=== PATIENT | female | born 1950 | race Caucasian/White ===

== ENCOUNTER → 2017-04-04 09:46 | Outpatient (POV) | payer SELFPAY | PROVIDERS: Visit Provider Physician Assistant | DX: Z00.00 Encounter for general adult medical examination without abnormal findings (principal) ==

== ENCOUNTER → 2020-01-22 09:15 | Outpatient (POV) | payer SELFPAY | PROVIDERS: Visit Provider Dermatology | DX: Z00.00 Encounter for general adult medical examination without abnormal findings (principal) ==

== ENCOUNTER → 2021-12-07 09:43 | Outpatient (CLI) | payer MEDICARE, SELFPAY ==
[2021-12-07 10:23] LABS: Basophils % 0.4 % (0.1-2.0); Hematocrit 37.2 % (37.0-47.0); Lymphocytes # 1.2 K/mm3 (0.7-4.5); Lymphocytes % 19.2 % (10-50); Mean Corpuscular HGB Conc 32.4 g/dL (31.8-35.4); Mean Corpuscular Hemoglobin 27.7 pg (27.0-31.2); Mean Corpuscular Volume 85.4 fl (81-99); Mean Platelet Volume 7.3 fl (7.4-10.4); Monocytes # 0.4 K/mm3 (0.1-1.0); Neutrophils # 4.7 K/mm3 (1.8-7.8); Neutrophils % 74.3 % (37.0-80.0); Platelet Count 338 K/mm3 (142-424); Red Blood Count 4.35 M/mm3 (4.20-5.40); Red Cell Distribution Width 15.2 % (11.5-17.5); White Blood Count 6.3 K/mm3 (4.8-10.8)
[2021-12-07 11:26] LABS: Alanine Aminotransferase 22 U/L (12-78); Albumin Level 4.3 g/dl (3.5-5.0); Alkaline Phosphatase 135 U/L (38-126); Anion Gap 14.4 mEq/L (5-15); Aspartate Amino Transferase 30 U/L (14-36); Blood Urea Nitrogen 20 mg/dl (7-17); Calcium 9.1 mg/dl (8.4-10.2); Carbon Dioxide 28 mmol/L (22.0-30.0); Chloride 98 mmol/L (98-107); Estimated Glomerular Filt Rate 82 ml/min (>60); GFR (African American) 100 ML/MIN (>60); Globulin 2.1 g/dL (1.3-3.2); Glucose 87 mg/dl (74-100); Potassium 4.4 mmoL/L (3.5-5.1); Sodium 136 mmol/L (136-145); Total Protein,Serum 6.4 g/dl (6.3-8.2)
[2021-12-07 11:27] LABS: Bilirubin,Total < 0.1 mg/dl (0.2-1.3)
[2021-12-07 11:56] LABS: Thyroid Stimulating Hormone 2.35 uIU/mL (0.465-4.68)
[2021-12-07 12:32] LABS: Vitamin B12 713 pg/mL (239-931)
[2021-12-07 12:46] LABS: Folate > 20.00 ng/mL
== END ==
PROVIDERS: PCP Family Medicine; Visit Provider Nurse Practitioner Family
DX: R25.1 Tremor, unspecified (principal); B35.1 Tinea unguium; I10 Essential (primary) hypertension
CPT/HCPCS: 36415; 80053; 82607; 82746; 84443; 85025

== ENCOUNTER → 2023-01-14 16:22 | Outpatient (CLI) | payer MEDICARE, SELFPAY ==
--- NOTE | 2023-01-14 16:27 | XR_ITS ---
PROCEDURE INFORMATION: Exam: XR Lumbosacral Spine Exam date and time: 01/14/2023 4:38 PM Age: 72 years old Clinical indication: Injury or trauma; Fall; Blunt trauma (contusions or hematomas); Additional info: Lower back pain TECHNIQUE: Imaging protocol: Radiologic exam of the lumbosacral spine. Views: 2 or 3 views. COMPARISON: No relevant prior studies available. FINDINGS: Bones/joints: No loss of vertebral body height. Mild levoscoliosis. Mild multilevel degenerative disc disease. Severe multilevel facet arthropathy. 4 mm of retrolisthesis of L1 over L2. 9 mm of grade 1 anterolisthesis of L4 over L5. Osteopenia. Soft tissues: Unremarkable. IMPRESSION: 1. No acute findings. 2. Mild multilevel degenerative disc disease and severe multilevel facet arthropathy.
--- NOTE | 2023-01-14 16:27 | XR_ITS ---
PROCEDURE INFORMATION: Exam: XR Sacrum and Coccyx, 2 or More Views Exam date and time: 01/14/2023 4:38 PM Age: 72 years old Clinical indication: Injury or trauma; Fall; Blunt trauma (contusions or hematomas); Additional info: Lower back pain TECHNIQUE: Imaging protocol: XR of the sacrum and coccyx, 2 or more views. COMPARISON: No relevant prior studies available. FINDINGS: Bones/joints: Normal. No acute fracture. Soft tissues: Normal. IMPRESSION: No acute findings.
== END ==
PROVIDERS: PCP Family Medicine; Visit Provider Family Medicine
DX: M54.50 Low back pain, unspecified (principal)
CPT/HCPCS: 72100; 72220

== ENCOUNTER → 2023-01-31 16:06 | Outpatient (CLI) | payer MEDICARE, SELFPAY ==
--- NOTE | 2023-01-31 16:11 | MR_ITS ---
FINAL REPORT CLINICAL HISTORY: ACUTE RIGHT SIDED LOW BACK PAIN WITHOUT SCIATICA. PAIN SINCE FALLING 1 MONTH AGO FINDINGS: Multiplanar MR imaging of the lumbar spine was performed without contrast. On the sagittal T2-weighted images, there is abnormal decreased signal throughout the lumbar discs. The vertebrae are of normal height. There is moderate loss of height at L1-2. There is minimal spondylolisthesis of L4 on 5. L1-2: Diffuse disc bulge and endplate hypertrophy are present. There is moderate right neural foraminal narrowing. L2-3: There is no significant canal stenosis or neural foraminal narrowing. L3-4: Mild diffuse disc bulge is present with endplate hypertrophy. There is mild bilateral neural foraminal narrowing. L4-5: Moderate diffuse disc bulge is present with bilateral facet hypertrophy. There is moderate spinal canal compromise. There is moderate to high-grade left and [id number] right neural foraminal narrowing. L5-S1: Mild diffuse disc bulge is present. There is no canal stenosis or neural foraminal narrowing. IMPRESSION: Multilevel degenerative disc disease with moderate spinal canal compromise and moderate to high-grade left neural foraminal narrowing at L4-5. Reviewed, Interpreted and Dictated by Grady Dumont MD Transcribed by Nichole Newton Authenticated and [facility]
== END ==
PROVIDERS: PCP Family Medicine; Visit Provider Physician Assistant
DX: M54.50 Low back pain, unspecified (principal)
CPT/HCPCS: 72148; 76376

== ENCOUNTER 2023-09-06 18:00 | Outpatient (CLI) | payer MEDICARE, SELFPAY | END 2023-09-06 23:59 | disposition home or self-care (01) | LOC: LAB.DROPOF 09-07 12:37 | PROVIDERS: PCP Student in an Organized Health Care Education/Training Program; Visit Provider Student in an Organized Health Care Education/Training Program | DX: N39.0 Urinary tract infection, site not specified (principal); B96.1 Klebsiella pneumoniae [K. pneumoniae] as the cause of diseases classified elsewhere | CPT/HCPCS: 87086; 87088; 87186 ==

== ENCOUNTER 2024-01-27 11:19 | Outpatient (CLI) | payer MEDICARE, SELFPAY ==
--- NOTE | 2024-01-27 11:26 | CA_ITS ---
FINAL REPORT TECHNIQUE: Ultrasound images of the deep venous system were obtained from the left groin to the calf veins. CLINICAL HISTORY: Left Leg swelling x 2 days, S/p fall 1 week ago FINDINGS: The deep venous system is normally compressible. Normal flow is identified. IMPRESSION: No evidence of left lower extremity DVT. Reviewed, Interpreted and Dictated by Warren Clayton III, MD Transcribed by Trinity Magana Authenticated and [facility]
== END 2024-01-27 23:59 | disposition home or self-care (01) ==
LOC: RT 11:24
PROVIDERS: PCP Physician Assistant; Visit Provider Physician Assistant
DX: R60.0 Localized edema (principal)
CPT/HCPCS: 93971

== ENCOUNTER 2024-02-21 10:52 | Outpatient (CLI) | payer MEDICARE, SELFPAY ==
--- OUTSIDE RECORDS SUMMARY | 2024-02-21 10:54 | XMS_ITS ---
Author Organization [facility] Address [address] [facility] [address] [place] [id number] Care Team Providers Care Shellfish Processing Machine Tender Name Role Phone James Sousa Unavailable [phone] Kathryn Perez Unavailable [phone] ALLERGIES No Known Allergies RESULTS Component Value Reference Range Notes Urinalysis - Inhouse Reviewed date:02/07/2024 03:39:09 PM Interpretation: Performing Lab: Notes/Report: Color/Clarity yellow/cloudy Leuk 3+ Nitrite neg Urobili 3.2 Protein 1+ pH 6.0 Blood 2+ Sp. Gr. 1.010 Ketone neg Bili neg Gluc neg bacteria WBC RBC P-Culture, Urine Reviewed date:02/09/2024 10:07:22 AM Interpretation:No growth Performing Lab: Notes/Report: Test performed by [facility], [facility] [address] [place] [address] , [address], [place] [address] Gustavo Flores MD, Technical Professional CLIA: [id number] Specimen Source Urine - Void Culture, Urine See Below Final Report : No growth REASON FOR VISIT possible UTI MEDICATIONS Medication SIG (Take, Route, Frequency, Duration) Notes Start Date End Date Status lamoTRIgine 200 MG 1 tab(s) orally once a day Active Venlafaxine HCl ER 150 MG 1 cap(s) orally once a day Active QUEtiapine Fumarate 100 MG 1 tab(s) orally once daily Active Compression Stockings medium compression As needed 01/27/2024 Active Calcium 500 MG 1 TAB TID *Please review a nd pick correct strength-formulatio n from Iptunean options. If intended option is not shown, discontinue and re-order from Quick Search* Active Macrobid 100 MG 1 capsule with food Orally every 12 hrs for 5 day(s) 02/07/2024 Active Lisinopril 10 MG 1 tab(s) orally once a day for 90 days Active Rosuvastatin Calcium 20 MG 1 tab(s) orally once a day for 90 days Active Solifenacin Succinate 10 MG 1 tab(s) orally once a day for 90 days Active VITAL SIGNS Weight 159.2 lbs 02/07/2024 Blood pressure systolic 120 mm Hg 02/07/20 24 Blood pressure diastolic 68 mm Hg 024 Heart Rate 71 /min 02/07/2024 Height 69.5 in 02/07/2024 BMI 23.17 kg/m2 02/07/2024 Encounters Encounter Location Date Provider Diagnosis [facility] [address] [id number] 02/07/2024 Kathryn Perez UTI (lower urinary tract infection) N39.0 ASSESSMENTS Encounter Date Diagnosis Assessment Notes Treatment Notes Treatment Clinical Notes 02/07/2024 UTI (lower urinary tract infection) (ICD-10 - N39.0) good water intake PLAN OF TREATMENT Medication Medication Name Sig Start Date Stop Date Notes Macrobid 100 MG 1 capsule with food Orally every 12 hrs for 5 day(s) 02/07/2024 Treatment Notes Assessment Notes UTI (lower urinary tract infection) good water intake Next Appt Details Follow Up: prn, Reason: Progress Notes * Examination Category Sub-Category Detail Notes General Examination Heart: RRR Lungs: CTAB A&P Abdomen: bowel sounds present soft and nontender no CVA tenderness General Appearance: NAD appears healthy alert pleasant Neurologic Exam: alert and oriented History and Physical Notes * HPI (History of Present Illness) Category Sub-Category Detail Notes Urology frequent urination burning sensation flank pain suprapubic pain hematuria fever
--- OUTSIDE RECORDS SUMMARY | 2024-02-21 10:54 | XMS_ITS ---
Author Organization [facility] Address [address] [place] [id number] Care Team Providers Care Shipper And Receiving Name Role Phone James Sousa Unavailable [phone] Shayla Mitchell Unavailable [phone] ALLERGIES No Known Allergies RESULTS Component Value Reference Range Notes Urinalysis - Inhouse Reviewed date:02/17/2024 01:48:42 PM Interpretation: Performing Lab: Notes/Report: Color/Clarity yellow cloudy Leuk 3+ Nitrite neg Urobili 3.2 Protein 3+ pH 6.0 Blood 2+ Sp. Gr. 1.020 Ketone neg Bili neg Gluc neg bacteria WBC RBC P-Culture, Urine Reviewed date:02/20/2024 08:46:42 AM Interpretation:intermediate Performing Lab: Notes/Report: Test performed by [facility], [employer] [address] [place] [address] , [address], [place] [address] Gustavo Flores MD, Home Care Companion CLIA: [id number] Specimen Source Urine - Void Culture, Urine See Below See Microbiol ogy Report Klebsiella pneumoniae 10-15,000 CFU/ML Klebsiella pneumoniae Sensitivity Panel See Below _ Organism K.pneum Antibiotic INTERP _ Amikacin S Ampicillin R Aztreonam S Cefepime S Cefoxitin S Ceftazidime S Ceftriaxone S Cefuroxime S Ciprofloxacin S Ertapenem S Gentamicin S Imipenem S Levofloxacin S Meropenem S Nitrofurantoin I Piperacillin/Tazo S Tetracycline S Tobramycin S Trimeth/Sulfa S S=SUSCEPTIBLE I=INTERMEDIATE R=RESISTANT REASON FOR VISIT possible UTI MEDICATIONS Medication SIG (Take, Route, Frequency, Duration) Notes Start Date End Date Status Compression Stockings medium compression As needed 01/27/2024 Active Macrobid 100 MG 1 capsule with food Orally every 12 hrs for 5 day(s) 02/07/2024 Active Macrobid 100 MG 1 capsule with food Orally every 12 hrs for 7 days 02/17/2024 Active Lisinopril 10 MG 1 tab(s) orally once a day for 90 days Active Rosuvastatin Calcium 20 MG 1 tab(s) orally once a day for 90 days Active Calcium 500 MG 1 TAB TID *Please review a nd pick correct strength-formulatio n from Medispan options. If intended option is not shown, discontinue and re-order from Quick Search* Active lamoTRIgine 200 MG 1 tab(s) orally once a day Active Venlafaxine HCl ER 150 MG 1 cap(s) orally once a day Active QUEtiapine Fumarate 100 MG 1 tab(s) orally once daily Active Solifenacin Succinate 10 MG 1 tab(s) orally once a day for 90 days Active VITAL SIGNS Weight 154.4 lbs 02/17/2024 Blood pressure systolic 110 mm Hg 02/17/20 24 Blood pressure diastolic 80 mm Hg 024 Height 69.5 in 02/17/2024 BMI 22.47 kg/m2 02/17/2024 Encounters Encounter Location Date Provider Diagnosis [facility] [address] [facility] [address] [place] [id number] 02/17/2024 Shayla Spencergeoff Dysuria R30.0 ASSESSMENTS Encounter Date Diagnosis Assessment Notes Treatment Notes Treatment Clinical Notes 02/17/2024 Dysuria (ICD-10 - R30.0) PLAN OF TREATMENT Medication Medication Name Sig Start Date Stop Date Notes Macrobid 100 MG 1 capsule with food Orally every 12 hrs for 7 days 02/17/2024 Next Appt Details Follow Up: via phone to repo rt test results, Reason: Progress Notes * Examination Category Sub-Category Detail Notes General Examination Heart: RSR Lungs: clear to auscultatio n Abdomen: bowel sounds present , soft and nontender General Appearance: NAD Back: no CVA tenderness Chest: normal shape and exp ansion History and Physical Notes * HPI (History of Present Illness) Category Sub-Category Detail Notes Urology frequent urination burning sensation
--- OUTSIDE RECORDS SUMMARY | 2024-02-21 10:54 | XMS_ITS ---
Author Organization [facility] Address [address] [facility] [address] [place] [id number] Care Team Providers Care Hand Candy Dipper Name Role Phone James Sousa Unavailable [phone] Shayla Mitchell Unavailable [phone] REASON FOR VISIT abnormal urine culture MEDICATIONS Medication SIG (Take, Route, Fr equency, Duration) Notes Start Date End Date Status Bactrim DS 800-160 MG 1 tablet Orally Tw o times a day for 10 day(s) 02/20/2024 Active Encounters Encounter Location Date Provider Diagnosis [facility] [address] [facility] [address] [place] [id number] 02/20/2024 Shayla Mitchell UTI (lower urinary tract infection) N39.0 ASSESSMENTS Encounter Date Diagnosis Assessment Notes Treatment Notes Treatment Clinical Notes 02/20/2024 UTI (lower urinary tract infection) (ICD-10 - N39.0) PLAN OF TREATMENT Medication Medication Name Sig Start Date Stop Date Notes Macrobid 100 MG 1 capsule with food Orally every 12 hrs 02/07/2024 Bactrim DS 800-160 MG 1 tablet Orally Tw o times a day for 10 day(s) 02/20/2024
--- OUTSIDE RECORDS SUMMARY | 2024-02-21 10:55 | XMS_ITS | Encounter Summary ---
Author Organization [facility] Address [address] [place] [address] Care Team Providers Care Buffing Wheel Presser Name Role Phone Ramon Mckeon Primary Care Provider Source Comments This information has been disclosed to you from confidential records protectfrom disclosure by state law. You shall make no further disclosure of thisinformation without the specific, written, and informed release of theindividual to whom it pertains, or as otherwise permitted by law. A generalauthorization for the release of medical or other information is not sufficientfor the purposes of the release of HIV test results or diagnoses. [id number] Health Encounter Details Date Type Department Care Team (Late st Contact Info) Description 10/31/2019 9:00 AM EDT Office Visit [facility] Psychiatry at [address] [place] [id number] Yazmin Mccarty, PAT Major depression in remission (CMS-HCC) (Primary Dx); Depression, unspecified depression type; DARRYN (generalized anxiety disorder) Social History Tobacco Use Types Packs/Day Years Used Date Smoking Tobacco: Never Smokeless Tobacco: Never Alcohol Use Standard Drinks/Week Comments Not Asked 0 (1 standard drink = 0.6 oz pur e alcohol) PHQ-2 Answer Date Recorded PHQ-2 Score 6 01/03/2019 Comments No Sex and Gender Information Value Date Recorded Sex Assigned at Female 10/29/2019 5:01 PM EDT Legal Sex Female 10:29 AM EDT Gender Identity Female 10/29/2019 5:01 PM EDT Sexual Orientation Straight 10/29/2019 5: 01 PM EDT COVID-19 Exposure Response Date Recorded In the last month, have you been in contact with someone who was confirmed or suspected to have Coronavirus / COVID-19? No / Unsure 10/30/2019 8:46 AM EDT documented as of this encounter Plan of Treatment Not on file documented as of this encounter Visit Diagnoses Diagnosis Major depression in remission (CMS-HCC)- Primary Major depressive disorder, single episode in full remission Depression, unspecified depression type DARRYN (generalized anxiety disorder) Generalized anxiety disorder documented in this encounter Additional Health Concerns Assessment Noted Time PHQ-9 Depression Total Score: 18 09/04/2 019 3:16 PM EDT documented as of this encounter Care Teams Buffing Wheel Presser Relationship Specialty Start Date End Date Ramon Mckeon [address] [place] [address] PCP - General 08/12/15 documented as of this encounter
--- OUTSIDE RECORDS SUMMARY | 2024-02-21 10:55 | XMS_ITS | Encounter Summary ---
Author Organization [facility] [place] [address] Care Team Providers Care Pupil Personnel Services Director Name Role Phone James Sousa Primary Care Provider [phone] Encounter Details Date Type Department Care Team (Latest Contact Info) Description 07/12/2022 Travel Social History Tobacco Use Types Packs/Day Years Used Date Smoking Tobacco: Never Passive Smoke Exposure: Never Smokeless Tobacco: Never Alcohol Use Standard Drinks/Week Comments Never 0 (1 standard drink = 0.6 oz pur e alcohol) Comments Unknown Sex and Gender Information Value Date Recorded Sex Assigned at Not on file Legal Sex Female 11:12 AM EST Gender Identity Not on file Sexual Orientation Not on file COVID-19 Exposure Response Date Recorded In the last 10 days, have yo u been in contact with someone who was confirmed or suspected to have Coronavirus/COVID-19? No / Unsure 07/12/2022 9:09 PM EDT documented as of this encounter Plan of Treatment Not on file documented as of this encounter Visit Diagnoses Not on filedocumented in this encounter Care Teams Pupil Personnel Services Director Relationship Specialty Start Date End Date James Sousa Replaced by [facility] [place] [facility] [address] [place] [address] PCP - General Family Medicine 05/24/22 documented as of this encounter
--- OUTSIDE RECORDS SUMMARY | 2024-02-21 10:55 | XMS_ITS | Encounter Summary ---
Author Organization [facility] Address [address] [place] [address] Care Team Providers Care Automation Test Engineer Name Role Phone James Sousa Primary Care Provider [phone] Reason for Visit * Reason Comments Pain Encounter Details Date Type Department Care Team (Late st Contact Info) Description 05/24/2022 1:00 PM EST Office Visit [facility] [address] [place] [address] Tru Costa MD [address] [place], [place] [phone] Left wrist pain (Primary Dx); Scapholunate advanced collapse of left wrist Social History Tobacco Use Types Packs/Day Years [...] on file Sexual Orientation Not on file documented as of this encounter Last Filed Vital Signs Vital Sign Reading Time Taken Comments Blood Pressure - - Pulse - - Temperature - - Respiratory Rate - - Oxygen Saturation - - Inhaled Oxygen Concentration - - Weight 77.1 kg (170 lb) 05/24/2022 1:03 PM EST Height 175.3 cm (5' 9 ) 05/24/2022 1:03 PM EST Body Mass Index 25.1 05/24/2022 1:03 PM EST documented in this encounter Progress Notes * Tru Costa MD - 05/24/2022 1:00 PM EST Images from the original note were not included. Chief Complaint Pain of the Left Hand History of Present Illness: Chary Chandra is a 71 y.o. female. She presents today for a new hand surgery specialty evaluation regarding her left wrist. She states that she has had a longstanding prominence which seems to have increased in intensity over the last few months. She does not remember a recent injury. 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 Medical History: Patients past medical, family and social histories were reviewed and updated. There were no changesexcept as noted. Review of Systems Pertinent items are noted in HPI Denies fever, chills, confusion, bowel/bladder active change.of systems reviewed from Patient History Form and available in the patient's chart under the Media tab. Vital Signs There were no vitals filed for this visit. General Exam: Constitutional: Patient is adequately groomed with no evidence of malnutrition Mental Status: The patient is oriented to time, place and person. The patient's mood and affect areappropriate. Lymphatic: The lymphatic examination bilaterally reveals allareas to be without enlargement or induration. Neurological: The patient has good coordination. There is no weakness or sensory deficit. Wrist Examination Inspection: There is an obvious fullness over the dorsal radial left wrist which is not present on the opposite right side. Palpation: There is no dramatic warmth but there is tenderness if I palpate very firmly along the radius scaphoid articulation. Range of Motion: Full range of motion of fingers and thumb. Wrist extension is limited to approximately 10 degrees but palmar flexion is 40 degrees. Strength: No focal weakness Special Tests: Modified Colunga's maneuver is nontender and there is no dramatic acute laxity Skin: There are no additional worrisome rashes, ulcerations or lesions. Sensation: normal Circulation normal Additional Comments: Additional Examinations: Opposite Upper Extremity: normal skin, tone, ROM, strength, perfusion, sensation Radiology: X-rays obtained and reviewed in office: Views 3 views Location left wrist Impression x-rays demonstrate advanced scapholunate advanced collapse with involvement at the radius scaphoid articulation, capitate and lunate articulation, and with arthritic change along the proximal articulation of the capitate. Diagnostic Test Findings: Assessment: [facility] left wrist Impression: Encounter Diagnoses Name Primary? Left wrist pain Yes ??? Scapholunate advanced collapse of left wrist Office Procedures: Orders Placed This Encounter Procedures ??? XR WRIST LEFT 3V MIN Standing Status: Future Number of Occurrences: 1 Standing Expiration Date: 05/25/2023 Order Specific Question: Release to Patient Answer: Immediate ??? AL WHO WRIST EXTENSION CONTROL NON MOLDED This patient has been prescribed a Titan Wrist Brace which is designed to provide immobilization and support of the left wrist and forearm following an injury, fracture and/or surgery. The patient prescribed to wear this splint for all ADLs following an injury or surgery to prevent further damage to the injured or surgically repaired site. Patient is to wear the brace as prescribed until next patient visit. Verbal and written instructions for the use and application of this item were given. Patient was instructed that should the brace result in increased pain, decreased sensation, increased swelling or an overall worsening of their medical condition, to please contact our office immediately. Treatment Plan: Together we discussed the diagnosis and the realities with her advanced collapse and arthritis. We talked about conservative and surgical options. I think this warrants an initial conservative approach we will provide her with a wrist brace to see if this would be more comfortable than a brace that she has at home. In addition, we talked about topical medicines and positional and activity modifications to minimize repeated aggravation to the wrist. Down the road if she had a flareup a cortisone injection could always be considered, but ultimatelyI believe that the end result if she fails conservative care would be a wrist arthrodesis. I will be happy to see her back if we fail to have significant long-term relief within reason. Please note that this obstetrics technician was created using voice recognition software. Any errors are unintentional and may be due to voice recognition obstetrics technician. DME Summary Normal Orders This Visit AL WHO WRIST EXTENSION CONTROL NON MOLDED [[id number] [facility]] Order #: [id number] This patient has been prescribed a Titan Wrist Brace which is designed to provide immobilization and support of the left wrist and forearm following an injury, fracture and/or surgery. The patient prescribed to wear this splint for all ADLs following an injury or surgery to prevent further damage to the injured or surgically repaired site. Patient is to wear the brace as prescribed until next patient visit. Verbal and written instructions for the use and application of this item were given. Patient was instructed that should the brace result in increased pain, decreased sensation, increased swelling or an overall worsening of their medical condition, to please contact our office immediately. documented in this encounter Plan of Treatment Scheduled Orders Name Type Priority Associated Diagnoses Orde r Schedule AL WHO WRIST EXTENSION CONTROL NON MOLDED AL Charge Routine Scapholunate advanced collapse of left wrist Ordered: 05/24/2022 documented as of this encounter Results * XR WRIST LEFT PA LATERAL AND OBLIQUE (05/24/2022 1:14 PM EST) Narrative Genericuser, Jennifer - 05/24/2022 1:14 PM EST Please see physician's note from office encounter for x-ray imaging result Tru Costa MD IMG DIAGNOSTIC IMAGING ORDERAB LES Final Result documented in this encounter Visit Diagnoses Diagnosis Left wrist pain- Primary Pain in joint, forearm Scapholunate advanced collapse of left wrist Left wrist pain Pain in joint, forearm documented in this encounter Care Teams Automation Test Engineer Relationship Specialty Start Date End Date James Sousa [address] [place] [address] [address] [place] [address] PCP - General Family Medicine 05/24/22 documented as of this encounter
--- OUTSIDE RECORDS SUMMARY | 2024-02-21 10:55 | XMS_ITS | Encounter Summary ---
Author Organization [facility] Address [address] [place] [address] Care Team Providers Care Staff Cytotechnologist Name Role Phone Ramon Mckeon Primary Care Provider [phone] Source Comments This information has been disclosed [...] release of HIV test results or diagnoses. [id number] Encounter Details Date Type Department Care Team (Latest Contact Info) Description 10/30/2019 Travel Social History Tobacco Use Types Packs/Day [...] Diagnoses Not on filedocumented in this encounter Additional Health Concerns Assessment Noted Time PHQ-9 Depression Total Score: 18 09/04/2 019 3:16 PM EDT documented as of this encounter Care Teams Staff Cytotechnologist Relationship Specialty Start Date End Date Ramon Mckeon [address] [place] [address] PCP - General 08/12/15 documented as of this encounter
--- OUTSIDE RECORDS SUMMARY | 2024-02-21 10:55 | XMS_ITS | Encounter Summary ---
Author Organization [facility] Address [address] [place] [address] Care Team Providers Care Radiology Physician Name Role Phone Ramon Mckeon Primary Care Provider [phone] Source Comments This information has been disclosed [...] release of HIV test results or diagnoses. [id number] Health Reason for Visit * Reason Comments Medication Refill Encounter Details Date Type Department Care Team ([facility] Contact Info) Description 06/07/2020 Refill [facility] Psychiatry at [address] [place] [address] Yazmin Mccarty, PAT Social History Tobacco Use Types Packs/Day Years [...] have Coronavirus / COVID-19? No / Unsure 05/27/2020 3:13 PM EST documented as of this encounter Plan of Treatment Not on file documented as of this encounter Visit Diagnoses Not on filedocumented in this encounter Additional Health Concerns Assessment Noted Time PHQ-9 Depression Total Score: 18 019 3:16 PM EDT documented as of this encounter Care Teams Radiology Physician Relationship Specialty Start Date End Date Ramon Mckeon [address] [place] [address] PCP - General 08/12/15 documented as of this encounter
--- OUTSIDE RECORDS SUMMARY | 2024-02-21 10:55 | XMS_ITS | Clinical Summary ---
Author Organization [facility] Address [address] [place] [address] Care Team Providers Care Diaper Folder Name Role Phone Ramon Mckeon Primary Care Provider [phone] Source Comments This information has been disclosed to you from confidential records protectedfrom disclosure by state law. You shall make no further disclosure of thisinformation without the specific, written, and informed release of theindividual to whom it pertains, or as otherwise permitted by law. A generalauthorization for the release of medical or other information is not sufficientfor the purposes of therelease of HIV test results or diagnoses. [id number] Allergies No known active allergies Medications * This document contains information received from the source organization and may not represent a complete record from that organization. lovastatin (MEVACOR) 20 MG tablet 10/04/2015 Active lisinopril (PRINIVIL,ZESTRI L) 10 MG tablet 07/21/2016 Act stevo lamoTRIgine (LAMICTAL) 200 MG tablet TAKE 1 TABLET AT BEDTIME 90 tablet 1 05/30/2020 Active QUEtiapine (SEROQUEL) 100 MG tablet TAKE 1 TABLET (100 MG TOTAL) BY MOUTH AT BEDTIME. 90 tablet 1 06/09/2020 Active venlafaxine (EFFEXOR-XR) 150 MG 24 hr capsuleIndicatio ns:Depression, unspecified depression type TAKE 1 CAPSULE (150 MG TOTAL) BY MOUTH DAILY. 90 capsule 1 10/02/2020 Active Active Problems Problem Noted Date Diagnosed Date Depression Social History Tobacco Use Types Packs/Day Years [...] Orientation Straight 10/29/2019 5: 01 PM EDT Last Filed Vital Signs Vital Sign Reading Time Taken Comments Blood Pressure 122/69 05/27/2020 3:13 PM EST Pulse 75 05/27/2020 3:13 PM EST Temperature 36.1 ??C (97 ??F) 05/27/2020 3:13 PM EST Respiratory Rate - - Oxygen Saturation - - Inhaled Oxygen Concentration - - Weight 78 kg (172 lb) 05/27/2020 3:13 PM EST Height 175.3 cm (5' 9 ) 05/27/2020 3:13 PM EST Body Mass Index 25.4 05/27/2020 3:13 PM EST Plan of Treatment Not on file Insurance [employer] [facility] [employer] PPO MEDICARE Care Teams Diaper Folder Relationship Specialty Start Date End Date Ramon Mckeon [address] [place] [address] PCP - General 08/12/15
--- OUTSIDE RECORDS SUMMARY | 2024-02-21 10:55 | XMS_ITS | Encounter Summary ---
Author Organization [facility] Address [address] [place] [address] Care Team Providers Care Police Sergeant Name Role Phone Ramon Mckeon Primary Care Provider [phone] Source Comments This information has been disclosed [...] release of HIV test results or diagnoses. [id number] Health Reason for Visit * Reason Comments Follow-up Encounter Details Date Type Department Care Team ([facility] Contact Info) Description 07/25/2019 9:30 AM EDT Office Visit [facility] Psychiatry at [address] [place] [id number] Yazmin Mccarty, PAT Major depression in remission [...] have Coronavirus / COVID-19? No / Unsure 07/24/2019 10:18 AM EDT documented as of this encounter Last Filed Vital Signs Vital Sign Reading Time Taken Comments Blood Pressure - - Pulse - - Temperature - - Respiratory Rate - - Oxygen Saturation - - Inhaled Oxygen Concentration - - Weight - - Height 175.3 cm (5' 9 ) 07/24/2019 10:17 AM EDT Body Mass Index - - documented in this encounter Plan of Treatment Not on file documented as of this encounter Visit Diagnoses Diagnosis Major depression in remission ([facility])- Primary Major depressive disorder, single episode in full remission Depression, unspecified depression type DARRYN (generalized anxiety disorder) Generalized anxiety disorder documented in this encounter Additional Health Concerns Assessment Noted Time PHQ-9 Depression Total Score: 18 09/04/2 019 3:16 PM EDT documented as of this encounter Care Teams Police Sergeant Relationship Specialty Start Date End Date Ramon Mckeon [address] [place] [address] PCP - General 08/12/15 documented as of this encounter
--- OUTSIDE RECORDS SUMMARY | 2024-02-21 10:55 | XMS_ITS | Patient Health Record ---
[facility] Address [address] [facility] [address] [place] [id number] Care Team Providers Care Contracting Engineer Name Role Phone LarsJames Unavailable [phone] PerezzEequielKathryn Unavailable [phone] Shayla Mitchell Unavailable [phone] ALLERGIES No Known Allergies RESULTS Component Value Reference Range Notes CBC Venipuncture (in house) Reviewed date:07/15/2023 01:34:21 PM Interpretation: Performing Lab: Notes/Report: wbc 6.3 3.5 - 10 lymph 17.0 15 - 50 mid 6.0 2 - 15 gran 77.0 35 - 80 rbc 4.71 3.5 - 5.5 hgb 13.2 11.5 - 16.5 hct 40.3 35 - 55 mcv 85.6 75 - 100 mch 28.1 25 - 35 mchc 32.9 31 - 38 platlet 236 100 - 400 P-Comprehensive Metabolic Pa radha (CMP) Reviewed date:07/19/2023 10:35:02 AM Interpretation:a/g Ratio 3.0 Performing Lab: Notes/Report: Test performed by [facility], [facility] , [address], [place] [address] Gustavo Flores MD, Knotter CLIA: [id number] Sodium 142 135-145 mEq/L Potassium 4.2 3.5-5.3 mEq/L Chloride 104 97-108 mEq/L CO2 23 22-32 mEq/L Glucose 86 65-99 mg/dL BUN 17 8-23 mg/dL Creatinine 0.96 0.50-1.00 mg/dL Calcium 10.2 8.6-10.4 mg/dL eGFR by Creatinine 62 >59 mL/min/1.73m2 Protein 6.8 6.0-8.3 g/dL Albumin 5.1 3.5-5.3 g/dL Alkaline Phosphatase 101 35-121 IU/L ALT (SGPT) 15 <5-47 IU/L AST (SGOT) 26 <5-40 IU/L Bilirubin, Total 0.3 <0.2-1.2 mg/dL A/G Ratio 3.0 1.1-2.5 mg/dL P-Lipid Panel Reviewed date:07/19/2023 10:35:02 AM Interpretation:Normal Performing Lab: Notes/Report: Test performed by [facility], [address] , [address], [place] [address] Gustavo Flores MD, Knotter CLIA: [id number] Cholesterol 185 <200 mg/dL Triglycerides 76 <150 mg/dL HDL Cholesterol 90 >39 mg/dL Cholesterol / HDL Ratio 2.06 0.00-4.44 Ratio Non-HDL Cholesterol 95 <130 mg/dL LDL Cholesterol (Calculation) 80 <130 mg/dL LDL Cholesterol Levels* Less than 100 mg/dL Optimal 100 to 129 mg/dL Near Optimal/ Above Optimal 130 to 159 mg/dL Borderline High 160 to 189 mg/dL High 190 mg/dL and above Very High * Categories as recommended by the 2004 ATPIII guidelines LDL/HDL Ratio 0.9 <3.3 Ratio LDL Cholesterol Patient History Test Date: 07/16/2022 LDL Results: 95 Units: mg/dL % Change: - ------- Test Date: 07/15/2023 LDL Results: 80 Units: mg/dL % Change: -15% P-TSH reflex to FT4 Reviewed date:07/19/2023 10:35:02 AM Interpretation:Normal Performing Lab: Notes/Report: Test performed by [facility] [address] [place], [place] [address] , [address], [place] [address] Gustavo Flores MD, Knotter CLIA: [id number] TSH reflex to FT4 2.46 0.43-5.25 mU/L TEN-stool panel Reviewed date:12/14/2023 03:38:21 PM Interpretation:Negative Performing Lab: Notes/Report: Negative Urinalysis - Inhouse Reviewed date:02/07/2024 03:39:09 PM Interpretation: Performing Lab: Notes/Report: Color/Clarity yellow/cloudy Leuk 3+ Nitrite neg Urobili 3.2 Protein 1+ pH 6.0 Blood 2+ Sp. Gr. 1.010 Ketone neg Bili neg Gluc neg bacteria WBC RBC P-Culture, Urine Reviewed date:02/09/2024 10:07:22 AM Interpretation:No growth Performing Lab: Notes/Report: Test performed by [employer] [employer] [address] [place] [address] , [address], [place] [address] Gustavo Flores MD, Knotter CLIA: [id number] Specimen Source Urine - Void Culture, Urine See Below Final Report : No growth Urinalysis - Inhouse Reviewed date:02/17/2024 01:48:42 PM Interpretation: Performing Lab: Notes/Report: Color/Clarity yellow cloudy Leuk 3+ Nitrite neg Urobili 3.2 Protein 3+ pH 6.0 Blood 2+ Sp. Gr. 1.020 Ketone neg Bili neg Gluc neg bacteria WBC RBC P-Culture, Urine Reviewed date:02/20/2024 08:46:42 AM Interpretation:intermediate Performing Lab: Notes/Report: Test performed by [facility], [address] , [address], [place] [address] Gustavo Flores MD, Knotter CLIA: [id number] Specimen Source Urine - Void Culture, Urine See Below See Microbiol ogy Report Klebsiella pneumoniae 10-15,000 CFU/ML Klebsiella pneumoniae Sensitivity Panel See Below Organism K.pneum Antibiotic INTERP Amikacin S Ampicillin R Aztreonam S Cefepime S Cefoxitin S Ceftazidime S Ceftriaxone S Cefuroxime S Ciprofloxacin S Ertapenem S Gentamicin S Imipenem S Levofloxacin S Meropenem S Nitrofurantoin I Piperacillin/Tazo S Tetracycline S Tobramycin S Trimeth/Sulfa S S=SUSCEPTIBLE I=INTERMEDIATE R=RESISTANT REASON FOR REFERRAL Diagnosis 1 Female bladder prola pse (N81.10) Referral Organization [facility] Referring Provider First Name Shayla Referring Provider Last Name Stephen Referring Provider Speciality Physician Fire Support Specialist General Notes Melissa Duenas 10/05/19 24 10:40:09 AM > sent referral to [facility] Dr. Chavez via web Referral Priority Routine Diagnosis 1 Chronic diarrhea (K5 2.9) Referral Organization [facility] Referring Provider First Name James Navarrete Referring Provider Last Name Lars Referring Provider Speciality Family Mary glass Referred Provider Specialty Gastroentero logy General Notes Melissa Duenas 024 9:32:04 AM > faxed referral with office notes to Dr. Aragon Referral Priority Routine MEDICATIONS Medication SIG (Take, Route, Frequency, Duration) Notes Start Date End Date Status Compression Stockings medium compression As needed 01/27/2024 Active Bactrim DS 800-160 MG 1 tablet Orally Two times a day for 10 day(s) 02/20/2024 Active Calcium 500 MG 1 TAB TID *Please review a nd pick correct strength-formulatio n from [employer] options. If intended option is not shown, discontinue and re-order from Quick Search* Active lamoTRIgine 200 MG 1 tab(s) orally once a day Active Venlafaxine HCl ER 150 MG 1 cap(s) orally once a day Active QUEtiapine Fumarate 100 MG 1 tab(s) orally once daily Active Macrobid 100 MG 1 capsule with food Orally every 12 hrs for 7 days 02/17/2024 Active Lisinopril 10 MG 1 tab(s) orally once a day for 90 days Active Rosuvastatin Calcium 20 MG 1 tab(s) orally once a day for 90 days Active Solifenacin Succinate 10 MG 1 tab(s) orally once a day for 90 days Active IMMUNIZATIONS Vaccine Route Administration Date Status Comme nts COVID 19 Dinh Unknown 06/25/2020 Administered Prevnar (PCV20) IM Intramuscular 07/15/2023 Administered SOCIAL HISTORY Sex Assigned At : Social History Observation Description Sex Assigned At Unknown PROBLEMS Problem Type ICD Code Onset Dates Problem Status W/U Status Risk SNOMED Code Notes Problem Lumbar facet arthropathy (M47.816) Active confirmed 068268858 Problem Depression with anxiety (F41.8) Active confirmed Mixed anxiet y and depressive disorder (953858103) Problem Overflow incontinence (N39.490) Active confirmed 412204633 Problem Dyslipidemia (E78.5) Active confirmed Dyslipidemia (959656732) Problem Female bladder prolapse (N81.10) Active confirmed 982252628 Problem Primary hypertension (I10) Active confirmed 89231451 Problem 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) Active confirmed 188403348 VITAL SIGNS Heart Rate 71 /min 02/07/2024 Blood pressure diastolic 80 mm Hg 02/17/2024 Height 69.5 in 02/17/2024 Blood pressure systolic 110 mm Hg 02/17/2024 Weight 154.4 lbs 02/17/2024 BMI 22.47 kg/m2 02/17/2024 Encounters Encounter Location Date Provider Diagnosis [facility] [address] [place], [place] [id number] 07/15/2023 Shayla Stephen Adult general medica l examination Z00.00 ; Dyslipidemia E78.5 ; Primary hypertension I10 ; Depression with anxiety F41.8 ; Benign familial tremor G25.0 ; Colon cancer screening Z12.11 ; Lumbar facet arthropathy M47.816 ; Overflow incontinence N39.490 and BMI 24.0-24.9, adult Z68.24 [facility] [address] [place], [place] [id number] 07/19/2023 Shayla Crowdy [facility] [address] [facility] [address] [place], [place] [id number] 10/03/2023 Shayla Stephen Female bladder prolapse N81.10 [facility] [address] [facility] [address] [place] [id number] 10/05/2023 Shayla Crowdy [facility] [address] [facility] [address] [place] [id number] 12/07/2023 Shayla Tjdy Chronic diarrhea K52 .9 and Bloating R14.0 [facility] [address] [facility] [address] [place] [id number] 12/08/2023 Shayla Crowdy [facility] [address] [facility] [address] [place] [id number] 12/14/2023 Shayla Crowdy [facility] [address] [facility] [address] [place] [id number] 01/09/2024 R Landon Sousa Chronic diarrhea K52 .9 and Bloating R14.0 [facility] [address] [facility] [address] [place] [id number] 01/27/2024 Shayla Crowdy Edema of left lower extremity R60.0 [facility] [address] [facility] [address] [place] [id number] 01/27/2024 Shayla Crowdy [facility] [facility] [address] [place] [id number] 02/07/2024 Kathryn Perez UTI (lower urinary tract infection) N39.0 [facility] [address] [facility] [address] [place] [id number] 02/17/2024 Shayla Crowdy Dysuria R30.0 [facility] [address] [facility] [address] [place] [id number] 02/20/2024 Shayla Crowdy UTI (lower urinary tract infection) N39.0 ASSESSMENTS Encounter Date Diagnosis Assessment Notes Treatment Notes Treatment Clinical Notes 07/15/2023 Dyslipidemia (ICD-10 - E78.5) 07/15/2023 Adult general medical examination (ICD-10 - Z00.00) Patient instructed to return to office Annually for Annual Wellness Visits to include annual screenings of Pain assessment, Functional Ability assessment, Cognitive Ability assessment, Fall Risk assessment, Depression screening and Bladder control screening. 10/03/2023 Female bladder prolapse (ICD-10 - N81.10) 12/07/2023 Bloating (ICD-10 - R14.0) 12/07/2023 Chronic diarrhea (ICD-10 - K52.9) 01/09/2024 Bloating (ICD-10 - R14.0) 01/09/2024 Chronic diarrhea (ICD-10 - K52.9) 01/27/2024 Edema of left lower extremity (ICD-10 - R60.0) Will get a doppler to r/o a clot. If normal, can try compression stockings and elevation. 02/07/2024 UTI (lower urinary tract infection) (ICD-10 - N39.0) good water intake 02/17/2024 Dysuria (ICD-10 - R30.0) 02/20/2024 UTI (lower urinary tract infection) (ICD-10 - N39.0) 07/15/2023 Primary hypertension (ICD-10 - I10) 07/15/2023 Depression with anxiety (ICD-10 - F41.8) 07/15/2023 Benign familial tremor (ICD-10 - G25.0) 07/15/2023 Colon cancer screening (ICD-10 - Z12.11) 07/15/2023 Lumbar facet arthropathy (ICD-10 - M47.816) 07/15/2023 Overflow incontinence (ICD-10 - N39.490) 07/15/2023 BMI 24.0-24.9, adult (ICD-10 - Z68.24) PLAN OF TREATMENT Pending Test Test Name Order Date venous doppler ultrasound left leg 01/26 Insurance Providers Payer Name Payer Address Payer Phone Subscriber Number Group Number Insured Name Patient Relationship to Insured Coverage Start Date Coverage End Date [employer] (MEDICAR E) [address] [address] [place] [address] [id number] SLOANE DAVID Self - patient is the insured MEDICAL (GENERAL) HISTORY Medical History History ICD Code Hypertension Hyperlipidemia Depression Heart Murmur Benign Familial Tremor Anxiety Surgical History Surgery Date(Month/Year) hysterectomy for uterine fibroids 1980s Bilateral oophorectomy for cystic diseas e Right TKA 09/2021 Fusion L4/L5 05/18/23 Tonsillectomy Hospitalization History Reason Date(Month/Year)
--- OUTSIDE RECORDS SUMMARY | 2024-02-21 10:55 | XMS_ITS | Encounter Summary ---
Author Organization [facility] [place] [address] Care Team Providers Care Driver/Refuse Collector Name Role Phone James Sousa Primary Care Provider [phone] Encounter Details Date Type Department Care Team (Latest Contact Info) Description 02/12/2023 Travel Social History Tobacco Use Types Packs/Day [...] on file documented as of this encounter Plan of Treatment Not on file documented as of this encounter Visit Diagnoses Not on filedocumented in this encounter Care Teams Driver/Refuse Collector Relationship Specialty Start Date End Date James Sousa [address] [place] [address] [address] [facility] [address] PCP - General Family Medicine 05/24/22 documented as of this encounter
--- OUTSIDE RECORDS SUMMARY | 2024-02-21 10:55 | XMS_ITS | Encounter Summary ---
Author Organization [facility] Address [address] [place] [address] Care Team Providers Care Parachute Repairer Name Role Phone James Sousa Primary Care Provider [phone] Encounter Details Date Type Department Care Team (Late st Contact Info) Description 05/24/2022 1:15 PM EST [facility] [address] [place] [address] Tru Costa MD [address] [place] [address] Left wrist pain Social History Tobacco Use Types Packs/Day Years [...] on file documented as of this encounter Procedures Procedure Name Priority Date/Time Associated Diagnosis Comments XR WRIST LEFT PA LATERAL AND OBLIQUE Routine 05/24/2022 1:14 PM EST Left wrist pain documented in this encounter Results * XR WRIST LEFT PA LATERAL AND OBLIQUE (05/24/2022 1:14 PM EST) Narrative Jennifer Santizo - 05/24/2022 1:14 PM EST Please see physician's note from office encounter for x-ray imaging result us Tru Costa MD IMG DIAGNOSTIC IMAGING ORDERAB LES Final Result documented in this encounter Visit Diagnoses Diagnosis Left wrist pain Pain in joint, forearm documented in this encounter Care Teams Parachute Repairer Relationship Specialty Start Date End Date James Sousa [address] [place] [address] [address] [place] [address] PCP - General Family Medicine 05/24/22 documented as of this encounter
--- OUTSIDE RECORDS SUMMARY | 2024-02-21 10:55 | XMS_ITS | Encounter Summary ---
Author Organization [facility] Address [address] [place] [address] Care Team Providers Care Core Winding Operator Name Role Phone Ramon Mckeon Primary Care Provider [phone] Source Comments This information has been disclosed [...] release of HIV test results or diagnoses. [id number] Health Encounter Details Date Type Department Care Team (Latest Contact Info) Description 05/27/2020 Travel Social History Tobacco Use Types Packs/Day [...] documented as of this encounter Care Teams Core Winding Operator Relationship Specialty Start Date End Date Ramon Mckeon [address] [place] [address] PCP - General 08/12/15 documented as of this encounter
--- OUTSIDE RECORDS SUMMARY | 2024-02-21 10:55 | XMS_ITS | Encounter Summary ---
Author Organization [facility] Address [address] [place] [address] Care Team Providers Care Electronics Hardware Design Engineer Name Role Phone Ramon Mckeon Primary Care Provider [phone] Source Comments This information has been disclosed [...] release of HIV test results or diagnoses. [id number] Health Reason for Visit * Reason Comments Medication Refill Encounter Details Date Type Department Care Team ([facility] st Contact Info) Description 10/01/2020 Refill [facility] Psychiatry at [address] [place] [address] Yazmin Mccarty, PAT Depression, unspecified depression type Social History Tobacco Use Types Packs/Day Years [...] Orientation Straight 10/29/2019 5: 01 PM EDT documented as of this encounter Plan of Treatment Not on file documented as of this encounter Visit Diagnoses Diagnosis Depression, unspecified depression type documented in this encounter Additional Health Concerns Assessment Noted Time PHQ-9 Depression Total Score: 18 019 3:16 PM EDT documented as of this encounter Care Teams Electronics Hardware Design Engineer Relationship Specialty Start Date End Date Ramon Mckeon [address] [address] PCP - General 08/12/15 documented as of this encounter
--- OUTSIDE RECORDS SUMMARY | 2024-02-21 10:55 | XMS_ITS | Encounter Summary ---
Author Organization [facility] [place] [address] Care Team Providers Care Credit Balance Specialist Name Role Phone James Sousa Primary Care Provider [phone] Encounter Details Date Type Department Care Team (Latest Contact Info) Description 04/10/2023 Travel Social History Tobacco Use Types Packs/Day [...] on filedocumented in this encounter Care Teams Credit Balance Specialist Relationship Specialty Start Date End Date James Sousa [address] [place] [address] [address] [facility] [address] PCP - General Family Medicine 05/24/22 documented as of this encounter
--- OUTSIDE RECORDS SUMMARY | 2024-02-21 10:55 | XMS_ITS | Encounter Summary ---
Author Organization [facility] Address [address] [place] [address] Care Team Providers Care Butcher Supervisor Name Role Phone Ramon Mckeon Primary Care Provider [phone] Source Comments This information has been disclosed [...] release of HIV test results or diagnoses. [id number] Health Reason for Visit * Reason Comments Medication Refill Encounter Details Date Type Department Care Team ([facility] Contact Info) Description 05/29/2020 Refill [facility] Psychiatry at [address] [place] [address] Yazmin Mccarty, PAT Social History Tobacco Use [...] documented as of this encounter Care Teams Butcher Supervisor Relationship Specialty Start Date End Date Ramon Mckeon [address] [place] [address] PCP - General 08/12/15 documented as of this encounter
--- OUTSIDE RECORDS SUMMARY | 2024-02-21 10:55 | XMS_ITS | Encounter Summary ---
Author Organization [facility] Address [address] [place] [address] Care Team Providers Care Hydropress Operator Name Role Phone Ramon Mckeon Primary Care Provider [phone] Source Comments This information has been disclosed [...] release of HIV test results or diagnoses. [id number] Health Reason for Visit * Reason Comments Follow-up Encounter Details Date Type Department Care Team ([facility] Contact Info) Description 05/27/2020 3:15 PM EST Office Visit [facility] Psychiatry at [address] [place] [address] [phone] Yazmin Mccarty, PAT Major depression in remission [...] PM EST documented as of this encounter Last Filed [...] Mass Index 25.4 05/27/2020 3:13 PM EST documented in this encounter Plan of Treatment Not on file documented as of this encounter Visit Diagnoses Diagnosis Major depression in remission ([facility] Primary Major depressive disorder, single episode in full remission Depression, unspecified depression type DARRYN (generalized anxiety disorder) Generalized anxiety disorder documented in this encounter Additional Health Concerns Assessment Noted Time PHQ-9 Depression Total Score: 18 06/2 019 3:16 PM EDT documented as of this encounter Care Teams Hydropress Operator Relationship Specialty Start Date End Date Ramon Mckeon [address] [id number] PCP - General 08/12/15 documented as of this encounter
--- OUTSIDE RECORDS SUMMARY | 2024-02-21 10:55 | XMS_ITS | Encounter Summary ---
Author Organization [facility] Address [address] [place] [address] Care Team Providers Care Tire Repair Mechanic Name Role Phone Ramon Mckeon Primary Care Provider [phone] Source Comments This information has been disclosed [...] release of HIV test results or diagnoses. [id number] Health Encounter Details Date Type Department Care Team (Late st Contact Info) Description 04/25/2020 Bulk Orders [facility] at [facility] [address] [facility] [address] [place] [address] Blaise Garcia MD [address] [place] [address] Social History Tobacco Use Types Packs/Day Years [...] documented as of this encounter Care Teams Tire Repair Mechanic Relationship Specialty Start Date End Date Ramon Mckeon [address] [place] [address] PCP - General 08/12/15 documented as of this encounter
--- OUTSIDE RECORDS SUMMARY | 2024-02-21 10:55 | XMS_ITS | Clinical Summary ---
Author Organization [facility] Address [address] [facility] [address] [place] [address] Phone Care Team Providers Care Chronic Care Nurse Name Role Phone Lars James Navarrete Primary Care Provider [phone] Allergies No known active allergies Medications * This document contains information received from the source organization and may not represent a complete record from that organization. lisinopriL (PRINIVIL;ZEST RIL) 10 mg Oral Tablet Take 10 mg by mouth daily. 7 Active lovastatin (MEVACOR) 20 mg Oral Tablet Take 20 mg by mouth With evening meal. 6 Active QUEtiapine (SEROQUEL) 100 mg Oral TabletIndicati ons:Moderate recurrent major depression (HCC) Take 1 Tablet by mouth nightly. 90 Tablet 1 4 Active venlafaxine (EFFEXOR-XR) 150 mg Oral Capsule, Sust. Release 24 hrIndications: Moderate recurrent major depression (HCC) Take 1 Capsule by mouth nightly. 90 Capsule 1 4 Active lamoTRIgine (LAMICTAL) 100 mg Oral TabletIndicati ons:Moderate recurrent major depression (HCC) Take 1 Tablet by mouth 2 times daily. 60 Tablet 2 4 Active valbenazine (INGREZZA) 40 mg Oral CapsuleIndicat ions:Dyskinesi a, tardive TAKE 1 CAPSULE BY MOUTH DAILY AT AT NOON 30 Capsule 4 Active valbenazine (INGREZZA) 40 mg Oral CapsuleIndicat ions:Dyskinesi a, tardive Take 40 mg by mouth daily at 1200pm. 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 Depression 06/23/2021 Surgical History Surgery Date Site/Laterality Comments HYSTERECTOMY ELBOW FRACTURE SURGERY TONSILLECTOMY Medical History Medical History Date Comments Hyperlipidemia Hypertension Depression Arthritis right knee Family History Medical History Relation Name Comments COPD Father Leukemia Maternal Grandmother Diabetes Sister 2 Relation Name Status Comments Brother Alive Father Maternal Grandfather Maternal Grandmother Mother Paternal Grandfather Paternal Grandmother Sister 1 Alive Sister 2 Alive Sister 3 Alive Sister 4 Alive Sister 5 Alive Son 1 Alive Son 2 Alive Social History Tobacco Use Types Packs/Day Years [...] on file Sexual Orientation Not on file Obstetrics History Last Filed Vital Signs Vital Sign Reading Time Taken Comments Blood Pressure - - Pulse - - Temperature - - Respiratory Rate - - Oxygen Saturation - - Inhaled Oxygen Concentration - - Weight 77.1 kg (170 lb) 05/24/2022 1:03 PM EST Height 175.3 cm (5' 9 ) 05/24/2022 1:03 PM EST Body Mass Index 25.1 05/24/2022 1:03 PM EST Plan of Treatment Health Maintenance Due Date Last Done Comments Wellness Exam Medicare 1952 Hepatitis C Screening 1968 Cologuard 06/27/1995 Colon Cancer Screening 06/27/1995 Colonoscopy 06/27/1995 FIT 06/27/1995 Sigmoidoscopy 06/27/1995 Virtual Colonography 06/27/1995 Zoster (2 of 3) 05/25/2011 03/30/2011 COVID-19 Vaccine ( season) 2023 Influenza Vaccine (#1) 2023 0, 04/07/2018, 04/06/2017, Additional history exists Breast Cancer Screening 03/24/2025 03/24/19 24, 03/24/2023, 12/04/2021 DTaP/TDaP/Td (3 - Td or Tdap) 04/07/2028 04/07/2018, 07/17/2008 Bone Density Screening Completed 05/07/2019 Pneumococcal Vaccine 65+ Completed 024, 04/06/2017, 02/20/2016 Hepatitis B Vaccine Aged Out No longe r eligible based on patient's age to complete this topic Goals Goal Patient Goal Type Associated Problems Recent Progress Patient-Stated? Author Patient will decrease symptoms of depression by using healthy coping skills Care Plan Depression No Mamutse, Sithandiwe, PORK CUTLET MAKER Note: Coping skills used: Patient has access to crisis phone number Care Plan Depression No Mamutse, Sithandiwe, PORK CUTLET MAKER Note: Crisis Number: Sign Release of Information for behavioral health provider and medical providers to communicate Care Plan Depression No Mamutse, Sithandiwe, PORK CUTLET MAKER Note: Provider Name: Provider Number: Provider Location: Patient will understand depressive feelings Care Plan Depression No Mamutse, Sithandiwe, PORK CUTLET MAKER Identify and practice activities to improve coping skills and decrease anxiety/stress. Care Plan Depression No Mamutse, Sithandiwe, PORK CUTLET MAKER Additional Health Concerns Active Problems Noted Date Diagnosed Date Depression 08/02/2023 Insurance [facility] MEDICARE PPO MR [facility] MEDICARE PPO MR Care Teams Chronic Care Nurse Relationship Specialty Start Date End Date James Sousa [facility] [address] [place] [address] PCP - General Family Medicine 05/24/22
--- OUTSIDE RECORDS SUMMARY | 2024-02-21 10:55 | XMS_ITS | Encounter Summary ---
Author Organization [facility] Address [address] [place] [address] Care Team Providers Care Pickling Tank Operator Name Role Phone Ramon Mckeon Primary Care Provider [phone] Source Comments This information has been disclosed [...] release of HIV test results or diagnoses. [id number] Health Encounter Details Date Type Department Care Team (Latest Contact Info) Description 07/24/2019 Travel Social History Tobacco Use Types Packs/Day [...] documented as of this encounter Care Teams Pickling Tank Operator Relationship Specialty Start Date End Date Ramon Mckeon [address] [place] [address] PCP - General 08/12/15 documented as of this encounter
--- OUTSIDE RECORDS SUMMARY | 2024-02-21 10:55 | XMS_ITS | Referral Summary ---
Author Organization [facility] Address [address] [facility] [place] [address] Phone Care Team Providers Care Postal Service Window Clerk Name Role Phone James Sousa Primary Care Provider [phone] Allergies No known active allergies Medications * [...] collapse of left wrist 08/2022 Depression 06/23/2021 Social History Tobacco Use Types Packs/Day Years [...] on file Sexual Orientation Not on file Last Filed Vital Signs Vital Sign Reading Time Taken Comments Blood Pressure - - Pulse - - Temperature - - Respiratory Rate - - Oxygen Saturation - - Inhaled Oxygen Concentration - - Weight 77.1 kg (170 lb) 05/24/2022 1:03 PM EST Height 175.3 cm (5' 9 ) 05/24/2022 1:03 PM EST Body Mass Index 25.1 05/24/2022 1:03 PM EST Plan of Treatment Not on file Goals Goal Patient Goal Type Associated Problems Recent Progress Patient-Stated? Author Patient will decrease symptoms of depression by using healthy coping skills Care Plan Depression No Ayesha Mandel, LYNN Note: Coping skills used: Patient has access to crisis phone number Care Plan Depression No Ayesha Mandel APRN Note: Crisis Number: Sign Release of Information for behavioral health provider and medical providers to communicate Care Plan Depression No Ayesha Mandel, LYNN Note: Provider Name: Provider Number: Provider Location: Patient will understand depressive feelings Care Plan Depression No Ayesha Mandel, LYNN Identify and practice activities to improve coping skills and decrease anxiety/stress. Care Plan Depression No Ayesha Mandel, FOREST SCIENCE PROFESSOR Additional Health Concerns Active Problems Noted Date Diagnosed Date Depression 08/02/2023 Insurance [employer] MEDICARE PPO MR [employer] MEDICARE PPO MR Care Teams Postal Service Window Clerk Relationship Specialty Start Date End Date James Sousa [address] [place] [address] [address] [place] [address] PCP - General Family Medicine 05/24/22
--- OUTSIDE RECORDS SUMMARY | 2024-02-21 10:55 | XMS_ITS | Encounter Summary ---
Author Organization [facility] Address [address] [place] [address] Care Team Providers Care Mathematics Instructor Name Role Phone Ramon Mckeon Primary Care Provider [phone] Source Comments This information has been disclosed [...] release of HIV test results or diagnoses. [id number] Health Encounter Details Date Type Department Care Team (Late st Contact Info) Description 07/24/2019 Telephone [facility] Psychiatry at [address] [place] [address] Yazmin Mccarty, PAT Social History Tobacco Use [...] PM EDT documented as of this encounter Miscellaneous Notes * Telephone Encounter - Cory Westfall MA - 07/24/2019 10:13 AM EDT Called patient to validate medication Allergies and pharmacy left a message to call me back documented in this encounter Plan of Treatment Not on file documented as of this encounter Visit Diagnoses Not on filedocumented in this encounter Additional Health Concerns Assessment Noted Time PHQ-9 Depression Total Score: 18 09/04/ 019 3:16 PM EDT documented as of this encounter Care Teams Mathematics Instructor Relationship Specialty Start Date End Date Ramon Mckeon [address] [place] [address] PCP - General 08/12/15 documented as of this encounter
--- OUTSIDE RECORDS SUMMARY | 2024-02-21 10:56 | XMS_ITS | Encounter Summary ---
Author Organization [facility] Address [address] [place] [address] Care Team Providers Care Heeler Machine Name Role Phone Ramon Mckeon Primary Care Provider [phone] Source Comments This information has been disclosed [...] release of HIV test results or diagnoses. [id number] Health Encounter Details Date Type Department Care Team (Late st Contact Info) Description 04/16/2019 9:00 AM EST Office Visit [facility] Psychiatry at [address] [place] [address] Yazmin Mccarty, PAT Major depression in remission [...] PM EDT documented as of this encounter Last Filed Vital Signs Vital Sign Reading Time Taken Comments Blood Pressure 111/68 04/16/2019 8:56 AM EST Pulse 92 04/16/2019 8:56 AM EST Temperature - - Respiratory Rate - - Oxygen Saturation - - Inhaled Oxygen Concentration - - Weight 76.1 kg (167 lb 12.8 oz) 04/16/2019 8:56 AM EST Height 175.3 cm (5' 9 ) 04/16/2019 8:56 AM EST Body Mass Index 24.78 04/16/2019 8:56 AM EST documented in this encounter Patient Instructions * Patient Instructions* PAT Bangura - 04/16/2019 9:00 AM EST Continue taking Venlafaxine 150 mgin morning Lamotrogine 200 mg At bedtime And Quitiapine 100 mg at bedtime documented in this encounter Plan of Treatment Not on file documented as of this encounter Visit Diagnoses Diagnosis Major depression in remission ([facility])- Primary Major depressive disorder, single episode in full remission Depression, unspecified depression type DARRYN (generalized anxiety disorder) Generalized anxiety disorder documented in this encounter Additional Health Concerns Assessment Noted Time PHQ-9 Depression Total Score: 18 09/04/2 019 3:16 PM EDT documented as of this encounter Care Teams Heeler Machine Relationship Specialty Start Date End Date Ramon Mckeon [address] [place] [address] PCP - General 08/12/15 documented as of this encounter
--- OUTSIDE RECORDS SUMMARY | 2024-02-21 10:56 | XMS_ITS | Encounter Summary ---
Author Organization [facility] Address [address] [place] [address] Care Team Providers Care Packing Machine Feeder Name Role Phone Ramon Mckeon Primary Care Provider [phone] Source Comments This information has been disclosed [...] release of HIV test results or diagnoses. [id number] Health Reason for Visit * Reason Comments Medication Refill Encounter Details Date Type Department Care Team ([facility] st Contact Info) Description 11/29/2018 Refill [facility] Psychiatry at [address] [place] [address] Yazmin Mccarty, PAT Social History Tobacco Use [...] documented as of this encounter Care Teams Packing Machine Feeder Relationship Specialty Start Date End Date Ramon Mckeon [address] [place] [address] PCP - General 08/12/15 documented as of this encounter
--- OUTSIDE RECORDS SUMMARY | 2024-02-21 10:56 | XMS_ITS | Encounter Summary ---
Author Organization [facility] Address [address] [place] [address] Care Team Providers Care Retail Department Reset Name Role Phone Ramon Mckeon Primary Care Provider [phone] Source Comments This information has been disclosed [...] release of HIV test results or diagnoses. [id number] Health Reason for Visit * Reason Comments Medication Refill Encounter Details Date Type Department Care Team ([facility] st Contact Info) Description 09/19/2018 Refill [facility] Psychiatry at [address] [place] [address] Yazmin Mccarty, PAT Depression, unspecified depression type (Primary Dx) Social History Tobacco Use Types Packs/Day Years Used Date Smoking Tobacco: Never Smokeless Tobacco: Never Alcohol Use Standard Drinks/Week Comments Not Asked 0 (1 standard drink = 0.6 oz pur e alcohol) Comments No Sex and Gender Information Value Date Recorded Sex Assigned at Female 10/29/2019 5:01 PM EDT Legal Sex Female 10:29 AM EDT Gender Identity Female 10/29/2019 5:01 PM EDT Sexual Orientation Straight 10/29/2019 5: 01 PM EDT documented as of this encounter Plan of Treatment Not on file documented as of this encounter Visit Diagnoses Diagnosis Depression, unspecified depression type- Primary documented in this encounter Additional Health Concerns Assessment Noted Time PHQ-9 Depression Total Score: 18 09/04/2 019 3:16 PM EDT documented as of this encounter Care Teams Retail Department Reset Relationship Specialty Start Date End Date Ramon Mckeon [address] [place] [address] PCP - General 08/12/15 documented as of this encounter
--- OUTSIDE RECORDS SUMMARY | 2024-02-21 10:56 | XMS_ITS | Encounter Summary ---
Author Organization [facility] Address [address] [place] [address] Care Team Providers Care Belt Worker Name Role Phone Ramon Mckeon Primary Care Provider [phone] Source Comments This information has been disclosed [...] release of HIV test results or diagnoses. [id number] Health Reason for Visit * Reason Comments Medication Refill Encounter Details Date Type Department Care Team ([facility] st Contact Info) Description 01/03/2017 Refill [facility] Psychiatry at [address] [place] [address] Yazmin Mccarty, PAT Social History Tobacco Use [...] Assessment Noted Time PHQ-9 Depression Total Score: 4 10/20/19 16 3:27 PM EDT documented as of this encounter Care Teams Belt Worker Relationship Specialty Start Date End Date Ramon Mckeon [address] [place] [address] PCP - General 08/12/15 documented as of this encounter
--- OUTSIDE RECORDS SUMMARY | 2024-02-21 10:56 | XMS_ITS | Encounter Summary ---
Author Organization [facility] Address [address] [place] [address] Care Team Providers Care Drying Rack Changer Name Role Phone Ramon Mckeon Primary Care Provider [phone] Source Comments This information has been disclosed [...] release of HIV test results or diagnoses. [id number] Health Reason for Visit * Reason Comments Medication Refill Encounter Details Date Type Department Care Team ([facility] st Contact Info) Description 09/20/2018 Refill [facility] Psychiatry at [address] [place] [address] Yazmin Mccarty, PAT Social History Tobacco Use [...] Noted Time PHQ-9 Depression Total Score: 18 0617/2 019 3:16 PM EDT documented as of this encounter Care Teams Drying Rack Changer Relationship Specialty Start Date End Date Ramon Mckeon [address] [place] [address] PCP - General 08/12/15 documented as of this encounter
--- OUTSIDE RECORDS SUMMARY | 2024-02-21 10:56 | XMS_ITS | Encounter Summary ---
Author Organization [facility] Address [address] [place] [address] Care Team Providers Care Dividend Deposit Entry Clerk Name Role Phone Ramon Mkceon Primary Care Provider [phone] Source Comments This information has been disclosed [...] release of HIV test results or diagnoses. [id number] Health Reason for Visit * Reason Comments Follow-up Encounter Details Date Type Department Care Team ([facility] Contact Info) Description 12/18/2018 9:00 AM EDT Office Visit [facility] Psychiatry at [address] [place] [address] [phone] Yazmin Mccarty, PAT Major depression in remission [...] Sign Reading Time Taken Comments Blood Pressure 124/61 12/18/2018 9:12 AM EDT Pulse 83 12/18/2018 9:12 AM EDT Temperature - - Respiratory Rate - - Oxygen Saturation - - Inhaled Oxygen Concentration - - Weight 77.6 kg (171 lb) 12/18/2018 9:12 AM EDT Height 175.3 cm (5' 9 ) 12/18/2018 9:12 AM EDT Body Mass Index 25.25 12/18/2018 9:12 AM EDT documented in this encounter Plan of Treatment Not on file documented as of this encounter Visit Diagnoses Diagnosis Major depression in remission ([facility])- Primary Major depressive disorder, single episode in full remission Depression, unspecified depression type DARRYN (generalized anxiety disorder) Generalized anxiety disorder documented in this encounter Additional Health Concerns Assessment Noted Time PHQ-9 Depression Total Score: 18 09/04/ 019 3:16 PM EDT documented as of this encounter Care Teams Dividend Deposit Entry Clerk Relationship Specialty Start Date End Date Ramon Mckeon [address] [place] [address] PCP - General 08/12/15 documented as of this encounter
--- OUTSIDE RECORDS SUMMARY | 2024-02-21 10:56 | XMS_ITS | Encounter Summary ---
Author Organization [facility] Address [address] [place] [address] Care Team Providers Care Able Bodied Tankerman Name Role Phone Ramon Mckeon Primary Care Provider [phone] Source Comments This information has been disclosed [...] release of HIV test results or diagnoses. [id number] Health Reason for Visit * Reason Comments Medication Refill Encounter Details Date Type Department Care Team ([facility] st Contact Info) Description 07/19/2018 Refill [facility] Psychiatry at [address] [place] [address] Yazmin Mccarty, PAT Social History Tobacco Use [...] documented as of this encounter Care Teams Able Bodied Tankerman Relationship Specialty Start Date End Date Ramon Mckeon [address] [place] [address] PCP - General 08/12/15 documented as of this encounter
[2024-02-21 11:01] LABS: Adenovirus F 40/41, stool Not Detected (NotDetected); Astrovirus Not Detected (NotDetected); Campylobacter Not Detected (NotDetected); Clostridium Difficile A/B, PCR Not Detected (NotDetected); Cryptosporidium Not Detected (NotDetected); Cyclospora Cayetanesis Not Detected (NotDetected); Entamoeba histolytica Not Detected (NotDetected); Enteroaggregative E coli Not Detected (NotDetected); Enteropathogenic E coli Not Detected (NotDetected); Enterotoxigenic E coli Not Detected (NotDetected); Giardia lamblia Not Detected (NotDetected); Norovirus Not Detected (NotDetected); Plesimonas Shigalloides, PCR Not Detected (NotDetected); Rotavirus A Not Detected (NotDetected); Salmonella, PCR Not Detected (NotDetected); Sapovirus Not Detected (NotDetected); Shiga-like toxin E coli Not Detected (NotDetected); Shigella Enterovasive E coli Not Detected (NotDetected); Vibrio Cholerae Not Detected (NotDetected); Vibrio, PCR Not Detected (NotDetected); Yersinia Entercolitica, PCR Not Detected (NotDetected)
== END 2024-02-21 23:59 | disposition home or self-care (01) ==
LOC: LAB 10:53
PROVIDERS: PCP Physician Assistant; Visit Provider Nurse Practitioner Family
DX: R19.7 Diarrhea, unspecified (principal)
CPT/HCPCS: 87506

== ENCOUNTER 2024-03-01 06:00 | Day surgery (SDC) | payer MEDICARE, SELFPAY ==
[2024-02-28 12:37] VITALS: BMI 22.6
[2024-03-01] VITALS (9 sets, daily range): BP systolic 81–149; BP diastolic 47–78; PULSE 64–72; RESP 16–18; TEMP 36.1–36.6; O2SAT 97–100
[2024-03-01] MEDS: LACTATED RINGERS 1000ML 1,000 ML 25 ML IV (06:30)
--- NOTE | 2024-03-01 06:45 | P.PNANES_ITS ---
[facility] Disclaimer: The information contained in this section may have been updated after the patient was seen, as this information can be updated by other users. Medical History Prolapsed bladder Fusion of lumbar spine Edema Mood disorder Elbow fracture, right Tremor Hypertension Keratosis Callus of foot Onychomycosis Surgical History H/O bilateral oophorectomy History of tonsillectomy H/O total hysterectomy Status post right knee replacement Family History Mother Cancer Other Coronary artery disease Diabetes Hypertension Social History Smoking Status: Never smoker alcohol intake: never substance use type: denies use current occupational status: retired Travel in the last 8 weeks: None household members: spouse housing: house caffeine: Yes [facility] Anesthesia Checklist Patient Identification Patient Identification: Arm Band and Family Structural Data Admitted From: Home Planned Operative Procedure/s: Colonoscoy Consent for Planned Operative Procedure(s) Verified: Yes Verified Documents: Surgical Consent and History and Physical NPO Status Verified Time NPO: 00:00 Additional verifications Patient : No Anesthesia Reactions: No Hx Blood Transfusions: No Blood Transfusion Reaction: No Cephalosporin Allergy: No Previous Colonoscopy: Yes Airway Assessment Mallampati Score:: Class II C-Spine Mobility Assessed: Yes TMJ Mobility Assessed: Yes Dentition: Good Dentition Neurological Assessment Level of Consciousness: Awake, Alert, Appropriate and Follows Commands Hx Seizures: No Numbness or tingling in extremities: No Anesthesia Plan Anesthesia Risk discussed: Yes ASA Class: II Anesthesia Type: MAC Preoperative Comments Pre-Operative Comments: Chronic Diarrhea. Hypertension.
--- NOTE | 2024-03-01 07:13 | P.HP_ITS ---
History of Present Illness *Admission Date: 03/01/24 *Reason for visit:: Change in bowel habits/diarrhea *History of present illness: Mrs. Chandra is a 73-year-old female who is here for diagnostic colonoscopy secondary to a change in bowel habits with diarrhea. The examination is deemed medically necessary for diagnostic colonoscopy. The patient has been seen, interviewed and examined prior to the procedure by both myself and the anesthesia provider. [facility] Disclaimer: The information contained in this section may have been updated after the patient was seen, as this information can be updated by other users. Medical History (Updated 03/01/24 @ 07:15 by Atif Aragon II, MD) Prolapsed bladder Fusion of lumbar spine Edema Mood disorder Elbow fracture, right Tremor Hypertension Keratosis Callus of foot Onychomycosis Surgical History H/O bilateral oophorectomy History of tonsillectomy H/O total hysterectomy Status post right knee replacement Family History Mother Cancer Other Coronary artery disease Diabetes Hypertension Social History Smoking Status: Never smoker alcohol intake: never substance use type: denies use current occupational status: retired Travel in the last 8 weeks: None household members: spouse housing: house caffeine: Yes Other Medical History Have you received the Pneumonia Vaccine: No Review of Systems Review of Systems Review of systems (narrative): Negative *Cardiovascular Comments: Negative *Gastrointestinal Comments: Negative *Genitourinary Comments: Negative *Musculoskeletal Comments: Negative *Neurologic Comments: Negative Meds Home Medications and Allergies Home Medications ?Medication ?Instructions ?Recorded ?Confirmed ?Type lisinopril 10 mg tablet 10 mg PO DAILY #30 tabs 11/17/21 03/01/24 Rx quetiapine 100 mg tablet (Seroquel) 100 mg PO HS 12/07/21 03/01/24 History rosuvastatin 20 mg tablet (Crestor) 20 mg PO ONCE 04/26/22 03/01/24 History lamotrigine 100 mg tablet 100 mg PO BID 01/24/24 03/01/24 History quetiapine 50 mg tablet (Seroquel) 50 mg PO NIGHTONLY 01/24/24 03/01/24 History solifenacin 10 mg tablet (Vesicare) 10 mg PO DAILY 01/24/24 03/01/24 History valbenazine 40 mg capsule 80 mg PO DAILY 01/24/24 03/01/24 History (Ingrezza) venlafaxine 150 mg 150 mg PO DAILY 01/24/24 03/01/24 History capsule,extended release 24 hr (Effexor XR) dicyclomine 10 mg capsule 10 mg PO QID PRN abdominal 01/30/24 03/01/24 Rx pain/urgency #60 caps sodium,potassium,mag sulfates 17.5 See Rx Instructions PO .COMPLEX 02/22/24 03/01/24 Rx gram-3.13 gram-1.6 gram oral soln #354 mL (Suprep Bowel Prep Kit) New Prescriptions to Start Prescriptions: Allergies Allergy/AdvReac Type Severity Reaction Status Date / Time No Known Allergies Allergy Verified 03/01/24 06:17 Exam Data for Last 24 hours Vital signs and Labs for Last 24 Hours: Temp Pulse Resp BP Pulse Ox O2 Del Method 97.8 F 72 18 149/62 H 98 Room Air 03/01/24 06:21 03/01/24 06:21 03/01/24 06:21 03/01/24 06:21 03/01/24 06:21 03/01/24 06:21 I & O for Last 24 hours: Intake & Output 02/27/24 02/28/24 02/29/24 03/01/24 23:59 23:59 23:59 23:59 Weight 153 lb 0.013 oz *Routine HEENT Exam Head: Present normocephalic Eye: Present EOMI and PERRL ENT: Present mucous membranes moist *Routine Neck Exam Neck: Present supple *Routine Respiratory Exam Respiratory: Present CTA bilaterally *Routine Cardiovascular Exam Cardiovascular: Present RRR *Routine Abdominal Exam Abdominal: Present soft and normoactive bowel sounds; Absent tenderness *Routine Rectal Exam Rectal:: deferred *Routine Genitalia Exam Genitalia:: deferred *Routine Extremities Exam Extremities: Absent cyanosis, clubbing or edema *Routine Skin Exam Skin: Present warm; Absent rash *Routine Neurological Exam Neurological: Present alert and oriented X3 Assessment and Plan *Assessment and plan (1) Change in bowel habits: Status: Acute Category: Medical Code(s): R19.4 - Change in bowel habit (2) Diarrhea: Status: Acute Category: Medical Code(s): R19.7 - Diarrhea, unspecified (3) Bloating: Status: Acute Category: Medical Code(s): R14.0 - Abdominal distension (gaseous) (4) Mucus in stool: Status: Acute Category: Medical Code(s): R19.5 - Other fecal abnormalities (5) Incontinence of feces with fecal urgency: Status: Acute Category: Medical Code(s): R15.9 - Full incontinence of feces; R15.2 - Fecal urgency Plan A/P: 1. Change in bowel habits/diarrhea is the preprocedural diagnosis. The patient also had noted some mucus with her bowel movements. She has had fecal urgency, bloating and some fecal incontinence. She has never had a colonoscopy. The patient will be anesthetized/sedated using MAC sedation. The patient has been seen and examined. Cardiac and lung assessment prior to the examination is stable. Proceed with planned diagnostic colonoscopy
--- NOTE | 2024-03-01 07:15 | [facility].PROCNOTE ---
[facility] Procedure Note Date: 03/01/24 Time: 07:53 Procedure Note:: Colonoscopy Procedure Report: Colonoscopy with cold biopsies Endoscopist: Atif Aragon II, MD Referring physician: Shayla Mitchell PA-C Date of Procedure: March 01, 2024 Equipment: Olympus 190 variable stiffness pediatric colonoscope Sedation: MAC sedation Indication: Mrs. Chandra is a 73-year-old female who is here for diagnostic colonoscopy. The patient did have a change in her bowel habits about 3 to 4 months ago with postprandial fecal urgency and diarrhea. This was oily in appearance. She has had bloating, gassiness and mucus with her bowel movements. She has had a couple of accidents. This did resolve briefly but then returned. The patient has lost about 20 pounds. She reports no abdominal pain or rectal bleeding. She reports no family history of colon cancer. She has not had any recent abdominal imaging.This is her first colonoscopy. She did have a negative Cologuard a couple of years ago. Procedure: Prior to the procedure, a history and physical exam was performed, and patient's medications and allergies were reviewed. The risks, benefits and alternatives of the sedation and procedure were discussed with the patient. All questions were answered and informed consent was obtained. The patient was brought to the procedure room. Patient identification and proposed procedure were verified by the physician and the nurse. The patient was placed in a left lateral decubitus position and the scope was passed under direct vision. Throughout the procedure, the patient's blood pressure, pulse, and oxygen saturations were monitored continuously. The colonoscopy was accomplished without difficulty. The patient tolerated the procedure well. Findings: On digital rectal examination there was normal rectal tone. There were no external hemorrhoids. The colonoscope was introduced through the anal canal to the rectum and advanced to the cecum. The ileocecal valve and appendiceal orifice were identified. The scope was advanced a short distance into the ileum which appeared grossly normal. The scope was then withdrawn into the colon. The cecum, ascending and transverse colon and mucosa were grossly normal. Cold biopsies were taken from the right colon to rule out microscopic colitis. There were scattered diverticuli throughout the descending and sigmoid colon (LEFT colon). The rectum itself was normal. Upon retroflexion within the rectum there were grade 1-2 internal hemorrhoids. The preparation was fair throughout with [place] Preparation Score of 7 out of 9. The cecal time was 12 minutes. Impression: 1. Left-sided diverticulosis 2. Grade 1-2 internal hemorrhoids Plan: I will follow-up the biopsies to rule out microscopic colitis. Given her marked weight loss and oily stools, I will recommend imaging study of the abdomen/CAT scan abdomen and pelvis with IV/oral contrast. I will also obtain fecal elastase testing to rule out EPI. After diagnostic testing with biopsies, imaging and stool testing for EPI, we will initiate treatment regimen. I would encourage her to begin bulking FiberCon now.
--- NOTE | 2024-03-01 07:56 | CT_ITS ---
FINAL REPORT TECHNIQUE: Axial CT images of the abdomen and pelvis were obtained before and after the administration of IV contrast. This study was performed with techniques to keep radiation doses as low as reasonably achievable (ALARA). Individualized dose reduction techniques using automated exposure control or adjustment of mA and/or kV according to the patient's size were employed. CLINICAL HISTORY: Diarrhea/abnormal weight loss COMPARISON: None FINDINGS: Abdomen: Mild scarring is present in the left lung base. The heart is normal in size. The liver has an unremarkable appearance, without evidence of mass or biliary duct dilatation. There is mild gallbladder wall thickening, nonspecific. The spleen is unremarkable. No adrenal masses present. The pancreas has an unremarkable appearance. The kidneys enhance normally. The aorta is normal in caliber. There is no free fluid or adenopathy. No mass or abnormal fluid collection is seen. There are multiple fluid-filled loops of bowel. There is also diffuse mild wall thickening of the distal colon, worrisome for enterocolitis. Precontrast images demonstrate no evidence of nephrolithiasis. Pelvis: The appendix is not well visualized. The urinary bladder is unremarkable. The uterus has been surgically resected. No inflammatory process is seen. There is no evidence of mass or adenopathy. There has been prior fusion at the L4-5 level, and there is 6 mm of anterolisthesis at this level. There is moderate degenerative change in the lumbar spine. IMPRESSION: Multiple fluid-filled loops of bowel, as well as diffuse mild wall thickening of the distal colon, worrisome for enterocolitis. The appendix is not well-visualized, however there is no periappendiceal inflammatory change to suggest an acute process. Reviewed, Interpreted and Dictated by Warren Clayton III, MD Transcribed by Trinity Magana Authenticated and [facility]
[2024-03-01 09:03] LABS: Chloride 109 mmol/L (98-107); Potassium 4.2 mmoL/L (3.5-5.1); Sodium 136 mmol/L (136-145)
[2024-03-01 09:06] LABS: Blood Urea Nitrogen 6 mg/dl (7-17); Creatinine Clearance Estimated 55 mL/min (50-200); Estimated Glomerular Filt Rate 82 ml/min (>60); GFR (African American) 99 ML/MIN (>60)
[2024-03-01 09:07] LABS: Anion Gap 7.2 mEq/L (5-15); Calcium 8.9 mg/dl (8.4-10.2); Carbon Dioxide 24 mmol/L (22.0-30.0); Glucose 72 mg/dl (74-100)
--- NOTE | 2024-03-01 09:44 | PC.NURSE ---
RADIOLOGY HERE TO GET PT FOR CT SCAN. RADIOLOGY TO D/C IV AFTER PROCEDURE.
[2024-03-01] MEDS: IOPAMIDOL-370 (76%);100ML BOTTLE 75 ML IV (09:55)
[2024-03-01] MEDS: SODIUM CHLORIDE 0.9% 10ML SYR (RAD ONLY) 10 ML IV (09:55)
== END 2024-03-01 09:44 | disposition home or self-care (01) ==
PROVIDERS: PCP Physician Assistant; Visit Provider Internal Medicine Gastroenterology
PROC: (CPT 45380; principal; 2024-03-01 07:30)
DX: R19.4 Change in bowel habit (principal); R19.7 Diarrhea, unspecified; R14.0 Abdominal distension (gaseous); R19.5 Other fecal abnormalities; R15.9 Full incontinence of feces; R15.2 Fecal urgency; K57.30 Diverticulosis of large intestine without perforation or abscess without bleeding; K64.8 Other hemorrhoids
CPT/HCPCS: 45380; 74178; 80048; 88305; J7120; Q9967

== ENCOUNTER 2024-03-01 14:01 | Outpatient (CLI) | payer MEDICARE, SELFPAY ==
[2024-03-05 01:15] LABS: Pancreatic Elastase, Fecal 111 (>200)
== END 2024-03-01 23:59 | disposition home or self-care (01) ==
LOC: LAB.DROPOF 03-07 14:02
PROVIDERS: PCP Internal Medicine Gastroenterology; Visit Provider Internal Medicine Gastroenterology
DX: R15.9 Full incontinence of feces (principal); R15.2 Fecal urgency
CPT/HCPCS: 82656

== ENCOUNTER 2024-05-18 08:47 | Outpatient (CLI) | payer MEDICARE, SELFPAY ==
--- NOTE | 2024-05-18 09:06 | US_ITS ---
FINAL REPORT TECHNIQUE: Multiple transverse and longitudinal images CLINICAL HISTORY: ELEVATED LIVER FUNCTION TESTS FINDINGS: The gallbladder shows no wall thickening, distention or stone disease. No biliary ductal dilatation is appreciated. No fluid collections are seen. Limited portions of the right liver are unremarkable. Limited portions of the right kidney are unremarkable. IMPRESSION: 1. No evidence of cholelithiasis 2. No evidence of biliary obstruction Reviewed, Interpreted and Dictated by Camryn He MD Transcribed by Nichole Newton Authenticated and [facility]
== END 2024-05-18 23:59 | disposition home or self-care (01) ==
LOC: RAD 08:49
PROVIDERS: PCP Physician Assistant; Visit Provider Physician Assistant
DX: R79.89 Other specified abnormal findings of blood chemistry (principal)
CPT/HCPCS: 76705

== ENCOUNTER 2024-06-21 10:01 | Outpatient (CLI) | payer MEDICARE, SELFPAY ==
[2024-06-21 10:05] LABS: Anti-Centromere B Antibodies ND; Anti-DNA (DS) Ab Qn ND; Anti-Jo-1 ND; Antichromatin Antibodies ND; Antiscleroderma-70 Antibodies ND; RNP Antibodies ND; Sjogren's Anti-SS-A ND; Sjogren's Anti-SS-B ND
[2024-06-21 10:30] LABS: Basophils % 0.2 % (0.1-2.0); Hematocrit 34.7 % (37.0-47.0); Lymphocytes # 1.2 K/mm3 (0.7-4.5); Lymphocytes % 28.3 % (10-50); Mean Corpuscular HGB Conc 31.7 g/dL (31.8-35.4); Mean Corpuscular Hemoglobin 28.1 pg (27.0-31.2); Mean Corpuscular Volume 88.5 fl (81-99); Mean Platelet Volume 8.3 fl (7.4-10.4); Monocytes # 0.4 K/mm3 (0.1-1.0); Monocytes % 9.1 % (1.7-9.3); Neutrophils # 2.7 K/mm3 (1.8-7.8); Neutrophils % 62.2 % (37.0-80.0); Platelet Count 180 K/mm3 (142-424); Red Blood Count 3.92 M/mm3 (4.20-5.40); White Blood Count 4.4 K/mm3 (4.8-10.8)
[2024-06-21 10:38] LABS: INR 0.93 (0.9-1.1); Prothrombin Time 10.5 seconds (10.1-12.5)
[2024-06-21 11:07] LABS: Albumin Level 4.1 g/dl (3.5-5.0); Chloride 104 mmol/L (98-107); Sodium 138 mmol/L (136-145)
[2024-06-21 11:08] LABS: Potassium 4.3 mmoL/L (3.5-5.1)
[2024-06-21 11:10] LABS: Alanine Aminotransferase 22 U/L (12-78); Albumin/Globulin Ratio 2.3 (1.1-1.8); Alkaline Phosphatase 124 U/L (38-126); Anion Gap 9.3 mEq/L (5-15); Aspartate Amino Transferase 31 U/L (14-36); Bilirubin,Total 0.5 mg/dl (0.2-1.3); Blood Urea Nitrogen 21 mg/dl (7-17); Carbon Dioxide 29 mmol/L (22.0-30.0); Estimated Glomerular Filt Rate 61 ml/min (>60); GFR (African American) 74 ML/MIN (>60); Globulin 1.8 g/dL (1.3-3.2); Iron 57 ug/dL (37-170); Total Protein,Serum 5.9 g/dl (6.3-8.2)
[2024-06-21 11:11] LABS: Calcium 9.4 mg/dl (8.4-10.2); Glucose 84 mg/dl (74-100)
[2024-06-21 11:20] LABS: Total Iron Binding Capacity 296 ug/dL (265-497)
[2024-06-21 11:47] LABS: Ferritin 34.7 ng/ml (11.1-264)
[2024-06-22 06:04] LABS: HBsAg Screen Negative (Negative); HCV Ab Non Reactive (Non Reactive); Hep A Ab, IGM Negative (Negative); Hep B Core Ab, IgM Negative (Negative)
[2024-06-22 08:14] LABS: Ceruloplasmin 29.3 mg/dL (19.0-39.0); Immunoglobulin A, Qn 90 mg/dL (64-422); Immunoglobulin G, Qn 423 mg/dL (586-1602); Immunoglobulin M, Qn 67 mg/dL (26-217)
[2024-06-22 13:11] LABS: Antinuclear Antibodies (ANA) Negative (Negative)
[2024-06-22 14:11] LABS: Endomysial IgA Antibody Negative (Negative)
[2024-06-22 15:12] LABS: Angiotensin Converting Enzyme 26 U/L (14-82)
[2024-06-22 16:20] LABS: Deamidated Gliadin Abs, IgA 2 units (0-19); Deamidated Gliadin Abs, IgG 1 units (0-19); Liver-Kidney Microsomal Ab <1.0 Units (0.0-20.0); Tissue Transglutaminase IgA Ab <2 U/mL (0-3); Tissue Transglutaminase IgG Ab <2 U/mL (0-5)
[2024-06-22 17:15] LABS: Actin (Smooth Muscle) Antibody 3 Units (0-19); Mitochondrial (M2) Antibody <20.0 Units (0.0-20.0)
[2024-06-23 08:13] LABS: Reticulin IgA Antibody Negative titer (Neg:<1:2.5)
[2024-06-26 06:30] LABS: ALT (SGPT) P5P 22 IU/L (0-40); AST (SGOT) P5P 26 IU/L (0-40); Alpha 2-Macroglobulins, Qn 190 mg/dL (110-276); Apolipoprotein A-1 181 mg/dL (116-209); Bilirubin, Total 0.2 mg/dL (0.0-1.2); Cholesterol, Total 232 mg/dL (100-199); Fibrosis Score 0.11 (0.00-0.21); GGT 32 IU/L (0-60); Glucose 82 mg/dL (70-99); Haptoglobin 127 mg/dL (42-346); Steatosis Score 0.38 (0.00-0.40); Triglycerides 77 mg/dL (0-149)
[2024-06-28 20:10] LABS: Alpha-1-Antitrypsin 152 mg/dL (101-187)
== END 2024-06-21 23:59 | disposition home or self-care (01) ==
LOC: LAB 10:01
PROVIDERS: PCP Physician Assistant; Visit Provider Nurse Practitioner Family
DX: R74.8 Abnormal levels of other serum enzymes (principal); Z20.828 Contact with and (suspected) exposure to other viral communicable diseases; N39.0 Urinary tract infection, site not specified
CPT/HCPCS: 36415; 80053; 80074; 81256; 82103; 82104; 82164; 82172; 82247; 82390; 82465; 82728; 82784; 82947; 82977; 83010; 83516; 83540; 83550; 83883; 84450; 84460; 84478; 85025; 85610; 86038; 86255; 86256; 86376; 86803

== ENCOUNTER 2024-09-20 13:50 | Outpatient (CLI) | payer MEDICARE, SELFPAY ==
--- OUTSIDE RECORDS SUMMARY | 2024-09-20 13:56 | XMS_ITS | Encounter Summary ---
Author Organization [facility] Address [address] [place] [address] Phone Care Team Providers Care Commissioning Agent Name Role Phone Bonifacio Quinn MD Primary Care Provi rajani Bonifacio Quinn MD Unavailable [phone] Pcp, None Primary Care Provider [phone] Encounter Details Date Type Department Care Team (Late st Contact Info) Description 12/10/2010 [facility] Internal Medicine [address] [place] [address] Social History Tobacco Use Types Packs/Day Years Used Date Smoking Tobacco: Never Smokeless Tobacco: Never Alcohol Use Standard Drinks/Week Comments No 0 (1 standard drink = 0.6 oz pur e alcohol) Comments No Sex and Gender Information Value Date Recorded Sex Assigned at Not on file Legal Sex Female 5:26 AM EDT Gender Identity Not on file Sexual Orientation Not on file 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 [address] [place] [address] documented in this encounter Visit Diagnoses Not on filedocumented in this encounter Care Teams Commissioning Agent Relationship Specialty Start Date End Date Bonifacio Quinn MD [address] [place] [address] PCP - General 08/13/10 01/08/21 Bonifacio Quinn MD [address] [place] [address] PCP - Naomi REECE Attributed Physician 08/20/19 08/18/21 Pcp, MD Arabella [address] [place] [address] PCP - General Internal Medicine 01/09/21 documented as of this encounter
--- OUTSIDE RECORDS SUMMARY | 2024-09-20 13:56 | XMS_ITS | Encounter Summary ---
Author Organization [facility] Address [address] 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 [place] [address] PCP - General 08/13/10 01/08/21 Bonifacio Quinn MD [address] [place] [address] PCP - Naomi REECE Attributed Physician 08/20/19 08/18/21 Pcp, MD Arabella [address] [place] [address] PCP - General Internal Medicine 01/09/21 documented as of this encounter
--- OUTSIDE RECORDS SUMMARY | 2024-09-20 13:56 | XMS_ITS | Referral Summary ---
Author Organization [facility] Address [address] [place] [address] Phone Care Team Providers Care Air Carrier Inspector Name Role Phone Pcp, None MD Primary Care Provider [phone] Allergies No known active allergies Medications * This document contains information received from the source organization and may not represent a complete record from that organization. Calcium 500 MG TABS Take by mouth. Activ e KRILL OIL PO Take by mouth. Ac tive Multiple Vitamin (MULTIVITAMIN) TABS Take 1 tablet by mouth daily. Active quetiapine (SEROQUEL) 100 MG TABS Take 2 tablets by mouth nightly. One at HS 1 tablet 6 Active lamotrigine (LAMICTAL) 100 MG TABS Take 1 tablet by mouth daily. 1 tablet 6 Active lovastatin (MEVACOR) 20 MG TABS TAKE 1 TABLET EVERY DAY WITH SUPPER FOR HIGH CHOLESTEROL 90 tablet 3 1 Active lisinopril (PRINIVIL,ZESTR IL) 10 MG TABS Take 1 tablet by mouth daily. 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 Essential hypertension 11/17/2004 Resolved Problems Problem Noted Date Diagnosed Date Resolved Date Hematuria 02/03/2010 03/23/2012 Family history of ischemic heart disease 07/17/2008 03/23/2012 Disorder of bone and cartilage 06/27/2007 03/23/2012 Open fracture of olecranon process of ulna 12/09/2006 03/23/2012 Other abnormal clinical finding 08/22/2006 03/23/2012 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 03/23/2012 Myalgia and myositis 03/18/2006 013 Overview (09/20/2011): (lumbar 2005; cervical 2011) Right Heel Pad Dysfunction 03/18/2006 0 03/23/2012 Overview (09/20/2011): 2006 Cervical Spondylosis 06/30/2005 013 Overview (09/20/2011): (xray 09/29?) DDD + Facet DJD L1-S1 06/30/20052012 Overview (09/20/2011): (xray 2005: grade I listhesis L4-5; c/s + f/s L4-5) Closed fracture of rib 06/30/200503/23 Overview (07/28/2005): Right anterolateral 5th rib Venous (peripheral) insufficiency 05/30/2001 03/23/2012 Need for prophylactic hormon e replacement therapy (postmenopausal) 05/30/2001 03/23/2012 Immunizations Immunization Administration Dates Next Due Influenza Vaccine, Inactivat ed Trivalent High-Dose PF (Fluzone HD) 04/18/2019,04/07/2018,04/06/2017 Influenza Whole, IM 12/25/2007, 7,12/31/2005,12/15 Pneumococcal Conjugate (PCV1 3) Prevnar 13 02/20/2016 Pneumococcal Polysaccharide (PPV23) Pneumovax-23 04/06/2017 TB-PPD 06/13/2007, 7,06/29/2004,06/11,07/16/2002,04/24/2001 Tdap (Tetanus, Diphtheria & Pertussis) 9,07/17/2008 Zoster Vaccination Live, SQ 03/30/2011 Social History Tobacco Use Types Packs/Day Years Used Date Smoking Tobacco: Never Smokeless Tobacco: Never Alcohol Use Standard Drinks/Week Comments No 0 (1 standard drink = 0.6 oz pur e alcohol) Food Insecurities Answer Date Recorded Worried about running out of food Not on file 04/09/2023 Food Bought Not on file 04/09/2023 Housing/Utilities Answer Date Recorded Worried about losing home Not on file 2023 Stayed outside house Not on file 04/09/2023 Unable to get utilities Not on file 04/09/19 24 Interpersonal Safety Answer Date Record ed Feel physically or emotionally unsafe where curr ently live Not on file 04/09/2023 Harm by anyone Not on file 04/09/2023 Emotionally Harmed Not on file 04/09/2023 Transportation Answer Date Recorded Worried about transportation Not on file Utilities Answer Date Recorded Worried about losing home Not on file 2023 Stayed outside house Not on file 07/22/2023 Unable to get utilities Not on file 07/22/19 Comments No Sex and Gender Information Value Date Recorded Sex Assigned at Not on file Legal Sex Female 5:26 AM EDT Gender Identity Not on file Sexual Orientation Not on file 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 Not on file Not on file Not on file Not on file Not on file Not on file [place] 1/2 day/wk; preg [place] 2018 Not on file Not on file Not on file Baby Sits Grandkids 5 d/wk Not on file Not on file N ot on file Last Filed Vital Signs Vital Sign Reading Time Taken Comments Blood Pressure 104/70 05/27/2020 9:09 AM EST Pulse 60 05/27/2020 9:09 AM EST Temperature 36.2 C (97.2 F) 05/27/2020 9:09 AM EST Respiratory Rate 16 04/07/2018 12:50 PM EST Oxygen Saturation 99% 05/27/2020 9:09 AM EST Inhaled Oxygen Concentration - - Weight 78.9 kg (174 lb) 05/27/2020 9:09 AM EST Height 175.3 cm (5' 9 ) 05/27/2020 9:09 AM EST Body Mass Index 25.7 05/27/2020 9:09 AM EST Plan of Treatment Not on file Procedures Procedure Name Priority Date/Time Associated Diagnosis Comments [facility]USS SCR BILAT MELVIN Routine 03/24/2023 10 :47 AM EST Visit for screening mammogram DXA BONE DENSITY Routine 05/07/2019 8:51 AM EST Osteopenia, unspecified location Screening for osteoporosis HEPATITIS C ANTIBODY WITH REFLEX TO HCV QUANT NAAT Routine 05/07/2019 8:34 AM EST Need for hepatitis C screening test from Last 3 Months or Most Recently Relevant to Health Maintenance Results * [facility] SCR BILAT MELVIN (03/24/2023 10:47 AM EST) Anatomical Region Laterality Modality Chest Bilateral Mammography, Rad iographic Imaging 03/24/2023 1:17 PM EST Impressions 03/24/2023 1:18 PM EST No mammographic evidence of malignancy CATEGORY BI-RADS: 1: Negative MANAGEMENT: Routine annual mammography unless otherwise clinically indicated NOTE: If additional imaging is recommended, the Breast Center will contact the patient directly to coordinate that appointment, or scheduling can be reached at [phone]. RISK ASSESSMENT: A preliminary breast cancer risk assessment was conducted as part of the patient?s screening mammogram. Patients with a preliminarily elevated screening score who are interested in further information are encouraged to contact our High Risk Navigator at [phone], or provider can place a referral to the high risk breast program, [id number]. Patient's lifetime Yazmin model risk: 4% (20% and greater considered high risk) [facility] Family History Risk Score: 0 (1 and greater considered high risk) Narrative 03/24/2023 1:18 PM EST SCREENING DIGITAL BILATERAL MAMMOGRAM WITH COMPUTER AIDED DETECTION AND TOMOSYNTHESIS HISTORY: Routine annual screening COMPARISON: Multiple most recently 2021 TECHNIQUE: Bilateral mediolateral oblique and craniocaudal views with computer aided detection and tomosynthesis BREAST COMPOSITION: Scattered fibroglandular densities FINDINGS: No suspicious masses, suspicious microcalcifications or areas of nonsurgical architectural distortion identified. us Landon Sousa [facility] Final Result * BONE DENSITY - DEXA (05/07/2019 8:51 AM EST) Anatomical Region Laterality Modality Chest Radiographic Jayleen ging 05/07/2019 9:05 AM EST Impressions 05/07/2019 9:06 AM EST NORMAL bone mineral density INTERVAL CHANGE: There has been no significant interval change Narrative 05/07/2019 9:06 AM EST HISTORY: Other specified disorders of bone density and structure, unspecified site; Encounter for screening for osteoporosis Screening for osteoporosis COMPARISON: 2012 NOTE: If there are questions about the content of this report, please contact [facility] radiology by calling [phone] DXA machine: [facility], [place] [id number]). LSC in g/cm2 at 95% confidence: Lumbar spine 0.050, Total hip 0.040. FRAX software version: 3.05 COMPARISON machine: [facility] ([id number]) TECHNICAL LIMITATIONS/EXCLUSIONS: None SKELETAL SITES (REGIONS OF INTEREST): Lumbar spine (L1-4) and left hip FINDINGS: LUMBAR SPINE: T-score for the lumbar spine: -0.7 BMD for the lumbar spine in g/cm2: 0.974 HIP: T-score for the femoral neck: -0.7 BMD for the femoral neck in g/cm2: 0.775 T-score for the total hip: -0.3 BMD for the total hip in g/cm2: 0.908 FRAX: Not reported because T-score is not between -1.0 and -2.5 (per NOF guidelines) FRAX risk factor(s): None Major osteoporotic fracture risk (%): Not reported Hip fracture risk(%): Not reported NOTES: National Osteoporosis Foundation criteria for using FRAX: untreated postmenopausal women or men 50 or older with T-score between -1.0 and -2.5, no prior hip or vertebral fracture and a DXA evaluable hip. FRAX can be calculated outside of these parameters if desired. The FRAX online calculator is available at www.marisol.ac.uk/FRAX/ World Health Organization reference values: (based on lowest T-score of the lumbar spine, femoral neck, total hip, or 33% radius) Normal: T score at or above -1.0 Osteopenia: T score between -1.0 and -2.5 Osteoporosis: T score at or below -2.5 Severe osteoporosis: T-score at or below -2.5 and a fragility fracture (prior or new) Approaches to reduce osteoporosis-related fracture risk include optimizing calcium and vitamin D status and fall-prevention measures. The National Osteoporosis Foundation treatment guidelines recommend treatment for : - Those with hip fracture or vertebral fracture (clinical or asymptomatic) - Those with T-score -2.5 or lower at total hip, femoral neck or spine by DXA, after appropriate evaluation - Low bone mass and 10-year probability of a hip fracture equal to or greater than 3% or a 10-year probability of a major osteoporotic fracture equal to or greater than 20% (FRAX). All treatment decisions require clinical management and consideration of individual factors including patient preferences, comorbidities, prior drug use, risk factors not captured in FRAX model (e.g.-sarcopenia, vitamin D deficiency, increased bone turnover, interval significant decline in bone density) and possible under or over estimation of fracture risk by FRAX Bonifacio Quinn MD [facility] al Result * Hepatitis C Antibody (05/07/2019 8:34 AM EST) HEPATITIS C AB NONREACTIVE NONREACTIVE [facility] Comment:Tested at: [facility] [place] [address] Whole blood specimen (specimen) 05/07/2019 8:34 AM EST 05/07/2019 8:51 AM EST Bonifacio Quinn MD LAB BLOOD ORDERABLE S Final Result [facility] [address] [place] [address] [facility] DIAGNOS[facility] RECEIVING [address] [facility] [address] [place] [address] from Last 3 Months or Most Recently Relevant to Health Maintenance Administered Medications Insurance [employer]ARE ALL OTHER Care Teams Air Carrier Inspector Relationship Specialty Start Date End Date Pcp, MD Arabella PCP - General Internal Medicine 01/09/21
--- OUTSIDE RECORDS SUMMARY | 2024-09-20 13:56 | XMS_ITS | Clinical Summary ---
Author Organization [facility] Address [address] [place] [address] Phone Care Team Providers Care Rating Examiner Name Role Phone Lars James Navarrete Primary Care Provider [phone] Allergies No known active allergies Medications * This document contains information received from the source organization and may not represent a complete record from that organization. lisinopriL (PRINIVIL;ZEST RIL) 10 mg Oral Tablet Take 10 mg by mouth daily. 7 Active lovastatin (MEVACOR) 20 mg Oral Tablet Take 20 mg by mouth With evening meal. 6 Active lamoTRIgine (LAMICTAL) 100 mg Oral TabletIndicati ons:Moderate recurrent major depression (HCC) Take 1 Tablet by mouth 2 times daily. 180 Tablet 5 Active QUEtiapine (SEROQUEL) 100 mg Oral TabletIndicati ons:Moderate recurrent major depression (HCC) Take 1 Tablet by mouth nightly. 90 Tablet 1 5 Active venlafaxine (EFFEXOR-XR) 150 mg Oral Capsule, Sust. Release 24 hrIndications: Moderate recurrent major depression (HCC) Take 1 Capsule by mouth nightly. 90 Capsule 1 5 Active valbenazine (INGREZZA) 40 mg Oral CapsuleIndicat ions:Dyskinesi a, tardive TAKE 1 CAPSULE BY MOUTH DAILY 30 Capsule 5 Active valbenazine (INGREZZA) 40 mg Oral CapsuleIndicat ions:Dyskinesi a, tardive Take 40 mg by mouth daily. 09/04/19 25 Discontinued Active Problems Problem Noted Date Diagnosed [...] Date Last Done Comments Wellness Exam Medicare 1953 Hepatitis C Screening 1968 Colonoscopy 06/27/1995 FIT 06/27/1995 Sigmoidoscopy 06/27/1995 Virtual Colonography 06/27/1995 Zoster (2 of 3) 05/25/2011 03/30/2011 COVID-19 Vaccine ( season) 2023 Cologuard 07/05/2024 07/05/2021, 05/01/2018 Colon Cancer Screening 07/05/2024 Influenza Vaccine (#1) 2024 0, 04/07/2018, 04/06/2017, Additional history exists Breast Cancer Screening 03/24/2025 03/24/19 24, 03/24/2023, 12/04/2021 DTaP/TDaP/Td (3 - Td or Tdap) 04/07/2028 04/07/2018, 07/17/2008 Bone Density Screening Completed 05/07/2019 Pneumococcal Vaccine 50+ Completed 024, 04/06/2017, 02/20/2016 Hepatitis B Vaccine Aged Out No longe r eligible based on patient's age to complete this topic Meningococcal B Vaccine Aged Out No l onger eligible based on patient's age to complete this topic Goals Goal Patient Goal Type Associated Problems Recent Progress Patient-Stated? Author Patient will decrease symptoms of depression by using healthy coping skills Care Plan Depression No Mamutse, Sithandiwe, BIOINFORMATICS ASSOCIATE Note: Coping skills used: Patient has access to crisis phone number Care Plan Depression No Mamutse, Sithandiwe, BIOINFORMATICS ASSOCIATE Note: Crisis Number: Sign Release of Information for behavioral health provider and medical providers to communicate Care Plan Depression No Mamutse, Sithandiwe, BIOINFORMATICS ASSOCIATE Note: Provider Name: Provider Number: Provider Location: Patient will understand depressive feelings Care Plan Depression No Mamutse, Sithandiwe, BIOINFORMATICS ASSOCIATE Identify and practice activities to improve coping skills and decrease anxiety/stress. Care Plan Depression No Mamutse, Sithandiwe, BIOINFORMATICS ASSOCIATE Additional Health Concerns Active Problems Noted Date Diagnosed Date Depression 08/02/2023 Insurance [facility] MEDICARE PPO MR [employer] MEDICARE PPO MR Care Teams Rating Examiner Relationship Specialty Start Date End Date James Sousa [address] [place] [address] PCP - General Family Medicine 05/24/22
--- OUTSIDE RECORDS SUMMARY | 2024-09-20 13:56 | XMS_ITS | Clinical Summary ---
Author Organization [facility] Address [address] [place] [address] Phone Care Team Providers Care Professional Golf Tournament Player Name Role Phone Pcp, None MD Primary Care Provider [phone] Allergies No known active allergies Medications * [...] Pad Dysfunction 03/18/2006 0 03/23/2012 Overview (09/20/2011): 2005 Cervical Spondylosis 06/30/2005 013 Overview (09/20/2011): (xray [...] Pertussis) 9,07/17/2008 Zoster Vaccination Live, SQ 03/30/2011 Family History Medical History Relation Name Comments Heart Disease Father CAD: CABG at 5 5 High BP Father in his 50s Cancer Maternal Grandfather Larynge al/Smoker Diabetes Maternal Grandmother Diabetes Mother Heart Disease Mother CHF at the end High Cholesterol Sister 6 Heart Disease Sister 7 CABG at age 50 Blood Disorder Neg Hx Stroke Neg Hx Thyroid Disease Neg Hx Relation Name Status Comments Brother Alive younger Father (Age 83) Emphysema, COPD Maternal Grandfather Maternal Grandmother Mother (Age 87) CHF Sister 1 Alive younger Sister 2 Alive younger Sister 3 Alive younger Sister 4 Alive younger Sister 5 Alive younger Sister 6 Sister 7 Son 1 Alive 1973 Son 2 Alive 1979 Social History Tobacco Use Types Packs/Day Years [...] to get utilities Not on file 07/22/19 24 Comments No Sex and Gender Information Value Date Recorded Sex Assigned at Not on file Legal Sex Female 5:26 AM EDT Gender Identity Not on file Sexual Orientation Not on file 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 Not on file Not on file Not on file Not on file Not on file Not on file [place] 1/2 day/wk; preg [place] 2018 Not on [...] 05/27/2020 9:09 AM EST Plan of Treatment Health Maintenance Due Date Last Done Comments Colonoscopy 06/27/1995 Shingrix (#1) 2000 Mammogram Screening 03/24/2024 03/24/2023, 12/04/2021, 09/26/2019, Additional history exists Influenza Vaccine (Season Ended) 2024 04/18/2019, 04/07/2018, 04/06/2017, Additional history exists RSV Vaccine (60+ or ) (1 - 1-dose 75+ series) 2025 DTap,Tdap,and Td (3 - Td or Tdap) 04/07/2028 04/07/2018, 07/17/2008 Pneumococcal 50+ Completed 04/06/2017, 02/20/2016 DEXA Scan Completed 05/07/2019, 06/2012, 09/13/2008, Additional history exists Hepatitis C Screening Completed 05/07/2019 HPV Aged Out No longer eligi ble based on patient's age to complete this topic Meningococcal conjugate valent 4 (MCV4) Aged Out No longer eligible based on patient's age to complete this topic RSV Immunization (<20 months) Aged Out No longer eligible based on patient's age to complete this topic Procedures Procedure Name Priority Date/Time Associated Diagnosis [...] Recently Relevant to Health Maintenance Results * [facility] SCR BILAT MELVIN (03/24/2023 10:47 AM EST) [...] appointment, or scheduling can be reached at [phone]. RISK ASSESSMENT: A preliminary breast cancer risk assessment was conducted as part of the patient?s screening mammogram. Patients with a preliminarily elevated screening score who are interested in further information are encouraged to contact our High Risk Navigator at [phone], or provider can place a referral to the high risk breast program, [id number]. Patient's lifetime Yazmin model risk: 4% (20% and greater considered high risk) Family History Risk Score: 0 (1 and [...] or areas of nonsurgical architectural distortion identified. Landon Sousa [facility] Final Result * BONE DENSITY - DEXA [...] the content of this report, please contact radiology by calling [phone] DXA machine: [facility], [place] [id number]). LSC in g/cm2 at 95% confidence: Lumbar spine 0.050, Total hip 0.040. FRAX software version: 3.05 COMPARISON machine: [facility] ([id number]) TECHNICAL LIMITATIONS/EXCLUSIONS: None SKELETAL SITES (REGIONS OF [...] fracture risk by FRAX Bonifacio Quinn MD [facility] Fin al Result * Hepatitis C Antibody (05/07/2019 8:34 AM EST) HEPATITIS C AB NONREACTIVE NONREACTIVE [facility] RECEIVING Comment:Tested at: [facility], [address] [place] [address] Whole blood specimen (specimen) 05/07/2019 8:34 AM EST 05/07/2019 8:51 AM EST Bonifacio Quinn MD LAB BLOOD ORDERABLE S Final Result [facility] [address] [place], [place] [id number] [facility]MAIR DIAGNOSITC RECEIVING [address] [facility] [address] [place] [address] from Last 3 Months or Most Recently Relevant to Health Maintenance Insurance [employer] MEDICARE ALL OTHER Advance Directives * Full Code (Latest Code Status on File) Date Activated Date Inactivated Comments 03/22/2012 5:47 PM 03/28/2012 7:18 PM Care Teams Professional Golf Tournament Player Relationship Specialty Start Date End Date Pcp, Arabella, PCP - General Internal Medicine 01/09/21
--- OUTSIDE RECORDS SUMMARY | 2024-09-20 13:56 | XMS_ITS | Encounter Summary ---
Author Organization [facility] Address [facility] [address] [address] Phone Care Team Providers Care Hydro Electric Station Operator Name Role Phone Bonifacio Quinn MD Primary Care Provi rajani Bonifacio Quinn MD Unavailable [phone] Pcp, None Primary Care Provider [phone] Reason for Referral * Other (Routine) - Closed Specialty Diagnoses / Procedures Referred By Contac t Referred To Contact Procedures EXTERNAL LAB COLOGUARD FIT DNA HISTORICAL MED Referral ID Status Reason Start Date Expiration Date V isits Requested Visits Authorized [id number] Closed Specialty Services Required 05/09/2018 05/09/2019 1 1 Encounter Details Date Type Department Care Team (Late st Contact Info) Description 05/09/2018 SCAN [facility] - Primary Care - [place] [address] [place] [id number] Social History Tobacco Use Types Packs/Day Years [...] 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 on file Not on file Not on file Not on file Not on file Not on file [place] 1/2 day/wk; preg [place] 2018 Not on file Not on file Not on file documented as of this encounter Plan of Treatment Not on file documented as of this encounter Procedures Procedure Name Priority Date/Time Associated Diagnosis Comments EXTERNAL LAB COLOGUARD FIT D NA USE TO ABSTRACT PREVIOUSLY PERFORMED TEST, DO NOT USE TO PLACE ORDER Routine 05/07/2018 documented in this encounter Results * EXTERNAL LAB COLOGUARD FIT DNA (05/07/2018) us Historical Med LAB NON BLOOD ORDERABLES Final R esult documented in this encounter Visit Diagnoses Not on filedocumented in this encounter Care Teams Hydro Electric Station Operator Relationship Specialty Start Date End Date Bonifacio Quinn MD [address] [place] [address] PCP - General 08/13/10 01/08/21 Bonifacio Quinn MD [address] [place] [address] PCP - Namoi REECE Attributed Physician 08/20/19 08/18/21 Pcp, MD Arabella [address] [place] [address] PCP - General Internal Medicine 01/09/21 documented as of this encounter
[2024-09-20 14:39] LABS: Albumin Level 4.5 g/dl (3.5-5.0); Chloride 105 mmol/L (98-107); Potassium 3.7 mmoL/L (3.5-5.1); Sodium 140 mmol/L (136-145)
[2024-09-20 14:42] LABS: Alanine Aminotransferase 44 U/L (12-78); Albumin/Globulin Ratio 2.4 (1.1-1.8); Alkaline Phosphatase 113 U/L (38-126); Anion Gap 13.7 mEq/L (5-15); Aspartate Amino Transferase 38 U/L (14-36); Bilirubin,Total 0.3 mg/dl (0.2-1.3); Blood Urea Nitrogen 14 mg/dl (7-17); Carbon Dioxide 25 mmol/L (22.0-30.0); Creatinine,Serum 0.70 mg/dl (0.52-1.04); Estimated Glomerular Filt Rate 82 ml/min (>60); GFR (African American) 99 ML/MIN (>60); Globulin 1.9 g/dL (1.3-3.2); Total Protein,Serum 6.4 g/dl (6.3-8.2)
[2024-09-20 14:43] LABS: Calcium 9.1 mg/dl (8.4-10.2); Glucose 83 mg/dl (74-100)
== END 2024-09-20 23:59 | disposition home or self-care (01) ==
LOC: LAB 13:50
PROVIDERS: PCP Physician Assistant; Visit Provider Nurse Practitioner Family
DX: R74.8 Abnormal levels of other serum enzymes (principal)
CPT/HCPCS: 36415; 80053

== ENCOUNTER 2024-11-29 09:09 | Outpatient (CLI) | payer MEDICARE, SELFPAY ==
--- OUTSIDE RECORDS SUMMARY | 2024-04-26 05:15 | XMS_ITS ---
Author Organization [facility] Address [address] [facility] Suite [place] [id number] Care Team Providers Care Market News Reporter Name Role Phone James Sousa Unavailable [phone] Shayla Mitchell Unavailable [phone] Allergies No Known Allergies Results Component Value [...] Interpretation: Performing Lab: Notes/Report: Test performed by [facility] , [address], [place] [address] Gustavo Flores MD, Coding Technician CLIA: [id number] Sodium 145 135-145 mmol/L Potassium 3.4 3.5-5.3 [...] Interpretation: Performing Lab: Notes/Report: Test performed by [facility] [address] , [place] [address] Gustavo Flores MD, Coding Technician CLIA: [id number] Cholesterol 104 <200 mg/dL Triglycerides 79 <150 [...] Interpretation: Performing Lab: Notes/Report: Test performed by [facility] [address] [place] [address] [place] [address] Gustavo Flores MD, Coding Technician CLIA: [id number] TSH reflex to FT4 3.56 0.43-5.25 mU/L proBrain Natriuretic Peptide Reviewed date:05/09/2024 12:02:39 PM Interpretation: Performing Lab: Notes/Report: Test performed by [facility] [address] [place] [address] [place] [address] Gustavo Flores MD, Coding Technician CLIA: [id number] proBrain Natriuretic Peptide 169 <300 pg/mL Please [...] a nd pick correct strength-formulatio n from [employer] options. If intended option is not shown, discontinue and re-order from Quick Search* Active Creon [id number] UNIT as directed Orally Active Lisinopril 10 MG 1 tab(s) orally once a day; Duration: 90 days Active Problems Problem Type SNOMED Code ICD Code Onset Dates Problem Status W/U Status Risk Notes Problem Exocrine pancreatic insufficiency (20611292) Exocrine pancreatic insufficiency (K86.81) Active confirmed Vital Signs Blood pressure systolic 110 mm Hg 04/26/19 25 Blood pressure diastolic 64 mm Hg 025 Heart Rate 75 /min 04/26/2024 Height 69.5 in 04/26/2024 Weight 152.8 lbs 04/26/2024 BMI 22.24 kg/m2 04/26/2024 Encounters Encounter Location Date Provider Diagnosis [facility] [address] [facility] [address] [place] [phone] 04/26/2024 Shayla Mitchell Adult general medica l [...] for (ICD-10 - Z12.31) Patient schedules in [place] 04/26/2024 Osteoporosis screening (ICD-10 - Z13.820) Patient schedules in [place] 04/26/2024 BMI 22.0-22.9, adult (ICD-10 - Z68.22) Plan Of Treatment Treatment Notes Assessment Notes Adult general medical examination Patien t instructed to return to office Annually for Annual Wellness Visits to include annual screenings of Pain assessment, Functional Ability assessment, Cognitive Ability assessment, Fall Risk assessment, Depression screening and Bladder control screening. Screening mammogram, encounter for Patimadie nt schedules in [place] Osteoporosis screening Patient schedules in [place] Pending Test Test Name Order Date Bone density 04/26/2024 Mammogram 04/26/2024 Next Appt Details Follow Up: As directed by MD , Reason: Progress Notes * SLOANE DAVIDDOB:1950 (74 yo F)Acc No.[id number]:04/26/2024 Annual Wellness Visit Patient: SLOANE GRAY Provider: MONIQUE Saldaña :1950 A ge:73 Y S ex:Female Date:04/26/2024 Address:[address] [place] [address] Subjective: * Chief Complaints: * 1 . [...] Alcohol: no. * Medications: T aking Creon [id number] UNIT Capsule Delayed Release Particles as directed [...] steoporosis screening - Z13.820 1 2. B [place] 22.0-22.9, adult - Z68.22? Plan: * Treatment: [...] p latlet 217 100 - 400 * [place]ne leone Victoriano 04/26/2024 1:32 :08 PM >Shayla [...] 04/27/2024 2:15:3 2 PM > faxed to [facility] SchedulingMaCarolyn valenzuela 09/04/2024 12:25:20 PM EDT >pt calling to get these scheduled Notes: Patient schedules in [place]??6.?Osteoporosis screening?Imaging: Bone density* Jdu Medina 04/26/2024 2:35: 01 PM > [facility] 04/26/2024 2:39:21 PM > faxed to [facility] Scheduling Notes: Patient schedules in [place]?? * Labs: * L ab: proBrain Natriuretic Peptide (Collection Date & Time - 04/26/2024 08:55 AM) Value Reference Range p roBrain Natriuretic Peptide 169 <300 - pg/mL * [facility], IT support 04/27/2024 05:10:14 : This order [...] IN RCRD, 1003F LEVEL OF ACTIVITY ASSESS, 46676 CBC WITH AUTO DIFF, 1036F TOBACCO NON-USER, [...] * Images: Billing Information: * Visit Code: 20135 Office Visit, Est Pt., Level 3. Modifiers: 25 * Procedure Codes: G0439 ANNUAL WELLNESS VST; PPS SUBSQT VST. G0444 ANNUAL DEPRESSION SCREENING 15 MIN. 1090F PRES/ABSN URINE INCON ASSESS. 3288F FALL RISK ASSESSMENT DOCD. 1170F FXNL STATUS ASSESSED. 1126F AMNT PAIN NOTED NONE PRSNT. 1159F MED LIST DOCD IN RCRD. 1003F LEVEL OF ACTIVITY ASSESS. 80330 CBC WITH AUTO DIFF. 1036F TOBACCO NON-USER. 3017F COLORECTAL CA SCREEN DOC REV. 4040F PNEUMOC IMM ORDER/ADMIN. G8510 NEG SCR Depression PT NOT ELIG F/U/PLN DOC. 3074F SYST BP LT 130 MM HG. 3078F DIAST BP < 80 MM HG. * Electronic signature of MONIQUE Gunderson on 11/29/2024 at 09:30 AM EDT Sign off status: Pending * Provider: MONIQUE Saldaña Date: 0 04/26/2024 Generated for Printi ng/Faxing/eTransmitting on: 0 11/29/2024 09:30 AM EDT History and Physical Notes * HPI [...]
--- OUTSIDE RECORDS SUMMARY | 2024-05-10 06:15 | XMS_ITS ---
Author Organization [facility] Address [address] [facility] [address] [id number] Care Team Providers Care Reed Maker Name Role Phone LarsJames Unavailable [phone] Shayla Mitchell Unavailable [phone] Results Component Value Reference Range Notes P-Comprehensive Metabolic Pa radha (CMP) Reviewed date:05/14/2024 11:04:18 PM Interpretation:gluc 62, alk phos 173, alt 100, ast 59, a/g 2.5 Performing Lab: Notes/Report: Test performed by [facility] [address] [place] [address] , [address], [place] [address] Gustavo Flores MD, Customer Program Manager CLIA: [id number] Sodium 143 135-145 mmol/L Potassium 4.4 3.5-5.3 [...] Interpretation:Normal Performing Lab: Notes/Report: Test performed by [facility], [facility] [address] [place] [address] , [address], [place] [address] Gustavo Flores MD, Customer Program Manager CLIA: [id number] Hepatitis A Antibody, IgM Nonreactive Nonreactive Hepatitis B Core Antibody (HBcAb) IgM Nonreactive Non reactive Hepatitis B Surface Antigen (HBsAg) Nonreactive Nonre active Hepatitis C Antibody (HCV) IgG Nonreactive Nonreactiv e REASON FOR VISIT blood work Encounters Encounter Location Date Provider Diagnosis [facility] [address] [place] [phone] 05/10/2024 Shayla Mitchell Elevated liver enzym es R74.8 Assessments Encounter Date Diagnosis (ICD Code) Assessment Notes Treatment Notes Treatment Clinical Notes Section Notes 05/10/2024 Elevated liver enzymes (ICD-10 - R74.8) Plan Of Treatment No Information Progress Notes * SLOANE DAVIDDOB:1950 (74 yo F)Acc No.[id number]:05/10/2024 Patient: SLOANE GRAY Provider: MONIQUE Saldaña :1950 A ge:73 Y S ex:Female Date:05/10/2024 Address:[address] [place], [place] [phone] Subjective: * Chief Complaints: * 1 . [...] signature of MONIQUE Gunderson on 11/29/2024 at 09:31 AM EDT Sign off status: Pending * Provider: MONIQUE Saldaña Date: 0 05/10/2024 Generated for Surii ng/Faxing/eTransmitting on: 0 11/29/2024 09:31 AM EDT
--- OUTSIDE RECORDS SUMMARY | 2024-11-08 05:00 | XMS_ITS ---
Author Organization [facility] Address [address] [place] [id number] Care Team Providers Care Mud Mill Tender Name Role Phone James Sousa Unavailable [phone] Shayla Mitchell Unavailable [phone] Allergies No Known Allergies Results Component Value [...] 3.2 Performing Lab: Notes/Report: Test performed by [employer], [facility] , [address], [place] [address] Gustavo Flores MD, Radar Engineering Teacher CLIA: [id number] Sodium 141 135-145 mmol/L Potassium 4.7 3.5-5.3 [...] Interpretation:Normal Performing Lab: Notes/Report: Test performed by [employer], [address] , [place] [address] Gustavo Flores MD, Radar Engineering Teacher CLIA: [id number] Cholesterol 186 <200 mg/dL Triglycerides 68 <150 [...] Interpretation:Normal Performing Lab: Notes/Report: Test performed by [employer], [address] , [facility], [place] [address] Gustavo Flores MD, Radar Engineering Teacher CLIA: [id number] TSH reflex to FT4 2.98 0.43-5.25 mU/L REASON FOR VISIT yearly physical, Needs labs, mammogram, & bone density screening Medications Medication SIG (Take, Route, Frequency, Duration) Notes Start Date End Date Status Creon 6000-74634 UNIT as directed Orally Active Solifenacin Succinate 10 MG 1 tablet Orally Once a day; Duration: 90 days Active Venlafaxine HCl ER 150 MG 1 cap(s) orally once a day Active Calcium 500 MG 1 TAB TID *Please review a nd pick correct strength-formulati on from [employer] options. If intended option is not shown, discontinue and re-order from Quick Search* Active lamoTRIgine 200 MG 1 tab(s) orally once a day Active Compression Stockings medium compression As needed 01/27/2024 Active Lisinopril 10 MG TAKE 1 TABLET EVERY DAY; Duration: 90 Not-Taking QUEtiapine Fumarate 100 MG 1 tab(s) orally once daily Active Vital Signs Blood pressure systolic 122 mm Hg 11/09/19 25 Blood pressure diastolic 70 mm Hg 025 Heart Rate 72 /min 11/08/2024 Height 69.5 in 11/08/2024 Weight 156 lbs 11/08/2024 BMI 22.7 kg/m2 11/08/2024 Encounters Encounter Location Date Provider Diagnosis A-Arsenio [address] [facility] [address] [place] [id number] 11/08/2024 Shayla Spencergeoff Dyslipidemia E78.5 ; Primary [...] Notes * SLOANE DAVIDDOB:1950 (74 yo F)Acc No.[id number]:11/08/2024 Physical Patient: SLOANE GRAY Provider: MONIQUE Saldaña :1950 A ge:74 Y S ex:Female Date:11/08/2024 Address:[address] [place] [address] Subjective: * Chief Complaints: * 1 . [...] Alcohol: no. * Medications: T aking Creon 6000-36169 UNIT Capsule Delayed Release Particles as directed [...] for osteoporosis - Z13.820 1 0. B IN 22.0-22.9, adult - Z68.22 Plan: * Treatment: [...] G 2211 Complex e/[place], [address] CBC WITH AUTO DIFF, 83161 VENIPUNCT, ROUTINE*, 1036F TOBACCO NON-USER, G8420 BMI<30 AND >=22 CALC & DOCU, G8950 PREHTN/HTN BP DOC INDCD F/U DOC, G8752 MOST RECENT SYSTOLIC BP < 140MM HG, G8754 MOST RECENT DIASTOLIC BP < 90MM HG * Follow Up: v ia phone to report test results * Images: Billing Information: * Visit Code: 69383 Preventive Care Est Pt. Age 65 and over. * Procedure Codes: G2211 Complex e/[place]. [address] CBC WITH AUTO DIFF. 52684 VENIPUNCT, ROUTINE*. 1036F TOBACCO NON-USER. G8420 BMI<30 AND >=22 CALC & DOCU. G8950 PREHTN/HTN BP DOC INDCD F/U DOC. G8752 MOST RECENT SYSTOLIC BP < 140MM HG. G8754 MOST RECENT DIASTOLIC BP < 90MM HG. * Electronic signature of MONIQUE Gunderson on 11/29/2024 at 09:31 AM EDT Sign off status: Pending * Provider: MONIQUE Saldaña Date: 0 11/08/2024 Generated for Lyric juarez/Falauryn/eTransmitting on: 0 11/29/2024 09:31 AM EDT History and Physical Notes * [...]
--- OUTSIDE RECORDS SUMMARY | 2024-11-12 08:00 | XMS_ITS ---
Author Organization [facility] Address [address] [facility] [address] [place] [id number] Care Team Providers Care Research Chief Engineer Name Role Phone James Sousa Unavailable [phone] REASON FOR VISIT due col, [place] Encounters Encounter Location Date Provider Diagnosis [facility] [address] [place] [id number] 11/12/2024 James Sousa Colon cancer screening Z12.11 Assessments Encounter Date Diagnosis (ICD Code) Assessment Notes Treatment Notes Treatment Clinical Notes Section Notes 11/12/2024 Colon cancer screening (ICD-10 - Z12.11) Plan Of Treatment Pending Test Test Name Order Date Cologuard 11/12/2024 Progress Notes * SLOANE DAVIDDOB:1950 (74 yo F)Acc No.[id number]:11/12/2024 Patient: SLOANE GRAY :1950 A ge:74 Y S ex:Female Address:[address] [place] [address], [address] Subjective: * Chief Complaints: * D ue col, [place] * Medical History: * Surgical History: * Hospitalization/Major Diagno stic Procedure: * Medications: Objective: * Vitals: * Physical Examination: Assessment: * Assessment: 1. C olon cancer screening - Z12.11 (Primary) Plan: * Treatment: * Procedure Codes: * true * Date: Generated for Printi ng/Faxing/eTransmitting on: 0 11/29/2024 09:31 AM EDT
--- OUTSIDE RECORDS SUMMARY | 2024-11-29 09:31 | XMS_ITS | Patient Health Record ---
Author Organization [facility] Address [address] [facility] 36 [facility] [address] [place] [id number] Care Team Providers Care Computer Art Instructor Name Role Phone LarsJames Unavailable [phone] AnaEzequielKathryn Unavailable [phone] TjShayla tellez Unavailable [phone] Allergies No Known Allergies Results Component Value [...] Interpretation: Performing Lab: Notes/Report: Test performed by [facility], [employer] [address] [place] [address] , [address], [place] [address] Gustavo Flores MD, Cushion Former CLIA: [id number] Sodium 145 135-145 mmol/L Potassium 3.4 3.5-5.3 [...] Interpretation: Performing Lab: Notes/Report: Test performed by [facility], [address] , [address] , [place] [address] Gustavo Flores MD, Cushion Former CLIA: [id number] Cholesterol 104 <200 mg/dL Triglycerides 79 <150 [...] Results: 80 Units: mg/dL % Change: -15% ------- Test Date: 04/26/2024 LDL Results: 38 Units: mg/dL % Change: -52% P-TSH reflex to FT4 Reviewed date:05/09/2024 12:02:39 PM Interpretation: Performing Lab: Notes/Report: Test performed by [facility] [address] [place], [place] [address] [place] [address] Gustavo Flores MD, Cushion Former CLIA: [id number] TSH reflex to FT4 3.56 0.43-5.25 mU/L proB[employer] Natriuretic Peptide Reviewed date:05/09/2024 12:02:39 PM Interpretation: Performing Lab: Notes/Report: Test performed by [facility] [address] [place], [place] [address] [place] [address] [place] [id number] Gustavo Flores MD, Cushion Former CLIA: [id number] [employer] Natriuretic Peptide 169 <300 pg/mL Please note the updated reference range values which are stratified by age. Positive >900 pg/mL Indeterminate 300-900 pg/mL Negative <300 pg/mL P-Comprehensive Metabolic Pa radha (CMP) Reviewed date:05/14/2024 11:04:18 PM Interpretation:gluc 62, alk phos 173, alt 100, ast 59, a/g 2.5 Performing Lab: Notes/Report: Test performed by [facility] [address] [place] [address] , [place] [address] Gustavo Flores MD, Cushion Former CLIA: [id number] Sodium 143 135-145 mmol/L Potassium 4.4 3.5-5.3 [...] Interpretation:Normal Performing Lab: Notes/Report: Test performed by [facility] [address] [place] [address] , [address], [place] [address] Gustavo Flores MD, Cushion Former CLIA: [id number] Hepatitis A Antibody, IgM Nonreactive Nonreactive Hepatitis B Core Antibody (HBcAb) IgM Nonreactive Nonreactive Hepatitis B Surface Antigen (HBsAg) Nonreactive Nonreactive Hepatitis C Antibody (HCV) IgG Nonreactive Nonreactive CBC Venipuncture (in house) Reviewed date:11/08/2024 01:17:48 [...] 3.2 Performing Lab: Notes/Report: Test performed by [facility] [address] [place] [address] , [address], [place] [address] Gustavo Flores MD, Cushion Former CLIA: [id number] Sodium 141 135-145 mmol/L Potassium 4.7 3.5-5.3 [...] Interpretation:Normal Performing Lab: Notes/Report: Test performed by [employer] [employer] [address] [place] [address] , [address], [place] [address] Gustavo Flores MD, Cushion Former CLIA: [id number] Cholesterol 186 <200 mg/dL Triglycerides 68 <150 [...] Results: 80 Units: mg/dL % Change: -15% ------- Test Date: 04/26/2024 LDL Results: 38 Units: mg/dL % Change: -52% ------- Test Date: 11/08/2024 LDL Results: 114 Units: mg/dL % Change: +200% P-TSH reflex to FT4 Reviewed date:11/22/2024 01:20:56 PM Interpretation:Normal Performing Lab: Notes/Report: Test performed by [facility] [employer] [address] [facility] [place] [address] Gustavo Flores MD, Cushion Former CLIA: [id number] TSH reflex to FT4 2.98 0.43-5.25 mU/L colonoscopy Reviewed date:04/25/2024 12:21:25 PM Interpretation:unremarkable Performing Lab: Notes/Report: unremarkable result: unremarkable P-Culture, Urine Reviewed date:02/22/2024 03:01:10 PM Interpretation:intermediate Performing Lab: Notes/Report: Test performed by [facility], [address] , [address], [place] [address] Gustavo Flores MD, Cushion Former CLIA: [id number] Specimen Source Urine - Void Culture, Urine [...] Tobramycin S Trimeth/Sulfa S S=SUSCEPTIBLE I=INTERMEDIATE R=RESISTANT Urinalysis - Inhouse Reviewed date:02/17/2024 01:48:42 PM Interpretation: Performing Lab: Notes/Report: Color/Clarity yellow cloudy Leuk 3+ Nitrite neg Urobili 3.2 Protein 3+ pH 6.0 Blood 2+ Sp. Gr. 1.020 Ketone neg Bili neg Gluc neg P-Culture, Urine Reviewed date:02/09/2024 10:07:22 AM Interpretation:No growth Performing Lab: Notes/Report: Test performed by [facility] [address] [place] [address] , [address], [place] [address] Gustavo Flores MD, Cushion Former CLIA: [id number] Specimen Source Urine - Void Culture, Urine See Below Final Report : No growth Urinalysis - Inhouse Reviewed date:02/07/2024 03:39:09 PM Interpretation: Performing Lab: Notes/Report: Color/Clarity yellow/cloudy Leuk 3+ Nitrite neg Urobili 3.2 Protein 1+ pH 6.0 Blood 2+ Sp. Gr. 1.010 Ketone neg Bili neg Gluc neg TEN-stool panel Reviewed date:12/14/2023 03:38:21 PM Interpretation:Negative Performing Lab: Notes/Report: Negative Reason For Referral Diagnosis 1 Chronic diarrhea (K5 2.9) Referral Organization [facility] Referring Provider First Name James Navarrete Referring Provider Last Name Lars Referring Provider Speciality On license of [facility] Referred Provider Specialty Gastroentero logy General Notes Melissa Duenas 024 9:32:04 AM > faxed referral with office notes to Dr. Aragon Referral Priority Routine Medications Medication SIG (Take, Route, Frequency, Duration) Notes Start Date End Date Status Creon [id number] UNIT as directed Orally Active Solifenacin Succinate 10 MG 1 tablet Orally Once a day; Duration: 90 days Active Compression Stockings medium compression As needed 01/27/2024 Active Lisinopril 10 MG TAKE 1 TABLET EVERY DAY; Duration: 90 Not-Taking Venlafaxine HCl ER 150 MG 1 cap(s) orally once a day Active QUEtiapine Fumarate 100 MG 1 tab(s) orally once daily Active Calcium 500 MG 1 TAB TID *Please review a nd pick correct strength-formulati on from [employer] options. If intended option is not shown, discontinue and re-order from Quick Search* Active lamoTRIgine 200 MG 1 tab(s) orally once a day Active Immunizations Vaccine Route Administration Date Status Comme nts COVID 19 Dinh Unknown 06/25/2020 Administered Prevnar (PCV20) IM Intramuscular 07/15/2023 Administered Problems Problem Type SNOMED Code ICD Code Onset Dates Problem Status W/U Status Risk Notes Problem Arthropathy of lumbar facet joint (695696835) Lumbar facet arthropathy (M47.816) Active confirmed Problem Mixed anxiety and depressive disorder (781010242) Depression with anxiety (F41.8) Active confirmed Problem Overflow incontinence of urine (779251601) Overflow incontinence (N39.490) Active confirmed Problem Dyslipidemia (087569164) Dyslipidemia (E78.5) Active confirmed Problem Midline cystocele (720532915) Female bladder prolapse (N81.10) Active confirmed Problem Exocrine pancreatic insufficiency (40068145) Exocrine pancreatic insufficiency (K86.81) Active confirmed Problem Primary hypertension (58811365) Primary hypertension (I10) Active confirmed Problem Essential tremor (808085539) 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) Active confirmed Vital Signs Heart Rate 72 /min 11/08/2024 Blood pressure diastolic 70 mm Hg 11/08/2024 Height 69.5 in 11/08/2024 Blood pressure systolic 122 mm Hg 11/08/2024 Weight 156 lbs 11/08/2024 BMI 22.7 kg/m2 11/08/2024 Encounters Encounter Location Date Provider Diagnosis [facility] [address] [place] [id number] 12/07/2023 Shayla Crowdy Chronic diarrhea K52 .9 and Bloating R14.0 [facility] [address] [place] [id number] 12/08/2023 Shayla Crowdy [facility] [address] [place] [id number] 01/27/2024 Shayla Crowdy Edema of left lower extremity R60.0 [facility] [address] [place] [id number] 02/07/2024 Kathrynines Aragonond UTI (lower urinary tract infection) N39.0 [facility] [address] [place] [id number] 02/17/2024 Shayla Crowdy Dysuria R30.0 [facility] [address] [place] [id number] 03/20/2024 R Landon Sousa Acute bronchitis J20 .9 [facility] [address] [place], [place] [id number] 04/26/2024 Shayla Mitchell Adult general medica l examination Z00.00 ; Dyslipidemia E78.5 ; Primary hypertension I10 ; Depression with anxiety F41.8 ; Benign familial tremor G25.0 ; Overflow incontinence N39.490 ; Uncomplicated varicose veins I83.90 ; Lower extremity edema R60.0 ; Exocrine pancreatic insufficiency K86.81 ; Screening mammogram, encounter for Z12.31 ; Osteoporosis screening Z13.820 and BMI 22.0-22.9, adult Z68.22 [facility] [address] [place], [place] [id number] 05/10/2024 Shayla Mitchell Elevated liver enzym es R74.8 [facility] [address] [place], [place] [id number] 11/08/2024 Shayla Mitchell Dyslipidemia E78.5 ; Primary hypertension I10 ; Depression with anxiety F41.8 ; Benign familial tremor G25.0 ; Overflow incontinence N39.490 ; Uncomplicated varicose veins I83.90 ; Lower extremity edema R60.0 ; Exocrine pancreatic insufficiency K86.81 ; Screening for osteoporosis Z13.820 and BMI 22.0-22.9, adult Z68.22 [facility] [address] [place] [id number] 12/14/2023 Shayla Mitchell [facility] [address] [place] [id number] 01/09/2024 R Landon Sousa Chronic diarrhea K52 .9 and Bloating R14.0 [facility] [address] [place], [place] [id number] 01/27/2024 Shayla Mitchell [facility] [address] [place] [id number] 02/20/2024 Shayla Mitchell UTI (lower urinary tract infection) N39.0 [facility] [address] [place] [id number] 02/22/2024 Shayla Mitchell [facility] [address] [place] [id number] 05/09/2024 Shaylaadan Mitchell [facility] [address] [place] [id number] 05/23/2024 Shayla Stephen [facility] [address] [place] [id number] 11/12/2024 R Landon Sousa Colon cancer screeni Z12.11 [facility] [address] [place] [id number] 11/22/2024 Shayla Mitchell [facility] [address] [place] [id number] 05/09/2024 R Landon Lars [facility] [address] [place] [id number] 05/14/2024 Shayla Mitchell Elevated liver funct ion tests R79.89 Assessments Encounter Date Diagnosis (ICD Code) Assessment Notes Treatment Notes Treatment Clinical Notes Section Notes 05/14/2024 Elevated liver function tests (ICD-10 - R79.89) 04/26/2024 Adult general medical examination (ICD-10 - Z00.00) Patient instructed to return to office Annually for Annual Wellness Visits to include annual screenings of Pain assessment, Functional Ability assessment, Cognitive Ability assessment, Fall Risk assessment, Depression screening and Bladder control screening. 05/10/2024 Elevated liver enzymes (ICD-10 - R74.8) 11/08/2024 Dyslipidemia (ICD-10 - E78.5) 11/08/2024 Primary hypertension (ICD-10 - I10) Okay to remain off of the lisinopril. 11/12/2024 Colon cancer screening (ICD-10 - Z12.11) 12/07/2023 Bloating (ICD-10 - R14.0) 12/07/2023 Chronic [...] (lower urinary tract infection) (ICD-10 - N39.0) 03/20/2024 Acute bronchitis (ICD-10 - J20.9) 04/26/2024 Dyslipidemia (ICD-10 - E78.5) 11/08/2024 Depression with anxiety (ICD-10 - F41.8) 04/26/2024 Primary hypertension (ICD-10 - I10) 11/08/2024 Benign familial tremor (ICD-10 - G25.0) 04/26/2024 Depression with anxiety (ICD-10 - F41.8) 04/26/2024 Benign familial tremor (ICD-10 - G25.0) 11/08/2024 Overflow incontinence (ICD-10 - N39.490) 11/08/2024 Uncomplicated varicose veins (ICD-10 - I83.90) 04/26/2024 Overflow incontinence (ICD-10 - N39.490) 11/08/2024 Lower extremity edema (ICD-10 - R60.0) Resolved 04/26/2024 Uncomplicated varicose veins (ICD-10 - I83.90) 11/08/2024 Exocrine pancreatic insufficiency (ICD-10 - K86.81) 04/26/2024 Lower extremity edema (ICD-10 - R60.0) 11/08/2024 Screening for osteoporosis (ICD-10 - Z13.820) 04/26/2024 Exocrine pancreatic insufficiency (ICD-10 - K86.81) 04/26/2024 Screening mammogram, encounter for (ICD-10 - Z12.31) Patient schedules in [place] 11/08/2024 BMI 22.0-22.9, adult (ICD-10 - Z68.22) 04/26/2024 Osteoporosis screening (ICD-10 - Z13.820) Patient schedules in [place] 04/26/2024 BMI 22.0-22.9, adult (ICD-10 - Z68.22) Plan Of Treatment Pending Test Test Name Order Date Bone density 04/26/2024 DEXA Hip and Spine 11/12/2024 venous doppler ultrasound leg, lower lef t 01/27/2024 Mammogram 04/26/2024 Cologuard 11/12/2024 Insurance Providers Payer Name Payer Address Payer Phone Subscriber Number Group Number Insured Name Patient Relationship to Insured Coverage Start Date Coverage End Date [employer] (MEDICAR E) [address] [address] [place] [address] [id number] SLOANE DAVID Self - patient is the insured Medical (General) History Medical History History ICD Code Hypertension Hyperlipidemia Depression Heart Murmur Benign Familial Tremor Anxiety Exocrine pancreatic insufficiency Surgical History Surgery Date(Month/Year) hysterectomy for uterine fibroids 1980s Bilateral oophorectomy for cystic diseas e Right TKA 09/2021 Fusion L4/L5 05/18/23 Tonsillectomy Hospitalization History Reason Date(Month/Year)
--- OUTSIDE RECORDS SUMMARY | 2024-11-29 09:31 | XMS_ITS | Clinical Summary ---
Author Organization [facility] Address [address] [place] [address] Care Team Providers Care Professor Of Communication Arts Name Role Phone Ramon Mckeon Primary Care Provider [phone] Source Comments This information has been disclosed [...] therelease of HIV test results or diagnoses. [id number] Allergies No known active allergies Medications [...] 75 05/27/2020 3:13 PM EST Temperature 36.1 C (97 F) 05/27/2020 3:13 PM EST Respiratory Rate - - Oxygen Saturation - - Inhaled Oxygen Concentration - - Weight 78 kg (172 lb) 05/27/2020 3:13 PM EST Height 175.3 cm (5' 9 ) 05/27/2020 3:13 PM EST Body Mass Index 25.4 05/27/2020 3:13 PM EST Plan of Treatment Not on file Insurance [employer] [facility] Member Subscriber Plan / Payer (Ef fective 2015-Present) Name:Chary Chandra Relation to Subscriber:Self Name:Chary Chandra Payer ID:[id number] ([facility]) Type:Not on file Address: [address] [address] [employer] PPO MEDICARE Member Subscriber Plan / Payer (Ef fective 2016-Present) Name:Chary Chandra Relation to Subscriber:Self Name:Chary Chandra Payer ID:[id number] ([facility]) Type:[place] Care Address: [address] [address] Care Teams Professor Of Communication Arts Relationship Specialty Start Date End Date Ramon Mckeon [address] [place] [address] PCP - General 08/12/15
--- OUTSIDE RECORDS SUMMARY | 2024-11-29 09:31 | XMS_ITS | Encounter Summary ---
Author Organization [facility] Address [address] 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 on file Not on file Not on file Not on file Not on file Not on file documented as of this encounter Plan of Treatment Upcoming Encounters Date Type Department Care Team (Late st Contact Info) Description 01/21/2025 1:40 PM EST Appointment [facility] [address] [place] [phone] documented as of this encounter Procedures Procedure Name Priority Date/Time Associated Diagnosis Comments URINE CULTURE Routine 11/25/2010 documented in this encounter Results * URINE CULTURE (11/25/2010) Urine specimen (specimen) [facility] Med LABORATORY Final Result [facility] [address] [place] [address] documented in this encounter Visit Diagnoses Not on filedocumented in this encounter Care Teams Bunch Breaker Relationship Specialty Start Date End Date Bonifacio Quinn MD [address] [place] [address] PCP - General 08/13/10 01/08/21 Bonifacio Quinn MD [address] [place] [address] PCP - Naomi REECE Attributed Physician 08/20/19 08/18/21 Pcp, MD Arabella [address] [place] [address] PCP - General Internal Medicine 01/09/21 documented as of this encounter
--- OUTSIDE RECORDS SUMMARY | 2024-11-29 09:31 | XMS_ITS | Clinical Summary ---
Author Organization [facility] Address [address] [place] [address] Phone Care Team Providers Care Wire Taper Name Role Phone Lars James Navarrete Primary Care Provider [phone] Allergies No known active allergies Medications * [...] mouth nightly. 90 Capsule 1 5 Active lamoTRIgine (LAMICTAL) 100 mg Oral TabletIndicati ons:Moderate recurrent major depression (HCC) Take 1 Tablet by mouth 2 times daily. 180 Tablet 1 5 Active INGREZZA 40 mg Oral CapsuleIndicat ions:Dyskinesi a, tardive TAKE 1 CAPSULE BY MOUTH DAILY 30 Capsule 5 Active valbenazine (INGREZZA) 40 mg Oral CapsuleIndicat ions:Dyskinesi a, tardive Take 1 Capsule by mouth daily. 30 Capsule 5 11/01/19 25 Discontinued INGREZZA 40 mg Oral CapsuleIndicat ions:Dyskinesi a, tardive TAKE 1 CAPSULE BY MOUTH DAILY 30 Capsule 5 11/27/19 25 Discontinued Active Problems Problem Noted Date [...] 06/27/1995 Zoster (2 of 3) 05/25/2011 03/30/2011 Cologuard 07/05/2024 07/05/2021, 05/01/2018 Colon Cancer Screening 07/05/2024 COVID-19 Vaccine (1 - 2024-25 season) 2024 Influenza Vaccine (#1) 2024 0, 04/07/2018, 04/06/2017, [...] skills Care Plan Depression No Mamutse, Sithandiwe, FINANCIAL AID COUNSELOR Note: Coping skills used: Patient has access to crisis phone number Care Plan Depression No Elianautse, Cathye, FINANCIAL AID COUNSELOR Note: Crisis Number: Sign Release of Information for behavioral health provider and medical providers to communicate Care Plan Depression No Elianautse, Cathye, FINANCIAL AID COUNSELOR Note: Provider Name: Provider Number: Provider Location: Patient will understand depressive feelings Care Plan Depression No Mamutse, Sithandiwe, FINANCIAL AID COUNSELOR Identify and practice activities to improve coping skills and decrease anxiety/stress. Care Plan Depression No Mamutse, Sithandiwe, FINANCIAL AID COUNSELOR Additional Health Concerns Active Problems Noted Date Diagnosed Date Depression 08/02/2023 Insurance [employer]ARE PPO MR [employer] MEDICARE PPO MR Care Teams Wire Taper Relationship Specialty Start Date End Date James Sousa [facility] [address] [place] [id number] PCP - General Family Medicine 05/24/22
--- OUTSIDE RECORDS SUMMARY | 2024-11-29 09:31 | XMS_ITS ---
Author Organization Unknown Problems Date Problem Result OnSetDate Icd10 SnomedCode Severity Cu stom 04/26/2024 00:00:00 Exocrine pancreatic insufficiency K86.81 [id number]
--- OUTSIDE RECORDS SUMMARY | 2024-11-29 09:31 | XMS_ITS | Encounter Summary ---
Author Organization [facility] Address [facility] [place] [address] Phone Care Team Providers Care Piggery Worker Name Role Phone Bonifacio Quinn MD Primary Care Provi rajani Bonifacio Quinn MD Unavailable [phone] Pcp, None Primary Care Provider [phone] Reason for Referral * Other (Routine) - Closed Specialty Diagnoses / Procedures Referred By Contac t Referred To Contact Procedures EXTERNAL LAB COLOGUARD FIT DNA HISTORICAL MED Referral ID Status Reason Start Date Expiration Date V isits Requested Visits Authorized [id number] Closed Specialty Services Required 05/09/2018 05/09/2019 1 1 Encounter Details Date Type Department Care Team (Late st Contact Info) Description 05/09/2018 [place] [address] [place] [phone] Social History Tobacco Use Types Packs/Day Years [...] 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 Lindsay [address] [facility] [address] [place] [address] documented as of this encounter Procedures Procedure [...] on filedocumented in this encounter Care Teams Piggery Worker Relationship Specialty Start Date End Date Bonifacio Quinn MD [address] [place] [address] PCP - General 08/13/10 01/08/21 Bonifacio Quinn MD [address] [place] [address] PCP - Naomi REECE Attributed Physician 08/20/19 08/18/21 PcpArabella MD [address] [place] [address] PCP - General Internal Medicine 01/09/21 documented as of this encounter
--- OUTSIDE RECORDS SUMMARY | 2024-11-29 09:32 | XMS_ITS | Clinical Summary ---
Author Organization [facility] Address [address] 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 Not on file Not on file Not on file Not on file Not on file [place] 1/2 day/wk; preg [place] 2018 Not on [...] 05/27/2020 9:09 AM EST Plan of Treatment Upcoming Encounters Date Type Department Care Team (Late st Contact Info) Description 01/21/2025 1:40 PM EST Appointment [facility] [place] [facility] [address] [place] [id number] Health Maintenance Due Date Last Done Comments Colonoscopy 06/27/1995 Shingrix (#1) 2000 Mammogram Screening 03/24/2024 03/24/2023, 12/04/2021, 09/26/2019, Additional history exists Influenza Vaccine (#1) 2024 , 04/07/2018, 04/06/2017, Additional history exists RSV Vaccine (60+ or ) (1 - 1-dose 75+ series) 2025 DTap,Tdap,and Td (3 - Td or Tdap) 04/07/2028 04/07/2018, 07/17/2008 Pneumococcal 50+ Completed 04/06/2017, 02/20/2016 DEXA Scan Completed 05/07/2019, 110 06/2012, 09/13/2008, Additional history exists Hepatitis C [...] Recently Relevant to Health Maintenance Results * [facility] SCR BILAT MELVIN (03/24/2023 10:47 AM [...] appointment, or scheduling can be reached at [phone]. RISK ASSESSMENT: A preliminary breast cancer risk assessment was conducted as part of the patient?s screening mammogram. Patients with a preliminarily elevated screening score who are interested in further information are encouraged to contact our High Risk Navigator at [phone], or provider can place a referral to the high risk breast program, [id number]. Patient's lifetime Yazmin model risk: 4% (20% and greater considered high risk) [facility] Family History Risk Score: 0 (1 and [...] of nonsurgical architectural distortion identified. us Landon SOLANO Final Result * BONE DENSITY - DEXA [...] the content of this report, please contact [facility] radiology by calling [phone] DXA machine: TapSense C, Umair S/[id number]). LSC in g/cm2 at 95% confidence: Lumbar spine 0.050, Total hip 0.040. FRAX software version: 3.05 COMPARISON machine: CUPR ([id number]) TECHNICAL LIMITATIONS/EXCLUSIONS: None SKELETAL SITES (REGIONS OF [...] fracture risk by FRAX Bonifacio Quinn MD [facility] al Result * Hepatitis C Antibody (05/07/2019 8:34 AM EST) HEPATITIS C AB NONREACTIVE NONREACTIVE [facility] RECEIVING Comment:Tested at: [facility] [place] [id number] Whole blood specimen (specimen) 05/07/2019 8:34 AM EST 05/07/2019 8:51 AM EST Bonifacio Quinn MD LAB BLOOD ORDERABLE S Final Result [facility] [address] [place] [address] [facility] [address] [place] [address] [address] [place] [address] from Last 3 Months or Most Recently Relevant to Health Maintenance Insurance [facility] MEDICARE ALL OTHER Advance Directives * Full Code (Latest Code Status on File) Date Activated Date Inactivated Comments 03/22/2012 5:47 PM 03/28/2012 7:18 PM Care Teams Cigarette Package Examiner Relationship Specialty Start Date End Date PcpArabella MD PCP - General Internal Medicine 01/09/21
--- OUTSIDE RECORDS SUMMARY | 2024-11-29 09:32 | XMS_ITS | Referral Summary ---
Author Organization [facility] Address [address] 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 RISK ASSESSMENT: A preliminary breast cancer risk assessment was conducted as part of the patient?s screening mammogram. Patients with a preliminarily elevated screening score who are interested in further information are encouraged to contact our High Risk Navigator at [phone], or provider can place a referral to the high risk breast program, [id number]. Patient's lifetime Yazmin model risk: 4% (20% and greater considered high risk) [facility] Family History Risk Score: 0 (1 [...] of nonsurgical architectural distortion identified. Landon Sousa [facility] Final Result * BONE DENSITY - [...] the content of this report, please contact [facility] radiology by calling [phone] DXA machine: kubo financiero, Umair S/[id number]). LSC in g/cm2 at 95% confidence: Lumbar spine 0.050, Total hip 0.040. FRAX software version: 3.05 COMPARISON machine: kubo financiero ([id number]) TECHNICAL LIMITATIONS/EXCLUSIONS: None SKELETAL SITES (REGIONS OF [...] fracture risk by FRAX Bonifacio Quinn MD [facility] Fin al Result * Hepatitis C Antibody (05/07/2019 8:34 AM EST) HEPATITIS C AB NONREACTIVE NONREACTIVE [facility] RECEIVING Comment:Tested at: [facility] [place] [address] Whole blood specimen (specimen) 05/07/2019 8:34 AM EST 05/07/2019 8:51 AM EST Bonifacio Quinn MD LAB BLOOD ORDERABLE S Final Result [facility] [address] [place] [address] [facility] RECEIVING [address] [facility] [address] [place] [address] from Last 3 Months or Most Recently Relevant to Health Maintenance Administered Medications Insurance [employer] MEDICARE ALL OTHER Care Teams It Security Analyst Relationship Specialty Start Date End Date Pcp, MD Arabella PCP - General Internal Medicine 01/09/21
--- OUTSIDE RECORDS SUMMARY | 2024-11-29 09:32 | XMS_ITS | Encounter Summary ---
Author Organization [facility] Address [address] [place] [address] Phone Care Team Providers Care Waiter/Waitress Cafeteria Name Role Phone Bonifacio Quinn MD Primary Care Provi rajani Bonifacio Quinn MD Unavailable [phone] Pcp, None Primary Care Provider [phone] Encounter Details Date Type Department Care Team (Late st Contact Info) Description 12/16/2010 SCAN 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 Not on file Not on file Not on file Not on file Not on file Not on file documented as of this encounter Plan of Treatment Upcoming Encounters Date Type Department Care Team (Late st Contact Info) Description 01/21/2025 1:40 PM EST Appointment [facility] Breast [facility] [place] [address] [place] [phone] documented as of this encounter Procedures Procedure Name Priority Date/Time Associated Diagnosis Comments LAB SCAN Routine 11/24/2010 documented in this encounter Results * LAB SCAN (11/24/2010) [facility] Final Result documented in this encounter Visit Diagnoses Not on filedocumented in this encounter Care Teams Waiter/Waitress Cafeteria Relationship Specialty Start Date End Date Bonifacio Quinn MD [address] [place] [address] PCP - General 08/13/10 01/08/21 Bonifacio Quinn MD [address] [place] [address] PCP - Naomi REECE Attributed Physician 08/20/19 08/18/21 Pcp, MD Arabella [address] [place] [address] PCP - General Internal Medicine 01/09/21 documented as of this encounter"
--- NOTE | 2024-11-29 10:04 | XR_ITS ---
FINAL REPORT TECHNIQUE: Bone densitometry calculations of the left forearm and bilateral hips were obtained. CLINICAL HISTORY: SCREENING COMPARISON: None FINDINGS: Using the left forearm, the bone mineral density of the mid is 0.405 g/cm2, corresponding to T-score of -4.8 and a Z score of -2.3. This is within the range of osteoporosis. Using the left hip, the bone mineral density of the femoral neck is 0.698 g/cm2, corresponding to a T-score of -2.0 and a Z-score of -0.3. This is within the range of osteopenia. Using the right hip, the bone mineral density of the femoral neck is 0.628 g/cm?, corresponding to a T-score of -2.6 and a Z-score of -0.8. This is within the range of osteoporosis. NOTE: T-score: Standard deviation compared with peak bone mass of young adult mean. *Following the recommendations of the International Society of Bone densitometry, classification of hip BMD is based on the lower of two T-scores; total hip or femoral neck. IMPRESSION: 1. Bone mineral density of the left forearm and right femoral neck within the range of osteoporosis. 2. Bone mineral density of the left femoral neck within the range of osteopenia. Reviewed, Interpreted and Dictated by Shandra Hawkins MD Transcribed by Trinity Magana Authenticated and [facility]
== END 2024-11-29 23:59 | disposition home or self-care (01) ==
LOC: RAD 09:09
PROVIDERS: PCP Physician Assistant; Visit Provider Physician Assistant
DX: M81.0 Age-related osteoporosis without current pathological fracture (principal); M85.852 Other specified disorders of bone density and structure, left thigh; Z78.0 Asymptomatic menopausal state
CPT/HCPCS: 77080

== ENCOUNTER 2024-12-21 12:45 | Emergency (ER) | payer MEDICARE, SELFPAY ==
--- OUTSIDE RECORDS SUMMARY | 2024-04-26 05:15 | XMS_ITS ---
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 Name Role Phone James Sousa Unavailable [phone] Shayla Mitchell Unavailable [phone] Allergies No Known Allergies Results Component Value Reference Range Notes CBC Venipuncture (in house) Reviewed date:04/26/2024 01:56:19 PM Interpretation: Performing Lab: Notes/Report: wbc 4.9 3.5 - 10 lymph 21.1% 15 - 50 mid 7.5% 2 - 15 gran 71.4% 35 - 80 rbc 3.81 3.5 - 5.5 hgb 10.4 11.5 - 16.5 hct 32.4 35 - 55 mcv 84.8 75 - 100 mch 27.4 25 - 35 mchc 32.3 31 - 38 platlet 217 100 - 400 P-BNP (Brain Natriuretic Pep tide) Reviewed date:04/28/2024 02:00:20 PM Interpretation: Performing Lab: Notes/Report: P-Comprehensive Metabolic Pa radha (CMP) Reviewed date:05/09/2024 12:02:38 PM Interpretation: Performing Lab: Notes/Report: Test performed by [facility] , [address], [place] [address] Gustavo Flores MD, Recruiter Account Manager CLIA: [id number] Sodium 145 135-145 mmol/L Potassium 3.4 3.5-5.3 mmol/L Chloride 108 97-108 mmol/L CO2 26 22-32 mmol/L Glucose 82 65-99 mg/dL BUN 17 8-23 mg/dL Creatinine 0.78 0.50-1.00 mg/dL Calcium 9.0 8.6-10.4 mg/dL eGFR by Creatinine 80 >59 mL/min/1.73m2 Protein 5.4 6.0-8.3 g/dL Albumin 3.9 3.5-5.3 g/dL Alkaline Phosphatase 145 35-121 IU/L ALT (SGPT) 70 <5-47 IU/L AST (SGOT) 50 <5-40 IU/L Bilirubin, Total 0.3 <0.2-1.2 mg/dL A/G Ratio 2.6 1.1-2.5 P-Lipid Panel Reviewed date:05/09/2024 12:02:38 PM Interpretation: Performing Lab: Notes/Report: Test performed by [facility] [address] , [place] [address] Gustavo Flores MD, Recruiter Account Manager CLIA: [id number] Cholesterol 104 <200 mg/dL Triglycerides 79 <150 mg/dL HDL Cholesterol 50 >39 mg/dL Cholesterol / HDL Ratio 2.08 0.00-4.44 Ratio Non-HDL Cholesterol 54 <130 mg/dL LDL Cholesterol (Calculation) 38 <130 mg/dL LDL Cholesterol Levels* Less than 100 mg/dL Optimal 100 to 129 mg/dL Near Optimal/ Above Optimal 130 to 159 mg/dL Borderline High 160 to 189 mg/dL High 190 mg/dL and above Very High * Categories as recommended by the 2004 ATPIII guidelines LDL/HDL Ratio 0.8 <3.3 Ratio LDL Cholesterol Patient History Test Date: 07/16/2022 LDL Results: 95 Units: mg/dL % Change: - Test Date: 07/15/2023 LDL Results: 80 Units: mg/dL % Change: -15% Test Date: 04/26/2024 LDL Results: 38 Units: mg/dL % Change: -52% P-TSH reflex to FT4 Reviewed date:05/09/2024 12:02:39 PM Interpretation: Performing Lab: Notes/Report: Test performed by [facility] [address] [place] [address] [place] [address] Gustavo Flores MD, Recruiter Account Manager CLIA: [id number] TSH reflex to FT4 3.56 0.43-5.25 mU/L proBrain Natriuretic Peptide Reviewed date:05/09/2024 12:02:39 PM Interpretation: Performing Lab: Notes/Report: Test performed by [facility] [address] [place] [address] [place] [address] Gustavo Flores MD, Recruiter Account Manager CLIA: [id number] proBrain Natriuretic Peptide 169 <300 pg/mL Please note the updated reference range values which are stratified by age. Positive >900 pg/mL Indeterminate 300-900 pg/mL Negative <300 pg/mL REASON FOR VISIT yearly physical and Annual Wellness Visit Medications Medication SIG (Take, Route, Frequency, Duration) Notes Start Date End Date Status QUEtiapine Fumarate 100 MG 1 tab(s) orally once daily Active Compression Stockings medium compression As needed 01/27/2024 Active Rosuvastatin Calcium 20 MG 1 tab(s) orally once a day; Duration: 90 days Active lamoTRIgine 200 MG 1 tab(s) orally once a day Active Venlafaxine HCl ER 150 MG 1 cap(s) orally once a day Active Solifenacin Succinate 10 MG 1 tab(s) orally once a day; Duration: 90 days Active Calcium 500 MG 1 TAB TID *Please review a nd pick correct strength-formulatio n from [employer] options. If intended option is not shown, discontinue and re-order from Quick Search* Active Creon 6000-46250 UNIT as directed Orally Active Lisinopril 10 MG 1 tab(s) orally once a day; Duration: 90 days Active Problems Problem Type SNOMED Code ICD Code Onset Dates Problem Status W/U Status Risk Notes Problem Exocrine pancreatic insufficiency (92130737) Exocrine pancreatic insufficiency (K86.81) Active confirmed Vital Signs Weight 152.8 lbs 04/26/2024 Blood pressure systolic 110 mm Hg 04/26/19 25 Blood pressure diastolic 64 mm Hg 025 Heart Rate 75 /min 04/26/2024 Height 69.5 in 04/26/2024 BMI 22.24 kg/m2 04/26/2024 Encounters Encounter Location Date Provider Diagnosis [facility] [address] [facility] [address] [place] [id number] 04/26/2024 Shayla Mitchell Adult general medica l examination Z00.00 ; Dyslipidemia E78.5 ; Primary hypertension I10 ; Depression with anxiety F41.8 ; Benign familial tremor G25.0 ; Overflow incontinence N39.490 ; Uncomplicated varicose veins I83.90 ; Lower extremity edema R60.0 ; Exocrine pancreatic insufficiency K86.81 ; Screening mammogram, encounter for Z12.31 ; Osteoporosis screening Z13.820 and BMI 22.0-22.9, adult Z68.22 Assessments Encounter Date Diagnosis (ICD Code) Assessment Notes Treatment Notes Treatment Clinical Notes Section Notes 04/26/2024 Adult general medical examination (ICD-10 - Z00.00) Patient instructed to return to office Annually for Annual Wellness Visits to include annual screenings of Pain assessment, Functional Ability assessment, Cognitive Ability assessment, Fall Risk assessment, Depression screening and Bladder control screening. 04/26/2024 Dyslipidemia (ICD-10 - E78.5) 04/26/2024 Primary hypertension (ICD-10 - I10) 04/26/2024 Depression with anxiety (ICD-10 - F41.8) 04/26/2024 Benign familial tremor (ICD-10 - G25.0) 04/26/2024 Overflow incontinence (ICD-10 - N39.490) 04/26/2024 Uncomplicated varicose veins (ICD-10 - I83.90) 04/26/2024 Lower extremity edema (ICD-10 - R60.0) 04/26/2024 Exocrine pancreatic insufficiency (ICD-10 - K86.81) 04/26/2024 Screening mammogram, encounter for (ICD-10 - Z12.31) Patient schedules in [place] 04/26/2024 Osteoporosis screening (ICD-10 - Z13.820) Patient schedules in [place] 04/26/2024 BMI 22.0-22.9, adult (ICD-10 - Z68.22) Plan Of Treatment Treatment Notes Assessment Notes Adult general medical examination Patien t instructed to return to office Annually for Annual Wellness Visits to include annual screenings of Pain assessment, Functional Ability assessment, Cognitive Ability assessment, Fall Risk assessment, Depression screening and Bladder control screening. Screening mammogram, encounter for Patimadie nt schedules in [place] Osteoporosis screening Patient schedules in [place] Pending Test Test Name Order Date Bone density 04/26/2024 Mammogram 04/26/2024 Next Appt Details Follow Up: As directed by MD , Reason: Progress Notes * SLOANE DAVIDDOB:1950 (74 yo F)Acc No.[id number]:04/26/2024 Annual Wellness Visit Patient: SLOANE GRAY Provider: MONIQUE Saldaña :1950 A ge:73 Y S ex:Female Date:04/26/2024 Address:[address] [place] [address] Subjective: * Chief Complaints: * 1 . yearly physical and Annual Wellness Visit. * HPI: H PI: Patient is here today for a yearly physical and a Medicare Annual Wellness Visit. The patient states she is doing well and denies any new concerns. Pt is fasting. * ROS: C ARDIOLOGY: no C hest pain. n o S hortness of breath. ? D ERMATOLOGY: no R petrona. n o H cathie. G ASTROENTEROLOGY: no N ausea. n o V omiting. n o D iarrhea.? O PTHALMOLOGY: Negative for d enies vision issues. U ROLOGY: no D ifficulty urinating. n o B lood in urine. * Medical History: H ypertension, Hyperlipidemia, Depression, Heart Murmur, Benign Familial Tremor, Anxiety, Exocrine pancreatic insufficiency. * Surgical History: h ysterectomy for uterine fibroids , Bilateral oophorectomy for cystic disease , Right TKA 09/2021, Fusion L4/L5 05/18/23, Tonsillectomy . * Family History: M aternal Grand Mother: leukemia. F ather: diagnosed with Hypertension. M other: diagnosed with Diabetes. * Social History: C URRENT TOBACCO USE: No . C affeine: yes, Coffee. Alcohol: no. * Medications: T aking Creon 6000-16049 UNIT Capsule Delayed Release Particles as directed Orally , Taking Lisinopril 10 MG Tablet 1 tab(s) orally once a day , Taking Rosuvastatin Calcium 20 MG Tablet 1 tab(s) orally once a day , Taking Solifenacin Succinate 10 MG Tablet 1 tab(s) orally once a day , Taking Calcium 500 MG 1 TAB TID , Notes to Pharmacist: *Please review and pick correct strength-formulation from [employer] options. If intended option is not shown, discontinue and re-order from Quick Search*, Taking lamoTRIgine 200 MG Tablet 1 tab(s) orally once a day , Taking Venlafaxine HCl ER 150 MG Capsule Extended Release 24 Hour 1 cap(s) orally once a day , Taking QUEtiapine Fumarate 100 MG Tablet 1 tab(s) orally once daily , Taking Compression Stockings medium compression As needed , Discontinued Bactrim DS 800-160 MG Tablet 1 tablet Orally once daily , Discontinued Zithromax Z-Shubham 250 MG Tablet as directed Orally , Discontinued Promethazine-DM 6.25-15 MG/5ML Syrup 5 - 10 ml Orally every 6 hrs prn cough , Medication List reviewed and reconciled with the patient * Allergies: N .K.D.A. Objective: * Vitals: W t:152.8, Temp:98.0, BP:110/64, HR:75, Nurse:MALI, Ht: 69.5, BMI:22.24. * Examination: G eneral Examination: General Appearance: N AD. H EENT: u nremarkable.?Oral cavity: n o lesions, mucosa moist and WNL, no erythema. N william: s upple, no lymphadenopathy. C hest: n ormal shape and expansion. H eart: R SR. L ungs: c lear to auscultation. A bdomen: bowel sounds present, soft and nontender, no organomegaly or masses, no guarding or rigidity. N eurologic Exam: I ntact, gait normal. S kin: n ormal, no rash. P eripheral pulses: n ormal (2+) bilaterally. E xtremities: 1+ leg edema bilateral LE's, varicose veins present bilaterally. * Physical Examination: G ENERAL: Pain Assessment: P ain level:0 , on a scale of 0-10 (with 10 being extreme pain). F unctional Status Assessment: P atient response to question of how often physical health interferes with daily activities: Almost never. Able to perform ADLs-including meal preparation, grocery shopping, housework, laundry, taking medications or handling finances. Cognitive Status: alert and oriented. Ambulation Status: Fully ambulatory . F all Risk Assessment: I ndependant in ambulation, adequate lighting in home. Patient has NOT fallen or had trouble walking within the past 12 months. D epression Screening: D enies depressed mood or anxiety. Describes emotional health as: Positive/Upbeat. B ladder Control Screening: D enies problems. Assessment: * Assessment: 1. A dult general medical examination - Z00.00 (Primary) 2 . D yslipidemia - E78.5 3 . P rimary hypertension - I10 4 . D epression with anxiety - F41.8 5 . B enign familial tremor - G25.0 6 . O verflow incontinence - N39.490 7 . U ncomplicated varicose veins - I83.90 ? 8 . L ower extremity edema - R60.0 9 . E xocrine pancreatic insufficiency - K86.81 1 0. S creening mammogram, encounter for - Z12.31 11. O steoporosis screening - Z13.820 1 2. B MO 22.0-22.9, adult - Z68.22? Plan: * Treatment: 2. D yslipidemia L AB: P-Comprehensive Metabolic Panel (CMP) (Collection Date & Time - 04/26/2024 08:55 AM) Value Reference Range A /G Ratio 2.6 H 1.1-2.5 - * A lbumin 3.9 3.5-5.3 - g/dL * A lkaline Phosphatase 145 H 35-121 - IU/L * A LT (SGPT) 70 H <5-47 - IU/L * A ST (SGOT) 50 H <5-40 - IU/L * B ilirubin, Total 0.3 <0.2-1.2 - mg/dL * B UN 17 8-23 - mg/dL * C alcium 9.0 8.6-10.4 - mg/dL * C hloride 108 97-108 - mmol/L * C O2 26 22-32 - mmol/L * C reatinine 0.78 0.50-1.00 - mg/dL * G lucose 82 65-99 - mg/dL * P otassium 3.4 L 3.5-5.3 - mmol/L * S odium 145 135-145 - mmol/L * P rotein 5.4 L 6.0-8.3 - g/dL * e GFR by Creatinine 80 >59 - mL/min/1.73m2 * Shayla Mitchell 05/09/2024 12 :02:30 PM > see TE 3.?Primary hypertension?LAB: P-TSH reflex to FT4 (Collection Date & Time - 04/26/2024 08:55 AM)* Value Reference Range T SH reflex to FT4 3.56 0.43-5.25 - mU/L * Shayla Mitchell 05/09/2024 12 :02:30 PM > see TE ?LAB: CBC Venipuncture (in house) (Collection Date & Time - 04/26/2024)* Value Reference Range w bc 4.9 3.5 - 10 * l ymph 21.1% 15 - 50 * m id 7.5% 2 - 15 * g ran 71.4% 35 - 80 * r bc 3.81 3.5 - 5.5 * h gb 10.4 11.5 - 16.5 * h ct 32.4 35 - 55 * m cv 84.8 75 - 100 * m ch 27.4 25 - 35 * m chc 32.3 31 - 38 * p latlet 217 100 - 400 * [place] CityJeanne leone Victoriano 04/26/2024 1:32 :08 PM >Shayla Mitchell 04/26/2024 1:56:15 PM > 4.?Lower extremity edema?LAB: P-Lipid Panel (Collection Date & Time - 04/26/2024 08:55 AM)* Value Reference Range C holesterol / HDL Ratio 2.08 0.00-4.44 - Ratio * C holesterol 104 <200 - mg/dL * H DL Cholesterol 50 >39 - mg/dL * L DL Cholesterol (Calculation) 38 <130 - mg/d L * L DL/HDL Ratio 0.8 <3.3 - Ratio * N on-HDL Cholesterol 54 <130 - mg/dL * T riglycerides 79 <150 - mg/dL * Shayla Mitchell 05/09/2024 12 :02:30 PM > see TE ?LAB: P-BNP (Brain Natriuretic Peptide) (Collection Date & Time - 04/28/2024)* see duplicate order 5.?Screening mammogram, encounter for?Imaging: Mammogram* Melissa Duenas 04/27/2024 2:15:3 2 PM > faxed to [facility] SchedulingMaCarolyn valenzuela 09/04/2024 12:25:20 PM EDT >pt calling to get these scheduled Notes: Patient schedules in [place]??6.?Osteoporosis screening?Imaging: Bone density* Jud Medina 04/26/2024 2:35: 01 PM > [facility] 04/26/2024 2:39:21 PM > faxed to [facility] Scheduling Notes: Patient schedules in [place]?? * Labs: * L ab: proBrain Natriuretic Peptide (Collection Date & Time - 04/26/2024 08:55 AM) Value Reference Range p roBrain Natriuretic Peptide 169 <300 - pg/mL * [facility], IT support 04/27/2024 05:10:14 : This order was created by the Interface. Shayla Mitchell S 05/09/2024 12:02:30 PM > see TE * Procedure Codes: G 0439 ANNUAL WELLNESS VST; PPS SUBSQT VST, G0444 ANNUAL DEPRESSION SCREENING 15 MIN, 1090F PRES/ABSN URINE INCON ASSESS, 3288F FALL RISK ASSESSMENT DOCD, 1170F FXNL STATUS ASSESSED, 1126F AMNT PAIN NOTED NONE PRSNT, 1159F MED LIST DOCD IN RCRD, 1003F LEVEL OF ACTIVITY ASSESS, 61204 CBC WITH AUTO DIFF, 1036F TOBACCO NON-USER, 3017F COLORECTAL CA SCREEN DOC REV, 4040F PNEUMOC IMM ORDER/ADMIN, G8510 NEG SCR Depression PT NOT ELIG F/U/PLN DOC, 3074F SYST BP LT 130 MM HG, 3078F DIAST BP < 80 MM HG * Preventive Medicine: Counseling: E motional health: P atient encouraged to try connecting with family or friends to boost mood. B ladder control: M ethods of controlling or managing leakage of urine discussed. E xercise: P atient advised to start, increase or maintain level of exercise/physical activity. I njury prevention: F all prevention discussed. Discussed need for cane/walker. Potential trip hazards discussed. Immunizations: P neumococcal u p to date. I nfluenza r ecommended seasonally. Screening / Special Tests: M ammogram R ecent history: 11/29/2021, negative, recommended today. C olonoscopy R ecent history: 03/01/2024, Dr. Aragon, diverticulosis-unremarkable. B one mineral Density R ecent history: 11/29/2021, normal, recommended. * Follow Up: A s directed by * Images: Billing Information: * Visit Code: 70481 Office Visit, Est Pt., Level 3. Modifiers: 25 * Procedure Codes: G0439 ANNUAL WELLNESS VST; PPS SUBSQT VST. G0444 ANNUAL DEPRESSION SCREENING 15 MIN. 1090F PRES/ABSN URINE INCON ASSESS. 3288F FALL RISK ASSESSMENT DOCD. 1170F FXNL STATUS ASSESSED. 1126F AMNT PAIN NOTED NONE PRSNT. 1159F MED LIST DOCD IN RCRD. 1003F LEVEL OF ACTIVITY ASSESS. 09755 CBC WITH AUTO DIFF. 1036F TOBACCO NON-USER. 3017F COLORECTAL CA SCREEN DOC REV. 4040F PNEUMOC IMM ORDER/ADMIN. G8510 NEG SCR Depression PT NOT ELIG F/U/PLN DOC. 3074F SYST BP LT 130 MM HG. 3078F DIAST BP < 80 MM HG. * Electronic signature of MONIQUE Gunderson on 12/21/2024 at 12:57 PM EDT Sign off status: Pending * Provider: MONIQUE Saldaña Date: 0 04/26/2024 Generated for Printi ng/Faxing/eTransmitting on: 1 12:57 PM EDT History and Physical Notes * HPI (History of Present Illness) Category Sub-Category Detail Notes Category Not es HPI Patient is here today for a year ly physical and a Medicare Annual Wellness Visit. The patient states she is doing well and denies any new concerns. Pt is fasting Physical Examination Category Sub-Category Detail Notes Section Note s GENERAL Pain Assessment: Pain level:0 , on a scale of 0-10 (with 10 being extreme pain) Functional Status Assessment: Patient response to question of how often physical health interferes with daily activities: Almost never. Able to perform ADLs-including meal preparation, grocery shopping, housework, laundry, taking medications or handling finances. Cognitive Status: alert and oriented. Ambulation Status: Fully ambulatory Fall Risk Assessment: Independant in amb ulation, adequate lighting in home. Patient has NOT fallen or had trouble walking within the past 12 months Depression Screening: Denies depressed m ood or anxiety. Describes emotional health as: Positive/Upbeat Bladder Control Screening: Denies proble ms Examination Category Sub-Category Detail Notes Category Not es General Examination HEENT: unremarkable Heart: RSR Lungs: clear to auscultatio n Abdomen: bowel sounds present , soft and nontender, no organomegaly or masses, no guarding or rigidity Extremities: 1+ leg edema bilater al LE's, varicose veins present bilaterally General Appearance: NAD Skin: normal, no rash Neurologic Exam: Intact, gait normal Neck: supple, no lymphaden opathy Oral cavity: no lesions, mucosa m oist and WNL, no erythema Peripheral pulses: normal (2+) bilatera lly Chest: normal shape and exp ansion
--- OUTSIDE RECORDS SUMMARY | 2024-05-10 06:15 | XMS_ITS ---
Author Organization [facility] Address [address] [facility] [address] [id number] Care Team Providers Care Pcat Instructor Name Role Phone LarsJames Unavailable [phone] Shayla Mitchell Unavailable [phone] Results Component Value Reference Range Notes P-Comprehensive Metabolic Pa radha (CMP) Reviewed date:05/14/2024 11:04:18 PM Interpretation:gluc 62, alk phos 173, alt 100, ast 59, a/g 2.5 Performing Lab: Notes/Report: Test performed by [facility] [address] [place] [address] , [address], [place] [address] Gustavo Flores MD, Detail Technician CLIA: [id number] Sodium 143 135-145 mmol/L Potassium 4.4 3.5-5.3 [...] Interpretation:Normal Performing Lab: Notes/Report: Test performed by [facility], [employer] [address] [place] [address] , [address], [place] [address] Gustavo Flores MD, Detail Technician CLIA: [id number] Hepatitis A Antibody, IgM Nonreactive Nonreactive Hepatitis B Core Antibody (HBcAb) IgM Nonreactive Non reactive Hepatitis B Surface Antigen (HBsAg) Nonreactive Nonre active Hepatitis C Antibody (HCV) IgG Nonreactive Nonreactiv e REASON FOR VISIT blood work Encounters Encounter Location Date Provider Diagnosis [facility] [address] [place] [id number] 05/10/2024 Shayla Mitchell Elevated liver enzym es R74.8 Assessments Encounter Date Diagnosis (ICD Code) Assessment Notes Treatment Notes Treatment Clinical Notes Section Notes 05/10/2024 Elevated liver enzymes (ICD-10 - R74.8) Plan Of Treatment No Information Progress Notes * SLOANE DAVIDDOB:1950 (74 yo F)Acc No.[id number]:05/10/2024 Patient: SLOANE GRAY Provider: MONIQUE Saldaña :1950 A ge:73 Y S ex:Female Date:05/10/2024 Address:[address] [place], [place] [phone] Subjective: * Chief Complaints: * 1 . [...] 05/10/2024 Generated for Surii ng/Faxing/eTransmitting on: 1 12:57 PM EDT
--- OUTSIDE RECORDS SUMMARY | 2024-11-08 05:00 | XMS_ITS ---
Author Organization [facility] Address [address] [place] [id number] Care Team Providers Care Front Office Help Name Role Phone James Sousa Unavailable [phone] Shayla Mitchell Unavailable [phone] Allergies No Known Allergies Results Component Value Reference Range Notes CBC Venipuncture (in house) Reviewed date:11/08/2024 01:17:48 PM Interpretation: Performing Lab: Notes/Report: wbc 4.9 3.5 - 10 lymph 19.5% 15 - 50 mid 4.8% 2 - 15 gran 75.7% 35 - 80 rbc 4.57 3.5 - 5.5 hgb 13.0 11.5 - 16.5 hct 38.8 35 - 55 mcv 84.8 75 - 100 mch 28.5 25 - 35 mchc 33.6 31 - 38 platlet 196 100 - 400 P-Comprehensive Metabolic Pa radha (CMP) Reviewed date:11/22/2024 01:20:56 PM Interpretation:prot 5.9, alk phos 151, a/g 3.2 Performing Lab: Notes/Report: Test performed by [facility], [facility] , [address], [place] [address] Gustavo Flores MD, Java Lead Developer CLIA: [id number] Sodium 141 135-145 mmol/L Potassium 4.7 3.5-5.3 mmol/L Chloride 105 97-108 mmol/L CO2 26 20-32 mmol/L Glucose 80 65-99 mg/dL BUN 19 8-23 mg/dL Creatinine 0.79 0.50-1.00 mg/dL Calcium 9.3 8.6-10.4 mg/dL eGFR by Creatinine 78 >59 mL/min/1.73m2 Protein 5.9 6.0-8.3 g/dL Albumin 4.5 3.5-5.3 g/dL Alkaline Phosphatase 151 35-121 IU/L ALT (SGPT) 32 <5-47 IU/L AST (SGOT) 31 <5-40 IU/L Bilirubin, Total 0.4 <0.2-1.2 mg/dL A/G Ratio 3.2 1.1-2.5 P-Lipid Panel Reviewed date:11/22/2024 01:20:56 PM Interpretation:Normal Performing Lab: Notes/Report: Test performed by [facility], [address] , [place] [address] Gustavo Flores MD, Java Lead Developer CLIA: [id number] Cholesterol 186 <200 mg/dL Triglycerides 68 <150 mg/dL HDL Cholesterol 58 >39 mg/dL Cholesterol / HDL Ratio 3.21 0.00-4.44 Ratio Non-HDL Cholesterol 128 <130 mg/dL LDL Cholesterol (Calculation) 114 <130 mg/dL LDL Cholesterol Levels* Less than 100 mg/dL Optimal 100 to 129 mg/dL Near Optimal/ Above Optimal 130 to 159 mg/dL Borderline High 160 to 189 mg/dL High 190 mg/dL and above Very High * Categories as recommended by the 2004 ATPIII guidelines LDL/HDL Ratio 2.0 <3.3 Ratio LDL Cholesterol Patient History Test Date: 07/15/2023 LDL Results: 80 Units: mg/dL % Change: -15% Test Date: 04/26/2024 LDL Results: 38 Units: mg/dL % Change: -52% Test Date: 11/08/2024 LDL Results: 114 Units: mg/dL % Change: +200% P-TSH reflex to FT4 Reviewed date:11/22/2024 01:20:56 PM Interpretation:Normal Performing Lab: Notes/Report: Test performed by [facility], [address] , [facility], [place] [address] Gustavo Flores MD, Java Lead Developer CLIA: [id number] TSH reflex to FT4 2.98 0.43-5.25 mU/L REASON FOR VISIT yearly physical, Needs labs, mammogram, & bone density screening Medications Medication SIG (Take, Route, Frequency, Duration) Notes Start Date End Date Status Creon 6000-04806 UNIT as directed Orally Active Solifenacin Succinate 10 MG 1 tablet Orally Once a day; Duration: 90 days Active Venlafaxine HCl ER 150 MG 1 cap(s) orally once a day Active Calcium 500 MG 1 TAB TID *Please review a nd pick correct strength-formulati on from [employer] options. If intended option is not shown, discontinue and re-order from Quick Search* Active lamoTRIgine 200 MG 1 tab(s) orally once a day Active Compression Stockings medium compression As needed 01/27/2024 Active Lisinopril 10 MG TAKE 1 TABLET EVERY DAY; Duration: 90 Not-Taking QUEtiapine Fumarate 100 MG 1 tab(s) orally once daily Active Vital Signs Weight 156 lbs 11/08/2024 Blood pressure systolic 122 mm Hg 11/09/19 25 Blood pressure diastolic 70 mm Hg 025 Heart Rate 72 /min 11/08/2024 Height 69.5 in 11/08/2024 BMI 22.7 kg/m2 11/08/2024 Encounters Encounter Location Date Provider Diagnosis A-Arsenio [address] [facility] [address] [place] [id number] 11/08/2024 Shayla Spencergeoff Dyslipidemia E78.5 ; Primary hypertension I10 ; Depression with anxiety F41.8 ; Benign familial tremor G25.0 ; Overflow incontinence N39.490 ; Uncomplicated varicose veins I83.90 ; Lower extremity edema R60.0 ; Exocrine pancreatic insufficiency K86.81 ; Screening for osteoporosis Z13.820 and BMI 22.0-22.9, adult Z68.22 Assessments Encounter Date Diagnosis (ICD Code) Assessment Notes Treatment Notes Treatment Clinical Notes Section Notes 11/08/2024 Dyslipidemia (ICD-10 - E78.5) 11/08/2024 Primary hypertension (ICD-10 - I10) Okay to remain off of the lisinopril. 11/08/2024 Depression with anxiety (ICD-10 - F41.8) 11/08/2024 Benign familial tremor (ICD-10 - G25.0) 11/08/2024 Overflow incontinence (ICD-10 - N39.490) 11/08/2024 Uncomplicated varicose veins (ICD-10 - I83.90) 11/08/2024 Lower extremity edema (ICD-10 - R60.0) Resolved 11/08/2024 Exocrine pancreatic insufficiency (ICD-10 - K86.81) 11/08/2024 Screening for osteoporosis (ICD-10 - Z13.820) 11/08/2024 BMI 22.0-22.9, adult (ICD-10 - Z68.22) Plan Of Treatment Treatment Notes Assessment Notes Primary hypertension Okay to remain off of the lisinopril. Lower extremity edema Resolved Next Appt Details Follow Up: via phone to repo rt test results, Reason: Progress Notes * SLOANE DAVIDDOB:1950 (74 yo F)Acc No.[id number]:11/08/2024 Physical Patient: SLOANE GRAY Provider: MONIQUE Saldaña :1950 A ge:74 Y S ex:Female Date:11/08/2024 Address:[address] [place] [address] Subjective: * Chief Complaints: * 1 . Yearly physical. 2. Needs labs, mammogram, & bone density screening. * HPI: H PI: Patient is here today for c heckup and labs. Pt is fasting. Pt states she wants to talk about Lisinopril. Pt has not been taking it and her BP has been normal. Pt states she has no new concerns and doing well. * ROS: D ERMATOLOGY: no R petrona. n o H cathie. G ASTROENTEROLOGY: no N ausea. n o V omiting. n o D iarrhea.? U ROLOGY: no D ifficulty urinating. n [...] Alcohol: no. * Medications: T aking Creon 6000-55601 UNIT Capsule Delayed Release Particles as directed Orally , Taking Calcium 500 MG 1 TAB [...] Compression Stockings medium compression As needed , Taking Solifenacin Succinate 10 MG Tablet 1 tablet Orally Once a day , Not- Taking Lisinopril 10 MG Tablet TAKE 1 TABLET EVERY DAY * Allergies: N .K.D.A. Objective: * Vitals: W t: 156, Temp: 97.9, BP: 122/70, HR: 72, Nurse: pe, Ht: 69.5, BMI:22.7. * Examination: G eneral Examination: General Appearance: N AD. H EENT: u nremarkable.?Oral cavity: n o lesions, mucosa moist and WNL, no erythema. N william: s upple, no lymphadenopathy. C hest: n ormal shape and expansion. H eart: R SR. L ungs: c lear to auscultation. A bdomen: b owel sounds present, soft and nontender, no organomegaly or masses. N eurologic Exam: I ntact, gait normal. S kin: n ormal, no rash. P eripheral pulses: n ormal (2+) bilaterally. E xtremities: n o leg edema. ? Assessment: * Assessment: 1. P rimary hypertension - I10 (Primary) 2 . D yslipidemia - E78.5 ? 3 . D epression with anxiety - F41.8 4 . B enign familial tremor - G25.0 5 . O verflow incontinence - N39.490 6 . U ncomplicated varicose veins - I83.90 7 . L ower extremity edema - R60.0 8 .?Exocrine pancreatic insufficiency - K86.81 9 . S creening for osteoporosis - Z13.[address] 22.0-22.9, adult - Z68.22 Plan: * Treatment: Value Reference Range T SH reflex to FT4 2.98 0.43-5.25 - mU/L * Shayla Mitchell 11/08/2024 0 9:43:11 AM EDT >room 9, purple Shayla Mitchlel 11/22/2024 01:20:46 PM EDT >see TE ?LAB: CBC Venipuncture (in house) (Collection Date & Time - 11/08/2024)* Value Reference Range w bc 4.9 3.5 - 10 * l ymph 19.5% 15 - 50 * m id 4.8% 2 - 15 * g ran 75.7% 35 - 80 * r bc 4.57 3.5 - 5.5 * h gb 13.0 11.5 - 16.5 * h ct 38.8 35 - 55 * m cv 84.8 75 - 100 * m ch 28.5 25 - 35 * m chc 33.6 31 - 38 * p latlet 196 100 - 400 * Alexandra Farr 11/08/2024 1 0:10:12 AM EDT > Notes: Okay to remain off of the lisinopril.??2.?Dyslipidemia?LAB: P-Comprehensive Metabolic Panel (CMP) (Collection Date & Time - 11/08/2024 08:49 AM)?prot 5.9, alk phos 151, a/g 3.2* Value Reference Range A /G Ratio 3.2 H 1.1-2.5 - * A lbumin 4.5 3.5-5.3 - g/dL * A lkaline Phosphatase 151 H 35-121 - IU/L * A LT (SGPT) 32 <5-47 - IU/L * A ST (SGOT) 31 <5-40 - IU/L * B ilirubin, Total 0.4 <0.2-1.2 - mg/dL * B UN 19 8-23 - mg/dL * C alcium 9.3 8.6-10.4 - mg/dL * C hloride 105 97-108 - mmol/L * C O2 26 20-32 - mmol/L * C reatinine 0.79 0.50-1.00 - mg/dL * G lucose 80 65-99 - mg/dL * P otassium 4.7 3.5-5.3 - mmol/L * S odium 141 135-145 - mmol/L * P rotein 5.9 L 6.0-8.3 - g/dL * e GFR by Creatinine 78 >59 - mL/min/1.73m2 * Shayla Mitchell 11/08/2024 0 9:43:11 AM EDT >room 9, purple Shayla Mitchell 11/22/2024 01:20:46 PM EDT >see TE ?LAB: P-Lipid Panel (Collection Date & Time - 11/08/2024 08:49 AM)?Normal* Value Reference Range C holesterol / HDL Ratio 3.21 0.00-4.44 - Ratio * C holesterol 186 <200 - mg/dL * H DL Cholesterol 58 >39 - mg/dL * L DL Cholesterol (Calculation) 114 <130 - mg/d L * L DL/HDL Ratio 2.0 <3.3 - Ratio * N on-HDL Cholesterol 128 <130 - mg/dL * T riglycerides 68 <150 - mg/dL * Shayla Mitchell 11/08/2024 0 9:43:11 AM EDT >room 9, purple Shayla Mitchell 11/22/2024 01:20:46 PM EDT >see TE 3.?Lower extremity edema? Notes: Resolved?? * Procedure Codes: G 2211 Complex e/[place], [address] CBC WITH AUTO DIFF, 38475 VENIPUNCT, ROUTINE*, 1036F TOBACCO NON-USER, G8420 BMI<30 AND >=22 CALC & DOCU, G8950 PREHTN/HTN BP DOC INDCD F/U DOC, G8752 MOST RECENT SYSTOLIC BP < 140MM HG, G8754 MOST RECENT DIASTOLIC BP < 90MM HG * Follow Up: v ia phone to report test results * Images: Billing Information: * Visit Code: 58593 Preventive Care Est Pt. Age 65 and over. * Procedure Codes: G2211 Complex e/[place]. [address] CBC WITH AUTO DIFF. 28855 VENIPUNCT, ROUTINE*. 1036F TOBACCO NON-USER. G8420 BMI<30 AND >=22 CALC & DOCU. G8950 PREHTN/HTN BP DOC INDCD F/U DOC. G8752 MOST RECENT SYSTOLIC BP < 140MM HG. G8754 MOST RECENT DIASTOLIC BP < 90MM HG. * Electronic signature of MONIQUE Gunderson on 12/21/2024 at 12:57 PM EDT Sign off status: Pending * Provider: MONIQEU Saldaña Date: 0 11/08/2024 Generated for Lyric juarez/Toribio/eTransmitting on: 1 12:57 PM EDT History and Physical Notes * HPI (History of Present Illness) Category Sub-Category Detail Notes Category Not es HPI Patient is here today for checku p and labs. Pt is fasting. Pt states she wants to talk about Lisinopril. Pt has not been taking it and her BP has been normal. Pt states she has no new concerns and doing well Examination Category Sub-Category Detail Notes Category Not es General Examination HEENT: unremarkable Heart: RSR Lungs: clear to auscultatio n Abdomen: bowel sounds present , soft and nontender, no organomegaly or masses Extremities: no leg edema General Appearance: NAD Skin: normal, no rash Neurologic Exam: Intact, gait normal Neck: supple, no lymphaden opathy Oral cavity: no lesions, mucosa m oist and WNL, no erythema Peripheral pulses: normal (2+) bilatera lly Chest: normal shape and exp ansion
--- OUTSIDE RECORDS SUMMARY | 2024-11-12 08:00 | XMS_ITS ---
Author Organization [facility] Address [address] [place] [id number] Care Team Providers Care Head Cleaning Porter Name Role Phone James Sousa Unavailable [phone] Results Component Value Reference Range Notes Cologuard Reviewed date:12/13/2024 02:02:58 PM Interpretation:colonoscopy 03/01/2024 Performing Lab: Notes/Report: colonoscopy 03/01/2024 REASON FOR VISIT due col, [place] Encounters Encounter Location Date Provider Diagnosis [facility] [address] [place] [id number] 11/12/2024 James Sousa Colon cancer screening Z12.11 Assessments Encounter Date Diagnosis (ICD Code) Assessment Notes Treatment Notes Treatment Clinical Notes Section Notes 11/12/2024 Colon cancer screening (ICD-10 - Z12.11) Plan Of Treatment No Information Progress Notes * FRANKIESLOANEDOB:1950 (74 yo F)Acc No.[id number]:11/12/2024 Patient: SLOANE GRAY :1950 A ge:74 Y S ex:Female Address:[address] [place] [address], [address] Subjective: * Chief Complaints: * D ue col, [place] * Medical History: * Surgical History: * Hospitalization/Major Diagno stic Procedure: * Medications: Objective: * Vitals: * Physical Examination: Assessment: * Assessment: 1. C olon cancer screening - Z12.11 (Primary) Plan: * Treatment: * Procedure Codes: * true * Date: Generated for Lyric juarez/Toribio/Phoebe on: 1 12:57 PM EDT
[2024-12-21] VITALS (13 sets, daily range): BP systolic 120–136; BP diastolic 60–71; PULSE 64–81; RESP 20; TEMP 36.9–37.1; O2SAT 92–99; BMI 21.4
--- NOTE | 2024-12-21 12:47 | ED_ITS ---
<Statement entered by Margarito Whitfield DO - 12/22/24 07:51> I was consulted by the KIM, and we discussed the complexity of problems being addressed. I approved the treatment and management plan for this patient's care in the emergency department, thus performing a substantive portion of the medical decision making. Margarito Whitfield DO Discharge Plan Disposition Patient Disposition: Xfer Other Condition: Fair Prescriptions Prescriptions: No Action calcium polycarbophil [FiberCon] 625 mg tablet 1,250 mg PO DAILY Rx Instructions: Take 2 tablets by mouth once a day quetiapine [Seroquel] 100 mg tablet 100 mg PO HS venlafaxine [Effexor XR] 150 mg capsule,extended release 24hr 150 mg PO DAILY lamotrigine 100 mg tablet 100 mg PO BID solifenacin [Vesicare] 10 mg tablet 10 mg PO DAILY Ingrezza 40 mg capsule 80 mg PO DAILY lisinopril 10 mg tablet 5 mg PO DAILY Creon 36,000-114,000- 180,000 unit capsule,delayed release(DR/EC) 2 cap PO .With meals Qty: 240 12RF Rx Instructions: Please take 2 capsules with your meals and 1 with snacks Referrals Follow up/Referrals: Shayla Mitchell PA [Primary Care Provider, Medical] - See instructions Clinical Impressions Clinical Impression: Fall from ground level, Fracture of left hip Stand Alone Forms Stand Alone Forms: Transfer Record - ED Print Language Print Language: Korean Discharge ED Provider: Margarito Whitfield General Adult HPI <MONIQUE Cotto - Last Filed: 12/21/24 19:01> General Chief complaint: Fall Stated complaint: Fall Time Seen by Provider: 12/21/24 12:47 Mode of Arrival: EMS Source of Information: Patient Limitations: No Limitations History of Present Illness HPI narrative: 74-year-old female presents to the emergency department via EMS for ground-level fall that occurred 30 minutes / 1 hour prior to arrival, patient denies striking head, denies any LOC, denies any presyncopal or syncopal event, patient tells me that she was in her garden , pulling weeds when I lost my balance . Patient complains of left hip pain, with obvious deformity noted per EMS, patient was given 25 mcg of IV fentanyl as well as normal saline IV and route. Patient denies any fever chills chest pain neck pain midthoracic back pain or lower back pain, denies any radicular type symptomatology, denies any other upper or lower extremity injury, denies any saddle anesthesia, denies urinary bladder or bowel dysfunction, denies any abdominal pain, shortness of breath, nausea vomiting constipation diarrhea no urinary symptomatology patient is a non-smoker denies any alcohol or drug use, other past medical history is consistent with exocrine pancreatic insufficiency, tremor on lamotrigine, hypertension, prior lumbar spine fusion. Initial triage vitals are unremarkable. Please note that above description of symptoms, in this electronic medical record under categorization of recalled from ER triage doctor by RN are reflective of an initial nursing assessment, however, is not reflective of my full history and physical exam that was personally taken and clarified. Consequentially, this preceding description of symptoms, which may include the patient's categorized chief complaint in the EMR, do not reflect my personal clinical impression, and the ultimate description of history of present illness and patient stated complaints should be deferred to this section of the note. Unless stated otherwise or congruent with this section of the note, additional signs, symptoms, or incongruence should be interpreted as inaccurate with my clinical impression. Onset (ago): hour(s) Related Data Home Medications ?Medication ?Instructions ?Recorded ?Confirmed quetiapine 100 mg tablet (Seroquel) 100 mg PO HS 12/0709/20/24 lamotrigine 100 mg tablet 100 mg PO BID 01/24/2409/20 solifenacin 10 mg tablet (Vesicare) 10 mg PO DAILY 08/1109/20/24 valbenazine 40 mg capsule 80 mg PO DAILY 01/24/2406/12 (Ingrezza) venlafaxine 150 mg 150 mg PO DAILY 01/24/2406/12 capsule,extended release 24 hr (Effexor XR) calcium polycarbophil 625 mg 1,250 mg PO DAILY 4 09/20/24 tablet (FiberCon) lisinopril 10 mg tablet 5 mg PO DAILY 06/20/2409/20 Previous Rx's ?Medication ?Instructions ?Recorded optoij-[id number]-mgtlpea 2 cap PO .With meals #240 ca ps 08/06/24 36,000-114,000-180,000 unit capsule,delay rel (Creon) Allergies Allergy/AdvReac Type Severity Reaction Status Date / Time No Known Allergies Allergy Verified 09/20/24 13:34 PFSH <MONIQUE Cotto - Last Filed: 12/21/24 19:01> [facility] Disclaimer: The information contained in this section may have been updated after the patient was seen, as this information can be updated by other users. Medical History Prolapsed bladder Fusion of lumbar spine L4-L5-S1 Edema LEFT FOOT Mood disorder Elbow fracture, right Tremor Hypertension Keratosis Callus of foot Onychomycosis Surgical History H/O bilateral oophorectomy History of tonsillectomy H/O total hysterectomy Status post right knee replacement Family History Mother Cancer Other Coronary artery disease Diabetes Hypertension Social History Smoking Status: Never smoker alcohol intake: never substance use type: denies use current occupational status: retired Travel in the last 8 weeks?: None household members: spouse housing: house caffeine: Yes Have you lived/traveled outside US in past 30 days?: No Contact w/someone who lives/traveled outside US past 30 days?: No Exposure to someone with infectious disease in past 14 days?: No Do you have a fever (greater than 100.4 F or 38 C)?: No Have you tested positive for COVID-19?: No Exposed to someone with COVID-19 in past 14 days?: No Do you have a sore throat?: No Do you have a cough?: No Do you have any weakness?: No Do you have any diarrhea?: No Are you experiencing any unusual bleeding?: No Do you have any muscle aches/pain?: No Do you have any abdominal pain?: No Are you experiencing loss of taste or smell?: No Other Medical History Have you received the Pneumonia Vaccine: Yes <MONIQUE Cotto - Last Filed: 12/21/24 19:01> ROS Obtained: Yes All systems reviewed & no additional complaints except as documented Physical Exam <MONIQUE Cotto - Last Filed: 12/21/24 19:01> General General appearance: alert and in no apparent distress Head Head exam: atraumatic and normocephalic Eye Eye exam: Present PERRL and EOMI ENT ENT exam: Present mucous membranes moist Neck Neck exam: Present normal inspection Chest Chest inspection: Present normal inspection and symmetric chest wall rise Respiratory Respiratory exam: Present normal lung sounds bilaterally; Absent respiratory distress, wheezes or stridor Cardiovascular Cardiovascular exam: Present regular rate and normal rhythm Abdominal Exam Abdominal exam: Present soft; Absent tenderness, guarding, rebound or rigidity Extremities Exam Extremities exam: Present tenderness and other (Internal rotation, and limb shortening with pain to palpation to the left intertrochanteric region, obvious deformity, no open fracture,patient is able to wiggle the toes, has good strength with plantarflexion dorsiflexion, otherwise neurovascular intact.); Absent normal inspection or full ROM Back Exam Back exam: Present normal inspection and full ROM; Absent tenderness, paraspinal tenderness or vertebral tenderness Neurological Exam Neurological exam: Present alert and oriented X3 Psychiatric Psychiatric exam: Present normal affect Skin Skin exam: Present warm and dry Medical Decision Making <MONIQUE Cotto - Last Filed: 12/21/24 19:01> Medical Records Medical records reviewed: Yes I reviewed the patient's medical records. Screening: Per USPSTF and CDC recommendations, given the prevalence of disease in our region, it is our hospital?s policy to screen for HIV and viral Hepatitis for all patients aged 18 and over and those with ongoing risk factors. Haroldo Inquiry Pt receiving controlled substance: Yes Haroldo was queried for this patient: No Reason not queried -: Emergent pt cond-no time Risks and benefits of using a controlled substance: were discussed with pt by me Vital Signs: 12/21/24 12:59 12/21/24 13:00 12/21/24 14:00 Temperature 98.5 F Temperature Source Oral Pulse Rate 65 69 Pulse Rate [Right Brachial] 69 Respiratory Rate 20 Blood Pressure 136/62 129/63 Blood Pressure [Right Arm] 132/66 Blood Pressure Mean [Right Arm] 88 Blood Pressure Source Blood Pressure Source [Right Arm] Automatic Cuff Blood Pressure Position Blood Pressure Position [Right Arm] Sitting 02 Sat by Pulse Oximetry 98 97 96 Oxygen Delivery Method Room Air 12/21/24 14:30 12/21/24 15:00 12/21/24 15:30 Temperature Temperature Source Pulse Rate 69 66 69 Pulse Rate [Right Brachial] Respiratory Rate Blood Pressure 132/60 120/62 120/63 Blood Pressure [Right Arm] Blood Pressure Mean [Right Arm] Blood Pressure Source Blood Pressure Source [Right Arm] Blood Pressure Position Blood Pressure Position [Right Arm] 02 Sat by Pulse Oximetry 97 98 98 Oxygen Delivery Method Room Air Room Air 12/21/24 15:42 12/21/24 16:00 12/21/24 16:30 Temperature 98.6 F Temperature Source Oral Pulse Rate 64 66 68 Pulse Rate [Right Brachial] Respiratory Rate 20 Blood Pressure 132/60 125/65 123/65 Blood Pressure [Right Arm] Blood Pressure Mean [Right Arm] Blood Pressure Source Automatic Cuff Blood Pressure Source [Right Arm] Blood Pressure Position Sitting Blood Pressure Position [Right Arm] 02 Sat by Pulse Oximetry 97 94 L Oxygen Delivery Method Room Air Room Air 12/21/24 17:00 12/21/24 17:30 12/21/24 18:00 Temperature Temperature Source Pulse Rate 76 78 77 Pulse Rate [Right Brachial] Respiratory Rate Blood Pressure 127/71 122/70 129/69 Blood Pressure [Right Arm] Blood Pressure Mean [Right Arm] Blood Pressure Source Blood Pressure Source [Right Arm] Blood Pressure Position Blood Pressure Position [Right Arm] 02 Sat by Pulse Oximetry 98 99 99 Oxygen Delivery Method Room Air Room Air Room Air 12/21/24 18:42 Temperature 98.8 F Temperature Source Oral Pulse Rate 81 Pulse Rate [Right Brachial] Respiratory Rate 20 Blood Pressure 126/70 Blood Pressure [Right Arm] Blood Pressure Mean [Right Arm] Blood Pressure Source Automatic Cuff Blood Pressure Source [Right Arm] Blood Pressure Position Supine Blood Pressure Position [Right Arm] 02 Sat by Pulse Oximetry Oxygen Delivery Method Room Air Lab Data Lab results reviewed: Yes I reviewed the patient's lab results. Lab Results 12/21/24 12:57: WBC 5.7, RBC 4.29, Hgb 12.1 L, Hct 37.3, MCV 86.9, MCH 28.2, MCHC 32.4, RDW 13.7, Plt Count 157, MPV 8.2, Neut % (Auto) 77.0, Lymph % (Auto) 13.3, Mccormick % (Auto) 8.4, Eos % (Auto) 0.5, Baso % (Auto) 0.4, Neut # (Auto) 4.4, Lymph # (Auto) 0.8, Mccormick # (Auto) 0.5, Eos # (Auto) 0.0, Baso # (Auto) 0.0, S odium 134 L, Potassium 3.5, Chloride 98, Carbon Dioxide 28, Anion Gap 11.5, BUN 18 H, Creatinine 0.90, Estimated Creat Clear 51, Estimated GFR 61, Est GFR ( Amer) 74, Glucose 112 H, Calcium 9.2, Total Bilirubin 0.5, AST 27, ALT 20, Alkaline Phosphatase 115, Total Protein 6.1 L, Albumin 3.9, Globulin 2.2, Albumin/Globulin Ratio 1.8 12/21/24 12:57 12/21/24 12:57 Orders (Tests/Meds): ED MEDICATIONS Discontinued Medications Generic Name Dose Route Start Last Admin Trade Name Freq PRN Reason Stop Dose Admin Fentanyl Citrate 50 mcg 12/21/24 12:55 12/21/24 13:13 Fentanyl 100mcg/2ml Vial IV 12/21/24 12:56 50 mcg ONCE ONE Administration Hydromorphone HCl 0.5 mg 12/21/24 15:01 12/21/24 15:08 Hydromorphone 2mg/Ml Syringe IV 12/21/24 15:02 0.5 mg ONCE ONE Administration Hydromorphone HCl 0.5 mg 12/21/24 15:20 12/21/24 16:37 Hydromorphone 2mg/Ml Syringe IV 12/21/24 15:21 0.5 mg ONCE ONE Administration Ondansetron HCl 4 mg 12/21/24 12:56 12/21/24 13:10 Ondansetron 4mg/2ml Vial IV 12/21/24 12:57 4 mg ONCE ONE Administration ORDERS Category Date Time Status CT bony pelvis Stat Cat Scan 12/21/24 12:[address] cervical spine wo con Stat Cat Scan 12/21/24 12:[address] head/brain wo con Stat Cat Scan 12/21/24 12:[address] lumbar spine wo con Stat Cat Scan 12/21/24 12:54 Completed XR chest portable Stat Exams 12/21/24 12:54 Completed XR femur LT 2V Stat Exams 12/21/24 12:55 Completed XR hip LT 2-3V w/pelvis Stat Exams 12/21/24 12:53 Completed Complete Blood Count Auto Diff Stat Lab 12/21/24 12:57 Completed Comprehensive Metabolic Panel Stat Lab 12/21/24 12:57 Completed HIV Combo Stat Lab 12/21/24 12:57 Received Hepatitis C Ab Qual. W/ RFX Stat Lab 12/21/24 12:57 Received Medical Decision Narrative: 74-year-old female presents to the emergency department with a ground-level fall complaining of left hip pain obvious deformity, differential diagnose include but not limited to, hip sprain/strain, hip fracture, posterior hip dislocation, anterior hip dislocation, traumatic SAH, acute SDH, closed head injury, cervicalgia, cervical spine fracture, sacral fracture, pelvic fracture, pubic rami fractures among others. I discussed this patient's case with the attending physician Dr. Whitfield Will obtain basic laboratory studies, EKG, chest x-ray femur x-ray hip x-ray with pelvis x-ray, CT bony pelvis CT cervical spine CT head, and CT lumbar spine without contrast, will give 50 mics of IV fentanyl as well as 4 mg IV Zofran. CBC unremarkable CMP is noted for mild hyponatremia 134 otherwise unremarkable CMP. I attempted to discuss this patient's case with Dr. Laguerre the orthopedic surgeon on staff at [facility] at approximately 1:45 PM. He informs me that he is out of town , this weekend. Thus will not be able to post any OR cases. I discussed this patient's case with the transfer center at [facility] at approximately 2 PM, they reached out to orthopedic surgeon on-call Dr. Sea Contreras, no response at this time, transfer center will call me back. I discussed this patient's case with the transfer center at [facility] at approximately 2:25 PM, I was able to discuss this patient's case with the on-call orthopedic physician over the phone as well, he accepts the patient graciously to [facility]. Pending hospitalist callback with bed assignment. I discussed this patient's case with Bhargavi Claudio APRN the transfer provider/hospital provider at approximately 2:35 PM, she graciously except the patient to [facility], accepting physician is Dr. Hernadez. I also discussed with her that the full formal radiology reports are not yet back. But did PowerShare the images with them as well as the orthopedic surgeon. I discussed these recommendations with the patient family the bedside patient family are in agreement with current treatment plan/transfer plan. I reviewed the patient's femur x-ray and hip x-ray/pelvic x-ray along with the corresponding radiologic reports, there is a comminuted subtrochanteric fracture with full shaft width medial displacement, femoral head demonstrates a normal smooth contour. Reviewed the patient's chest x-ray along the corresponding radiologic report, there is no acute process. Patient complaining of some worsening pain, will give 0.5 IV Dilaudid for pain. I reviewed the patient's CT lumbar spine without contrast on the corresponding radiologic report, degenerative and postoperative change in the lumbar spine as described above without acute osseous abnormality. I reviewed the patient's CT pelvis without contrast along the corresponding radiologic report, oblique subtrochanteric fracture left proximal femur described above, no fracture of the bony pelvis itself is defined I reviewed the patient's CT cervical spine without contrast along the corresponding radiologic report, did not changes described without acute osseous abnormality. I reviewed the patient's CT head without contrast on the corresponding urologic report, atrophy and chronic change without acute process. Will discontinue c-collar and give additional dose of 0.5 mg IV Dilaudid. Patient is cleared for transport and EMS arrived around 6:58 PM, to transfer patient to [facility] for higher level of care/orthopedic consultation and most likely surgical fixation. Will give 25 mcg IV fentanyl additional pain dose prior to transfer. Patient stable for transfer. <Margarito Whitfield DO - Last Filed: 12/21/24 15:35> Vital Signs: 12/21/24 12:59 12/21/24 13:00 12/21/24 14:00 Temperature 98.5 F Temperature Source Oral Pulse Rate 65 69 Pulse Rate [Right Brachial] 69 Respiratory Rate 20 Blood Pressure 136/62 129/63 Blood Pressure [Right Arm] 132/66 Blood Pressure Mean [Right Arm] 88 Blood Pressure Source Blood Pressure Source [Right Arm] Automatic Cuff Blood Pressure Position Blood Pressure Position [Right Arm] Sitting 02 Sat by Pulse Oximetry 98 97 96 Oxygen Delivery Method Room Air 12/21/24 14:30 12/21/24 15:00 12/21/24 15:30 Temperature Temperature Source Pulse Rate 69 66 69 Pulse Rate [Right Brachial] Respiratory Rate Blood Pressure 132/60 120/62 120/63 Blood Pressure [Right Arm] Blood Pressure Mean [Right Arm] Blood Pressure Source Blood Pressure Source [Right Arm] Blood Pressure Position Blood Pressure Position [Right Arm] 02 Sat by Pulse Oximetry 97 98 98 Oxygen Delivery Method Room Air Room Air 12/21/24 15:42 12/21/24 16:00 12/21/24 16:30 Temperature 98.6 F Temperature Source Oral Pulse Rate 64 66 68 Pulse Rate [Right Brachial] Respiratory Rate 20 Blood Pressure 132/60 125/65 123/65 Blood Pressure [Right Arm] Blood Pressure Mean [Right Arm] Blood Pressure Source Automatic Cuff Blood Pressure Source [Right Arm] Blood Pressure Position Sitting Blood Pressure Position [Right Arm] 02 Sat by Pulse Oximetry 97 94 L Oxygen Delivery Method Room Air Room Air 12/21/24 17:00 12/21/24 17:30 12/21/24 18:00 Temperature Temperature Source Pulse Rate 76 78 77 Pulse Rate [Right Brachial] Respiratory Rate Blood Pressure 127/71 122/70 129/69 Blood Pressure [Right Arm] Blood Pressure Mean [Right Arm] Blood Pressure Source Blood Pressure Source [Right Arm] Blood Pressure Position Blood Pressure Position [Right Arm] 02 Sat by Pulse Oximetry 98 99 99 Oxygen Delivery Method Room Air Room Air Room Air 12/21/24 18:42 Temperature 98.8 F Temperature Source Oral Pulse Rate 81 Pulse Rate [Right Brachial] Respiratory Rate 20 Blood Pressure 126/70 Blood Pressure [Right Arm] Blood Pressure Mean [Right Arm] Blood Pressure Source Automatic Cuff Blood Pressure Source [Right Arm] Blood Pressure Position Supine Blood Pressure Position [Right Arm] 02 Sat by Pulse Oximetry Oxygen Delivery Method Room Air Lab Data Lab Results 12/21/24 12:57: WBC 5.7, RBC 4.29, Hgb 12.1 L, Hct 37.3, MCV 86.9, MCH 28.2, MCHC 32.4, RDW 13.7, Plt Count 157, MPV 8.2, Neut % (Auto) 77.0, Lymph % (Auto) 13.3, Mccormick % (Auto) 8.4, Eos % (Auto) 0.5, Baso % (Auto) 0.4, Neut # (Auto) 4.4, Lymph # (Auto) 0.8, Mccormick # (Auto) 0.5, Eos # (Auto) 0.0, Baso # (Auto) 0.0, S odium 134 L, Potassium 3.5, Chloride 98, Carbon Dioxide 28, Anion Gap 11.5, BUN 18 H, Creatinine 0.90, Estimated Creat Clear 51, Estimated GFR 61, Est GFR ( Amer) 74, Glucose 112 H, Calcium 9.2, Total Bilirubin 0.5, AST 27, ALT 20, Alkaline Phosphatase 115, Total Protein 6.1 L, Albumin 3.9, Globulin 2.2, Albumin/Globulin Ratio 1.8 Orders (Tests/Meds): ED MEDICATIONS Discontinued Medications Generic Name Dose Route Start Last Admin Trade Name Freq PRN Reason Stop Dose Admin Fentanyl Citrate 50 mcg 12/21/24 12:55 12/21/24 13:13 Fentanyl 100mcg/2ml Vial IV 12/21/24 12:56 50 mcg ONCE ONE Administration Hydromorphone HCl 0.5 mg 12/21/24 15:01 12/21/24 15:08 Hydromorphone 2mg/Ml Syringe IV 12/21/24 15:02 0.5 mg ONCE ONE Administration Hydromorphone HCl 0.5 mg 12/21/24 15:20 12/21/24 16:37 Hydromorphone 2mg/Ml Syringe IV 12/21/24 15:21 0.5 mg ONCE ONE Administration Ondansetron HCl 4 mg 12/21/24 12:56 12/21/24 13:10 Ondansetron 4mg/2ml Vial IV 12/21/24 12:57 4 mg ONCE ONE Administration ORDERS Category Date Time Status CT bony pelvis Stat Cat Scan 12/21/24 12:[address] cervical spine wo con Stat Cat Scan 12/21/24 12:[address] head/brain wo con Stat Cat Scan 12/21/24 12:[address] lumbar spine wo con Stat Cat Scan 12/21/24 12:54 Completed XR chest portable Stat Exams 12/21/24 12:54 Completed XR femur LT 2V Stat Exams 12/21/24 12:55 Completed XR hip LT 2-3V w/pelvis Stat Exams 12/21/24 12:53 Completed Complete Blood Count Auto Diff Stat Lab 12/21/24 12:57 Completed Comprehensive Metabolic Panel Stat Lab 12/21/24 12:57 Completed HIV Combo Stat Lab 12/21/24 12:57 Received Hepatitis C Ab Qual. W/ RFX Stat Lab 12/21/24 12:57 Received ECG Data Tracing #1: I reviewed this ECG and interpreted as documented below: EKG personally interpreted by me demonstrates normal sinus rhythm at a rate of 66 bpm, normal axis, no MO prolongation, narrow QRS, no QTc prolongation. No ST elevation or depression. No overt signs of ischemia or arrhythmia Critical Care <MONIQUE Cotto - Last Filed: 12/21/24 19:01> Critical Care Time Critical Care Time: No
--- NOTE | 2024-12-21 12:48 | ECG_ITS ---
APPROVED REPORT Exam: Resting ECG HR:66 bpm ECG Measurements Heart Rate 66 AXES GA 146 P 70 QRSd 110 QRS 52 QT 408 T 47 QTc 422 Conclusion Normal sinus rhythm Normal axis Normal intervals No STEMI Artifact in lead aVF makes this lead difficult to interpret Electronically signed by : Margarito Whitfield, 12/21/2024 16:12:36
--- NOTE | 2024-12-21 12:53 | CT_ITS ---
FINAL REPORT TECHNIQUE: Axial images were obtained of the cervical spine by computed tomography. Coronal and sagittal reconstruction process performed. This study was performed with techniques to keep radiation doses as low as reasonably achievable (ALARA). Individualized dose reduction techniques using automated exposure control or adjustment of mA and/or kV according to the patient's size were employed. CLINICAL HISTORY: Ground-level fall COMPARISON: None FINDINGS: CT CERVICAL SPINE: Cervical vertebrae show normal height. Disc space narrowing present at the C4-5, C5-6, and C6-7 levels. There is degenerative spondylolisthesis of C3 on C4. The facets are properly aligned. There is moderate to severe right C5-6 neural foraminal narrowing. No acute bony abnormality is identified. IMPRESSION: Degenerative changes as described, without acute osseous abnormality. Reviewed, Interpreted and Dictated by Grady Dumont MD Transcribed by Trinity Magana Authenticated and . [facility]
--- NOTE | 2024-12-21 12:53 | CT_ITS ---
FINAL REPORT TECHNIQUE: multiple axial CT images were performed from the foramen magnum to the vertex without enhancement. Multiplanar reconstructions in the sagittal and coronal planes were performed. This study was performed with techniques to keep radiation doses as low as reasonably achievable (ALARA). Individualized dose reduction techniques using automated exposure control or adjustment of mA and/or kV according to the patient's size were employed. CLINICAL HISTORY: fall, head trauma COMPARISON: None FINDINGS: The ventricles are mildly enlarged. There is mild diffuse atrophy. There is periventricular white matter change likely related to small vessel disease. There is no evidence of hemorrhage. No masses are identified. No extra-axial fluid is seen. The sinuses are normal. IMPRESSION: Mild atrophy and chronic changes without acute process. Reviewed, Interpreted and Dictated by Grady Dumont MD Transcribed by Trinity Magana Authenticated and [facility]
--- NOTE | 2024-12-21 12:53 | XR_ITS ---
FINAL REPORT CLINICAL HISTORY: Fall, left hip pain, shortening, rotation FINDINGS: LEFT HIP Three views were obtained. There is a comminuted, subtrochanteric fracture with full shaft width of medial displacement. The femoral head demonstrates a normal smooth contour. IMPRESSION: Fracture as above. Reviewed, Interpreted and Dictated by Grady Dumont MD Transcribed by Nichole Newton Authenticated and [facility]
--- NOTE | 2024-12-21 12:54 | CT_ITS ---
FINAL REPORT CLINICAL HISTORY: Fall left hip pain obvious deformity COMPARISON: None FINDINGS: Axial images through the pelvis were performed by computed tomography. Sagittal and coronal reconstruction images were performed. This study was performed with techniques to keep radiation doses as low as reasonably achievable (ALARA). Individualized dose reduction techniques using automated exposure control or adjustment of mA and/or kV according to the patient's size were employed. No fracture of the bony pelvis is identified. There is an oblique subtrochanteric fracture of the left proximal femur, with a full shaft width displacement of the fracture fragments. The lesser trochanter is identified as a free fragment. No intra-articular fracture is present. No dislocation identified. The joint spaces are intact. No soft tissue abnormality. IMPRESSION: Oblique subtrochanteric fracture of the left proximal femur as described. No fracture of the bony pelvis itself is identified. Reviewed, Interpreted and Dictated by Grady Dumont MD Transcribed by Trinity Magana Authenticated and . [facility]
--- NOTE | 2024-12-21 12:54 | XR_ITS ---
FINAL REPORT CLINICAL HISTORY: Fall FINDINGS: SINGLE VIEW CHEST The heart is normal in size. The mediastinum is unremarkable. The lungs are clear. There is no pneumothorax. There is a thoracic scoliosis convex to the right measuring 30 degrees. IMPRESSION: No acute process. Reviewed, Interpreted and Dictated by Grady Dumont MD Transcribed by Nichole Newton Authenticated and [facility]
--- NOTE | 2024-12-21 12:54 | CT_ITS ---
FINAL REPORT TECHNIQUE: Axial images were obtained of the lumbar spine by computed tomography. Coronal and sagittal reconstruction process performed. This study was performed with techniques to keep radiation doses as low as reasonably achievable (ALARA). Individualized dose reduction techniques using automated exposure control or adjustment of mA and/or kV according to the patient's size were employed. CLINICAL HISTORY: Fall prior hx of PLIF COMPARISON: None FINDINGS: LUMBAR SPINE: There is anterior and interbody fusion present at the C4-5 level. Lumbar vertebrae show normal height. There is significant disc space narrowing involving the T12-L1 and L1-2 levels, with minimal spondylolisthesis at L1-2. There is grade 1 spondylolisthesis of L4 on L5. There is no malalignment. The facets are properly aligned. At the L1-2 level there is moderate right neuroforaminal narrowing, with moderate to severe bilateral neural foraminal narrowing at the L4-5 level. IMPRESSION: Degenerative and postoperative changes of the lumbar spine as described above, without acute osseous abnormality. Reviewed, Interpreted and Dictated by Grady Dumont MD Transcribed by Trinity Magana Authenticated and [facility]
--- NOTE | 2024-12-21 12:55 | XR_ITS ---
FINAL REPORT CLINICAL HISTORY: Fall left hip pain obvious deformity FINDINGS: LEFT FEMUR Two views were obtained. There is a comminuted, subtrochanteric fracture with full shaft width of medial displacement. There is mild narrowing of the medial compartment joint space. IMPRESSION: Fracture as above. Reviewed, Interpreted and Dictated by Grady Dumont MD Transcribed by Nichole Newton Authenticated and [facility]
--- OUTSIDE RECORDS SUMMARY | 2024-12-21 12:57 | XMS_ITS | Patient Health Record ---
[facility] Organization [facility] Address [address] [facility] [address] [place] [id number] Care Team Providers Care Remote Control Assembler Name Role Phone James Sousa Unavailable [phone] PerezKathryn levine Unavailable [phone] Shayla Mitchell Unavailable [phone] Allergies No Known Allergies Results Component Value Reference Range Notes Urinalysis - Inhouse Reviewed date:02/17/2024 01:48:42 PM Interpretation: Performing Lab: Notes/Report: Color/Clarity yellow cloudy Leuk 3+ Nitrite neg Urobili 3.2 Protein 3+ pH 6.0 Blood 2+ Sp. Gr. 1.020 Ketone neg Bili neg Gluc neg P-Culture, Urine Reviewed date:02/22/2024 03:01:10 PM Interpretation:intermediate Performing Lab: Notes/Report: Test performed by [facility] [address] [place] [address] , [address], [place] [address] Gustavo Flores MD, Swimming Pool Cleaner CLIA: [id number] Specimen Source Urine - Void Culture, Urine [...] Tobramycin S Trimeth/Sulfa S S=SUSCEPTIBLE I=INTERMEDIATE R=RESISTANT Cologuard Reviewed date:12/13/2024 02:02:58 PM Interpretation:colonoscopy 03/01/2024 Performing Lab: Notes/Report: colonoscopy 03/01/2024 DEXA Hip and Spine (Not yet reviewed by provider) Interpretation:Osteoporosis, Osteopenia Performing Lab: Notes/Report: Osteoporosis, Osteopenia colonoscopy Reviewed date:04/25/2024 12:21:25 PM Interpretation:unremarkable Performing Lab: Notes/Report: unremarkable result: unremarkable proB[facility] Natriuretic Peptide Reviewed date:05/09/2024 12:02:39 PM Interpretation: Performing Lab: Notes/Report: CLIA: [id number] Gustavo Flores MD, Swimming Pool Cleaner [address] [place] [address] , [place] [address] Test performed by [facility] Peptide 169 <300 pg/mL Please note the updated reference range values which are stratified by age. Positive >900 pg/mL Indeterminate 300-900 pg/mL Negative <300 pg/mL P-TSH reflex to FT4 Reviewed date:05/09/2024 12:02:39 PM Interpretation: Performing Lab: Notes/Report: Test performed by [facility] [address] [place] [address] , [address], [place] [address] Gustavo Flores MD, Swimming Pool Cleaner CLIA: [id number] TSH reflex to FT4 3.56 0.43-5.25 mU/L P-Lipid Panel Reviewed date:05/09/2024 12:02:38 PM Interpretation: Performing Lab: Notes/Report: Test performed by [facility] [address] [place] [address] [address] Arzola , [place] [address] Gustavo Flores MD, Swimming Pool Cleaner CLIA: [id number] Cholesterol 104 <200 mg/dL Triglycerides 79 <150 [...] Results: 38 Units: mg/dL % Change: -52% P-Comprehensive Metabolic Pa radha (CMP) Reviewed date:05/09/2024 12:02:38 PM Interpretation: Performing Lab: Notes/Report: Test performed by [facility], [address] , [address], [place] [address] Gustavo Flores MD, Swimming Pool Cleaner CLIA: [id number] Sodium 145 135-145 mmol/L Potassium 3.4 3.5-5.3 [...] 0.3 <0.2-1.2 mg/dL A/G Ratio 2.6 1.1-2.5 P-BNP (Brain Natriuretic Pep tide) Reviewed date:04/28/2024 02:00:20 PM Interpretation: Performing Lab: Notes/Report: CBC Venipuncture (in house) Reviewed date:04/26/2024 01:56:19 [...] - 38 platlet 217 100 - 400 P-Culture, Urine Reviewed date:02/09/2024 10:07:22 AM Interpretation:No growth Performing Lab: Notes/Report: Test performed by [facility] [address] [place] [address] , [address], [place] [address] Gustavo Flores MD, Swimming Pool Cleaner CLIA: [id number] Specimen Source Urine - Void Culture, Urine See Below Final Report : No growth Urinalysis - Inhouse Reviewed date:02/07/2024 03:39:09 PM Interpretation: Performing Lab: Notes/Report: Color/Clarity yellow/cloudy Leuk 3+ Nitrite neg Urobili 3.2 Protein 1+ pH 6.0 Blood 2+ Sp. Gr. 1.010 Ketone neg Bili neg Gluc neg P-Hepatitis Acute Profile Reviewed date:05/14/2024 11:04:30 PM Interpretation:Normal Performing Lab: Notes/Report: Test performed by [facility] [address] [place] [address] , [address], [place] [address] Gustavo Flores MD, Swimming Pool Cleaner CLIA: [id number] Hepatitis A Antibody, IgM Nonreactive Nonreactive Hepatitis B Core Antibody (HBcAb) IgM Nonreactive Nonreactive Hepatitis B Surface Antigen (HBsAg) Nonreactive Nonreactive Hepatitis C Antibody (HCV) IgG Nonreactive Nonreactive P-Comprehensive Metabolic Pa radha (CMP) Reviewed date:05/14/2024 11:04:18 PM Interpretation:gluc 62, alk phos 173, alt 100, ast 59, a/g 2.5 Performing Lab: Notes/Report: Test performed by [facility] [address] [place] [address] , [address], [place] [address] Gustavo Flores MD, Swimming Pool Cleaner CLIA: [id number] Sodium 143 135-145 mmol/L Potassium 4.4 3.5-5.3 [...] 0.2 <0.2-1.2 mg/dL A/G Ratio 2.5 1.1-2.5 P-TSH reflex to FT4 Reviewed date:11/22/2024 01:20:56 PM Interpretation:Normal Performing Lab: Notes/Report: Test performed by [facility] [address] [place] [address] , [address], [place] [address] Gustavo Flores MD, Swimming Pool Cleaner CLIA: [id number] TSH reflex to FT4 2.98 0.43-5.25 mU/L P-Lipid Panel Reviewed date:11/22/2024 01:20:56 PM Interpretation:Normal Performing Lab: Notes/Report: Test performed by [facility] [address] [place] [address] , [place] [address] Gustavo Flores MD, Swimming Pool Cleaner CLIA: [id number] Cholesterol 186 <200 mg/dL Triglycerides 68 <150 [...] Results: 114 Units: mg/dL % Change: +200% P-Comprehensive Metabolic Pa radha (CMP) Reviewed date:11/22/2024 01:20:56 PM Interpretation:prot 5.9, alk phos 151, a/g 3.2 Performing Lab: Notes/Report: Test performed by [facility] , [address], [place] [address] Gustavo Flores MD, Swimming Pool Cleaner CLIA: [id number] Sodium 141 135-145 mmol/L Potassium 4.7 3.5-5.3 [...] 0.4 <0.2-1.2 mg/dL A/G Ratio 3.2 1.1-2.5 CBC Venipuncture (in house) Reviewed date:11/08/2024 01:17:48 [...] - 38 platlet 196 100 - 400 Reason For Referral Diagnosis 1 Chronic diarrhea [...] Notes Start Date End Date Status Creon [id number] UNIT as directed Orally Active Solifenacin Succinate [...] a nd pick correct strength-formulati on from Medispan options. If intended option is not shown, discontinue and re-order from Quick Search* Active lamoTRIgine 200 MG 1 tab(s) orally once a day Active Immunizations Vaccine Route Administration Date Status Comme nts Prevnar (PCV20) IM Intramuscular 07/15/2023 Administered COVID 19 Dinh Unknown 06/25/2020 Administered Problems Problem Type SNOMED Code ICD Code Onset Dates Problem Status W/U Status Risk Notes Problem Arthropathy of lumbar facet joint (461371426) Lumbar facet arthropathy (M47.816) Active confirmed Problem Mixed anxiety and depressive disorder (901417851) Depression with anxiety (F41.8) Active confirmed Problem Overflow incontinence of urine (547346767) Overflow incontinence (N39.490) Active confirmed Problem Dyslipidemia (821850151) Dyslipidemia (E78.5) Active confirmed Problem Midline cystocele (845082753) Female bladder prolapse (N81.10) Active confirmed Problem Exocrine pancreatic insufficiency (83036481) Exocrine pancreatic insufficiency (K86.81) Active confirmed Problem Primary hypertension (22543348) Primary hypertension (I10) Active confirmed Problem Essential tremor (842307225) 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) Active confirmed Vital Signs Heart Rate 72 /min 11/08/2024 Blood pressure diastolic 70 mm Hg 11/08/2024 Height 69.5 in 11/08/2024 Blood pressure systolic 122 mm Hg 11/08/2024 Weight 156 lbs 11/08/2024 BMI 22.7 kg/m2 11/08/2024 Encounters Encounter Location Date Provider Diagnosis [facility] [address] [facility] [address] [place] [id number] 01/27/2024 Shayla Crowdy Edema of left lower extremity R60.0 [facility] [address] [facility] [address] [place] [id number] 02/07/2024 Kathryn Perez UTI (lower urinary tract infection) N39.0 [facility] [address] [facility] [address] [place] [id number] 02/17/2024 Shayla Crowdy Dysuria R30.0 [facility] [address] [facility] [address] [place] [id number] 03/20/2024 R Landon Lars Acute bronchitis J20 .9 [facility] [address] [facility] [address] [place], [place] [id number] 04/26/2024 Shayla Mitchell Adult general medica l examination Z00.00 ; Dyslipidemia E78.5 ; Primary hypertension I10 ; Depression with anxiety F41.8 ; Benign familial tremor G25.0 ; Overflow incontinence N39.490 ; Uncomplicated varicose veins I83.90 ; Lower extremity edema R60.0 ; Exocrine pancreatic insufficiency K86.81 ; Screening mammogram, encounter for Z12.31 ; Osteoporosis screening Z13.820 and BMI 22.0-22.9, adult Z68.22 [facility] [address] [place], [place] [id number] 05/10/2024 Shayla Mitchell Elevated liver enzym es R74.8 [facility] [address] [place], [place] [id number] 11/08/2024 Shayla Mitchell Dyslipidemia E78.5 ; Primary hypertension I10 ; Depression with anxiety F41.8 ; Benign familial tremor G25.0 ; Overflow incontinence N39.490 ; Uncomplicated varicose veins I83.90 ; Lower extremity edema R60.0 ; Exocrine pancreatic insufficiency K86.81 ; Screening for osteoporosis Z13.820 and BMI 22.0-22.9, adult Z68.22 [facility] [address] [place], [place] [id number] 01/09/2024 R Landon Sousa Chronic diarrhea K52 .9 and Bloating R14.0 [facility] [address] [facility] [address] [place], [place] [id number] 01/27/2024 Shayla Mitchell [facility] [address] [facility] [address] [place], [place] [id number] 02/20/2024 Shayla Mitchell UTI (lower urinary tract infection) N39.0 [facility] [address] [facility] [address] [place] [id number] 02/22/2024 Shaylaadan Mitchell [facility] [address] [facility] [address] [place], [place] [id number] 05/09/2024 Shayla [facility] [address] [place], [place] [id number] 05/23/2024 Shayla Mitchell [facility] [address] [place], [place] [id number] 11/12/2024 James Sousa Colon cancer screeni Z12.11 [facility] [address] [place], [place] [id number] 11/22/2024 Shayla Mitchell [facility] [address] [place] [id number] 05/09/2024 James [facility] [address] [place], [place] [id number] 05/14/2024 Shayla Mitchell Elevated liver funct ion tests R79.89 Assessments Encounter Date Diagnosis (ICD Code) Assessment Notes Treatment Notes Treatment Clinical Notes Section Notes 01/09/2024 Bloating (ICD-10 - R14.0) 01/09/2024 Chronic [...] - J20.9) 04/26/2024 Dyslipidemia (ICD-10 - E78.5) 04/26/2024 Adult general medical examination (ICD-10 - Z00.00) Patient instructed to return to office Annually for Annual Wellness Visits to include annual screenings of Pain assessment, Functional Ability assessment, Cognitive Ability assessment, Fall Risk assessment, Depression screening and Bladder control screening. 05/10/2024 Elevated liver enzymes (ICD-10 - R74.8) 05/14/2024 Elevated liver function tests (ICD-10 - R79.89) 11/08/2024 Dyslipidemia (ICD-10 - E78.5) 11/08/2024 Primary hypertension (ICD-10 - I10) Okay to remain off of the lisinopril. 11/12/2024 Colon cancer screening (ICD-10 - Z12.11) 04/26/2024 Primary hypertension (ICD-10 - I10) 11/08/2024 Depression with anxiety (ICD-10 - F41.8) 04/26/2024 Depression with anxiety (ICD-10 - F41.8) 11/08/2024 Benign familial tremor (ICD-10 - G25.0) 11/08/2024 Overflow incontinence (ICD-10 - N39.490) 04/26/2024 Benign familial tremor (ICD-10 - G25.0) 04/26/2024 Overflow incontinence (ICD-10 - N39.490) 11/08/2024 Uncomplicated varicose veins (ICD-10 - I83.90) 11/08/2024 Lower extremity edema (ICD-10 - R60.0) Resolved 04/26/2024 Uncomplicated varicose veins (ICD-10 - I83.90) 04/26/2024 Lower extremity edema (ICD-10 - R60.0) 11/08/2024 Exocrine pancreatic insufficiency (ICD-10 - K86.81) 11/08/2024 Screening for osteoporosis (ICD-10 - Z13.820) 04/26/2024 Exocrine pancreatic insufficiency (ICD-10 - K86.81) 04/26/2024 Screening mammogram, encounter for (ICD-10 - Z12.31) Patient schedules in [place] 11/08/2024 BMI 22.0-22.9, adult (ICD-10 - Z68.22) 04/26/2024 Osteoporosis screening (ICD-10 - Z13.820) Patient schedules in [place] 04/26/2024 BMI 22.0-22.9, adult (ICD-10 - Z68.22) Plan Of Treatment Pending Test Test Name Order Date Bone density 04/26/2024 DEXA Hip and Spine 11/12/2024 venous doppler ultrasound leg, lower lef t 01/27/2024 Mammogram 04/26/2024 Insurance Providers Payer Name Payer Address Payer Phone Subscriber Number Group Number Insured Name Patient Relationship to Insured Coverage Start Date Coverage End Date [employer] (MEDICAR E) [address] [address] [place] [address] [phone] [id number] SLOANE DAVID Self - patient is the insured Medical (General) History Medical History History ICD Code Hypertension Hyperlipidemia Depression Heart Murmur Benign Familial Tremor Anxiety Exocrine pancreatic insufficiency Surgical History Surgery Date(Month/Year) hysterectomy for uterine fibroids 1980s Bilateral oophorectomy for cystic diseas e Right TKA 09/2021 Fusion L4/L5 05/18/23 Tonsillectomy Hospitalization History Reason Date(Month/Year)
[2024-12-21 13:08] LABS: Hematocrit 37.3 % (37.0-47.0); Hemoglobin 12.1 g/dL (12.2-16.2); Immature Granulocytes % 0.4 %; Mean Corpuscular HGB Conc 32.4 g/dL (31.8-35.4); Mean Corpuscular Hemoglobin 28.2 pg (27.0-31.2); Mean Corpuscular Volume 86.9 fl (81-99); Nucleated Red Blood Cells % 0 %; Platelet Count 157 K/mm3 (142-424); Red Blood Count 4.29 M/mm3 (4.20-5.40); Red Cell Distribution Width-SD 43.9 fL; White Blood Count 5.7 K/mm3 (4.8-10.8)
[2024-12-21] MEDS: ONDANSETRON 4MG/2ML VIAL 4 MG IV (13:10)
[2024-12-21 13:11] LABS: Chloride 98 mmol/L (98-107)
[2024-12-21 13:12] LABS: Albumin Level 3.9 g/dl (3.5-5.0); Potassium 3.5 mmoL/L (3.5-5.1); Sodium 134 mmol/L (136-145)
[2024-12-21] MEDS: FENTANYL 100MCG/2ML VIAL 50 MCG IV (13:13)
[2024-12-21 13:14] LABS: Blood Urea Nitrogen 18 mg/dl (7-17); Creatinine Clearance Estimated 51 mL/min (50-200); Creatinine,Serum 0.90 mg/dl (0.52-1.04); Estimated Glomerular Filt Rate 61 ml/min (>60); GFR (African American) 74 ML/MIN (>60)
[2024-12-21 13:15] LABS: Alanine Aminotransferase 20 U/L (12-78); Albumin/Globulin Ratio 1.8 (1.1-1.8); Alkaline Phosphatase 115 U/L (38-126); Anion Gap 11.5 mEq/L (5-15); Aspartate Amino Transferase 27 U/L (14-36); Bilirubin,Total 0.5 mg/dl (0.2-1.3); Calcium 9.2 mg/dl (8.4-10.2); Carbon Dioxide 28 mmol/L (22.0-30.0); Globulin 2.2 g/dL (1.3-3.2); Glucose 112 mg/dl (74-100); Total Protein,Serum 6.1 g/dl (6.3-8.2)
--- NOTE | 2024-12-21 13:59 | PC.NURSE ---
Justa Mccarthy currently on phone with [facility] for pt trasnfer for a left hip fx
--- NOTE | 2024-12-21 14:01 | PC.NURSE ---
MONIQUE Ott is ruddy on phone with at [facility]
--- NOTE | 2024-12-21 14:50 | PC.NURSE ---
Attempted to call to give report, spoke with ward supervisor that reports they did not know patient was coming, took number and said they would call back.
[2024-12-21] MEDS: HYDROMORPHONE 2MG/ML SYRINGE 0.5 MG IV ×2 (15:08→16:37)
--- NOTE | 2024-12-21 15:44 | PC.NURSE ---
EMS called for transport to [facility]
--- NOTE | 2024-12-21 18:16 | PC.NURSE ---
approximently 10-15 minutes ago, pts son came out and voiced it was taking to long for mother to be transfer. son voiced he would like to know if there is anyway to have another EMS crew come take her. son was advised I would let chargeback analyst know of his concerns.
--- NOTE | 2024-12-21 18:23 | PC.NURSE ---
Spoke with Luis Felipe Llanes, director of restaurants regarding contacting other EMS services for transport. He states he needs to check with his units and see where they are and will call me back.
--- NOTE | 2024-12-21 18:27 | PC.NURSE ---
Spoke with Luis Felipe Llanes, associate art director, he states that one truck is out on a run currently, and the other truck is restocking. He states that the truck that is restocking will be on standby so that as soon as other truck clears from their run they will be in the ER to transport patient. If they are unable to transport patient at that time due to being called out on another run, we have his permission to contact another ambulance service for transport.
--- NOTE | 2024-12-21 18:35 | PC.NURSE ---
updated patient and family on transfer update.
[2024-12-21] MEDS: FENTANYL 100MCG/2ML VIAL 25 MCG IV (19:03)
[2024-12-21 19:58] LABS: Hepatitis C Ab Qual. W/ RFX NEGATIVE (Negative)
== END 2024-12-21 19:07 | disposition other institution (70) ==
PROVIDERS: Physician Assistant; Emergency Provider Student in an Organized Health Care Education/Training Program; PCP Physician Assistant
DX: S72.22XA Displaced subtrochanteric fracture of left femur, initial encounter for closed fracture (principal); W18.30XA Fall on same level, unspecified, initial encounter
CPT/HCPCS: 70450; 71045; 72125; 72131; 72192; 73502; 73552; 80053; 85025; 86803; 87389; 93005; 96374; 96375; 96376; 99285; J1171; J2405; J3010

== ENCOUNTER 2024-12-29 05:56 | Observation (INO) | payer MEDICARE, SELFPAY ==
--- OUTSIDE RECORDS SUMMARY | 2024-04-26 05:15 | XMS_ITS ---
Author Organization [facility] Address [address] [facility] [address] [id number] Care Team Providers Care Gravure Printing Machinist Name Role Phone James Sousa Unavailable [phone] Shayla Mitchell Unavailable [phone] Allergies No Known Allergies Results Component Value [...] date:05/09/2024 12:02:38 PM Interpretation: Performing Lab: Notes/Report: CLIA: [id number] Gustavo Flores MD, Canvas Worker Apprentice [address] [place] [address] , [address], [place] [address] Test performed by [employer], [facility] Sodium 145 135-145 mmol/L Potassium 3.4 3.5-5.3 [...] Interpretation: Performing Lab: Notes/Report: Test performed by [facility] [address] , [place] [address] Gustavo Flores MD, Canvas Worker Apprentice CLIA: [id number] Cholesterol 104 <200 mg/dL Triglycerides 79 <150 [...] Interpretation: Performing Lab: Notes/Report: Test performed by [facility] [address] [place] [address] [place] [address] Gustavo Flores MD, Canvas Worker Apprentice CLIA: [id number] TSH reflex to FT4 3.56 0.43-5.25 mU/L proBrain Natriuretic Peptide Reviewed date:05/09/2024 12:02:39 PM Interpretation: Performing Lab: Notes/Report: Test performed by [facility] [address] [place] [address] [place] [address] Gustavo Flores MD, Canvas Worker Apprentice CLIA: [id number] proBrain Natriuretic Peptide 169 <300 pg/mL Please [...] a nd pick correct strength-formulatio n from [employer]ujoo options. If intended option is not shown, discontinue and re-order from Quick Search* Active Creon [id number] UNIT as directed Orally Active Lisinopril 10 MG 1 tab(s) orally once a day; Duration: 90 days Active Problems Problem Type SNOMED Code ICD Code Onset Dates Problem Status W/U Status Risk Notes Problem Exocrine pancreatic insufficiency (04303685) Exocrine pancreatic insufficiency (K86.81) Active confirmed Vital Signs Blood pressure systolic 110 mm Hg 04/26/19 25 Blood pressure diastolic 64 mm Hg 025 Heart Rate 75 /min 04/26/2024 Height 69.5 in 04/26/2024 Weight 152.8 lbs 04/26/2024 BMI 22.24 kg/m2 04/26/2024 Encounters Encounter Location Date Provider Diagnosis [facility] [address] [facility] [address] [place] [id number] 04/26/2024 Shayla Mitchell Adult general medica l [...] for (ICD-10 - Z12.31) Patient schedules in [place] 04/26/2024 Osteoporosis screening (ICD-10 - Z13.820) Patient schedules in [place] 04/26/2024 BMI 22.0-22.9, adult (ICD-10 - Z68.22) Plan Of Treatment Treatment Notes Assessment Notes Adult general medical examination Patien t instructed to return to office Annually for Annual Wellness Visits to include annual screenings of Pain assessment, Functional Ability assessment, Cognitive Ability assessment, Fall Risk assessment, Depression screening and Bladder control screening. Screening mammogram, encounter for Patie nt schedules in [place] Osteoporosis screening Patient schedules in [place] Pending Test Test Name Order Date Bone density 04/26/2024 Mammogram 04/26/2024 Next Appt Details Follow Up: As directed by , Reason: Provider Name:Shayla leone, 01/02/2025 11:30:00 AM, [address] [facility], [address], [place], [place], [id number], Progress Notes * ELSY DAVID:1950 (74 yo F)Acc No.[id number]:04/26/2024 Annual Wellness Visit Patient: SLOANE GRAY Provider: MONIQUE Saldaña :1950 A ge:73 Y S ex:Female Date:04/26/2024 Address:[address] [address], [place] Subjective: * Chief Complaints: * 1 . [...] Alcohol: no. * Medications: T aking Creon [id number] UNIT Capsule Delayed Release Particles as directed [...] steoporosis screening - Z13.820 1 2. B [place] 22.0-22.9, adult - Z68.22? Plan: * Treatment: [...] p latlet 217 100 - 400 * Jeanne Dukes 04/26/2024 1:32 :08 PM >Shayla Mitchell 04/26/2024 [...] 04/27/2024 2:15:3 2 PM > faxed to [facility] Carolyn Ramsey 09/04/2024 12:25:20 PM EDT >pt calling to get these scheduled Notes: Patient schedules in [place]??6.?Osteoporosis screening?Imaging: Bone density* Jud Medina 04/26/2024 2:35: 01 PM > [facility] 04/26/2024 2:39:21 PM > faxed to [facility] Scheduling Notes: Patient schedules in [place]?? * Labs: * L ab: proBrain Natriuretic Peptide (Collection Date & Time - 04/26/2024 08:55 AM) Value Reference Range p roBrain Natriuretic Peptide 169 <300 - pg/mL * [facility], IT support 04/27/2024 05:10:14 : This order was created by the Interface. Shayla Mitchell 05/09/2024 12:02:30 PM > see TE * Procedure Codes: G 0439 ANNUAL WELLNESS VST; PPS SUBSQT VST, G0444 ANNUAL DEPRESSION SCREENING 15 MIN, 1090F PRES/ABSN URINE INCON ASSESS, 3288F FALL RISK ASSESSMENT DOCD, 1170F FXNL STATUS ASSESSED, 1126F AMNT PAIN NOTED NONE PRSNT, 1159F MED LIST DOCD IN RCRD, 1003F LEVEL OF ACTIVITY ASSESS, 00663 CBC WITH AUTO DIFF, 1036F TOBACCO NON-USER, [...] * Images: Billing Information: * Visit Code: 17618 Office Visit, Est Pt., Level 3. Modifiers: 25 * Procedure Codes: G0439 ANNUAL WELLNESS VST; PPS SUBSQT VST. G0444 ANNUAL DEPRESSION SCREENING 15 MIN. 1090F PRES/ABSN URINE INCON ASSESS. 3288F FALL RISK ASSESSMENT DOCD. 1170F FXNL STATUS ASSESSED. 1126F AMNT PAIN NOTED NONE PRSNT. 1159F MED LIST DOCD IN RCRD. 1003F LEVEL OF ACTIVITY ASSESS. 71174 CBC WITH AUTO DIFF. 1036F TOBACCO NON-USER. 3017F COLORECTAL CA SCREEN DOC REV. 4040F PNEUMOC IMM ORDER/ADMIN. G8510 NEG SCR Depression PT NOT ELIG F/U/PLN DOC. 3074F SYST BP LT 130 MM HG. 3078F DIAST BP < 80 MM HG. * Electronic signature of MONIQUE Gunderson on 12/29/2024 at 06:07 AM EDT Sign off status: Pending * Provider: MONIQUE Saldaña Date: 0 04/26/2024 Generated for Lyric juarez/Toribio/eTransmitting on: 1 06:07 AM EDT History and Physical Notes * [...]
--- OUTSIDE RECORDS SUMMARY | 2024-05-10 06:15 | XMS_ITS ---
Author Organization [facility] Address [address] [facility] [address] [id number] Care Team Providers Care Reproducer Name Role Phone LarsJames Unavailable [phone] Shayla Mitchell Unavailable [phone] Results Component Value Reference Range Notes P-Comprehensive Metabolic Pa radha (CMP) Reviewed date:05/14/2024 11:04:18 PM Interpretation:gluc 62, alk phos 173, alt 100, ast 59, a/g 2.5 Performing Lab: Notes/Report: Test performed by [facility] [address] [place] [address] , [address], [place] [address] Gustavo Flores MD, Jetting Machine Operator CLIA: [id number] Sodium 143 135-145 mmol/L Potassium 4.4 3.5-5.3 mmol/L Chloride 105 97-108 mmol/L CO2 30 22-32 mmol/L Glucose 62 65-99 mg/dL BUN 18 8-23 mg/dL Creatinine 0.98 0.50-1.00 mg/dL Calcium 9.3 8.6-10.4 mg/dL eGFR by Creatinine 61 >59 mL/min/1.73m2 Protein 6.0 6.0-8.3 g/dL Albumin 4.3 3.5-5.3 g/dL Alkaline Phosphatase 173 35-121 IU/L ALT (SGPT) 100 <5-47 IU/L AST (SGOT) 59 <5-40 IU/L Bilirubin, Total 0.2 <0.2-1.2 mg/dL A/G Ratio 2.5 1.1-2.5 P-Hepatitis Acute Profile Reviewed date:05/14/2024 11:04:30 PM Interpretation:Normal Performing Lab: Notes/Report: Test performed by [facility], [facility] [address] [place] [address] , [address], [place] [address] Gustavo Flores MD, Jetting Machine Operator CLIA: [id number] Hepatitis A Antibody, IgM Nonreactive Nonreactive Hepatitis B Core Antibody (HBcAb) IgM Nonreactive Non reactive Hepatitis B Surface Antigen (HBsAg) Nonreactive Nonre active Hepatitis C Antibody (HCV) IgG Nonreactive Nonreactiv e REASON FOR VISIT blood work Encounters Encounter Location Date Provider Diagnosis [facility] [address] [facility] [address] [place], [place] [id number] 05/10/2024 Shayla Mitchell Elevated liver enzym es R74.8 Assessments Encounter Date Diagnosis (ICD Code) Assessment Notes Treatment Notes Treatment Clinical Notes Section Notes 05/10/2024 Elevated liver enzymes (ICD-10 - R74.8) Plan Of Treatment Next Appt Details Provider Name:Shayla leone, 01/02/2025 11:30:00 AM, [address] [facility], [address], [place], [place], [id number], Progress Notes * SLOANE DAVIDDOB:1950 (74 yo F)Acc No.[id number]:05/10/2024 Patient: SLOANE GRAY Provider: MONIQUE Saldaña :1950 A ge:73 Y S ex:Female Date:05/10/2024 Address:[address] [place], [place] [phone] Subjective: * Chief Complaints: * 1 . Blood work. * Medical History: Objective: * Vitals: Assessment: * Assessment: 1. E levated liver enzymes - R74.8 (Primary) Plan: * Treatment: Value Reference Range A /G Ratio 2.5 H 1.1-2.5 - * A lbumin 4.3 3.5-5.3 - g/dL * A lkaline Phosphatase 173 H 35-121 - IU/L * A LT (SGPT) 100 H <5-47 - IU/L * A ST (SGOT) 59 H <5-40 - IU/L * B ilirubin, Total 0.2 <0.2-1.2 - mg/dL * B UN 18 8-23 - mg/dL * C alcium 9.3 8.6-10.4 - mg/dL * C hloride 105 97-108 - mmol/L * C O2 30 22-32 - mmol/L * C reatinine 0.98 0.50-1.00 - mg/dL * G lucose 62 L 65-99 - mg/dL * P otassium 4.4 3.5-5.3 - mmol/L * S odium 143 135-145 - mmol/L * P rotein 6.0 6.0-8.3 - g/dL * e GFR by Creatinine 61 >59 - mL/min/1.73m2 * Shayla Mitchell 05/14/2024 11 :04:12 PM > see TE ?LAB: P-Hepatitis Acute Profile (Collection Date & Time - 05/10/2024 09:41 AM)?Normal* Value Reference Range H epatitis A Antibody, IgM Nonreactive Nonreactive - * H epatitis B Core Antibody (HBcAb) IgM Nonreactive Non reactive - * H epatitis B Surface Antigen (HBsAg) Nonreactive Nonre active - * H epatitis C Antibody (HCV) IgG Nonreactive Nonreactiv e - * Shayla Mitchell 05/14/2024 11 :04:23 PM > see TE * Images: Billing Information: * Visit Code: * Procedure Codes: * Electronic signature of MONIQUE Gunderson on 12/29/2024 at 06:07 AM EDT Sign off status: Pending * Provider: MONIQUE Saldaña Date: 0 05/10/2024 Generated for Surii ng/Faxing/eTransmitting on: 1 06:07 AM EDT
--- OUTSIDE RECORDS SUMMARY | 2024-11-08 05:00 | XMS_ITS ---
Author Organization [facility] Address [address] [place] [id number] Care Team Providers Care Linen Aide Name Role Phone James Sousa Unavailable [phone] Shayla Mitchell Unavailable [phone] Allergies No Known Allergies Results Component Value [...] 3.2 Performing Lab: Notes/Report: Test performed by [facility], [employer] [facility] , [address], [place] [address] Gustavo Flores MD, Homogenizer Operator CLIA: [id number] Sodium 141 135-145 mmol/L Potassium 4.7 3.5-5.3 [...] Interpretation:Normal Performing Lab: Notes/Report: Test performed by [facility], [address] , [place] [address] Gustavo Flores MD, Homogenizer Operator CLIA: [id number] Cholesterol 186 <200 mg/dL Triglycerides 68 <150 [...] Interpretation:Normal Performing Lab: Notes/Report: Test performed by [facility] [employer], [address] , [facility], [place] [address] Gustavo Flores MD, Homogenizer Operator CLIA: [id number] TSH reflex to FT4 2.98 0.43-5.25 mU/L REASON FOR VISIT yearly physical, Needs labs, mammogram, & bone density screening Medications Medication SIG (Take, Route, Frequency, Duration) Notes Start Date End Date Status Creon 6000-52027 UNIT as directed Orally Active Solifenacin Succinate 10 MG 1 tablet Orally Once a day; Duration: 90 days Active Venlafaxine HCl ER 150 MG 1 cap(s) orally once a day Active Calcium 500 MG 1 TAB TID *Please review a nd pick correct strength-formulati on from [employer] options. If intended option is not shown, [...] 11/08/2024 Encounters Encounter Location Date Provider Diagnosis [facility]-Arsenio [address] [facility] [address] [place], [place] [id number] 11/08/2024 Shayla Mitchell Dyslipidemia E78.5 ; Primary hypertension I10 ; [...] phone to repo rt test results, Reason: Provider Name:Shayla Barajas y, 01/02/2025 11:30:00 AM, [address] [facility] [address], [address] , [place], [place], [id number], Progress Notes * SLOANE DAVIDDOB:1950 (74 yo F)Acc No.[id number]:11/08/2024 Physical Patient: SLOANE GRAY Provider: MONIQUE Saldaña :1950 A ge:74 Y S ex:Female Date:11/08/2024 Address:[address] [place] [address], [facility] Subjective: * Chief Complaints: * 1 . [...] Alcohol: no. * Medications: T aking Creon 6000-46382 UNIT Capsule Delayed Release Particles as directed [...] for osteoporosis - Z13.820 1 0. B NC 22.0-22.9, adult - Z68.22 Plan: * Treatment: Value Reference Range T SH reflex to FT4 2.98 0.43-5.25 - mU/L * Shayla Mitchell 11/08/2024 0 9:43:11 AM EDT >room 9, purple Stephen, Shayla S 11/22/2024 01:20:46 PM EDT >see TE ?LAB: [...] p latlet 196 100 - 400 * Yordan Alexandra 11/08/2024 1 0:10:12 AM EDT > Notes: [...] 11/08/2024 0 9:43:11 AM EDT >room 9, Shayla Gaviria 11/22/2024 01:20:46 PM EDT >see TE ?LAB: [...] 11/08/2024 0 9:43:11 AM EDT >room 9, Shayla Gaviria 11/22/2024 01:20:46 PM EDT >see TE 3.?Lower extremity edema? Notes: Resolved?? * Procedure Codes: G 2211 Complex e/[place], [address] CBC WITH AUTO DIFF, 74438 VENIPUNCT, ROUTINE*, 1036F TOBACCO NON-USER, G8420 BMI<30 AND >=22 CALC & DOCU, G8950 PREHTN/HTN BP DOC INDCD F/U DOC, G8752 MOST RECENT SYSTOLIC BP < 140MM HG, G8754 MOST RECENT DIASTOLIC BP < 90MM HG * Follow Up: v ia phone to report test results * Images: Billing Information: * Visit Code: 73223 Preventive Care Est Pt. Age 65 and over. * Procedure Codes: G2211 Complex e/[place]. [address] CBC WITH AUTO DIFF. 54222 VENIPUNCT, ROUTINE*. 1036F TOBACCO NON-USER. G8420 BMI<30 AND >=22 CALC & DOCU. G8950 PREHTN/HTN BP DOC INDCD F/U DOC. G8752 MOST RECENT SYSTOLIC BP < 140MM HG. G8754 MOST RECENT DIASTOLIC BP < 90MM HG. * Electronic signature of MONIQUE Gunderson on 12/29/2024 at 06:07 AM EDT Sign off status: Pending * Provider: MONIQUE Saldaña Date: 0 11/08/2024 Generated for Lyric juarez/Toribio/Kennaitting on: 1 06:07 AM EDT History and [...]
--- OUTSIDE RECORDS SUMMARY | 2024-11-12 08:00 | XMS_ITS ---
Author Organization [facility] Address [address] [facility] [address] [facility] [address] [place] [id number] Care Team Providers Care Tankage Grinder Operator Name Role Phone James Sousa Unavailable [phone] Results Component Value Reference Range Notes Cologuard Reviewed date:12/13/2024 02:02:58 PM Interpretation:colonoscopy 03/01/2024 Performing Lab: Notes/Report: colonoscopy 03/01/2024 REASON FOR VISIT due col, [place] Encounters Encounter Location Date Provider Diagnosis [facility] [address] [facility] [address] [place] [id number] 11/12/2024 James Sousa Colon cancer screening Z12.11 Assessments Encounter Date Diagnosis (ICD Code) Assessment Notes Treatment Notes Treatment Clinical Notes Section Notes 11/12/2024 Colon cancer screening (ICD-10 - Z12.11) Plan Of Treatment Next Appt Details Provider Name:Shayla leone, 01/02/2025 11:30:00 AM, [address] [facility], [address], [place], [id number], Progress Notes * FRANKIEDUSTINGUILLERMODOB:1950 (74 yo F)Acc No.[id number]:11/12/2024 Patient: SLOANE GRAY :1950 A ge:74 Y S ex:Female Address:[address] [place] [address], [address] Subjective: * Chief Complaints: * D ue col, [place] * Medical History: * Surgical History: * Hospitalization/Major Diagno stic Procedure: * Medications: Objective: * Vitals: * Physical Examination: Assessment: * Assessment: 1. C [facility] cancer screening - Z12.11 (Primary) Plan: * Treatment: * Procedure Codes: * true * Date: Generated for Lyric juarez/Toribio/Phoebe on: 06:07 AM EDT
--- OUTSIDE RECORDS SUMMARY | 2024-12-21 20:07 | XMS_ITS | Encounter Summary ---
Author Organization [employer] ([place], [place], [place], [place]) Address [address] [place] [address] Care Team Providers Care Chemical Research Technician Name Role Phone Shayla Mitchell Primary Care Provider [phone] Reason for Referral * Consultation (Routine) - New Request Specialty Diagnoses / Procedures Referred By Todd t Referred To Contact Home Health Services Diagnoses Closed left hip fracture, initial encounter (HCC) Sea Contreras MD [address] [facility] [address] [place] [address] Phone: tel: fax: Referral ID Status Reason Start Date Expiration Date Visits Requested Visits Authorized [id number] New Request Specialty Services Required 12/24/2024 12/24/2025 1 1 Reason for Visit * Auth/Cert (Routine) Specialty Diagnoses / Procedures Referred By Todd mckeon Referred To Contact Diagnoses Closed left hip fracture, initial encounter (HCC) Fracture - Hip [facility] [address] [place] [address] Phone: tel: fax: [facility] [address] [place] [address] Phone: tel: fax: Referral ID Status Reason Start Date Expiration Date Visits Re quested Visits Authorized [id number] 1 1 Encounter Details Date Type Department Care Team (Late st Contact Info) Description 12/21/2024 8:07 PM EDT - 12/24/2024 2:35 PM EDT Hospital Encounter [facility] [address] [place] [address] Jeffry Price MD [address] [place] [address] Wes White MD [address] [facility] [address], [address] [place] [address] Closed left hip fracture, initial encounter ([facility]) (Primary Dx) Discharge Disposition: Home-Health Care [facility] Social History Tobacco Use Types Packs/Day Years Used Date Smoking Tobacco: Never Smokeless Tobacco: Never Tobacco Cessation:Counseling Given: Not Answered Utilities Answer Date Recorded In the past 12 months, has t he electric, gas, oil, or water company threatened to shut off services in your home? No 12/21/2024 Interpersonal Safety Answer Date Record ed How often does anyone, jason diaz family and friends, physically hurt you? Never 12/21/2024 How often does anyone, jason diaz family and friends, insult or talk down to you? Never 12/21/2024 How often does anyone, jason diaz family and friends, threaten you with harm? Never 12/21/2024 How often does anyone, jason diaz family and friends, scream or curse at you? Never 12/21/2024 Housing Stability Answer Date Recorded What is your living situation today? I have a [facility] place to live 12/21/[address] you li ve. Do you have problems with any of the following? None of the above 12/21/2024 Food Insecurity Answer Date Recorded Within the past 12 months, y ou worried that your food would run out before you got money to buy more. Never true 12/21/2024 Within the past 12 months, t he food you bought just didn't last and you didn't have money to get more. Never true 12/21/2024 Transportation Needs Answer Date Record ed In the past 12 months, has l ack of reliable transportation kept you from medical appointments, meetings, work or from getting things needed for daily living? No 12/21/2024 Financial Resource Strain Answer Date R ecorded How hard is it for you to pa y for the very basics like food, housing, medical care, and heating? Would you say it is: Not hard at all 12/21/2024 Employment Answer Date Recorded Do you want help finding or keeping work or a job? I do not need or want help 12/21/2024 Family and Community Support Answer Miquel e Recorded If for any reason you need h elp with day-to-day activities such as bathing, preparing meals, shopping, managing finances, etc., do you get the help you need? I get all the help I need 12/21/2024 Feeling Lonely or Isolated 0 12/21 Educational Attainment Answer Date Casa rded Do you speak a language other than [facility]? No 12/21/2024 Do you want help with school or training? For example, starting or completing job training or getting a high school diploma, GED or equivalent. No 12/21/2024 Physical Activity Answer Date Recorded Number of minutes of exercise per week 90 12/21/2024 Self Management Answer Date Recorded Because of a physical, menta l, or emotional condition, do you have serious difficulty concentrating, remembering, or making decisions? (5 years or older) No 12/21/2024 Because of a physical, menta l, or emotional condition, do you have difficulty doing errands alone such as visiting a doctor's office or shopping? (15 years or older) No 12/21/2024 Substance Use Answer Date Recorded How many times in the past y ear have you used prescription drugs for non-medical reasons? Never 12/21/2024 How many times in the past year have you used [place] legal drugs? Never 12/21/2024 Mental Health Answer Date Recorded Calculation of above two rows 0 Comments Unknown Sex and Gender Information Value Date Recorded Sex Assigned at Not on file Legal Sex Female 12:59 PM CDT Gender Identity Not on file Sexual Orientation Not on file documented as of this encounter Last Filed Vital Signs Vital Sign Reading Time Taken Comments Blood Pressure 113/46 12/24/2024 1:45 PM EDT Pulse 95 12/24/2024 1:45 PM EDT Temperature 36.6 C (97.9 F) 12/24/2024 1:40 PM EDT Respiratory Rate 16 12/24/2024 3:50 AM EDT Oxygen Saturation 99% 12/24/2024 1:45 PM EDT Inhaled Oxygen Concentration - - Weight 78.2 kg (172 lb 8 oz) 12/23/2024 6:00 AM EDT Height 165.1 cm (5' 5 ) 12/22/2024 4:20 AM EDT Body Mass Index 28.71 12/22/2024 4:20 AM EDT documented in this encounter Discharge Summaries * Wes White MD - 12/24/2024 12:01 PM EDT Patient Name: Chary Chandra : 1950 Date of Admission: 12/21/2024 Date of Discharge: 12/24/2024 Primary Care Physician: MONIQUE Garcia Consultations: Discharge Diagnoses: Closed left hip fracture, initial encounter ([facility]), osteoporosis, mood disorder, pancreatic insufficiency Reason for Admission: Left hip fracture Hospital Course: 1. Left hip fracture: Patient had a left hip fracture. She went to the OR and had intramedullary nailing. She will go home with home health. Follow-up with orthopedics outpatient in 2 weeks Studies Performed: Procedures Performed: Intramedullary nailing Discharge Medications: Your medication list START taking these medications Instructions Comments Quantity Refills oxyCODONE 5 MG immediate release tablet Commonly known as: ROXICODONE Take 1 tablet (5 mg total) by mouth every 6 (six) hours as needed for up to 3 days Look-alike/Sound-alike medication. Max Daily Amount: 20 mg 12 tablet 0 sennosides-docusate sodium 8.6-50 mg per tablet Commonly known as: SENOKOT S Take 1 tablet by mouth 2 (two) times daily for 7 days. 14 tablet 0 CONTINUE taking these medications Instructions Comments Quantity Refills Creon 6,000-19,000 -30,000 unit capsule Generic drug: pancrelipase (Ygvpfl-Ajqqfhzw-Rybvtdp) Take 2 capsules by mouth 3 (three) times daily with meals. 0 lamoTRIgine 100 MG tablet Commonly known as: LaMICtal Take 1 tablet (100 mg total) by mouth 2 (two) times daily. 0 polycarbophiL 625 mg tablet Commonly known as: FIBERCON Take 1 tablet (625 mg total) by mouth daily as needed. 0 QUEtiapine 100 MG tablet Commonly known as: SEROquel Take 1 tablet (100 mg total) by mouth nightly. 0 valbenazine 60 mg Cap Take 60 mg by mouth daily. 0 venlafaxine XR 150 MG 24 hr capsule Commonly known as: EFFEXOR-XR Take 1 capsule (150 mg total) by mouth nightly. 0 Where to Get Your Medications These medications were sent to [facility] - [place], [place] - [address], [facility] [address] oxyCODONE 5 MG immediate release tablet sennosides-docusate sodium 8.6-50 mg per tablet Physical Exam Awake and alert and oriented x 3 Heart S1-S2 regular rate rhythm Lungs clear to auscultation bilaterally Discharge Instructions Discharge Diet: Regular Discharge Activity: As tolerated Discharge Follow UP: Orthopedics 2 weeks, PCP 1 week Contact information for follow-up Sea Sanabria MD [facility] [address] [address] Next Steps: Follow up in 2 week(s) MONIQUE Garcia Specialty: Physician Chief Controller Station Relationship: PCP - General [facility] [place] [address] Next Steps: Follow up in 1 week(s) Time Spent: 37 minutes Electronically signed by Wes White MD, 12/24/24, 12:01 PM EDT documented in this encounter Discharge Instructions * Attachments The following attachments cannot be sent through Care Everywhere. * Oxycodone Capsules or Tablets ([employer] [facility]) * Docusate; Senna Tablets ([employer]) * Intramedullary Nailing of Hip Fracture Care After ([employer]) documented in this encounter Medications at Time of Discharge aspirin 81 MG EC tablet Take 1 tablet (81 mg total) by mouth 2 (two) times daily for 90 days. 180 tablet 01/12/2025 04/12/2025 enoxaparin (LOVENOX) 40 mg/0.4 mL syrg Inject 0.4 mLs (40 mg total) under the skin daily for 20 days. 8 mL 12/25/2024 01/14/2025 lamoTRIgine (LaMICtal) 100 MG tablet Take 1 tablet (100 mg total) by mouth 2 (two) times daily. 01/23/2024 pancrelipase, Lipase-Protease- Amylase, (Creon) 6,000-19,000 -30,000 unit capsule Take 2 capsules by mouth 3 (three) times daily with meals. polycarbophiL (FIBERCON) 625 mg tablet Take 1 tablet (625 mg total) by mouth daily as needed. 03/19/2024 QUEtiapine (SEROquel) 100 MG tablet Take 1 tablet (100 mg total) by mouth nightly. 10/01/2024 sennosides-docus ate sodium (SENOKOT S) 8.6-50 mg per tablet Take 1 tablet by mouth 2 (two) times daily for 7 days. 14 tablet 12/24/2024 12/31/2024 valbenazine 60 mg cap Take 60 mg by mouth daily. venlafaxine XR (EFFEXOR-XR) 150 MG 24 hr capsule Take 1 capsule (150 mg total) by mouth nightly. 01/23/2024 oxyCODONE (ROXICODONE) 5 MG immediate release tablet Take 1 tablet (5 mg total) by mouth every 6 (six) hours as needed for up to 3 days Look-alike/S ound-alike medication. Max Daily Amount: 20 mg 12 tablet 12/24/2024 12/27/2024 documented as of this encounter Progress Notes * Shi Degroot RN - 12/24/2024 2:35 PM EDT Pt was discharged per MD order. Patient and both verbalized understanding of discharge instructions. Pt. Was transported via personal vehicle home. * Eyad Gonzalez PT - 12/24/2024 11:18 AM EDT Images from the original note were not included. [facility] Multidisciplinary Rounding Form Patient Name: Chary Chandra Age: 74 y.o. Today: 12/24/2024 Multidisciplinary Rounding Therapist attended multidisciplinary rounds discussing care of the patient and for discharge planning purposes on 3rd floor telemetry unit from 1030 - 1053. Electronically signed by: Eyad Gonzalez PT, 12/24/2024 11:18 AM * Eyda Gonzalez, PT - 12/24/2024 8:34 AM EDT Images from the original note were not included. Inpatient Physical Therapy Treatment Patient Name: Chary Chandra Date of : 1950 Date of Treatment: 12/24/24 Start Time 0834 Stop Time 0852 Session Duration 16 minutes CPT CODES: 58402 Gait training x 1 General Visit Type: Treatment Approved by: Nurse Hernandez Patient Disposition Upon Entry: Patient in bedside chair, Call Light/Pull Cord in reach, All needs met and within reach, Nursing aware/notified, Feet elevated, Visitor/Family present, Yellow non-slipsocks donned Patient Verified By: Name and Date of Co-treated by: OT Precautions Weight-Bearing Status: Weight Bearing As Tolerated (WBAT), LLE Precautions: Fall risk Isolation Precautions: Standard Lines, tubes, drains, airway: peripheral IV Subjective Subjective: Patient agreeable to physical therapy treatment. Pain No - Patient not reporting pain at this time Cognition Overall cognitive status: Patient is awake and alert, attending to directions appropriately, demonstrating good problem solving skills, and aware of any deficits or impairments, if present. Objective Vitals Vitals stable. Functional Mobility Bed Mobility: Patient up in bedside chair, therefore, bed mobility not assessed this date. Transfers Sit to Stand: contact guard assist, gait belt used, rolling walker used Stand to Sit: contact guard assist, gait belt used, rolling walker used Bed to/from Chair: contact guard assist, gait belt used, rolling walker used Gait Gait Assistance: contact guard assist Assistive Device: Gait Belt, Rolling walker Distance: 120ft Gait speed: Decreased caryl Deviation(s): step to pattern, decreased stance time LLE, no major losses of balance Stair Management Stair navigation education performed. Wheelchair Mobility Not assessed, patient ambulatory. AM-PAC Basic Mobility Inpatient Short Form How much difficulty does the patient currently have: Turning over in bed (including adjusting bedclothes, sheets, and blankets)? (4) None (the patient can do the activity independently WITHOUT using assistive devices OR help from another person) Sitting down on and standing up from a chair with arms (e.g., wheelchair, bedside commode, etc.)? (1) Total/Unable (not able to do the activity or can only perform the activity using assistive devices or requires assistance from another person, including supervision or cueing for safety) Moving from lying on back to sitting on side of bed? (4) None (the patient can do the activity independently WITHOUT using assistive devices OR help from another person) How much help from another person does the patient currently need: Moving to and from a bed to a chair (including a wheelchair)? (3) A little (Minimal/Contact guard/Supervision/Setup) Need to walk in hospital room? (3) A little (Minimal/Contact guard/Supervision/Setup) Climbing 3-5 steps with a railing? (3) A little (Minimal/Contact guard/Supervision/Setup) Score Raw score=18 t-Scale score=43.63 Standard error=3.20 [facility] 0-100%=46.58% MDC=4.72 A raw score of >= 16 is significantly associated with increased odds of discharge to home in addition to consideration made for the patient's cognition and social determinants of health. Balance Static/dynamic sitting and static/dynamic standing balance grades Balance Grade Sitting Static Good - patient able to maintain balance without handhold support, limited postural sway Sitting Dynamic Fair - patient accepts minimal challenge; able to maintain balance while turning head/trunk Standing Static Fair - patient able to maintain balance with handhold support; may require occasional minimal assistance Standing Dynamic Fair - patient accepts minimal challenge; able to maintain balance while turning head/trunk Activity Tolerance Patient limited with activity/intervention due to deconditioning Treatment Pt performed gait and transfer training. See above assessment. Educated on exercises. Able to ambulate ~120ft with RW and CGA. Minor verbal cues for safety. Returned to bedside chair at end of session in no distress. Assessment Patient presenting with decreased activity tolerance, generalized weakness with functional activities, and impaired dynamic balance with ambulation. Because of this, patient would have difficulty with independently performing transferring, ambulating on level surfaces, and ambulating household distances. These functional limitations put the patient at an increased risk for loss of independence with functional mobility and activities of daily living, falling, deconditioning, and decreased quality of life. Patient would benefit from skilled physical therapy services during length of stay for strengthening, balance training to decrease risk of falling, gait training, and transfer training. Problems: Decreased functional mobility, Decreased gait tolerance, Decreased strength, Decreased activity tolerance, Impaired standing balance, Impaired dynamic balance, Gait impairment Rehab potential: Good for stated goals Plan Treatment plan: Continue per POC. PT Frequency/Duration: 5x/week for 14 days Recommendations Discharge recommendations: Discharge home/prior living situation. Patient would benefit from continued therapy services. DME recommendations: Patient has no DME/adaptive equipment discharge needs at this time. Goals Vxlfnq-fg-[id number]: By the target date, patient will perform nvmkpv-ku-daz with stand by assistance, utilizing no assistive device, to improve independence with bed mobility. Kpv-ym-kocom: By the target date, patient will perform sit to stand with stand by assistance and rolling walker to improve independence with functional mobility. Gait: Patient will ambulate 250' with stand by assistance and utilizing rolling walker in order to increase independence with ambulation, improve balance with ambulation and decrease risk of falling,and improve activity tolerance with ambulation Stairs: By the target date, patient will negotiate 1 step(s), with a step-to pattern, utilizing bilateral railing and contact guard assistance, to demonstrate ability to safely negotiate stairs at home. Target Date: 01/06/2025 Progress towards goals: progressing Education Patient educated on safety, use of call button, role of physical therapy, plan of care, ambulation,transfers, bed mobility, adaptive equipment, ROM/positioning, proper positioning and balance required for functional mobility tasks, home safety, need for assistance, and risk for falls and following, they were able to verbalize understanding. No further questions or concerns stated. Interdisciplinary Communication Following treatment, therapist communicated with nursing regarding patient's performance during physical therapy session. Patient Disposition Upon Leaving Patient in bedside chair, Call Light/Pull Cord in reach, All needs met and within reach, Nursing aware/notified, Feet elevated, Chair Alarm applied, Visitor/Family present, Yellow non-slip socks donned If this patient discharges prior to next therapy session, this note serves as the patient's discharge summary. Electronically signed by Eyad Gonzalez, PT - 12/24/24 - 11:09 AM EDT * Kami Rojas, OTR/L - 12/24/2024 8:33 AM EDT Images from the original note were not included. [facility] Inpatient Occupational Therapy Initial Evaluation Patient Name: Chary Chandra Date of : 1950 Date of Evaluation: 12/24/24 Start Time: 832 Stop Time: 851 Session Duration: 19 minutes Total time: 29 minutes spent, including 10 minutes for nursing collaboration, thorough chart and systems review, and clinical reasoning. CPT CODES: 55361 Eval low complexity and Rehab each additional 15 x 1 This patient is a 74 y.o. female admitted on 12/21/2024 with Closed left hip fracture, initial encounter ([facility]) [S72.002A]. Past Medical History: Diagnosis Date Hypertension Past Surgical History: Procedure Laterality Date BACK SURGERY FRACTURE SURGERY General Visit type: Initial Evaluation Approved by: Nursing Patient disposition upon entry: Patient verified by name, Patient verified by date of , Sitting in bedside chair, Visitor/family present, All needs met and within reach, Call light/pull cord in reach, Feet elevated, Nursing aware/notified Assisted by: PT Precautions Weightbearing status: Weight bearing as tolerated (WBAT) Precautions: Fall risk Isolation precautions: Standard LDA/Brace/Protective equipment: Lines, drains, and airways: peripheral IV Subjective Subjective: Pt agreeable Patient's stated goal: go home Pain Pt did not rate pain in LLE, states not bad at all Cognition Cognition: Overall cognitive status: Patient is awake and alert, attending to directions appropriately, demonstrating good problem solving skills, and aware of any deficits or impairments, if present. Vision/Hearing History No deficits reported Home Living Lives with: Spouse Receives help from: Patient does not need help from others at baseline Type of home: House Home layout: One level, 1 step Home equipment available: raised toilet seat, walker, rolling, built in shower seat with grab bars Functional Mobility PLOF: Patient reports being complete independent with all functional mobility prior to onset. Activities of Daily Living PLOF: Patient reports being complete independent with all ADL's prior toonset. Does the patient have a recent history of falls?: prior to admission Objective Vitals Vital signs stable throughout, no adverse reaction during activity Range of Motion Assessment BUE WFl Strength Assessment BUE WFL Coordination/Sensation Coordination: The patient's gross motor coordination is intact. Sensation: Patient reports no sensation deficits. Bed Mobility Not assessed: patient up in chair upon arrival Transfers Sit to stand:Contact guard, Gait belt used, Rolling walker used Stand to sit:Contact guard, Gait belt used, Rolling walker used Functional mobility:Contact guard, Gait belt used, Rolling walker used Bed to chair transfer:Contact guard, Gait belt used, Rolling walker used Toilet transfer:Contact guard, Gait belt used, Rolling walker used Pt completes mobility >100' with rw CGA and cues for safety. Pt transfers to toilet with BSC over top to assist with transfer in bathroom and completes mobility back to chair CGA. Pt's present and educated on use of gait belt as needed for home. ADLs Feeding:Independent Grooming:Supervision, Standing at sink Bathing:Minimal Assistance Upper body dressing:Setup Lower body dressing:Moderate Assistance Toileting:Contact guard assist Outcome Measures [facility] Daily Living Functional Assessment How much help from another person does the patient currently need: Putting on and taking off regular lower body clothing? 2 Bathing, including washing, rinsing, and drying? 3 Toileting, including using toilet, bedpan or urinal? 3 Putting on and taking off regular upper body clothing? 3 Taking care of personal grooming such as brushing teeth? 3 Eating meals? 4 1=Total/Unable (Total assist/Dependent) 2=A lot (Maximal/Moderate assist) 3=A little (Minimal/Contact guard/Supervision/Setup) 4=None (Modified independent/Independent) The patient's [facility] raw score is 18. The patient currently has 46.65% functional impairment. Clinicians are most likely to recommend inpatient/SNF/halfway care for patients with scores between 6-17, home health for scores between 18-22, and routine discharge for scores above 22. Balance Static sitting balance:Good: Patient able to maintain balance without handheld support; limited postural sway Dynamic sitting balance:Fair: Patient accepts minimal challenge; able to maintain balance while turning head/trunk Static standing balance:Fair: Patient able to maintain balance with handheld support, may require occasional minimal assistance Dynamic standing balance:Fair: Patient accepts minimal challenge; able to maintain balance while turning head/trunk Activity Tolerance Patient limited with activity/intervention due to deconditioning and weakness Treatment See above Pt's spouse present in addition to pt for education on ADL techniques/safety, safe mobility and home safety. Assessment Assessment Prior to admission, patient was independent with ADLs, was independent with functional mobility. Currently the patient presents with difficulty with ADLs, fall risk, impaired endurance, impaired functional mobility, impaired strength . These deficits currently impact the patient's ability to perform ADLs and functional mobility, putting them at an increased risk for poor outcomes, increased caregiver burden. The patient has good rehab potential and would benefit from OT services to address the aforementioned functional deficits in order to return to prior level of function. Pt is s/p L hip nailing due to fall and L hip fracture at home. Pt reports she was weeding her yardand accidentally fell. Pt is WBAT and possible discharge home later today. Pt's will be able to assist at home and f/u with home health therapy. Plan Recommendations Discharge recommendations: Discharge recommendations pending progression of acute hospital stay secondary to the patient's medical status DME recommendations: Unable to make adaptive/DME recommendations at this time. Treatment Plan: Adaptive equipment training, ADL training, Co-treat with physical therapy, Energy conservation instruction, Functional mobility/transfer training, Patient/family/caregiver education, Precaution education/training, Safety training, Strengthening OT Frequency/Duration: 3x/week for 14 days Goals Lower body dressing: donning and doffing lower body clothing with supervision. Toileting: toileting with modified independence. Functional transfers: ambulatory transfer with modified independence. Target Date: 01/07/2025 Goals were discussed with patient and family Education Patient/Visitors educated on safety, use of call light, role of occupational therapy, patient's plan of care, ADLs, fall prevention, adaptive equipment, functional mobility and following, they were able to verbalize understanding, return demonstration. Interdisciplinary Communication Following treatment, therapist communicated with nursing regarding patient's performance during therapy session. Patient Disposition Upon Leaving Patient disposition upon leaving: Sitting in bedside chair, Visitor/family present, All needs met and within reach, Call light/pull cord in reach, Feet elevated, Nursing aware/notified If this patient discharges prior to next therapy session, this note serves as the patient's discharge summary. Electronically signed by Kami Rojas OTR/Victoriano - 12/24/2024 - 10:31 AM EDT OT Evaluation Completed * Shi Degroot RN - 12/23/2024 3:00 PM EDT Pt. ambulated 100 ft, tolerated well. Gait belt and walker were used. * Wes White MD - 12/23/2024 12:03 PM EDT Subjective Slight numbness in the left leg. She has sensation in her foot Review of Systems Objective Last Recorded Vitals Blood pressure 115/47, pulse 91, temperature 98.1 ??F (36.7 ??C), temperature source Oral, resp. rate 16, height 1.651 m (5' 5 ), weight 78.2 kg (172 lb 8 oz), SpO2 98%. Physical Exam Heart S1-S2 regular rate rhythm Lungs clear to auscultation bilaterally Abdomen soft nontender nondistended positive bowel sounds Lower extremities no pitting edema, light touch sensation is intact and symmetric bilaterally Awake and alert and orient x 3 Positive Rice catheter Labs: No results found for this visit on 12/21/24 (from the past 24 hours). Fluoroscopy less than 1 hour Narrative: FLUORO TIME PROCEDURE: Fluoroscopy in the operating room. HISTORY: Acute hip pain. FINDINGS: Fluoroscopy time was provided by the radiology department for the clinical service. 12 images were obtained for hip pinning. Fluoroscopy exposure time: 2.5 minutes. Radiation exposure in reference to air kerma: 21 mGy Impression: See above. Please see the operative report. Images reviewed, interpreted, and dictated by Dr. Jennifer Odonnell. Transcribed by Nila Eugene PA-C. X-ray pelvis portable Narrative: SINGLE VIEW PELVIS. HISTORY: Hip fracture. FINDINGS: There is a proximal left femur fracture with overriding fracture fragments and medial displacement of the distal fracture fragment. The left hip joint space is maintained. Impression: Proximal left femur fracture with displacement. Images reviewed, interpreted, and dictated by Dr. Jennifer Odonnell. Transcribed by Nila Eugene PA-C. Assessment Plan 1. Left hip fracture: Postop day 1 for intramedullary nailing. Pain control per orthopedics. Patient states that she feels slightly numb in her left leg. 2. Osteoporosis: Will need vitamin D and calcium 3. Mood disorder: Continue Lamictal 100 mg p.o. twice daily and Seroquel 100 mg p.o. nightly, Effexor 150 mg p.o. daily 4. Pancreatic insufficiency: Continue Creon DVT prophylaxis Lovenox daily Positive Rice Full code Discharge Planning: Pending PT evaluation * Sea Contreras MD - 12/23/2024 11:19 AM EDT Orthopedic progress note Pain well-controlled. Able to ambulate. On exam she is resting in the bedside chair. Dressing clean dry and intact. Neurovascular intact distally. WBC Date Value Ref Range Status 12/22/2024 4.9 3.9 - 10.0 K/??L Final RBC Date Value Ref Range Status 12/22/2024 3.76 (L) 3.93 - 5.22 M/??L Final Hemoglobin Date Value Ref Range Status 12/22/2024 10.5 (L) 11.2 - 15.7 GM/DL Final Hematocrit Date Value Ref Range Status 12/22/2024 33.3 (L) 34.1 - 44.9 % Final Platelets Date Value Ref Range Status 12/22/2024 122 (L) 163 - 369 K/CU MM Final Assessment/plan: Status post left hip nailing for intertrochanteric hip fracture overall doing well Weight-bear as tolerated on walker at all times. PT OT. Lovenox daily for 3 weeks followed by aspirin daily for 3 months. Follow-up with me in 2 to 3 weeks. * Nila Parisi, PT - 12/23/2024 9:10 AM EDT Images from the original note were not included. Inpatient Physical Therapy Initial Evaluation Patient Name: Chary Chandra Date of : 1950 Date of Evaluation: 12/23/24 In Time 0832 Out Time 0910 Session Duration 38 minutes Time spent for nursing collaboration, chart and systems review, and clinical reasoning. 10 minutes Total Time 48 minutes CPT CODES: 55137 Eval mod complex, 92852 Gait training x 1, 82037 Therapeutic exercise x 1 Pt is a 74 y.o. female admitted on 12/21/2024 with Closed left hip fracture, initial encounter ([facility])[S72.002A]. Patient fell in her garden and fractured left hip. Patient is s/p L hip nailing on 12/22/[address] Contreras. Past Medical History: Diagnosis Date Hypertension Past Surgical History: Procedure Laterality Date BACK SURGERY FRACTURE SURGERY General Visit type: Initial Evaluation Approved by: Nurse Palacio + Shi Patient Disposition Upon Entry: Supine in bed, Call Light/Pull Cord in reach, All needs met and within reach, HOB >30 degrees, Side rails up, Visitor/Family present Patient Verified By: Name and Date of Assisted by: Patient's pushed the IV pole Precautions Weight-Bearing Status: Weight Bearing As Tolerated (WBAT), LLE Precautions: Fall risk Isolation Precautions: Standard Lines, tubes, drains, airway: rice catheter, nasal cannula , peripheral IV, SCDs Subjective Subjective: Patient agreeable to physical therapy evaluation and treatment. I'm nervous. Patient goal: Return to PLOF. Pain Patient did not complain of pain at rest and reported ~ 1/10 pain in left hip after mobilizing. Cognition Overall cognitive status: Patient is awake and alert, attending to directions appropriately, demonstrating good problem solving skills, and aware of any deficits or impairments, if present. Arousal/Alertness: Appropriate response to stimuli Orientation Level: Oriented x4 Following commands: Follows all commands and directions without difficulty Home Living Lives with: Spouse Home Type: House Home Layout: One level Stairs to enter: 1 step(s) Stairs inside home: none Home Equipment: Rolling walker, cane, built in shower seat in walk in shower with grab bars and hand held shower head + taller toilet Functional Mobility PLOF: Patient reports being complete independent with all functional mobility prior to onset. Activities of Daily Living PLOF: Patient reports being complete independent with all ADL's prior toonset. Fall History: No, patient denies any other falls over the last 6 months besides fall that led to this hospital admission. Objective Vitals Pre-intervention vitals Heart rate: 87 beats per minute SpO2: 100% O2: 2 (L/min) nasal cannula (PT removed nasal cannula and had patient walk on room air as she does not wear oxygen at baseline.) Post-intervention vitals Heart rate: 111 beats per minute SpO2: 98% O2 : Room Air - notified RN that nasal cannula removed and patient remained on room air after PT session with SpO2 > 88% Basic Strength Assessment WFL's except left hip due to recent surgery. Range of Motion Assessment WFL's except left hip due to recent surgery. Sensation Sensation is intact and equal bilaterally. Coordination NT Functional Mobility Bed Mobility Supine to Sit: minimal assistance, to the right, needed assistance with LLE + HOB elevated Transfers PT provided cues for safe hand placement during sit < > stand transitions using RW. Patient wanting to pull herself up on the walker. Sit to Stand: contact guard assist, gait belt used, rolling walker used Stand to Sit: contact guard assist, gait belt used, rolling walker used Gait Gait Assistance: contact guard assist Assistive Device: Gait Belt, Rolling walker Distance: 100 feet Gait speed: slower caryl Deviation(s): PT provided cues for gait sequencing, posture, and safe positioning within RW, as well as monitoring patient's overall tolerance to activity. Patient with antalgic, step to pattern progressing to reciprocal steps occasionally. Patient started to gain more confidence as she walked. Stair Management Not addressed today. Focus of treatment today on gait training. Wheelchair Mobility Not assessed, patient ambulatory. Outcome Measures [facility] Basic Mobility Inpatient Short Form How much difficulty does the patient currently have: Turning over in bed (including adjusting bedclothes, sheets, and blankets)? (3) A little (can do the activity without assistive devices or help from another person, but requires A LITTLE more time and effort) Sitting down on and standing up from a chair with arms (e.g., wheelchair, bedside commode, etc.)? (1) Total/Unable (not able to do the activity or can only perform the activity using assistive devices or requires assistance from another person, including supervision or cueing for safety) Moving from lying on back to sitting on side of bed? (1) Total/Unable (not able to do the activity or can only perform the activity using assistive devices or requires assistance from another person,including supervision or cueing for safety) How much help from another person does the patient currently need: Moving to and from a bed to a chair (including a wheelchair)? (3) A little (Minimal/Contact guard/Supervision/Setup) Need to walk in hospital room? (3) A little (Minimal/Contact guard/Supervision/Setup) Climbing 3-5 steps with a railing? (3) A little (Minimal/Contact guard/Supervision/Setup) Score Raw score=14 t-Scale score=38.10 Standard error=2.95 CMS 0-100%=61.29% MDC=4.72 A raw score of >= 16 is significantly associated with increased odds of discharge to home in addition to consideration made for the patient's cognition and social determinants of health. Balance Static/dynamic sitting and static/dynamic standing balance grades Balance Grade Sitting Static Good - patient able to maintain balance without handhold support, limited postural sway Sitting Dynamic Fair - patient accepts minimal challenge; able to maintain balance while turning head/trunk Standing Static Fair - patient able to maintain balance with handhold support; may require occasional minimal assistance Standing Dynamic Fair - patient accepts minimal challenge; able to maintain balance while turning head/trunk Activity Tolerance Patient limited with activity/intervention due to deconditioning Treatment Patient participated in bed mobility, transfers, ambulation with RW as described above and performed the following therapeutic exercises: Long arc quad Ankle pumps Quad set Glute set Patient instructed to perform AROM x 10 reps every hour awake and exercises written on white board in room. Assessment At baseline, patient was independent with ADLs, was independent with functional mobility. Patient presenting with decreased activity tolerance, generalized weakness with functional activities, impaired dynamic balance with ambulation, and fatigue with physical exertion. Because of this, patient would have difficulty with independently performing ADL's and functional mobility. These functional limitations put the patient at an increased risk for loss of independence with functional mobility and activities of daily living, falling, caregiver burden, skin breakdown, complications due to immobilization, deconditioning, and decreased quality of life. Patient would benefit from skilled physical therapy services during length of stay for strengthening, balance training to decrease risk of falling, endurance training to improve activity tolerance, stair training, gait training, transfer training, progression of mobility, assistive device training, review of precautions, and further discharge planning. Problems: Decreased functional mobility, Decreased gait tolerance, Decreased strength, Decreased activity tolerance, Gait impairment, Pain Rehab potential: Good for stated goals Plan Treatment Plan: Therapeutic Exercise, Therapeutic Activity, Gait Training, Transfer Training, Balance Training, Stair Training, Strengthening, Patient/Family/Caregiver Education, DME Recommendations PT Frequency/Duration: 5x/week for 14 days Recommendations Discharge recommendations: Discharge home/prior living situation. Patient would benefit from continued therapy services. Patient would like script for Outpatient PT. DME recommendations: Patient already owns a Rolling Walker. Goals [id number]: By the target date, patient will perform [id number]-[id number] with stand by assistance, utilizing no assistive device, to improve independence with bed mobility. [id number]: By the target date, patient will perform sit to stand with stand by assistance and rolling walker to improve independence with functional mobility. Gait: Patient will ambulate 250' with stand by assistance and utilizing rolling walker in order to increase independence with ambulation, improve balance with ambulation and decrease risk of falling,and improve activity tolerance with ambulation Stairs: By the target date, patient will negotiate 1 step(s), with a step-to pattern, utilizing bilateral railing and contact guard assistance, to demonstrate ability to safely negotiate stairs at home. Target Date: 01/06/2025 Goals were discussed with patient and family Education Patient/Visitors educated on safety, use of call button, role of physical therapy, and plan of careand following, they were able to verbalize understanding. No further questions or concerns stated. Interdisciplinary Communication Following treatment, therapist communicated with nursing by completing communication whiteboard in room and regarding patient's performance during physical therapy session. Patient Disposition Upon Leaving Patient in bedside chair, Call Light/Pull Cord in reach, All needs met and within reach, Nursing aware/notified, Feet elevated, Chair Alarm applied, Visitor/Family present If this patient discharges prior to next therapy session, this note serves as the patient's discharge summary. Electronically signed by Nila Parisi, PT - 12/23/24 - 1:05 PM EDT PT Evaluation Completed * Kate Zamudio RN - 12/22/2024 5:45 PM EDT Pneumonia Zone Tool and Sepsis Zone Tool provided to patient and/or family at bedside using the Teach-Back, Explanation, and Demonstration, Verbalizes Understanding and Demonstrated Understanding. * Wes White MD - 12/22/2024 11:27 AM EDT Subjective Pain in left hip Review of Systems Objective Last Recorded Vitals Blood pressure (!) 147/65, pulse 71, temperature 97.7 ??F (36.5 ??C), temperature source Temporal Artery, resp. rate (P) 16, height 1.651 m (5' 5 ), weight 73.7 kg (162 lb 8 oz), SpO2 98%. Physical Exam Heart S1-S2 regular rate rhythm Lungs clear to auscultation bilaterally Abdomen soft nontender nondistended positive bowel sounds Lower extremities no pitting edema, left leg is shorter than the right Awake and alert and orient x 3 Positive Rice catheter Labs: Results for orders placed or performed during the hospital encounter of 12/21/24 (from the past 24 hours) Type and Screen Status: None Collection Time: 12/21/24 9:55 PM Result Value Ref Range ABO/Rh O NEGATIVE Antibody Screen Negative HISTCHK HIST CHECK PERFORMED PT/INR, PTT Status: Normal Collection Time: 12/21/24 9:55 PM Result Value Ref Range aPTT 25.1 22.0 - 32.0 seconds Protime 10.1 9.0 - 12.0 seconds INR 0.92 0.80 - 1.10 ABO/RH CONFIRMATION/RETYPE Status: None Collection Time: 12/21/24 9:55 PM Result Value Ref Range RETYPE O NEGATIVE CBC with automated diff Status: Abnormal Collection Time: 12/22/24 4:56 AM Result Value Ref Range WBC 4.9 3.9 - 10.0 K/??L RBC 3.76 (L) 3.93 - 5.22 M/??L Hemoglobin 10.5 (L) 11.2 - 15.7 GM/DL Hematocrit 33.3 (L) 34.1 - 44.9 % MCV 89 79 - 95 fL MCH 27.9 25.6 - 32.2 pg MCHC 31.5 (L) 32.2 - 36.5 GM/DL RDW 14.0 11.6 - 14.4 % Platelets 122 (L) 163 - 369 K/CU MM MPV 9.4 9.4 - 12.4 fL % Neutros 75 (H) 34 - 71 % % Lymphs 14 (L) 19 - 53 % % Monos 10 4 - 13 % % Eos 0 (L) 1 - 7 % % Baso 0 0 - 1 % # Neutros 3.67 1.56 - 6.13 K/??L # Lymphs 0.69 (L) 1.18 - 3.74 K/??L # Monos 0.50 0.24 - 0.82 K/??L # Eos 0.02 (L) 0.04 - 0.54 K/??L # Baso 0.01 0.01 - 0.08 K/??L Immature Granulocytes-Relative 0.40 0.00 - 0.60 % # IG 0.02 0.00 - 0.05 K/uL Comprehensive metabolic panel Status: Abnormal Collection Time: 12/22/24 4:56 AM Result Value Ref Range Sodium 139 136 - 146 meq/L Potassium 3.9 3.5 - 5.1 meq/L Chloride 105 102 - 112 meq/L CO2 28 21 - 32 meq/L Calcium 8.5 8.5 - 10.1 mg/dL Glucose 95 74 - 100 mg/dL BUN 17 7 - 22 mg/dL Creatinine 0.86 0.55 - 1.02 mg/dL BUN/Creatinine 20 8 - 20 Albumin 3.0 (L) 3.4 - 5.0 g/dL Alkaline Phosphatase 96 27 - 136 U/L ALT 19 12 - 78 U/L AST 27 5 - 37 U/L Total Bilirubin 0.4 0.2 - 1.3 mg/dL Protein, Total 5.4 (L) 6.4 - 8.2 gm/dL Anion Gap 10 9 - 20 A/G Ratio 1.3 1.1 - 2.5 Globulin 2.4 1.5 - 4.5 g/dL Osmolality Calc 278.9 mOsm/kg eGFR (mL/min/1.73m2) >60 >=60 mL/min/1.73m2 Magnesium Status: Normal Collection Time: 12/22/24 4:56 AM Result Value Ref Range Magnesium 2.1 1.5 - 2.4 mg/dL X-ray pelvis portable Narrative: SINGLE VIEW PELVIS. HISTORY: Hip fracture. FINDINGS: There is a proximal left femur fracture with overriding fracture fragments and medial displacement of the distal fracture fragment. The left hip joint space is maintained. Impression: Proximal left femur fracture with displacement. Images reviewed, interpreted, and dictated by Dr. Jennifer Odonnell. Transcribed by Nila Eugene PA-C. Assessment Plan 1. Left hip fracture: OR today for open reduction internal fixation. Pain control per orthopedics 2. Osteoporosis: Will need vitamin D and calcium 3. Mood disorder: Continue Lamictal 100 mg p.o. twice daily and Seroquel 100 mg p.o. nightly, Effexor 150 mg p.o. daily 4. Pancreatic insufficiency: Continue Creon DVT prophylaxis per orthopedic protocol Positive Rice Full code Discharge Planning: unCertain at this time * Cata Alicia RN - 12/22/2024 11:05 AM EDT 30 minute notice called to 3rd floor for patient returning. * Petty Long PT - 12/22/2024 7:13 AM EDT PT order received. Pt is pending ortho consult for hip fracture. PT will need new orders following ortho consult with appropriate weight bearing restrictions and mobility restrictions, if any. If pt has surgery, new orders will be needed. PT to sign off at this time and will await further instructions following completion of ortho consult. Thank you. Electronically signed by Petty Long PT - 12/22/2024 - 7:15 AM EDT documented in this encounter H&P Notes * Alberto Gallego MD - 12/21/2024 9:50 PM EDT Patient Name: Chary Chandra : 1950 Primary Care Physician: No primary care provider on file. Date of Admission: 12/21/2024 History & Physical Chief Complaint Left hip pain History Of Present Illness Chary Chandra is a 74 y.o. female that presents to [facility] in transition of care from [facility] emergency department after presenting for a fall at home with left hip pain. She is accompanied by her Nithin who assists with history. Patient reports thatshe was weeding her garden this morning when she lost her balance fell and felt immediate sharp left hip pain. She describes pain shooting to her knee and buttock with inability to bear weight. She reports no associated syncope, head or neck injury, nausea, vomiting, chest pain or acute dyspnea. She reports no associated confusion. In the ED imaging identified proximal femur fracture and orthopedics was consulted out of the ED. Her care was transitioned to our facility for orthopedic evaluationand surgical recommendations. Currently she reports that her pain is controlled. Past Medical History Osteoporosis, mood disorder, pancreatic insufficiency, degenerative cervical spine and lumbar spinedisease, hypertension Surgical History Right TKA, right elbow surgery, lumbar spine surgery, hysterectomy, colonoscopy 2023 Family History Both parents are and cardiovascular disease is reported. Social History She lives with her of 53 years in [place], [place]. They have 2 adult sons. Her is identified as her POA. 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 She denies a smoking or alcohol use history. She identifies with the [facility]. She elects a full CODE STATUS. Review of Systems A complete 10 point review of systems has been performed and is negative with the exception of findings in the HPI. Allergies Patient has no known allergies. Medications Current Outpatient Medications Medication Instructions lamoTRIgine (LAMICTAL) 100 mg, 2 times daily pancrelipase, Raubsi-Issmewsa-Uxhgsmy, (Creon) 6,000-19,000 -30,000 unit capsule 2 capsules, 3 times daily with meals polycarbophiL (FIBERCON) 625 mg, Daily as needed QUEtiapine (SEROQUEL) 100 mg, Every Night venlafaxine XR (EFFEXOR-XR) 150 mg, Every Night Vitals Blood pressure 118/48, pulse 70, temperature 98.1 ??F (36.7 ??C), resp. rate 16, SpO2 96%. There is no height or weight on file to calculate BMI. Physical Exam General: Alert and interactive, well nourished, in no acute distress Eye: Conjunctiva appropriate, sclera white HENT: Normocephalic, appropriate hearing, moist oral mucosa Neck: Supple, no JVD, no lymphadenopathy Lungs: Appropriate effort, Clear to auscultation, adequate excursion Heart: regular rate, regular rhythm, no murmur, no edema Abdomen: Soft, non-tender, non-distended, active bowel sounds Musculoskeletal: Left hip tender with decreased range of motion Skin: Skin is warm, dry and pink, no diffuse rashes Neurologic: Awake, alert and oriented X 3, sensory intact, no focal deficits Psychiatric: Cooperative, appropriate mood and affect Diagnostic Results Results Reviewed: I have personally reviewed and interpreted available lab data dated 12/21/24 identifying: Results for orders placed or performed during the hospital encounter of 12/21/24 (from the past 24 hours) Type and Screen Status: None Collection Time: 12/21/24 9:55 PM Result Value Ref Range ABO/Rh O NEGATIVE Antibody Screen Negative HISTCHK HIST CHECK PERFORMED PT/INR, PTT Status: Normal Collection Time: 12/21/24 9:55 PM Result Value Ref Range aPTT 25.1 22.0 - 32.0 seconds Protime 10.1 9.0 - 12.0 seconds INR 0.92 0.80 - 1.10 ABO/RH CONFIRMATION/RETYPE Status: None Collection Time: 12/21/24 9:55 PM Result Value Ref Range RETYPE O NEGATIVE I have personally reviewed and interpreted imaging available and dated 12/21/24 identifying: Left hip x-ray with proximal femur fracture I have discussed the patient's care and planned management with family member: Nithin at bedside and we discussed n.p.o. status, pain control and plans for orthopedic evaluation in the morning. We discussed PT and OT evaluations post surgical intervention with recommendations for rehab pending. Assessment / Plan Left hip fracture Ground-level fall Osteoporosis Orthopedic consultation Fall precautions Left hip x-ray with proximal femur fracture CT hip with left proximal femur fracture CT cervical spine with degenerative disc disease and no acute fracture CT brain: No acute disease Lumbar spine with degenerative joint disease and previous operative intervention Gentle IV fluid resuscitation Trending CBC Antiemetic therapy Pain control Parentally administer controlled substance for comfort care Bowel regimen N.p.o. PT and OT evaluations post surgically Case management consult for discharge planning Mood disorder Routine nursing interaction ECG to assess QTc Lamictal therapy Antipsychotic therapy SNRI therapy Pancreatic insufficiency Creon therapy Antiemetic therapy Trending labs and inflammatory markers Hypertension Routine blood pressure monitoring MAXIMILIANO inhibitor therapy VTE prophylaxis: SCD's Code Status: Full code POA: The length of stay for this patient will be 2 midnights or greater, due to above diagnosis. Electronically signed by: Alberto Gallego MD, 12/21/2024 at 9:51 PM documented in this encounter Consult Notes * Honey Mayorga RN - 12/24/2024 12:13 PM EDTAssociated Order(s): IP CONSULT TO CARE COORDINATION Care Coordination Initial Assessment Home Environment Type of Residence: Private residence Living Arrangements: Spouse/significant other Support System: Spouse/significant other Patient returning to prior living situation? Yes Affect/Behavior: Appropriate Prior/Regular Transportation: Family Needs assistance with transportation:No ADL Screen Patient's Vision Adequate to Safely complete ADLs:Yes Patient's Judgement Adequate to safely completed ADLs: Yes Dressing: Independent Current Home Care Services: Current Home Care Services: None Assistive DevicesYes Patient's Judgement Adequate to Safely Complete Daily Activities: Yes Dressing: Independent Transition Needs Expected Discharge Date: 12/24/2024 Home or Post Acute Services Needed: In home services Does the patient have the ability to fill and receive their discharge medications: Yes Discharge plan discussed: The discharge plan was discussed with patient. Discharge Barriers: None Type of Assistive Devices Needed for Discharge: None Patient Discharge Goal: Home Health Care Mandated Reporting: Not applicable PT/OT/METAL REED TUNER Recommendations PT Recommendations: OT Recommendations: METAL REED TUNER Recommendations: CM consult for rehab. Patient admitted for left hip fracture after a fall while gardening at home. Patient had left hip nailing on 12/22/24. CM spoke with patient and spouse at bedside, demographics confirmed. Patient was able to walk 120 feet with PT with [facility]. Patient would like to go home with home health. Patient lives at home with her spouse and was previously independent with ADLs. DME at home is an elevated toilet seat, RW, and a cane. Patient has had previous home health, not sure of agency name, no previous rehab. Spouse to transport at discharge. .[facility] Patient Preference CC met with patient to discuss the need for Post-Acute Services. It has been recommended that patient discharge with HH. A patient choice letter was provided in compliance with [facility] guidelines and discussed with patient. All clinical and financial affiliations with [facility] have been disclosed. Patient acknowledged receipt of the [facility] Compare site link. Patient/Surrogate/Designated Caregiver Patient does not have a preference of provider at this time.Referrals were sent to the desired geographic region for review. [facility] able to accept referral, CM updated patient. No other needs at this time, patient discharging today, CM signing off. Honey Mayorga RN * Sea Contreras MD - 12/22/2024 8:56 AM EDT Consults orthopedic History of Present Illness: Chary Chandra is a 74 y.o. female presenting with a left intertrochanteric hip fracture. She fell while gardening yesterday. Reports pain in the left hip. Denies pain elsewhere. Normally ambulates without a cane or walker. Past Medical History: She has a past medical history of Hypertension. Past Surgical History: She has a past surgical history that includes Fracture surgery and Back surgery. Social History: She reports that she has never smoked. She has never used smokeless tobacco. She reports that she does not use drugs. No history on file for alcohol use. Family History: Her family history is not on file. Allergies: Patient has no known allergies. Medications: Medications Prior to Admission Medication Sig Dispense Refill Last Dose/Taking lamoTRIgine (LaMICtal) 100 MG tablet Take 1 tablet (100 mg total) by mouth 2 (two) times daily. 12/20/2024 pancrelipase, Idrxpg-Xuctktwb-Eiaufna, (Creon) 6,000-19,000 -30,000 unit capsule Take 2 capsules bymouth 3 (three) times daily with meals. 12/20/2024 polycarbophiL (FIBERCON) 625 mg tablet Take 1 tablet (625 mg total) by mouth daily as needed. 12/20/2024 QUEtiapine (SEROquel) 100 MG tablet Take 1 tablet (100 mg total) by mouth nightly. 12/20/2024 venlafaxine XR (EFFEXOR-XR) 150 MG 24 hr capsule Take 1 capsule (150 mg total) by mouth nightly. 12/20/2024 Review of Systems 10 of 14 systems reviewed and negative except HPI Vitals: Blood pressure 108/40, pulse 66, temperature 98.2 ??F (36.8 ??C), resp. rate 16, height 1.651 m (5'5 ), weight 73.7 kg (162 lb 8 oz), SpO2 95%. Physical Exam On exam she is resting comfortably in bed. Heart regular by peripheral palpation. Nonlabored breathing on room air. Exam of the left lower extremity shows to be short externally rotated. Nontender to palpation at the knee tib-fib ankle foot. Able to dorsiflex plantarflex left ankle and toes with good strength. Palpable dorsalis pedis pulse. No pain with right hip logroll. Relevant Results: WBC Date Value Ref Range Status 12/22/2024 4.9 3.9 - 10.0 K/??L Final RBC Date Value Ref Range Status 12/22/2024 3.76 (L) 3.93 - 5.22 M/??L Final Hemoglobin Date Value Ref Range Status 12/22/2024 10.5 (L) 11.2 - 15.7 GM/DL Final Hematocrit Date Value Ref Range Status 12/22/2024 33.3 (L) 34.1 - 44.9 % Final Platelets Date Value Ref Range Status 12/22/2024 122 (L) 163 - 369 K/CU MM Final I reviewed the x-rays demonstrating an intertrochanteric left hip fracture Assessment & Plan Principal Problem: Closed left hip fracture, initial encounter (HCC) I discussed the diagnosis in detail with the patient and her as well as my recommendation for left hip nailing. We discussed the indications, risk, benefits, alternatives recovery in great detail. Specific risk discussed include but not limited to bleeding, infection, pain, scarring, need for further procedure, nerve/blood vessel/tendon injury, further fracture, malunion, nonunion, hardware failure/irritation, blood clots, and the medical and anesthetic risks of surgery including heart attack stroke and . She gave informed consent and wished to proceed. To the OR as planned for left hip nailing. Electronically signed by Sea Contreras MD 12/22/2024 at 8:56 AM documented in this encounter OR Notes * Op Note - Sea Contreras MD - 12/22/2024 10:41 AM EDT Date of procedure: December Pre-op diagnosis: Left Intertrochanteric femur fracture Postop diagnosis: Same Procedure performed: Left Hip cephalomedullary nailing Surgeon: Sea Contreras MD Assistants: None Anesthesia: General EBL: 200 mls Complications: none apparent Medications: 2 grams of Ancef was given prior to incision Implants: Synthese 10mm x 42 cm, 130 degree nail. 95mm lag screw. 60mm, 50mm distal interlocking screw. Indications for procedure: The patient is a pleasant 74 year old female who presented to the ER with a left intertrochanteric hip fracture. We discussed the indications, risks, benefits, alternatives and recovery in detail of a hip cephallomedullary nailing. Specific risks discussed include but not limited to bleeding, infection, pain, scarring, need for further procedure, nonunion, malunion, hardware failure/screw cut out, leg length discrepancy, further fracture, nerve/blood vessel/tendon injury, blood clots, and the medical and anesthetic risks of surgery including heart attack, stroke and . The patient and their family gave informed consent and wished to proceed with a left hip nailing. Description of procedure: The patient was met in the preoperative holding area where the left hip was marked with an indelible marker. With their permission they were taken back to the operating room and anesthesia was induced. They were positioned supine on the [place] table, taking care to pad all bony prominences. A formal timeout was performed with all team members to confirm the correct patient, side, site and procedure. We began with a closed reduction of the hip with a combination of traction, internal rotation and adduction of the leg. Appropriate reduction was confirmed with fluoroscopy. When we were satisfied with the reduction, the hip was prepped and draped in the usual sterile fashion. An incision was made proximal to the greater trochanter. The gluteus opal fascia was split. A pin was then started just lateral to the center of the femoral canal on the AP view and in the center of the femoral canal on the lateral view. The pin was advanced. The opening reamer was then used. We then used the reduction tool to pass the guidewire. The fracture remained flexed. Therefore we made an incision at the level of the fracture. Fascia was split. Lateralis was elevated anteriorly. We were then able to provisionally hold the fracture reduced while reaming. We reamed to an 11.5 mm reamer after the nail was measured. We then advanced the nail over the guidewire. Guidewire was removed. Trocar was then placed for the lag screw. This was pinned in the low center of the femoral head on the AP close to mongocenter. We then measured 95 mm lag screw. This was overreamed. Lag screw was placed and locked proximally. We then removed the targeting guide. We placed 2 distal interlocking screws using perfect [place] technique. Final x-rays were taken to confirm good position of the hardware and no penetration of the joint. The incisions were thoroughly irrigated with sterile saline. The deep fascia proximally was closed with 0 Vicryl's. 2-0 Vicryl's were used in the subcutaneous layer followed by neal in the skin. Asterile dressing was then placed. The patient was carefully transferred off of the OR table and awoken from anesthesia. They were brought to recovery in good condition. At the end of the procedure all sponge, needle and instrument counts were correct. I was present and scrubbed for all aspects of the procedure. Postoperative plan: They will be weightbearing as tolerated on a walker at all times. We will consult PT and OT. Antibiotics to continue for 23 hours postoperatively. Lovenox daily x3 weeks followed by aspirin daily x3 months. Follow-up with me in 2 weeks in the office. documented in this encounter Miscellaneous Notes * Plan of Care - Shi Degroot RN - 12/24/2024 1:54 PM EDT Problem: Knowledge Deficit Goal: Patient/family/caregiver demonstrates understanding of disease process, treatment plan, medications, and discharge instructions Description: Complete learning assessment and assess knowledge base. Outcome: Adequate for Discharge Problem: Potential for Falls Goal: Patient will remain free of falls Description: Assess and monitor vitals signs, neurological status including level of consciousness and orientation. Reassess fall risk per hospital policy. Ensure arm band on, uncluttered walking paths in room, adequate room lighting, call light and overbed table within reach, bed in low position, wheels locked, side rails up per policy, and non-skid footwear provided. Outcome: Adequate for Discharge Problem: Compromised Skin Integrity Goal: LTG - Patient will be free from infection Outcome: Adequate for Discharge Goal: LTG - Patient will maintain/improve skin integrity through proper skin care techniques Outcome: Adequate for Discharge Goal: LTG - Patient will demonstrate appropriate pressure relief techniques Outcome: Adequate for Discharge Goal: LTG - Patient will demonstrate appropriate skin care techniques Outcome: Adequate for Discharge Goal: LTG - Patient will be free from infection Outcome: Adequate for Discharge Goal: STG - Patient demonstrates skin care/treatment/dressing change Outcome: Adequate for Discharge Goal: STG - Patient will maintain good skin integrity Outcome: Adequate for Discharge Goal: STG - Patient exhibits signs of wound healing. Outcome: Adequate for Discharge Goal: STG - Patient demonstrates pressure reduction techniques Outcome: Adequate for Discharge Goal: STG - Patient demonstrates preventative skin care measures Outcome: Adequate for Discharge * Plan of Care - Nila He RN - 12/24/2024 1:24 AM EDT Problem: Knowledge Deficit Goal: Patient/family/caregiver demonstrates understanding of disease process, treatment plan, medications, and discharge instructions Description: Complete learning assessment and assess knowledge base. 12/24/2024 0124 by Nila He RN Outcome: Progressing 12/24/2024 0124 by Nila He RN Outcome: Progressing 12/24/2024116 by Nila He RN Outcome: Progressing Problem: Potential for Falls Goal: Patient will remain free of falls Description: Assess and monitor vitals signs, neurological status including level of consciousness and orientation. Reassess fall risk per hospital policy. Ensure arm band on, uncluttered walking paths in room, adequate room lighting, call light and overbed table within reach, bed in low position, wheels locked, side rails up per policy, and non-skid footwear provided. 12/24/2024123 by Nila He RN Outcome: Progressing 12/24/2024123 by Nila He RN Outcome: Progressing 12/24/2024116 by Nila He RN Outcome: Progressing Problem: Compromised Skin Integrity Goal: LTG - Patient will be free from infection 12/24/2024123 by Nila He RN Outcome: Progressing 12/24/2024123 by Nila He RN Outcome: Progressing 12/24/2024116 by Nila He RN Outcome: Progressing Goal: LTG - Patient will maintain/improve skin integrity through proper skin care techniques 12/24/2024123 by Nila He RN Outcome: Progressing 12/24/2024123 by Nila He RN Outcome: Progressing 12/24/2024116 by Nila He RN Outcome: Progressing Goal: LTG - Patient will demonstrate appropriate pressure relief techniques 12/24/2024123 by Nila He RN Outcome: Progressing 12/24/2024123 by Nila He RN Outcome: Progressing 12/24/2024116 by Nila He RN Outcome: Progressing Goal: LTG - Patient will demonstrate appropriate skin care techniques 12/24/2024123 by Nila He RN Outcome: Progressing 12/24/2024123 by Nila He RN Outcome: Progressing 12/24/2024116 by Nila He RN Outcome: Progressing Goal: LTG - Patient will be free from infection 12/24/2024123 by Nila He RN Outcome: Progressing 12/24/2024123 by Nila He RN Outcome: Progressing 12/24/2024116 by Nila Neri, RN Outcome: Progressing Goal: STG - Patient demonstrates skin care/treatment/dressing change 12/24/2024 012 by Nila He RN Outcome: Progressing 12/24/2024 012 by Nila He RN Outcome: Progressing 12/24/2024 011 by Nila He RN Outcome: Progressing Goal: STG - Patient will maintain good skin integrity 12/24/2024 012 by Nila He RN Outcome: Progressing 12/24/2024 012 by Nila He RN Outcome: Progressing 12/24/2024 011 by Nila He RN Outcome: Progressing Goal: STG - Patient exhibits signs of wound healing. 12/24/2024 012 by Nila He RN Outcome: Progressing 12/24/2024123 by Nila He RN Outcome: Progressing 12/24/2024 011 by Nila He RN Outcome: Progressing Goal: STG - Patient demonstrates pressure reduction techniques 12/24/2024 012 by Nila He RN Outcome: Progressing 12/24/2024 012 by Nila He RN Outcome: Progressing 12/24/2024 011 by Nila He RN Outcome: Progressing Goal: STG - Patient demonstrates preventative skin care measures 12/24/2024123 by Nila He RN Outcome: Progressing 12/24/2024123 by Nila He RN Outcome: Progressing 12/24/2024116 by Nila eH RN Outcome: Progressing * Plan of Care - Shi Degroot RN - 12/23/2024 11:16 AM EDT Problem: Knowledge Deficit Goal: Patient/family/caregiver demonstrates understanding of disease process, treatment plan, medications, and discharge instructions Description: Complete learning assessment and assess knowledge base. Outcome: Progressing Problem: Potential for Falls Goal: Patient will remain free of falls Description: Assess and monitor vitals signs, neurological status including level of consciousness and orientation. Reassess fall risk per hospital policy. Ensure arm band on, uncluttered walking paths in room, adequate room lighting, call light and overbed table within reach, bed in low position, wheels locked, side rails up per policy, and non-skid footwear provided. Outcome: Progressing Problem: Compromised Skin Integrity Goal: LTG - Patient will be free from infection Outcome: Progressing Goal: LTG - Patient will maintain/improve skin integrity through proper skin care techniques Outcome: Progressing Goal: LTG - Patient will demonstrate appropriate pressure relief techniques Outcome: Progressing Goal: LTG - Patient will demonstrate appropriate skin care techniques Outcome: Progressing Goal: LTG - Patient will be free from infection Outcome: Progressing Goal: STG - Patient demonstrates skin care/treatment/dressing change Outcome: Progressing Goal: STG - Patient will maintain good skin integrity Outcome: Progressing Goal: STG - Patient exhibits signs of wound healing. Outcome: Progressing Goal: STG - Patient demonstrates pressure reduction techniques Outcome: Progressing Goal: STG - Patient demonstrates preventative skin care measures Outcome: Progressing * Plan of Care - Xavi Gibbs RN - 12/23/2024 12:44 AM EDT Problem: Knowledge Deficit Goal: Patient/family/caregiver demonstrates understanding of disease process, treatment plan, medications, and discharge instructions Description: Complete learning assessment and assess knowledge base. Outcome: Progressing Problem: Potential for Falls Goal: Patient will remain free of falls Description: Assess and monitor vitals signs, neurological status including level of consciousness and orientation. Reassess fall risk per hospital policy. Ensure arm band on, uncluttered walking paths in room, adequate room lighting, call light and overbed table within reach, bed in low position, wheels locked, side rails up per policy, and non-skid footwear provided. Outcome: Progressing Problem: Compromised Skin Integrity Goal: LTG - Patient will be free from infection Outcome: Progressing Goal: LTG - Patient will maintain/improve skin integrity through proper skin care techniques Outcome: Progressing Goal: LTG - Patient will demonstrate appropriate pressure relief techniques Outcome: Progressing Goal: LTG - Patient will demonstrate appropriate skin care techniques Outcome: Progressing Goal: LTG - Patient will be free from infection Outcome: Progressing Goal: STG - Patient demonstrates skin care/treatment/dressing change Outcome: Progressing Goal: STG - Patient will maintain good skin integrity Outcome: Progressing Goal: STG - Patient exhibits signs of wound healing. Outcome: Progressing Goal: STG - Patient demonstrates pressure reduction techniques Outcome: Progressing Goal: STG - Patient demonstrates preventative skin care measures Outcome: Progressing * Plan of Care - Kate Zamudio RN - 12/22/2024 5:47 PM EDT Problem: Knowledge Deficit Goal: Patient/family/caregiver demonstrates understanding of disease process, treatment plan, medications, and discharge instructions Description: Complete learning assessment and assess knowledge base. Outcome: Progressing Problem: Potential for Falls Goal: Patient will remain free of falls Description: Assess and monitor vitals signs, neurological status including level of consciousness and orientation. Reassess fall risk per hospital policy. Ensure arm band on, uncluttered walking paths in room, adequate room lighting, call light and overbed table within reach, bed in low position, wheels locked, side rails up per policy, and non-skid footwear provided. Outcome: Progressing Problem: Compromised Skin Integrity Goal: LTG - Patient will be free from infection Outcome: Progressing Goal: LTG - Patient will maintain/improve skin integrity through proper skin care techniques Outcome: Progressing Goal: LTG - Patient will demonstrate appropriate pressure relief techniques Outcome: Progressing Goal: LTG - Patient will demonstrate appropriate skin care techniques Outcome: Progressing Goal: LTG - Patient will be free from infection Outcome: Progressing Goal: STG - Patient demonstrates skin care/treatment/dressing change Outcome: Progressing Goal: STG - Patient will maintain good skin integrity Outcome: Progressing Goal: STG - Patient exhibits signs of wound healing. Outcome: Progressing Goal: STG - Patient demonstrates pressure reduction techniques Outcome: Progressing Goal: STG - Patient demonstrates preventative skin care measures Outcome: Progressing * Plan of Care - Xavi Gibbs RN - 12/22/2024 1:55 AM EDT Problem: Knowledge Deficit Goal: Patient/family/caregiver demonstrates understanding of disease process, treatment plan, medications, and discharge instructions Description: Complete learning assessment and assess knowledge base. Outcome: Progressing Problem: Potential for Falls Goal: Patient will remain free of falls Description: Assess and monitor vitals signs, neurological status including level of consciousness and orientation. Reassess fall risk per hospital policy. Ensure arm band on, uncluttered walking paths in room, adequate room lighting, call light and overbed table within reach, bed in low position, wheels locked, side rails up per policy, and non-skid footwear provided. Outcome: Progressing documented in this encounter Plan of Treatment Scheduled Referrals Name Type Priority Associated Diagnoses Order Schedule Ambulatory referral to Home Health Outpatient Referral Routine Closed left hip fracture, initial encounter (HCC) Expected: 12/24/2024, Expires: 12/24/2025 documented as of this encounter Procedures Procedure Name Priority Date/Time Associated Diagnosis Comments FL < 1 HOUR Routine 12/22/2024 11:02 AM EDT INSERTION, INTRAMEDULLARY ROBERT, FEMUR 12/22/2024 9:21 AM EDT Hip fracture (HCC) CBC W/ AUTO DIFF Routine 12/22/2024 4:56 AM EDT MAGNESIUM Routine 12/22/2024 4:56 AM EDT COMPREHENSIVE METABOLIC PANEL Routine 12/22/2024 4:56 AM EDT FS_MODEL_IP_ECG 12-LEAD Routine 12/23/19 4:47 AM EDT ABO/RH CONFIRMATION/RETYPE ([place] [facility]) STAT 12/21/2024 9:55 PM EDT PT/INR, PTT Routine 12/21/2024 9:55 PM EDT TYPE AND SCREEN ([place] [facility]) RUSSEL 12/21/2024 9:55 PM EDT XR PELVIS PORTABLE STAT 12/21/2024 9: 20 PM EDT EKG-SCANNED 12/21/2024 documented in this encounter Results * Fluoroscopy less than 1 hour (12/22/2024 11:02 AM EDT) Anatomical Region Laterality Modality X-Ray 12/22/2024 2:04 PM EDT Impressions 12/22/2024 2:05 PM EDT See above. Please see the operative report. Images reviewed, interpreted, and dictated by Dr. Jennifer Odonnell. Transcribed by Nila Eugene PA-C. Narrative 12/22/2024 2:05 PM EDT FLUORO TIME PROCEDURE: Fluoroscopy in the operating room. HISTORY: Acute hip pain. FINDINGS: Fluoroscopy time was provided by the radiology department for the clinical service. 12 images were obtained for hip pinning. Fluoroscopy exposure time: 2.5 minutes. Radiation exposure in reference to air kerma: 21 mGy Procedure Note Jennifer Odonnell MD - 12/22/2024 FLUORO TIME PROCEDURE: Fluoroscopy in the operating room. HISTORY: Acute hip pain. FINDINGS: Fluoroscopy time was provided by the radiology department for the clinical service. 12 images were obtained for hip pinning. Fluoroscopy exposure time: 2.5 minutes. Radiation exposure in reference to air kerma: 21 mGy IMPRESSION: See above. Please see the operative report. Images reviewed, interpreted, and dictated by Dr. Jennifer Odonnell. Transcribed by Nila Eugene PA-C. Sea Contreras MD IMG FLUOROSCOPY ORDERABLES Final Result * Magnesium (12/22/2024 4:56 AM EDT) [facility] Magnesium 2.1 1.5 - 2.4 mg/dL 12/22/2024 5:18 AM EDT [facility] Blood Venipuncture / Unknown 12/22/2024 4:56 AM EDT 12/22/2024 4:56 AM EDT Alberto Gallego MD LAB BLOOD ORDERABLES Final Resul t [facility] [address] [phone] * (ABNORMAL) Comprehensive metabolic panel (12/22/2024 4:56 AM EDT) Sodium 139 136 - 146 meq/L 12/22/2024 5:18 AM [facility] Potassium 3.9 3.5 - 5.1 meq/L 12/22/2024 5:18 AM [facility] Chloride 105 102 - 112 meq/L 12/22/2024 5:18 AM [facility] CO2 28 21 - 32 meq/L 12/22/2024 5:18 AM [facility] Calcium 8.5 8.5 - 10.1 mg/dL 12/22/2024 5:18 AM [facility] Glucose 95 74 - 100 mg/dL 12/22/2024 5:18 AM [facility] BUN 17 7 - 22 mg/dL 12/22/2024 5:18 AM [facility] Creatinine 0.86 0.55 - 1.02 mg/dL 12/22/2024 5:18 AM [facility] BUN/Creatinine 20 8 - 20 12/22/2024 5:18 AM [facility] Albumin 3.0(L) 3.4 - 5.0 g/dL 12/22/2024 5:18 AM [facility] Alkaline Phosphatase 96 27 - 136 U/L 12/22/2024 5:18 AM [facility] ALT 19 12 - 78 U/L 12/22/2024 5:18 AM [facility] AST 27 5 - 37 U/L 12/22/2024 5:18 AM [facility] Total Bilirubin 0.4 0.2 - 1.3 mg/dL 12/22/2024 5:18 AM [facility] Protein, Total 5.4(L) 6.4 - 8.2 gm/dL 12/22/2024 5:18 AM [facility] Anion Gap 10 9 - 20 12/22/2024 5:18 AM [facility] A/G Ratio 1.3 1.1 - 2.5 12/22/2024 5:18 AM [facility] Globulin 2.4 1.5 - 4.5 g/dL 12/22/2024 5:18 AM EDT [facility] Osmolality Calc 278.9 mOsm/kg 5:18 AM EDT [facility] eGFR (mL/min/1.73m2) >60 >=60 mL/min/1.7 3m2 12/22/2024 5:18 AM EDT [facility] Comment:ESTIMATED GFR IS NOT ACCURATE CREATININE CLEARANCE IN PREDICTING GLOMERULAR FILTRATION RATE. ESTIMATED GFR IS NOT APPLICABLE FOR DIALYSIS PATIENTS. Blood Venipuncture / Unknown 12/22/2024 4:56 AM EDT 12/22/2024 4:56 AM EDT us Alberto Gallego MD LAB BLOOD ORDERABLES Final Resul t [facility] [address] [place] [address], [facility] [phone] * (ABNORMAL) CBC with automated diff (12/22/2024 4:56 AM EDT) WBC 4.9 3.9 - 10.0 K/ L 12/22/2024 5:03 AM EDT [facility] RBC 3.76(L) 3.93 - 5.22 M/ L 12/22/2024 5:03 AM EDT [facility] Hemoglobin 10.5(L) 11.2 - 15.7 GM/DL 12/22/2024 5:03 AM EDT [facility] Hematocrit 33.3(L) 34.1 - 44.9 % 12/22/2024 5:03 AM EDT [facility] MCV 89 79 - 95 fL 12/22/2024 5:03 AM EDT [facility] MCH 27.9 25.6 - 32.2 pg 12/22/2024 5:03 AM EDT [facility] MCHC 31.5(L) 32.2 - 36.5 GM/DL 12/22/2024 5:03 AM EDT [facility] RDW 14.0 11.6 - 14.4 % 12/22/2024 5:03 AM EDT [facility] Platelets 122(L) 163 - 369 K/CU MM 12/22/2024 5:03 AM EDT [facility] MPV 9.4 9.4 - 12.4 fL 12/22/2024 5:03 AM EDT [facility] % Neutros 75(H) 34 - 71 % 12/22/2024 5:03 AM EDT [facility] % Lymphs 14(L) 19 - 53 % 12/22/2024 5:03 AM EDT [facility] % Monos 10 4 - 13 % 12/22/2024 5:03 AM EDT [facility] % Eos 0(L) 1 - 7 % 12/22/2024 5:03 AM EDT [facility] % Baso 0 0 - 1 % 12/22/2024 5:03 AM EDT [facility] # Neutros 3.67 1.56 - 6.13 K/ L 12/22/2024 5:03 AM EDT [facility] # Lymphs 0.69(L) 1.18 - 3.74 K/ L 12/22/2024 5:03 AM EDT [facility] # Monos 0.50 0.24 - 0.82 K/ L 12/22/2024 5:03 AM EDT [facility] # Eos 0.02(L) 0.04 - 0.54 K/ L 12/22/2024 5:03 AM EDT [facility] # Baso 0.01 0.01 - 0.08 K/ L 12/22/2024 5:03 AM EDT [facility] Immature Granulocytes-Re lative 0.40 0.00 - 0.60 % 12/22/2024 5:03 AM EDT [facility] # IG 0.02 0.00 - 0.05 K/uL 12/22/2024 5:03 AM [facility] Blood Venipuncture / Unknown 12/22/2024 4:56 AM EDT 12/22/2024 4:56 AM EDT Narrative [facility] - 12/22/2024 5:03 AM EDT When CBC w/ Auto Diff is ordered the lab will add a Manual Differential as a quality check at no additional charge if: Lymphocytes greater than seventy five percent with normal or increased WBC Monocytes greater than Fifteen percent Basophil greater than four percent Bands >10% or several immature myeloids are seen on scan Blast? Flag noted Atypical Lymph flag noted Alberto Gallego MD LAB BLOOD ORDERABLES Final Resul t Performing Organization Address City/[facility]/ZIP Co de Phone Number [facility] [address] [place] [address], [facility] [phone] * Electrocardiogram, 12 Lead (12/22/2024 4:47 AM EDT) VENTRICULAR RATE EKG/MIN 68 BPM GE MUSE ATRIAL RATE (MCT) 68 BPM GE MUSE DC Interval 156 ms GE MUSE QRS-INTERVAL (MSEC) 94 ms GE MUSE QT Interval 412 ms GE MUSE QTC Interval 438 ms GE MUSE P [place] 67 degrees GE MUSE R AXIS (MCT) 58 degrees GE MUSE T Wave [place] 63 degrees GE MUSE [place] Diagnosis Normal sinus rhythm Septal infarct , age undetermined Abnormal ECG No previous ECGs available Confirmed by Henri THOMSON SUZANNE ([id number]) on 12/26/2024 12:04:22 PM GE MUSE 12/22/2024 4:47 AM EDT 12/26/2024 12:04 PM EDT Alberto Gallego MD ECG ORDERABLES Final Result Performing Organization Address [facility] Co de Phone Number GE MUSE * ABO/RH CONFIRMATION/RETYPE (12/21/2024 9:55 PM EDT) Pathologist [facility] RETYPE O NEGATIVE 12/21/2024 10:23 PM EDT [facility] Blood Venipuncture / Unknown 12/21/2024 9:55 PM EDT 12/21/2024 10:23 PM EDT Jeffry Price MD [facility] TEST ORDERABLE S Final Result Performing Organization Address City/[facility]/ZIP Co de Phone Number [facility] ([facility]) [address] [place] [address] [place] [address], [facility] [phone] * PT/INR, PTT (12/21/2024 9:55 PM EDT) aPTT 25.1 22.0 - 32.0 seconds 12/21/2024 10:44 PM EDT [facility] Protime 10.1 9.0 - 12.0 seconds 12/21/2024 10:44 PM EDT [facility] INR 0.92 0.80 - 1.10 12/21/2024 10:44 PM EDT [facility] Blood Venipuncture / Unknown 12/21/2024 9:55 PM EDT 12/21/2024 10:23 PM EDT Sea Contreras MD LAB BLOOD ORDERABLES Final Resul t Performing Organization Address City/[facility]/ZIP Co de Phone Number [facility] [address] [phone] * Type and Screen (12/21/2024 9:55 PM EDT) ABO/Rh O NEGATIVE 12/21/2024 10:51 PM EDT [facility]) Antibody Screen Negative 12/21/2024 10:51 PM EDT [facility]) HISTCHK HIST CHECK PERFORMED 12/21/2024 10:51 PM EDT [facility]) Blood Venipuncture / Unknown 12/21/2024 9:55 PM EDT 12/21/2024 10:51 PM EDT us Sea Contreras MD [facility] TEST ORDERABLES F inal Result Performing Organization Address City/[facility]/ZIP Co de Phone Number [facility]) [address] [phone] * X-ray pelvis portable (12/21/2024 9:20 PM EDT) Anatomical Region Laterality Modality Abdomen, Pelvis, Hip X-Ray 12/22/2024 10:4 9 AM EDT Impressions 12/22/2024 11:00 AM EDT Proximal left femur fracture with displacement. Images reviewed, interpreted, and dictated by Dr. Jennifer Odonnell. Transcribed by Nila Eugene PA-C. Narrative 12/22/2024 11:00 AM EDT SINGLE VIEW PELVIS. HISTORY: Hip fracture. FINDINGS: There is a proximal left femur fracture with overriding fracture fragments and medial displacement of the distal fracture fragment. The left hip joint space is maintained. Procedure Note Jennifer Odonnell MD - 12/22/2024 SINGLE VIEW PELVIS. HISTORY: Hip fracture. FINDINGS: There is a proximal left femur fracture with overriding fracture fragments and medial displacement of the distal fracture fragment. The left hip joint space is maintained. IMPRESSION: Proximal left femur fracture with displacement. Images reviewed, interpreted, and dictated by Dr. Jennifer Odonnell. Transcribed by Nila Eugene PA-C. Sea Contreras MD IMG DIAGNOSTIC IMAGING ORDERABLE S Final Result * EKG-SCANNED (12/21/2024) Narrative 12/21/2024 Ordered by an unspecified provider. us Default Scanning Provider SCAN ORDERS Final Result documented in this encounter Visit Diagnoses Diagnosis Closed left hip fracture, initial encounter (HCC)- Primary Closed left hip fracture, initial encounter (HCC) documented in this encounter Admitting Diagnoses Diagnosis Closed left hip fracture, initial encounter (HCC) documented in this encounter Administered Medications Inactive Administered Medications - up to 3 most recent administrations Medication Order MAR Action Action Date Dose Rate Site acetaminophen (TYLENOL) tablet 1,000 mg 1,000 mg Every 6 hours PRN, oral, mild pain (1-3) use first line, Starting on Tue12/21/24 at 2133, Recommended maximum dose of acetaminophen is 4000 mg from all sources in 24 hours Given 12/24/2024 9:13 AM EDT 1,000 mg Given 12/23/2024 5:52 PM EDT 1,000 mg Given 12/23/2024 10:17 AM EDT 1,000 mg ceFAZolin (ANCEF) IVPB 2 g/50 mL D5W (premix) 2 g Every 8 hours scheduled, intravenous, Administer over 30 Minutes, First dose on 12/22/24 at 1400, For 2 doses, Please choose an indication: Surgical Prophylaxis IVPB Started 12/22/2024 9:35 PM EDT 2 g 100 mL/hr IVPB Started 12/22/2024 1:44 PM EDT 2 g 100 mL/hr enoxaparin (LOVENOX) syringe 40 mg 40 mg Every 24 hours, subcutaneous, First dose on Tue12/23/24 at 0900 Given 12/24/2024 9:00 AM EDT 40 mg Ab dominal Tissue Given 12/23/2024 9:52 AM EDT 40 mg Ab dominal Tissue HYDROmorphone (DILAUDID) injection 0.5 mg 0.5 mg Every 4 hours PRN, intravenous, severe pain (7-10), 2nd line for severe pain or if unable to tolerate PO, Starting on Tue12/24/24 at 0805, 3rd line analgesic. Give only if inadequate response (less than 50% reduction in pain score) 60 minutes after administration of 2nd line agent. May give in addition to 1st + 2nd line analgesics (+ adjuvants if ordered) lamoTRIgine (LaMICtal) tablet 100 mg 100 mg 2 times daily, oral, First dose on Tue12/21/24 at 2230 Given 12/22/2024 8:20 AM EDT 100 mg Given 12/21/2024 11:44 PM EDT 100 mg morphine 10 mg/mL injection 2 mg Every 3 hours PRN, intravenous, moderate pain (4-6), 2nd line for moderate pain or if unable to tolerate PO, Starting on Tue12/24/24 at 0804, 2nd line for severe pain naloxone (NARCAN) injection 0.2 mg 0.2 mg Every 2 min PRN, intravenous, opioid reversal, respiratory depression, Starting on Tue12/21/24 at 2148, Give for respiratory rate less than 10 breaths/min or if patient is difficult to arouse. Max dose = 10 mg. Call provider. ondansetron (ZOFRAN) injection 4 mg 4 mg Every 8 hours PRN, intravenous, nausea, vomiting, Starting on Tue12/21/24 at 2133, Give IV if patient is unable to take orally. 1st line If inadequate response within 60 minutes, proceed to next-line agent for same PRN reason or contact provider if no further options ordered. For IV push, give over 2 - 5 minutes. ondansetron (ZOFRAN-ODT) disintegrating tablet 4 mg 4 mg Every 8 hours PRN, oral, nausea, vomiting, Starting on Tue12/21/24 at 2133, 1st line. If inadequate response within 60 minutes, proceed to next-line agent for same PRN reason or contact provider if no further options ordered. oxyCODONE (ROXICODONE) immediate release tablet 10 mg 10 mg Every 4 hours PRN, oral, severe pain (7-10) use first line, Starting on Tue12/24/24 at 0803, Look-alike/Sound-alike medication oxyCODONE (ROXICODONE) immediate release tablet 5 mg 5 mg Every 4 hours PRN, oral, moderate pain (4-6) use first line, Starting on Tue12/21/24 at 2148, 2nd line analgesic. Give only if inadequate response (less than 50% reduction in pain score) 60 minutes after administration of 1st line analgesics + adjuvants (if ordered). Look-alike/Sound-alike medication Given 12/23/2024 3:07 PM EDT 5 mg pancrelipase (Gahmfb-Csldaaco-Ngltoei) (CREON) 24,000-76,000 -120,000 unit capsule 24,000 units of lipase 24,000 units of lipase 3 times daily with meals, oral, First dose on Tue12/22/24 at 0800 Given 12/24/2024 12:13 PM EDT 24,000 units of lipase Given 12/24/2024 8:59 AM EDT 24,000 units of lipase Given 12/23/2024 5:46 PM EDT 24,000 units of lipase polyethylene glycol (GLYCOLAX) packet 17 g 17 g Daily, oral, First dose on Tue12/21/24 at 2230, Bowel Regimen - for prevention of constipation. Given 12/23/2024 9:53 AM EDT 17 g Given 12/22/2024 8:17 AM EDT 17 g Given 12/21/2024 11:01 PM EDT 17 g QUEtiapine (SEROquel) tablet 100 mg 100 mg Every Night, oral, First dose on Tue12/21/24 at 2230 Given 12/23/2024 9:34 PM EDT 100 mg Given 12/22/2024 9:28 PM EDT 100 mg Given 12/21/2024 11:00 PM EDT 100 mg sennosides-docusate sodium (SENOKOT S) 8.6-50 mg tablet 1 tablet 1 tablet 2 times daily, oral, First dose on Tue12/21/24 at 2230 Given 12/24/2024 8:58 AM EDT 1 tablet Given 12/23/2024 9:34 PM EDT 1 tablet Given 12/23/2024 9:54 AM EDT 1 tablet sodium chloride 0.9 % infusion 100 mL/hr Continuous, intravenous, Starting on Tue12/21/24 at 2230 New Bag 12/23/2024 11:09 PM EDT 100 mL/hr 100 mL/hr Rate/Dose Verify 12/23/2024 8:00 PM EDT 100 mL/hr 100 mL/ hr New Bag 12/23/2024 12:03 PM EDT 100 mL/hr 100 mL/hr sodium chloride flush 10 mL 10 mL As needed, intravenous, line care, Starting on Tue12/21/24 at 2133, Every 8 hours and PRN to flush trospium (SANCTURA) tablet 20 mg 20 mg 2 times daily, oral, First dose on Tue12/21/24 at 2230, Administer at least 1 hour before meals or on an empty stomach. Given 12/24/2024 8:59 AM EDT 20 mg Given 12/23/2024 11:49 PM EDT 20 mg Given 12/23/2024 11:29 AM EDT 20 mg venlafaxine XR (EFFEXOR-XR) 24 hr capsule 150 mg 150 mg Daily with breakfast, oral, First dose on Tue12/22/24 at 0800, * DO NOT CRUSH THIS DOSAGE FORM * Given 12/22/2024 8:19 AM EDT 150 mg documented in this encounter Active and Recently Administered Medications Times are shown in EDT. Scheduled Medication Order 12/22/2024 12/23/2024 12/24/2024 ceFAZolin (ANCEF) IVPB 2 g/50 mL D5W (premix) (COMPLETED) 2 g Every 8 hours scheduled, intravenous, Administer over 30 Minutes, First dose on 12/22/24 at 1400, For 2 doses, Please choose an indication: Surgical Prophylaxis 1344 (IVPB Started - Provider: Kate Zamudio RN)1447 (IVPB Stopped - Provider: Kate Zamudio RN)2135 (IVPB Started - Provider: Xavi Gibbs RN)2205 (IVPB Stopped - Provider: Xavi Gibbs RN) enoxaparin (LOVENOX) syringe 40 mg 40 mg Every 24 hours, subcutaneous, First dose on Tue12/23/24 at 0900 0952 (Given - Provider: Shi Degroot RN) 0900 (Given - Provider: Shi Degroot RN) lamoTRIgine (LaMICtal) tablet 100 mg (CANCELED) 100 mg 2 times daily, oral, First dose on Tue12/21/24 at 2230 0820 (Given - Provider: Kate Zamudio RN)0941 (MAY Hold - Provider: Automatic Transfer Provider - Reason: Unreviewed Transfer Orders)1145 (MAR Unhold - Provider: Kate Zamudio RN)2140 (Not Given - Provider: Xavi Gibbs RN - Reason: Patient/family refused) 1014 (Not Given - Provider: Shi Degroot RN - Reason: Patient/family refused - Comment: pt. states she does not take) pancrelipase (Kixwbl-Bpxttktg-Kwvyv se) (CREON) 24,000-76,000 -120,000 unit capsule 24,000 units of lipase 24,000 units of lipase 3 times daily with meals, oral, First dose on 12/22/24 at 0800 0821 (Not Given - Provider: Kate Zamudio RN - Reason: Patient/family refused - Comment: Patient states she only takes it when she eats.)0941 (MAR Hold - Provider: Automatic Transfer Provider - Reason: Unreviewed Transfer Orders)1145 (MAR Unhold - Provider: Kate Zamudio RN)1315 (Given - Provider: Kate Zamudio RN - Comment: Pt only takes when eating.)1741 (Not Given - Provider: Kate Zamudio RN - Reason: Patient/family refused - Comment: stated doesnot need it at this time.) 0955 (Given - Provider: Shi Burberry, RN)1249 (Given - Provider: Shi Degroot RN)1746 (Given - Provider: Shi Degroot, RN) 0859 (Given - Provider: Shi Degroot RN)1213 (Given - Provider: Shi Degroot RN) polyethylene glycol (GLYCOLAX) packet 17 g 17 g Daily, oral, First dose on Tue12/21/24 at 2230, Bowel Regimen - for prevention of constipation. 0817 (Given - Provider: Kate Zamudio RN)0941 ([facility] Hold - Provider: Automatic Transfer Provider - Reason: Unreviewed Transfer Orders)1145 ([facility] Unhold - Provider: Kate Zamudio RN) 0953 (Given - Provider: Shi Degroot RN) 0858 (Not Given - Provider: Shi Degroot RN - Reason: Patient/family refused) QUEtiapine (SEROquel) tablet 100 mg 100 mg Every Night, oral, First dose on Tue12/21/24 at 2230 0941 ([facility] Hold - Provider: Automatic Transfer Provider - Reason: Unreviewed Transfer Orders)1145 ([facility] Unhold - Provider: Kate Zamudio RN)2128 (Given - Provider: Xavi Gibbs, VIDHYA) 2134 (Given - Provider: Nila He, VIDHYA) sennosides-docusate sodium (SENOKOT S) 8.6-50 mg tablet 1 tablet 1 tablet 2 times daily, oral, First dose on Tue12/21/24 at 2230 0818 (Given - Provider: Kate Zamudio RN)0941 ([facility] Hold - Provider: Automatic Transfer Provider - Reason: Unreviewed Transfer Orders)1145 ([facility] Unhold - Provider: Kate Zamudio RN)2129 (Given - Provider: Xavi Gibbs, VIDHYA) 0954 (Given - Provider: Shi Degroot, VIDHYA)2134 (Given - Provider: Nila He, VIDHYA) 0858 (Given - Provider: Shi Degroot, VIDHYA) trospium (SANCTURA) tablet 20 mg 20 mg 2 times daily, oral, First dose on Tue12/21/24 at 2230, Administer at least 1 hour before meals or on an empty stomach. 0910 (Not Given - Provider: Kate Zamudio RN - Reason: Medication/ Dose Unavailable)0941 ([facility] Hold - Provider: Automatic Transfer Provider - Reason: Unreviewed Transfer Orders)1145 (MAR Unhold - Provider: Ktae Zamudio RN)1341 (Given - Provider: Kate Zamudio RN)2135 (Given - Provider: Xavi Gibbs RN) 1129 (Given - Provider: Shi Degroot, VIDHYA)2349 (Given - Provider: Nila He RN) 0859 (Given - Provider: Shi Degroot RN) venlafaxine XR (EFFEXOR-XR) 24 hr capsule 150 mg (CANCELED) 150 mg Daily with breakfast, oral, First dose on Tue12/22/24 at 0800, * DO NOT CRUSH THIS DOSAGE FORM * 0819 (Given - Provider: Kate Zamudio RN)0941 (MAY Hold - Provider: Automatic Transfer Provider - Reason: Unreviewed Transfer Orders)1145 ([facility] Unhold - Provider: Kate Zamudio RN) 0955 (Not Given - Provider: Shi Degroot RN - Reason: Patient/family refused) Continuous Medication Order 12/22/2024 12/23/2024 12/24/2024 sodium chloride 0.9 % infusion 100 mL/hr Continuous, intravenous, Starting on Tue12/21/24 at 2230 0155 (Rate/Dose Verify - Provider: Xavi Gibbs RN)0906 (New Bag - Provider: Kate Zamudio RN)0921 (Continued by Anesthesia - Provider: Randall Mejia CRNA)1047 (New Bag - Provider: Randall Mejia CRNA)1101 (Anesthesia Volume Adjustment - Provider: Randall Mejia CRNA) 1203 (New Bag - Provider: Shi Degroot RN)2000 (Rate/Dose Verify - Provider: Nila He, VIDHYA)2309 (New Bag - Provider: Nila He, VIDHYA) PRN Medication Order 12/22/2024 12/23/2024 12/24/2024 acetaminophen (TYLENOL) tablet 1,000 mg 1,000 mg Every 6 hours PRN, oral, mild pain (1-3) use first line, Starting on Tue12/21/24 at 2133, Recommended maximum dose of acetaminophen is 4000 mg from all sources in 24 hours 0523 (Given - Provider: Nila He RN)0941 (MAY Hold - Provider: Automatic Transfer Provider - Reason: Unreviewed Transfer Orders)1145 (MAR Unhold - Provider: Kate Zamudio RN) 1017 (Given - Provider: Shi Degroot RN)1752 (Given - Provider: Shi Degroot RN) 0913 (Given - Provider: Shi Degroot RN) BUPivacaine (PF) (MARCAINE) injection (CANCELED) As needed, Starting on 12/22/24 at 0951, Intra-op 0951 (Given - Provider: Sea Contreras MD) HYDROmorphone (DILAUDID) injection 0.5 mg 0.5 mg Every 4 hours PRN, intravenous, severe pain (7-10), 2nd line for severe pain or if unable to tolerate PO, Starting on Tue12/24/24 at 0805, 3rd line analgesic. Give only if inadequate response (less than 50% reduction in pain score) 60 minutes after administration of 2nd line agent. May give in addition to 1st + 2nd line analgesics (+ adjuvants if ordered) morphine 10 mg/mL injection 2 mg Every 3 hours PRN, intravenous, moderate pain (4-6), 2nd line for moderate pain or if unable to tolerate PO, Starting on 12/24/24 at 0804, 2nd line for severe pain naloxone (NARCAN) injection 0.2 mg 0.2 mg Every 2 min PRN, intravenous, opioid reversal, respiratory depression, Starting on Tue12/21/24 at 2148, Give for respiratory rate less than 10 breaths/min or if patient is difficult to arouse. Max dose = 10 mg. Call provider. 0941 (MAY Hold - Provider: Automatic Transfer Provider - Reason: Unreviewed Transfer Orders)1145 ([facility] Unhold - Provider: Kate Zamudio RN) ondansetron (ZOFRAN) injection 4 mg(Linked Group 1) 4 mg Every 8 hours PRN, intravenous, nausea, vomiting, Starting on Tue12/21/24 at 2133, Give IV if patient is unable to take orally. 1st line If inadequate response within 60 minutes, proceed to next-line agent for same PRN reason or contact provider if no further options ordered. For IV push, give over 2 - 5 minutes. 0941 (MAY Hold - Provider: Automatic Transfer Provider - Reason: Unreviewed Transfer Orders)1145 ([facility] Unhold - Provider: Kate Zamudio RN) ondansetron (ZOFRAN-ODT) disintegrating tablet 4 mg(Linked Group 1) 4 mg Every 8 hours PRN, oral, nausea, vomiting, Starting on Tue12/21/24 at 2133, 1st line. If inadequate response within 60 minutes, proceed to next-line agent for same PRN reason or contact provider if no further options ordered. 0941 ([facility] Hold - Provider: Automatic Transfer Provider - Reason: Unreviewed Transfer Orders)1145 ([facility] Unhold - Provider: Kate Zamudio RN) oxyCODONE (ROXICODONE) immediate release tablet 10 mg 10 mg Every 4 hours PRN, oral, severe pain (7-10) use first line, Starting on Tue12/24/24 at 0803, Look-alike/Sound-alike medication oxyCODONE (ROXICODONE) immediate release tablet 5 mg 5 mg Every 4 hours PRN, oral, moderate pain (4-6) use first line, Starting on Tue12/21/24 at 2148, 2nd line analgesic. Give only if inadequate response (less than 50% reduction in pain score) 60 minutes after administration of 1st line analgesics + adjuvants (if ordered). Look-alike/Sound-alike medication 0941 ([facility] Hold - Provider: Automatic Transfer Provider - Reason: Unreviewed Transfer Orders)1145 ([facility] Unhold - Provider: Kate Zamudio RN) 1507 (Given - Provider: Shi Degroot RN) sodium chloride flush 10 mL(Linked Group 2) 10 mL As needed, intravenous, line care, Starting on Tue12/21/24 at 2133, Every 8 hours and PRN to flush 0941 ([facility] Hold - Provider: Automatic Transfer Provider - Reason: Unreviewed Transfer Orders)1145 ([facility] Unhold - Provider: Kate Zamudio RN) Linked Groups Order Group 1: ondansetron (ZOFRAN-ODT) disintegrating tablet 4 mgJump to med 4 mg Every 8 hours PRN, oral, nausea, vomiting, Starting on Tue12/21/24 at 2133, 1st line. If inadequate response within 60 minutes, proceed to next-line agent for same PRN reason or contact provider if no further options ordered. Or ondansetron (ZOFRAN) injection 4 mgJump to med 4 mg Every 8 hours PRN, intravenous, nausea, vomiting, Starting on Tue12/21/24 at 2133, Give IV if patient is unable to take orally. 1st line If inadequate response within 60 minutes, proceed to next-line agent for same PRN reason or contact provider if no further options ordered. For IV push, give over 2 - 5 minutes. Group 2: Insert Peripheral IV (CANCELED) STAT, Once, On Tue12/21/24 at 2134, For 1 occurrence And Saline Lock IV (CANCELED) Routine, Once, On Tue12/21/24 at 213, For 1 occurrence And sodium chloride flush 10 mLJump to med 10 mL As needed, intravenous, line care, Starting on Tue12/21/24 at 2133, Every 8 hours and PRN to flush documented in this encounter Care Teams Chemical Research Technician Relationship Specialty Start Date End Date Shayla Mitchell PA [address] [place] [id number] PCP - General Physician Chief Controller Station 12/21/24 documented as of this encounter
--- OUTSIDE RECORDS SUMMARY | 2024-12-22 09:21 | XMS_ITS | Encounter Summary ---
Author Organization [employer] ([place], [place], [place], [place]) Address [address] [place] [address] Care Team Providers Care Civil Celebrant Name Role Phone Shayla Mitchell Primary Care Provider [phone] Reason for Visit * Auth/Cert (Routine) Specialty Diagnoses / Procedures Referred By Contac t Referred To Contact Diagnoses Closed left hip fracture, initial encounter (HCC) Fracture - Hip [facility] Telemetry [address] [place] [address] Phone: tel: fax: [facility] Telemetry [address] [place] [address] Phone: tel: fax: Referral ID Status Reason Start Date Expiration Date Visits Re quested Visits Authorized [id number] 1 1 Encounter Details Date Type Department Care Team (Late st Contact Info) Description 12/22/2024 9:21 AM EDT Anesthesia Event [facility] Surgery Department [address] [place] [address] Randall Mejia CRNA [address] [place] [address] Anesthesia Record Procedure Summary Procedure Name Responsible Anesthesiologist Anesthesia Start Time Anesthesia Stop Time INSERTION, INTRAMEDULLARY ROBETR, FEMUR (Left) Randall Mejia CRNA 12/22/24 0921 12/22/24 1104 Events Date Time Event Comment 12/22/2024 0921 An Start Patient identif ied and chart reviewed. 0921 An Start Data Anesthesia mac rex and monitors checked. 0924 Pre-Induction Eval FDA anest hesia machine pre-use checkout completed. Patient status reassessed prior to start of anesthesia care. 0924 An Induction 0932 An Intubation 0941 Anesthesia Ready 1057 An Extubation 1059 an stop data 1100 Handoff to Receiving I compl eted my handoff to the receiving clinician during which we: 1. Identified the patient. 2. Identified the responsible provider. 3. Reviewed the pertinent medical history. 4. Discussed the surgical course. 5. Reviewed intra-op anesthesia management and issues during anesthesia. 6. Set expectations for post-procedure period. 7. Allowed opportunity for questions and acknowledgement of understanding. 1104 An Stop Meds Name Total dexamethasone (DECADRON) injection 4 mg/ mL 10 mg ePHEDrine injection 50 mg/mL 30 mg fentaNYL (SUBLIMAZE) injection 100 mcg glycopyrrolate (ROBINUL) injection 0.6 m g lidocaine (XYLOCAINE) injection 2% 80 mg neostigmine (PROSTIGMINE) 1 mg/mL inject ion 4 mg ondansetron (ZOFRAN) injection vial 4 mg propofol (DIPRIVAN) injection 10 mg/mL b olus 200 mg rocuronium (ZEMURON) 100 mg/10 mL inject ion 30 mg cefazolin (ANCEF) injection 2 g tranexamic acid (CYKLOKAPRON) injection 2,000 mg hydromorphone (DILAUDID) injection 1 mg/ mL 0.5 mg sodium chloride 0.9 % infusion 1,100 mL * Agents Name O2 N2O Air SEVOFLURANE * Blood No blood administrations on file. Lines, Drains, and Airways Type Details Placement Removal Wound 12/22/24; 1032; Incision; Leg; Left; FAYE, AQUACEL X3 INCISIONS 12/22/24 1032 by Esteban Maciel RN Peripheral IV Placement Date: 12/21/24; Placement Time: 2322; Size: 20 G; Orientation: Anterior, Right; Location: Forearm; Removal Date: 12/24/24; Removal Time: 1409 12/21/242322 by Nila He RN 12/24/241408 by Shi Degroot RN Urethral Catheter Placement Date: 12/22/24; Placement Time: 0100; Inserted by: ray; Existing LDA Placed by: Other (Comment); Size: 16 Fr.; Balloon Size: 10 mL; Urine Returned: Yes; Removal Date: 12/23/24; Removal Time: 1452; Removal Reason: Per order (secure chat with physician) 12/22/24 0100 by Xavi Gibbs RN 12/23/24 145 by Mary Lyn RN ETT Placement Date 12/22/24; Placement Time 09 (created via procedure documentation); Airway Size 7; Airway Cuffed Yes; Removal Date 12/22/24; Removal Time 1059 12/22/24 09 by Randall Mejia CRNA 12/22/24 105 by Randall Mejia CRNA documented in this encounter Social History Tobacco Use Types Packs/Day Years Used Date Smoking Tobacco: Never Smokeless Tobacco: Never Utilities Answer Date Recorded In the past [...] your living situation today? I have a [facility] place to live 12/21/2024 Think about [...] Do you speak a language other than [place] at [facility]? No 12/21/2024 Do you want help with [...] on file documented as of this encounter OR Notes * Anesthesia Postprocedure Evaluation - Randall Mejia, MICHAELA - 12/22/2024 11:03 AM EDT Patient: Chary Chandra Procedure Summary Date: 12/22/24 Room / Location: [facility] OR OPERATING ROOM Anesthesia Start: 920 Anesthesia Stop: Procedure: INSERTION, INTRAMEDULLARY ROBERT, FEMUR (Left) Diagnosis: Hip fracture (HCC) (same) Surgeons: Sea Contreras MD Responsible Provider: Randall Mejia CRNA Anesthesia Type: general ASA Status: 2 Anesthesia Type: general Vitals Value Taken Time BP 128/58 12/22/24 11:01 Temp 97.7 12/22/24 11:03 Pulse 75 12/22/24 11:03 Resp 14 12/22/24 11:03 SpO2 95 % 12/22/24 11:03 Vitals shown include unfiled device data. Ht 1.651 m (5' 5 ) Wt 73.7 kg (162 lb 8 oz) BMI 27.04 kg/m?? Anesthesia Post Evaluation Patient participation: complete - patient cannot participate Patient participation comments: Deep extubation Level of consciousness: sedated Pain management: adequate Airway patency: patent Respiratory status: spontaneous ventilation and nasal cannula Cardiovascular status: stable Hydration status: stable Color: [place] Activity: Moves 4 extremities Inotropes/Vasopressors: N/A No notable events documented. Randall Mejia CRNA 12/22/2024 11:03 AM EDT * Anesthesia Procedure Notes - Randall Mejia CRNA - 12/22/2024 9:40 AM EDTAssociated Order(s): Intubation Intubation Authorized by: Randall Mejia CRNA Performed by: Randall Mejia CRNA Date/Time: 12/22/2024 9:32 AM Reason: elective Indications and Patient Condition Indications for airway management: anesthesia and airway protection Sedation level: general anesthesia Preoxygenated: yesPatient position: sniffing no Mask difficulty assessment: 0 - not attempted no Final Airway Details Final airway type: endotracheal airway Endotracheal tube type: ETT Cuffed: yes Successful intubation technique: direct laryngoscopy Adjuncts used in placement: intubating stylet Endotracheal tube insertion site: oral Blade: Patrick Blade size: #3 ETT size (mm): 7.0 Cormack-Lehane Classification: grade IIa - partial view of glottis Placement verified by: chest auscultation and capnometry Measured from: teeth ETT to teeth (cm): 22 Number of attempts at approach: 1 Number of other approaches attempted: 0 * Anesthesia Preprocedure Evaluation - Randall Mejia CRNA - 12/22/2024 9:18 AM EDT Anesthesia Pre Evaluation Ms. Chary Chandra is a 74 y.o. female being evaluated for the following: Date/Time: 12/22/24 1100 Procedure: INSERTION, INTRAMEDULLARY ROBERT, FEMUR (Right) Location: [facility] OR OPERATING ROOM Surgeons: Sea Contreras MD Relevant Problems No relevant active problems Past Surgical History: Procedure Laterality Date BACK SURGERY FRACTURE SURGERY Past Medical History: Diagnosis Date Hypertension Clinical information reviewed: Meds NPO Status Date of last liquid: 12/22/24 Time of last liquid: 0000 Date of last solid: 12/22/24 Time of last solid: 0000 Physical Exam Airway Mallampati: II TM distance: >3 FB Neck ROM: full Cardiovascular - normal exam Dental - normal exam Pulmonary - normal exam Abdominal - normal exam Anesthesia Plan ASA 2 Planned anesthetic: general Induction: intravenous Postoperative Plan- Postoperative administration of opioids is intended. Informed Consent- Anesthetic plan and risks discussed with patient. Blood Consent- Use of blood products discussed with patient who consented to blood products. documented in this encounter Plan of Treatment Not on file documented as of this encounter Procedures Procedure Name Priority Date/Time Associated Diagnosis Comments ANESTHESIA INTUBATION Routine 12/22/2024 9:32 AM EDT documented in this encounter Results * AN SINGLE LUMEN INTUBATION (12/22/2024 9:32 AM EDT) Randall Menjivar CRNA - 12/22/2024 9:32 AM EDT Randall Mejia CRNA 12/22/2024 9:41 AM Intubation Authorized by: Randall Mejia CRNA Performed by: Randall Mejia CRNA Date/Time: 12/22/2024 9:32 AM Reason: elective Indications and Patient Condition Indications for airway management: anesthesia and airway protection Sedation level: general anesthesia Preoxygenated: yesPatient position: sniffing no Mask difficulty assessment: 0 - not attempted no Final Airway Details Final airway type: endotracheal airway Endotracheal tube type: ETT Cuffed: yes Successful intubation technique: direct laryngoscopy Adjuncts used in placement: intubating stylet Endotracheal tube insertion site: oral Blade: Patrick Blade size: #3 ETT size (mm): 7.0 Cormack-Lehane Classification: grade IIa - partial view of glottis Placement verified by: chest auscultation and capnometry Measured from: teeth ETT to teeth (cm): 22 Number of attempts at approach: 1 Number of other approaches attempted: 0 Randall Mejia GIS ANALYST DEVELOPER ANESTHESIA ORDERABLES Final Result documented in this encounter Visit Diagnoses Not on filedocumented in this encounter Administered Medications Inactive Administered Medications - up to 3 most recent administrations Medication Order MAR Action Action Date Dose Rate Site ceFAZolin (ANCEF) injection As needed, intravenous, Starting on 12/22/24 at 0937, Anesthesia Intra-op Given 12/22/2024 9:37 AM EDT 2 g dexAMETHasone (DECADRON) injection As needed, intravenous, Starting on 12/22/24 at 0947, Anesthesia Intra-op Given 12/22/2024 9:47 AM EDT 10 mg ePHEDrine sulfate injection As needed, intravenous, Starting on 12/22/24 at 0951, Anesthesia Intra-op Given 12/22/2024 10:22 AM EDT 10 mg Given 12/22/2024 10:11 AM EDT 10 mg Given 12/22/2024 9:50 AM EDT 10 mg fentaNYL PF (SUBLIMAZE) injection As needed, intravenous, Starting on 12/22/24 at 0924, Anesthesia Intra-op Given 12/22/2024 10:03 AM EDT 50 mcg Given 12/22/2024 9:24 AM EDT 50 mcg glycopyrrolate (ROBINUL) injection As needed, intravenous, Starting on 12/22/24 at 1030, Anesthesia Intra-op Given 12/22/2024 10:30 AM EDT 0.6 mg HYDROmorphone (DILAUDID) injection As needed, intravenous, Starting on 12/22/24 at 1041, Anesthesia Intra-op Given 12/22/2024 10:49 AM EDT 0.25 m g Given 12/22/2024 10:41 AM EDT 0.25 mg lidocaine (XYLOCAINE) injection 2% As needed, intravenous, Starting on 12/22/24 at 0924, Anesthesia Intra-op Given 12/22/2024 9:24 AM EDT 80 mg neostigmine methylsulfate (PROSTIGMINE) injection As needed, intravenous, Starting on 12/22/24 at 1030, Anesthesia Intra-op Given 12/22/2024 10:30 AM EDT 4 mg ondansetron (ZOFRAN) injection As needed, intravenous, Starting on 12/22/24 at 1017, Anesthesia Intra-op Given 12/22/2024 10:17 AM EDT 4 mg propofol (DIPRIVAN) injection 10 mg/mL bolus As needed, intravenous, Starting on 12/22/24 at 0924, Anesthesia Intra-op Given 12/22/2024 9:24 AM EDT 200 mg rocuronium (ZEMURON) injection As needed, intravenous, Starting on 12/22/24 at 0928, Anesthesia Intra-op Given 12/22/2024 9:28 AM EDT 30 mg sodium chloride 0.9 % infusion 100 mL/hr Continuous, intravenous, Starting on Tue12/21/24 at 2230 New Bag 12/23/2024 11:09 PM EDT 100 mL/hr 100 mL/hr Rate/Dose Verify 12/23/2024 8:00 PM EDT 100 mL/hr 100 mL/ hr New Bag 12/23/2024 12:03 PM EDT 100 mL/hr 100 mL/hr tranexamic acid (CYKLOKAPRON) injection As needed, intravenous, Starting on 12/22/24 at 0944, Anesthesia Intra-op Given 12/22/2024 10:37 AM EDT 1,000 mg Given 12/22/2024 9:44 AM EDT 1,000 mg documented in this encounter Care Teams Civil Celebrant Relationship Specialty Start Date End Date Shayla Mitchell PA [address] [place] [address] PCP - General Physician Blow Torch [employer]er 12/21/24 documented as of this encounter
--- OUTSIDE RECORDS SUMMARY | 2024-12-22 11:00 | XMS_ITS | Encounter Summary ---
Author Organization [employer] ([place], [place], [place], [place]) Address [address] [place] [address] Care Team Providers Care Fashion Model Name Role Phone Shayla Mitchell Primary Care Provider [phone] Reason for Visit * Auth/Cert (Routine) Specialty Diagnoses / Procedures Referred By Contac t Referred To Contact Diagnoses Closed left hip fracture, initial encounter (HCC) Fracture - Hip [facility] Telemetry Unit [address] [place] [address] Phone: tel: fax: [facility] Telemetry Unit [address] [place] [address] Phone: tel: fax: Referral ID Status Reason Start Date Expiration Date Visits Re quested Visits Authorized [id number] 1 1 Encounter Details Date Type Department Care Team (Late st Contact Info) Description 12/22/2024 11:00 AM EDT - 12/22/2024 12:43 PM EDT Surgery [facility] Surgery Department [address] [place] [address] Sea Contreras MD [address] [facility] [address] [place] [address] INSERTION, INTRAMEDULLARY ROBERT, FEMUR Social History Tobacco Use Types Packs/Day Years [...] your living situation today? I have a [facility] [place] place to live 12/21/2024 Think about the [...] Do you speak a language other than Estonian at ho me? No 12/21/2024 Do you want help with [...] Sign Reading Time Taken Comments Blood Pressure 124/48 12/22/2024 11:45 AM EDT Pulse 57 12/22/2024 12:26 PM EDT Temperature 36.2 C (97.2 F) 12/22/2024 11:35 AM EDT Respiratory Rate 16 12/22/2024 11:35 AM EDT Oxygen Saturation 100% 12/22/2024 12:26 PM EDT Inhaled Oxygen Concentration - - Weight 73.7 kg (162 lb 8 oz) 12/22/2024 6:00 AM EDT Height 165.1 cm (5' [...] Diagnoses: Closed left hip fracture, initial encounter ([facility]), osteoporosis, mood disorder, pancreatic insufficiency Reason [...] 6,000-19,000 -30,000 unit capsule Generic drug: pancrelipase (Zqehyd-Itommmvy-Nvjdgwn) Take 2 capsules by mouth 3 (three) [...] Your Medications These medications were sent to [facility] - [place], [place] - [address], [facility] [address] oxyCODONE 5 MG immediate release tablet sennosides-docusate sodium 8.6-50 mg per tablet Physical Exam Awake and alert and oriented x 3 Heart S1-S2 regular rate rhythm Lungs clear to auscultation bilaterally Discharge Instructions Discharge Diet: Regular Discharge Activity: As tolerated Discharge Follow UP: Orthopedics 2 weeks, PCP 1 week Contact information for follow-up Sea Sanabria MD [facility] [address] [place] [address] Next Steps: Follow up in 2 week(s) MONIQUE Garcia Specialty: Physician Station Repairer Relationship: PCP - General [facility] [facility] [address] Next Steps: Follow up in 1 week(s) Time Spent: 37 minutes Electronically signed by Wes White MD, 12/24/24, 12:01 PM EDT documented in this encounter Discharge Instructions * Attachments The following attachments cannot be sent through Care Everywhere. * Oxycodone Capsules or Tablets (Estonian) * Docusate; Senna Tablets (Estonian) * Intramedullary Nailing of Hip Fracture Care After (Estonian) documented in this encounter Medications at Time [...] from the original note were not included. [facility] Multidisciplinary Rounding Form Patient Name: Chary Chandra Age: 74 y.o. Today: 12/24/2024 Multidisciplinary Rounding Therapist attended multidisciplinary rounds discussing care of the patient and for discharge planning purposes on 3rd floor telemetry unit from 1030 - 1053. Electronically signed by: Eyad Gonzalez PT, 12/24/2024 11:18 AM * Eyad Gonzalez PT - 12/24/2024 8:34 AM EDT Images from the original note were not included. Inpatient Physical Therapy Treatment Patient Name: Chary Chandra Date of : 1950 Date of Treatment: 12/24/24 Start Time 0834 Stop Time 0852 Session Duration 16 minutes CPT CODES: 07792 Gait training x 1 General Visit Type: [...] Score Raw score=18 t-Scale score=43.63 Standard error=3.20 CMS 0-100%=46.58% MDC=4.72 A raw score of >= [...] equipment discharge needs at this time. Goals Rvmhnp-xv-lpk: By the target date, patient will perform bhnwzw-kr-sfk with stand by assistance, utilizing no assistive device, to improve independence with bed mobility. Imv-jp-npoeo: By the target date, patient will perform [...] from the original note were not included. [facility] Inpatient Occupational Therapy Initial Evaluation Patient Name: Chary Cahndra Date of : 1950 Date of Evaluation: 12/24/24 Start Time: 08 Stop Time: 0852 Session Duration: 19 minutes Total time: 29 minutes spent, including 10 minutes for nursing collaboration, thorough chart and systems review, and clinical reasoning. CPT CODES: 14339 Eval low complexity and Rehab each additional 15 x 1 This patient is a 74 y.o. female admitted on 12/21/2024 with Closed left hip fracture, initial encounter ([facility]) [S72.002A]. Past Medical History: Diagnosis Date [...] dressing:Moderate Assistance Toileting:Contact guard assist Outcome Measures [facility] Daily Living Functional Assessment How much help [...] (Minimal/Contact guard/Supervision/Setup) 4=None (Modified independent/Independent) The patient's [facility] raw score is 18. The patient currently has 46.65% functional impairment. Clinicians are most likely to recommend inpatient/SNF/manager intermediate care for patients with scores between 6-17, [...] the patient's discharge summary. Electronically signed by PARVIN Costa/Victoriano - 12/24/2024 - 10:31 AM EDT OT [...] minutes Total Time 48 minutes CPT CODES: 50340 Eval mod complex, 89844 Gait training x 1, 60198 Therapeutic exercise x 1 Pt is a 74 y.o. female admitted on 12/21/2024 with Closed left hip fracture, initial encounter ([facility])[S72.002A]. Patient fell in her garden and fractured left hip. Patient is s/p L hip nailing on 12/22/[address] Contreras. Past Medical History: Diagnosis Date Hypertension Past Surgical History: Procedure Laterality Date BACK SURGERY FRACTURE SURGERY General Visit type: Initial Evaluation Approved by: Nurse Pia Osullivan Patient Disposition Upon Entry: Supine in bed, [...] Mobility Not assessed, patient ambulatory. Outcome Measures AM-PAC Basic Mobility Inpatient Short Form How [...] Patient already owns a Rolling Walker. Goals Dmqiey-ww-vru: By the target date, patient will perform zfpznb-yj-hyq with stand by assistance, utilizing no assistive device, to improve independence with bed mobility. Vrr-xb-bgkgr: By the target date, patient will perform [...] patient's discharge summary. Electronically signed by Nila Parisi PT - 12/23/24 - 1:05 PM EDT [...] a 74 y.o. female that presents to [facility] in transition of care from [facility] emergency department after presenting for a [...] lives with her of 53 years in [place], [place]. They have 2 adult sons. Her is identified as her POA. 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 She denies a smoking or alcohol use history. She identifies with the Yazdanism faith. She elects a full CODE STATUS. Review of Systems A complete 10 point review of systems has been performed and is negative with the exception of findings in the HPI. Allergies Patient has no known allergies. Medications Current Outpatient Medications Medication Instructions lamoTRIgine (LAMICTAL) 100 mg, 2 times daily pancrelipase, Oldyjb-Mmwpdjvh-Jkjbmxo, (Creon) 6,000-19,000 -30,000 unit capsule 2 capsules, [...] Home Health Care Mandated Reporting: Not applicable PT/OT/COMPOSITE MECHANIC Recommendations PT Recommendations: OT Recommendations: COMPOSITE MECHANIC Recommendations: CM consult for rehab. Patient admitted [...] previous rehab. Spouse to transport at discharge. .[facility] Patient Preference CC met with patient to discuss the need for Post-Acute Services. It has been recommended that patient discharge with . A patient choice letter was provided in compliance with [facility] guidelines and discussed with patient. All clinical and financial affiliations with [facility] have been disclosed. Patient acknowledged receipt of the [facility] Compare site link. Patient/Surrogate/Designated Caregiver Patient does [...] mouth 2 (two) times daily. 12/20/2024 pancrelipase, Zztbxy-Efzzmwft-Dxtsxef, (Creon) 6,000-19,000 -30,000 unit capsule Take 2 [...] Problem: Closed left hip fracture, initial encounter ([facility]) I discussed the diagnosis in detail with [...] induced. They were positioned supine on the [place] table, taking care to pad all bony [...] femoral head on the AP close to centercenter. We then measured 95 mm lag screw. This was overreamed. Lag screw was placed and locked proximally. We then removed the targeting guide. We placed 2 distal interlocking screws using perfect platinum technique. Final x-rays were taken to confirm [...] Complete learning assessment and assess knowledge base. 12/24/2024123 by Nila He RN Outcome: Progressing [...] skin integrity through proper skin care techniques 12/24/2024 012 by Nila He RN Outcome: Progressing 12/24/2024123 by Nila He RN Outcome: Progressing 12/24/2024 011 by Nila He RN Outcome: Progressing Goal: LTG - Patient will demonstrate appropriate pressure relief techniques 12/24/2024 012 by Nila He, VIDHYA Outcome: Progressing 12/24/2024 012 by Nila He, VIDHYA Outcome: Progressing 12/24/2024 011 by Nila He, VIDHYA Outcome: Progressing Goal: LTG - Patient will demonstrate appropriate skin care techniques 12/24/2024123 by Nila He, VIDHYA Outcome: Progressing 12/24/2024123 by Nila He RN Outcome: Progressing 12/24/2024116 by Nila He, VIDHYA Outcome: Progressing Goal: LTG - Patient will be free from infection 12/24/2024123 by Nila He RN Outcome: Progressing 12/24/2024123 by Nila He RN Outcome: Progressing 12/24/2024 011 by Nila He RN Outcome: Progressing Goal: STG - Patient demonstrates skin care/treatment/dressing change 12/24/2024123 by Nila He, VIDHYA Outcome: Progressing 12/24/2024123 by Nila He RN Outcome: Progressing 12/24/2024116 by Nila He, VIDHYA Outcome: Progressing Goal: STG - Patient will maintain good skin integrity 12/24/2024123 by Nila He, VIDHYA Outcome: Progressing 12/24/2024123 by Nila He RN Outcome: Progressing 12/24/2024 011 by Nila He, VIDHYA Outcome: Progressing Goal: STG - Patient exhibits signs of wound healing. 12/24/2024123 by Nila He RN Outcome: Progressing 12/24/2024123 by Nila He RN Outcome: Progressing 12/24/2024 011 by Nila He, VIDHYA Outcome: Progressing Goal: STG - Patient demonstrates pressure reduction techniques 12/24/2024123 by Nila He RN Outcome: Progressing 12/24/2024 0124 by Nila He RN Outcome: Progressing 12/24/2024 0117 by Nila He RN Outcome: Progressing Goal: STG - Patient demonstrates preventative skin care measures 12/24/2024 0124 by Nila He RN Outcome: Progressing 12/24/2024 0124 by Nila He RN Outcome: Progressing 12/24/2024 0117 by Nila He RN Outcome: Progressing * Plan of Care [...] Jennifer Odonnell. Transcribed by Nila Eugene PA-C. us Sea Contreras MD IMG FLUOROSCOPY ORDERABLES Final Result * Magnesium (12/22/2024 4:56 AM EDT) Magnesium 2.1 1.5 - 2.4 mg/dL 12/22/2024 5:18 AM EDT [facility] Blood Venipuncture / Unknown 12/22/2024 4:56 AM EDT 12/22/2024 4:56 AM EDT us Alberto Gallego MD LAB BLOOD ORDERABLES Final Resul t [facility] [address] [place] [address] * (ABNORMAL) Comprehensive metabolic panel (12/22/2024 4:56 AM EDT) Pathologist [facility] Sodium 139 136 - 146 meq/L 12/22/2024 5:18 AM EDT [facility] Potassium 3.9 3.5 - 5.1 meq/L 12/22/2024 5:18 AM EDT [facility] Chloride 105 102 - 112 meq/L 12/22/2024 5:18 AM EDT [facility] CO2 28 21 - 32 meq/L 12/22/2024 5:18 AM EDT [facility] Calcium 8.5 8.5 - 10.1 mg/dL 12/22/2024 5:18 AM EDT [facility] Glucose 95 74 - 100 mg/dL 12/22/2024 5:18 AM EDT [facility] BUN 17 7 - 22 mg/dL 12/22/2024 5:18 AM EDT [facility] Creatinine 0.86 0.55 - 1.02 mg/dL 12/22/2024 5:18 AM [facility] BUN/Creatinine 20 8 - 20 12/22/2024 5:18 AM EDT [facility] Albumin 3.0(L) 3.4 - 5.0 g/dL 12/22/2024 5:18 AM [facility] Alkaline Phosphatase 96 27 - 136 U/L 12/22/2024 5:18 AM EDT [facility] ALT 19 12 - 78 U/L 12/22/2024 5:18 AM EDT [facility] AST 27 5 - 37 U/L 12/22/2024 5:18 AM EDT [facility] Total Bilirubin 0.4 0.2 - 1.3 mg/dL 12/22/2024 5:18 AM [facility] Protein, Total 5.4(L) 6.4 - 8.2 gm/dL 12/22/2024 5:18 AM [facility] Anion Gap 10 9 - 20 12/22/2024 5:18 AM [facility] A/G Ratio 1.3 1.1 - 2.5 12/22/2024 5:18 AM T [facility] Globulin 2.4 1.5 - 4.5 g/dL 12/22/2024 5:18 AM [facility] Osmolality Calc 278.9 mOsm/kg 5:18 AM [facility] eGFR (mL/min/1.73m2) >60 >=60 mL/min/1.7 3m2 12/22/2024 5:18 AM [facility] Comment:ESTIMATED GFR IS NOT ACCURATE CREATININE CLEARANCE IN PREDICTING GLOMERULAR FILTRATION RATE. ESTIMATED GFR IS NOT APPLICABLE FOR DIALYSIS PATIENTS. Blood Venipuncture / Unknown 12/22/2024 4:56 AM EDT 12/22/2024 4:56 AM EDT Alberto Gallego MD LAB BLOOD ORDERABLES Final Resul t [facility] [address] [place] [address], [facility] [phone] * (ABNORMAL) CBC with automated diff (12/22/2024 4:56 AM EDT) WBC 4.9 3.9 - 10.0 K/ L 12/22/2024 5:03 AM EDT [facility] RBC 3.76(L) 3.93 - 5.22 M/ L 12/22/2024 5:03 AM EDT [facility] Hemoglobin 10.5(L) 11.2 - 15.7 GM/DL 12/22/2024 5:03 AM EDT [facility] Hematocrit 33.3(L) 34.1 - 44.9 % 12/22/2024 5:03 AM EDT [facility] MCV 89 79 - 95 fL 12/22/2024 5:03 AM EDT [facility] MCH 27.9 25.6 - 32.2 pg 12/22/2024 5:03 AM EDT [facility] MCHC 31.5(L) 32.2 - 36.5 GM/DL 12/22/2024 5:03 AM EDT [facility] RDW 14.0 11.6 - 14.4 % 12/22/2024 5:03 AM EDT [facility] Platelets 122(L) 163 - 369 K/CU MM 12/22/2024 5:03 AM EDT [facility] MPV 9.4 9.4 - 12.4 fL 12/22/2024 5:03 AM EDT [facility] % Neutros 75(H) 34 - 71 % 12/22/2024 5:03 AM EDT [facility] % Lymphs 14(L) 19 - 53 % 12/22/2024 5:03 AM EDT [facility] % Monos 10 4 - 13 % 12/22/2024 5:03 AM EDT [facility] % Eos 0(L) 1 - 7 % 12/22/2024 5:03 AM EDT [facility] % Baso 0 0 - 1 % 12/22/2024 5:03 AM EDT [facility] # Neutros 3.67 1.56 - 6.13 K/ L 12/22/2024 5:03 AM EDT [facility] # Lymphs 0.69(L) 1.18 - 3.74 K/ L 12/22/2024 5:03 AM EDT [facility] # Monos 0.50 0.24 - 0.82 K/ L 12/22/2024 5:03 AM EDT [facility] # Eos 0.02(L) 0.04 - 0.54 K/ L 12/22/2024 5:03 AM EDT [facility] # Baso 0.01 0.01 - 0.08 K/ L 12/22/2024 5:03 AM EDT [facility] Immature Granulocytes-Re lative 0.40 0.00 - 0.60 % 12/22/2024 5:03 AM EDT [facility] # IG 0.02 0.00 - 0.05 K/uL 12/22/2024 5:03 AM EDT [facility] Blood Venipuncture / Unknown 12/22/2024 4:56 AM EDT 12/22/2024 4:56 AM EDT Narrative [facility] - 12/22/2024 5:03 AM EDT When [...] Blast? Flag noted Atypical Lymph flag noted us Alberto Gallego MD LAB BLOOD ORDERABLES Final Resul t [facility] [address] [facility] [address] [phone] * Electrocardiogram, 12 Lead (12/22/2024 4:47 AM EDT) VENTRICULAR RATE EKG/MIN 68 BPM GE MUSE ATRIAL RATE (MCT) 68 BPM GE MUSE NV Interval 156 ms GE MUSE QRS-INTERVAL (MSEC) 94 ms GE MUSE QT Interval 412 ms GE MUSE QTC Interval 438 ms GE MUSE P [place] 67 degrees GE MUSE R AXIS (MCT) 58 degrees GE MUSE T Wave [place] 63 degrees GE MUSE [place] Diagnosis Normal sinus rhythm Septal infarct , age undetermined Abnormal ECG No previous ECGs available Confirmed by Henri THOMSON SUZANNE ([id number]) on 12/26/2024 12:04:22 PM GE MUSE 12/22/2024 4:47 AM EDT 12/26/2024 12:04 PM EDT us Alberto Gallego MD ECG ORDERABLES Final Result GE MUSE * ABO/RH CONFIRMATION/RETYPE (12/21/2024 9:55 PM EDT) RETYPE O NEGATIVE 12/21/2024 10:23 PM EDT [facility] ([place]) Blood Venipuncture / Unknown 12/21/2024 9:55 PM EDT 12/21/2024 10:23 PM EDT us Jeffry Price MD [facility] TEST ORDERABLE S Final Result Performing Organization Address [facility] [address]/ZIP Co de Phone Number [facility] [place] [address] [phone] * PT/INR, PTT (12/21/2024 9:55 PM EDT) aPTT 25.1 22.0 - 32.0 seconds 12/21/2024 10:44 PM EDT [facility] Protime 10.1 9.0 - 12.0 seconds 12/21/2024 10:44 PM EDT [facility] INR 0.92 0.80 - 1.10 12/21/2024 10:44 PM EDT [facility] Blood Venipuncture / Unknown 12/21/2024 9:55 PM EDT 12/21/2024 10:23 PM EDT Sea Contreras MD LAB BLOOD ORDERABLES Final Resul t [facility] [address] [phone] * Type and Screen (12/21/2024 9:55 PM EDT) ABO/Rh O NEGATIVE 12/21/2024 10:51 PM EDT [facility] ([place]) Antibody Screen Negative 12/21/2024 10:51 PM EDT [facility] [place] HISTCHK HIST CHECK PERFORMED 12/21/2024 10:51 PM EDT [facility] ([place] Blood Venipuncture / Unknown 12/21/2024 9:55 PM EDT 12/21/2024 10:51 PM EDT us Sea Contreras MD [facility] TEST ORDERABLES F inal Result [facility] ([place]) [address] [phone] * X-ray pelvis portable (12/21/2024 9:20 PM [...] Jennifer Odonnell. Transcribed by Nila Eugene PA-C. us Sea Contreras MD IMG DIAGNOSTIC IMAGING ORDERABLE S Final Result * EKG-SCANNED (12/21/2024) Narrative 12/21/2024 Ordered by an unspecified provider. us Default Scanning Provider SCAN ORDERS Final Result documented in this encounter Visit Diagnoses Diagnosis Closed left hip fracture, initial encounter (HCC)- Primary Closed left hip fracture, initial encounter (HCC) Hip fracture (HCC) Closed fracture of unspecified part of neck of femur documented in this encounter Admitting Diagnoses Diagnosis [...] Given 12/23/2024 10:17 AM EDT 1,000 mg BUPivacaine (PF) (MARCAINE) injection As needed, Starting on 12/22/24 at 0951, Intra-op Given 12/22/2024 9:51 AM EDT 30 mLs enoxaparin (LOVENOX) syringe 40 mg 40 mg Every 24 hours, subcutaneous, First dose on 12/23/24 at 0900 Given 12/24/2024 9:00 AM EDT 40 mg Abdominal Tissue Given 12/23/2024 9:52 AM EDT 40 mg Ab dominal Tissue HYDROmorphone (DILAUDID) injection 0.5 mg 0.5 mg Every 4 hours PRN, intravenous, severe pain (7-10), 2nd line for severe pain or if unable to tolerate PO, Starting on 12/24/24 at 0805, 3rd line analgesic. Give only [...] 12/23/2024 3:07 PM EDT 5 mg pancrelipase (Hllboj-Ntenyduo-Egigjxk) (CREON) 24,000-76,000 -120,000 unit capsule 24,000 units of lipase 24,000 units of lipase 3 times daily with meals, oral, First dose on 10/4/25 at 0800 Given 12/24/2024 12:13 PM EDT [...] Given 12/23/2024 11:29 AM EDT 20 mg documented in this encounter Active and [...] 0820 (Given - Provider: Kate Zamudio RN)0941 (MAR Hold - Provider: Automatic Transfer Provider - Reason: Unreviewed Transfer Orders)1145 (MAR Unhold - Provider: Kate Zamudio RN)2140 (Not Given - Provider: Xavi Gibbs RN - Reason: Patient/family refused) 1014 (Not Given - Provider: Shi Degroot RN - Reason: Patient/family refused - Comment: pt. states she does not take) pancrelipase (Glgakl-Yqovptgp-Ktoip se) (CREON) 24,000-76,000 -120,000 unit capsule 24,000 units of lipase 24,000 units of lipase 3 times daily with meals, oral, First dose on 12/22/24 at 0800 0821 (Not Given - Provider: Kate Zamudio RN - Reason: Patient/family refused - Comment: Patient states she only takes it when she eats.)0941 (MAY Hold - Provider: Automatic Transfer Provider - Reason: Unreviewed Transfer Orders)1145 ([facility] Unhold - Provider: Kate Zamudio RN)1315 (Given - Provider: Kate Zamudio RN - Comment: Pt only takes when eating.)1741 (Not Given - Provider: Kate Zamudio RN - Reason: Patient/family refused - Comment: stated doesnot need it at this time.) 0955 (Given - Provider: Shi Degroot RN)1249 (Given - Provider: Shi Degroot RN)1746 (Given - Provider: Shi Degroot RN) 0859 (Given - Provider: Shi Degroot RN)1213 (Given - Provider: Shi Degroot RN) polyethylene glycol (GLYCOLAX) packet 17 g 17 g Daily, oral, First dose on Tue12/21/24 at 2230, Bowel Regimen - for prevention of constipation. 0817 (Given - Provider: Kate Zamudio RN)0941 ([facility] Hold - Provider: Automatic Transfer Provider - Reason: Unreviewed Transfer Orders)1145 ([facility] Unhold - Provider: Kate Zamudio RN) 0953 (Given - Provider: Shi Degroot RN) 0858 (Not Given - Provider: Shi Degroot RN - Reason: Patient/family refused) QUEtiapine (SEROquel) tablet 100 mg 100 mg Every Night, oral, First dose on Tue12/21/24 at 2230 0941 ([facility] Hold - Provider: Automatic Transfer Provider - Reason: Unreviewed Transfer Orders)1145 ([facility] Unhold - Provider: Kate Zamudio RN)2128 (Given - Provider: Xavi Gibbs RN) 2134 (Given - Provider: Nila He RN) sennosides-docusate sodium (SENOKOT S) 8.6-50 mg tablet 1 tablet 1 tablet 2 times daily, oral, First dose on Tue12/21/24 at 2230 0818 (Given - Provider: Kate Zamudio RN)0941 ([facility] Hold - Provider: Automatic Transfer Provider - Reason: Unreviewed Transfer Orders)1145 ([facility] Unhold - Provider: Kate Zamudio RN)2129 (Given - Provider: Xavi Gibbs RN) 0954 (Given - Provider: Shi Degroot RN)2134 (Given - Provider: Nila He, RN) 0858 (Given - Provider: Shi Degroot RN) trospium (SANCTURA) tablet 20 mg 20 mg 2 times daily, oral, First dose on Tue12/21/24 at 2230, Administer at least 1 hour before meals or on an empty stomach. 0910 (Not Given - Provider: Kate Zamudio RN - Reason: Medication/ Dose Unavailable)0941 (MAR Hold - Provider: Automatic Transfer Provider - Reason: Unreviewed Transfer Orders)1145 (MAR Unhold - Provider: Kate Zamudio RN)1341 (Given - Provider: Kate Zamudio RN)2135 (Given - Provider: Xavi Gibbs RN) 1129 (Given - Provider: Shi Degroot RN)2349 (Given - Provider: Nila He RN) 0859 (Given - Provider: Shi Degroot RN) venlafaxine XR (EFFEXOR-XR) 24 hr capsule 150 mg (CANCELED) 150 mg Daily with breakfast, oral, First dose on Tue12/22/24 at 0800, * DO NOT CRUSH THIS DOSAGE FORM * 0819 (Given - Provider: Kate Zamudio RN)0941 ([facility] Hold - Provider: Automatic Transfer Provider - Reason: Unreviewed Transfer Orders)1145 (MAR Unhold - Provider: Kate Zamudio RN) 0955 [...] Degroot RN)2000 (Rate/Dose Verify - Provider: Nila He RN)2309 (New Bag - Provider: Nila He RN) PRN Medication Order 12/22/2024 12/23/2024 12/24/2024 acetaminophen [...] Zamudio RN) 1017 (Given - Provider: Shi Degroot, RN)1752 (Given - Provider: Shi Degroot, RN) 0913 (Given - Provider: Shi Degroot [...] Transfer Provider - Reason: Unreviewed Transfer Orders)1145 (MAY Unhold - Provider: Kate Zamudio RN) ondansetron [...] give over 2 - 5 minutes. 0941 (MAR Hold - Provider: Automatic Transfer Provider - Reason: Unreviewed Transfer Orders)1145 (MAR Unhold - Provider: Kate Zamudio RN) ondansetron (ZOFRAN-ODT) disintegrating tablet 4 mg(Linked Group 1) 4 mg Every 8 hours PRN, oral, nausea, vomiting, Starting on Tue12/21/24 at 2133, 1st line. If inadequate response within 60 minutes, proceed to next-line agent for same PRN reason or contact provider if no further options ordered. 0941 (MAY Hold - Provider: Automatic Transfer Provider - Reason: Unreviewed Transfer Orders)1145 (MAR Unhold - Provider: Kate Zamudio RN) oxyCODONE [...] + adjuvants (if ordered). Look-alike/Sound-alike medication 0941 (MAR Hold - Provider: Automatic Transfer Provider - Reason: Unreviewed Transfer Orders)1145 (MAR Unhold - Provider: Kate Zamudio RN) 1507 (Given - Provider: Shi Degroot RN) sodium chloride flush 10 mL(Linked Group 2) 10 mL As needed, intravenous, line care, Starting on Tue12/21/24 at 2133, Every 8 hours and PRN to flush 0941 (MAR Hold - Provider: Automatic Transfer Provider - Reason: Unreviewed Transfer Orders)1145 (MAR Unhold - Provider: Kate Zamudio RN) Linked [...] IV (CANCELED) Routine, Once, On Tue12/21/24 at 2134, For 1 occurrence And sodium chloride flush 10 mLJump to med 10 mL As needed, intravenous, line care, Starting on Tue12/21/24 at 2133, Every 8 hours and PRN to flush documented in this encounter Care Teams Fashion Model Relationship Specialty Start Date End Date Shayla Mitchell PA [address] [place] [address] PCP - General Physician Station Repairer 12/21/24 documented as of this encounter
--- OUTSIDE RECORDS SUMMARY | 2024-12-25 20:00 | XMS_ITS | Clinical Summary ---
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 Name Role Phone SOLA RUIZ, MARTÍNEZ Unavailable Unavailable RANDY PT, YARI Unavailable Unavailable Payers Payer Name Policy Type Policy Number Effective Date Expira tion Date [employer] MCR ADV PDGM Problems Condition Name Condition Details Condition Category Status Onset Date Resolution Date Last Treatment Date Treating Clinician Comments FRACTURE OF UNSP PART OF NECK OF LEFT FEMUR, INIT Active 2024-03 006 00:00: 00 Allergies, Adverse Reactions, Alerts Allergy Name Allergy Type Status Severity Reaction(s) Onset Date Inactive Date Treating Clinician Comments NKA Propensity to adverse reactions Active 2024-12 22:08:2 9 Vital Signs Vital Name Observation Time Observation Value Commen ts Temperature 2024-12-26 21:47:00.000 97.6 [degF] BMI (%) 2024-12-26 21:47:00.000 23 kg/m2 Height 2024-12-26 21:47:00.000 69 [in_us] Pulse 2024-12-26 21:47:00.000 98 /min O2 Saturation (%) 2024-12-26 21:47:00.000 96 % Respirations 2024-12-26 21:47:00.000 12 /min Weight (lbs) 2024-12-26 21:47:00.000 158.2 [lb_av] Systolic Blood Pressure 2024-12-26 21:47:00.000 114 mm [Hg] Diastolic Blood Pressure 2024-12-26 21:47:00.000 65 mm [Hg] Plan of Treatment Planned Activity Planned Date Details Comments Future Scheduled Test PHYSICAL T HERAPIST TO EVALUATE/ASSESS AND DEVELOP PHYSICAL THERAPY PLAN OF CARE TO BE SIGNED BY THE PHYSICIAN. TEACH AND MONITOR PATIENT/CAREGIVER ABILITY TO SAFELY ADMINISTER MEDICATIONS. PHONE TOUCHPOINTS CAN BE PERFORMED NEEDED TO SUPPLEMENT THE PLAN OF CARE. [code = PHYSICAL THERAPIST TO EVALUATE/ASSESS AND DEVELOP PHYSICAL THERAPY PLAN OF CARE TO BE SIGNED BY THE PHYSICIAN. TEACH AND MONITOR PATIENT/CAREGIVER ABILITY TO SAFELY ADMINISTER MEDICATIONS. PHONE TOUCHPOINTS CAN BE PERFORMED NEEDED TO SUPPLEMENT THE PLAN OF CARE.] Future Scheduled Test PSYCHOSOCI AL / COGNITIVE ASSESSMENT INDICATES NO NEED FOR SOCIAL, FINANCIAL, OR TRANSPORTATION SUPPORT OR FOR ADDITIONAL CARE PROVIDERS/DISCIPLINES OR REFERRALS TO OUTSIDE ENTITIES. [code = PSYCHOSOCIAL / COGNITIVE ASSESSMENT INDICATES NO NEED FOR SOCIAL, FINANCIAL, OR TRANSPORTATION SUPPORT OR FOR ADDITIONAL CARE PROVIDERS/DISCIPLINES OR REFERRALS TO OUTSIDE ENTITIES.] Future Scheduled Test CLINICIAN TO EDUCATE PATIENT / CAREGIVER IN FALL PREVENTION AND PROVIDE INTERVENTIONS TO REDUCE FALL RISK AND ENHANCE HOME SAFETY [code = CLINICIAN TO EDUCATE PATIENT / CAREGIVER IN FALL PREVENTION AND PROVIDE INTERVENTIONS TO REDUCE FALL RISK AND ENHANCE HOME SAFETY] Future Scheduled Test PATIENT/CA REGIVER WILL BE KNOWLEDGEABLE OF DISCHARGE PLANS AND WILL DEMONSTRATE/PROVIDE EDUCATION AND RESOURCES NEEDED TO MAINTAIN HEALTH. [code = PATIENT/CAREGIVER WILL BE KNOWLEDGEABLE OF DISCHARGE PLANS AND WILL DEMONSTRATE/PROVIDE EDUCATION AND RESOURCES NEEDED TO MAINTAIN HEALTH.] Future Scheduled Test PHYSICAL T HERAPY TO ESTABLISH/UPGRADE HOME EXERCISE PROGRAM AND PROVIDE THERAPEUTIC EXERCISES AND/OR MANUAL THERAPY TECHNIQUES DESIGNED TO RESTORE FUNCTIONAL STRENGTH AND ROM. [code = PHYSICAL THERAPY TO ESTABLISH/UPGRADE HOME EXERCISE PROGRAM AND PROVIDE THERAPEUTIC EXERCISES AND/OR MANUAL THERAPY TECHNIQUES DESIGNED TO RESTORE FUNCTIONAL STRENGTH AND ROM.] Future Scheduled Test PHYSICAL T HERAPY TO PROVIDE BALANCE TRAINING TO REDUCE FALL RISK DURING FUNCTIONAL ACTIVITIES. [code = PHYSICAL THERAPY TO PROVIDE BALANCE TRAINING TO REDUCE FALL RISK DURING FUNCTIONAL ACTIVITIES.] Future Scheduled Test PHYSICAL T HERAPY TO INSTRUCT IN SAFE TRANSFERS WITH APPROPRIATE BODY MECHANICS AND EQUIPMENT. [code = PHYSICAL THERAPY TO INSTRUCT IN SAFE TRANSFERS WITH APPROPRIATE BODY MECHANICS AND EQUIPMENT.] Future Scheduled Test PHYSICAL T HERAPY TO EVALUATE GAIT AND PROVIDE GAIT TRAINING USING APPROPRIATE ASSISTIVE DEVICE NEEDED TO ENSURE PATIENT SAFETY. [code = PHYSICAL THERAPY TO EVALUATE GAIT AND PROVIDE GAIT TRAINING USING APPROPRIATE ASSISTIVE DEVICE NEEDED TO ENSURE PATIENT SAFETY.] Future Scheduled Test PHYSICAL T HERAPIST TO OBSERVE AND ASSESS INTEGUMENTARY STATUS TO IDENTIFY CHANGES AND INTERVENE TO MINIMIZE COMPLICATIONS. PROVIDE SKILLED TEACHING RELATED TO ALTERED SKIN INTEGRITY INCLUDING PATHOPHYSIOLOGY, NUTRITION, MEASURES TO PROMOTE OPTIMAL SKIN INTEGRITY, AND MEDICATION REGIMEN. [code = PHYSICAL THERAPIST TO OBSERVE AND ASSESS INTEGUMENTARY STATUS TO IDENTIFY CHANGES AND INTERVENE TO MINIMIZE COMPLICATIONS. PROVIDE SKILLED TEACHING RELATED TO ALTERED SKIN INTEGRITY INCLUDING PATHOPHYSIOLOGY, NUTRITION, MEASURES TO PROMOTE OPTIMAL SKIN INTEGRITY, AND MEDICATION REGIMEN.] Future Scheduled Test AGENCY SHALONDA L DISCHARGE PATIENT TO [facility]. MAY ACCEPT ORDERS FROM THE FOLLOWING PHYSICIAN(S): HUSSEIN RUSSO [code = AGENCY WILL DISCHARGE PATIENT TO [facility]. MAY ACCEPT ORDERS FROM THE FOLLOWING PHYSICIAN(S): HUSSEIN RUSSO] Goal 2024-12-26 Patient Goal - I NDEPENDENT AGAIN (PAIN MANAGED, AMB WITH NO AD, NO ASSIST WITH ADLS) Goal Provider Goal - A PHYSICAL THERAPY PLAN OF CARE WILL BE ORDERED BY PHYSICIAN AND PROVIDED BY PHYSICAL THERAPY. ALL GOALS TO BE MET BY END OF CURRENTLY APPROVED PLAN OF CARE. Goal Provider Goal - PATIENT/CAREGIVER VERBALIZES AND DEMONSTRATES ABILITY FOR THE PATIENT TO FUNCTION WITHIN THEIR COMMUNITY AND TO PARTICIPATE IN THE DEVELOPMENT AND IMPLEMENTATION OF THEIR CARE PLAN THROUGHOUT THE CERTIFICATION PERIOD. Goal Provider Goal - PATIENT TO DEMONSTRATE REDUCED FALL RISK AND IMPROVE HOME SAFETY BY 02/23/25 Goal Provider Goal - PATIENT AND/OR CAREGIVER WILL BE IN AGREEMENT WITH DISCHARGE PLANS AND WILL VERBALIZE HAVING RESOURCES AND KNOWLEDGE TO MAINTAIN HEALTH. Goal Provider Goal - PATIENT WILL DEMONSTRATE IMPROVED FUNCTION IN RESPONSE TO SPECIFIC EXERCISE(S) AND/OR MANUAL THERAPY TECHNIQUE(S), EVIDENCED BY INCREASED INDEPENDENCE IN ACTIVITIES OF DAILY LIVING. GOAL TO BE MET BY 02/23/25 Goal Provider Goal - PATIENT/CAREGIVER WILL DEMONSTRATE DECREASED FALL RISK DURING FUNCTIONAL ACTIVITIES. GOAL TO BE MET BY 02/23/25 Goal Provider Goal - PATIENT / CAREGIVER WILL DEMONSTRATE SAFE TRANSFERS USING APPROPRIATE BODY MECHANICS AND EQUIPMENT. GOAL TO BE MET BY 02/23/25 Goal Provider Goal - PATIENT WILL DEMONSTRATE SAFE GAIT TECHNIQUE WITH ASSISTIVE DEVICES NEEDED TO MINIMIZE RISK OF INJURY. GOAL TO BE MET BY 02/23/25 Goal Provider Goal - CHANGES IN SKIN INTEGRITY STATUS WILL BE IDENTIFIED AND REPORTED TO THE PHYSICIAN FOR PROMPT INTERVENTION. PATIENT/CAREGIVER WILL VERBALIZE/DEMONSTRATE ADEQUATE KNOWLEDGE OF INTEGUMENTARY STATUS AND APPROPRIATE MEASURES TO PROMOTE SKIN INTEGRITY AND PREVENT INJURY. GOAL TO BE MET BY 02/23/25 Goal Provider Goal - PATIENT WILL REMAIN SAFE AND NEEDS WILL BE MET BY COMMUNICATING CHANGES IN POC WITH PATIENT/CAREGIVER AND THE APPROPRIATE PHYSICIAN(S) WRITING ORDERS ON THE POC AND COMMUNICATING WITH RECEIVING PHYSICIANS/HEALTH CARE PROVIDER WHEN THERE ARE CHANGES IN THE DISCHARGE PLAN THROUGHOUT THE EPISODE OF CARE. Reason for Visit INDEPENDENT IN THE HOME Progress Notes Progress Notes <paragraph>[Visit Date: 2024 by YARI PADILLA PT]:</paragraph><paragraph>PHYSICAL THERAPY START OF CARE FOR 74YO FEMALE PATIENT WHO FELL IN HER GARDEN ON 12/21, FRACTURING L FEMUR. ORIF BY DR MARTÍNEZ SELBY ([place]) ON 12/22, DC HOME ON 12/24. NEXT FU/ 01/09. PCP IS MONIQUE RUSSO. </paragraph><paragraph>PATIENT LIVES WITH IN RANCH STYLE HOME WITH 1 JOSE. SHE SLEEPS IN BED, USES TOILET AND SHOWER. CURRENTLY AMB WITH RW, WELL FITTING. SHE REPORTS MOST DIFFICULTY WITH GETTING UP OUT OF RECLINER. SHE IS EAGER TO SHOWER. </paragraph><paragraph>TODAY, PATIENT REPORTS 0-5/10 LLE PAIN WELL MANAGED WITH REST AND OCCASIONAL OTCS AND RX. SHE DENIES NEW FALLS. </paragraph><paragraph>PMH INCLUDES: PANCREATIC INSUFFICIENCY, OP, DDD OF LUMBAR AND CERVICAL SPINE, MOOD DISORDER</paragraph><paragraph>PLOF: INDEPENDENT IN COMMUNITY INCLUDING AMB WITH NO AD, DRIVING</paragraph><paragraph>CLOF: ASSISTING WITH ALL ADLS AND IADLS</paragraph><paragraph>PATIENT GOALS: PAIN MANAGEMENT, AMB WITH NO AD, INDEPENDENT IN HOME</paragraph><paragraph></paragraph><paragraph>AT TODAYS VISIT, IDENTIFICATION VERIFIED AND CONSENTS OBTAINED. VITALS STABLE. A&O X4 WITH NO OBSERVED OR REPORTED FORGETFULNESS, BIMS 15. REVIEW OF SOC FOLDER INCLUDING XUDY-PQ-AKEDU, EMERGENCY PREPAREDNESS, FALL PREVENTION, EOS AND CONSENTS. MEDICATIONS RECONCILED FROM RX BOTTLES IN HOME. NO INTERACTIONS IDENTIFIED. PATIENT ABLE TO CORRECTLY VERBALIZE PURPOSE DOSE AND SCHEDULE OF EACH WITH NO CUES. REVIEW OF SYSTEMS AND MEDICAL HISTORY. PATIENT REPORTS: 2 FALLS IN PAST YEAR, ANXIETY, NOCTURIA. INCISIONS COVERED BY BANDAGES WITH SMALL SPOTS OF OLD BLOOD. ASSESSMENT OF FUNCTIONAL MOBILITY AND SPECIAL TESTING CHARTED, DEFICITS IDENTIFIED AND ADDED TO POC. HEP INITIATED. PT EDUCATED IN TRANSFERS AND FALL PREVENTION.</paragraph><paragraph></paragraph><paragraph>MRS DAVID DEMONSTRATES DEFICITS IN PAIN, ROM, STRENGTH, TRANSFERS, AMB, AND AEROBIC CAPACITY RELATED TO L HIP FRACURE. PT DEMONSTRATES DEFICITS IN: FUNCTIONAL STRENGTH ( EVIDENCED BY 30 SEC CHAIR STAND TEST SCORE OF 0/8) AND BALANCE ( EVIDENCED BY TINETTI SCORE OF 13/28). SHE REQUIRES MIN ASSIST FOR SAFE TRANSFERS AND AMB IN THE HOME AND IS AT RISK FOR FALLS. PT WILL BENEFIT FROM CONTINUED IN-HOME SKILLED PHYSICAL THERAPY TO ADDRESS ABOVE DEFICITS AND REACH ABOVE GOALS, INCREASING SAFETY AND INDEPENDENCE IN THE HOME, AND DECREASING CG BURDEN. UNABLE TO ATTEND OUTPATIENT THERAPY DUE TO WEAKNESS CHAN FALL RISK. PROGNOSIS IS GOOD: LIMITED BY COMORBIDITIES, ENHNACED BY GOOD EQUIPMENT SETUP AND SOCIAL SUPPORT, HIGH PLOF. TO CONTINUE 1WK1 2WK2. VERBAL ORDERS REQUESTED FROM DR MARTÍNEZ SELBY.</paragraph> Encounters Start Date/Time End Date/Time Encounter Type Admission Type Attending [facility] Care Department Encounter ID Discharge Date Discharge Status Discharge Condition Discharge Reason Percent Goals Met 2024-12-26 00:00:00 2024-12-26 00:00:00 Outpatient NEW ADMISSION YARI PADILLA [facility] [id number] 00:00:00 DISCHARGE TO HOME OR SELF CARE INDEPENDEN T IN THE HOME DISCHARGE FOR CAUSE 100.00
[2024-12-29] VITALS (17 sets, daily range): BP systolic 96–155; BP diastolic 38–93; PULSE 70–93; RESP 14–20; TEMP 36.8–37.6; O2SAT 91–98; BMI 21.4; BMI 23.2
--- NOTE | 2024-12-29 06:01 | CT_ITS ---
PROCEDURE INFORMATION: Exam: CTA Chest With Contrast Exam date and time: 12/29/2024 6:29 AM Age: 74 years old Clinical indication: Other: Hypoxia & hypotension; Additional info: Recent femur surgery, hypoxia, hypotension TECHNIQUE: Imaging protocol: Computed tomographic angiography of the chest with contrast. Exam focused on the arteries. 3D rendering (Not supervised by radiologist): MIP and/or 3D reconstructed images were created by the technologist. Radiation optimization: All CT scans at this facility use at least one of these dose optimization techniques: automated exposure control; mA and/or kV adjustment per patient size (includes targeted exams where dose is matched to clinical indication); or iterative reconstruction. Contrast material: ISOVUE 370; Contrast volume: 70 ml; Contrast route: INTRAVENOUS (IV); COMPARISON: CT ANGIO CHEST PE PROTOCOL 12/29/2024 6:29 AM FINDINGS: Pulmonary arteries: Normal. No pulmonary emboli. Aorta: Unremarkable. No aortic aneurysm. No aortic dissection. Lungs: There is a distal left lower lobe mucoid impaction with a small left lower lobe consolidation. Pleural spaces: Unremarkable. No pneumothorax. No pleural effusion. Heart: Unremarkable. No cardiomegaly. No pericardial effusion. Coronary arteries: Moderate coronary artery calcifications are identified. Lymph nodes: Unremarkable. No enlarged lymph nodes. Bones/joints: Unremarkable. No acute fracture. Soft tissues: Unremarkable. IMPRESSION: 1. No evidence of pulmonary embolism. 2. Left lower lobe mucoid impaction with small left lower lobe consolidation. 3. Moderate coronary artery calcifications.
--- NOTE | 2024-12-29 06:01 | CT_ITS ---
PROCEDURE INFORMATION: Exam: CT Abdomen And Pelvis With Contrast Exam date and time: 12/29/2024 6:29 AM Age: 74 years old Clinical indication: Other: Dysuria; Additional info: Recent surgery, hypoxia, hypotension, dysuria TECHNIQUE: Imaging protocol: Computed tomography of the abdomen and pelvis with contrast. 3D rendering (Not supervised by radiologist): MIP and/or 3D reconstructed images were created by the technologist. Radiation optimization: All CT scans at this facility use at least one of these dose optimization techniques: automated exposure control; mA and/or kV adjustment per patient size (includes targeted exams where dose is matched to clinical indication); or iterative reconstruction. Contrast material: ISOVUE; Contrast volume: 70 ml; Contrast route: IV; COMPARISON: CT BONY PELVIS 12/21/2024 1:27 PM FINDINGS: Lungs: There is a small left lower lobe consolidation and there is mild bibasilar atelectasis. Liver: Normal. No mass. Gallbladder and biliary ducts: Normal. No calcified stones. No ductal dilation. Pancreas: Normal. No ductal dilation. Spleen: Normal. No splenomegaly. Adrenal glands: Normal. No mass. Kidneys and ureters: Normal. No hydronephrosis. Stomach and bowel: Unremarkable. No obstruction. No mucosal thickening. Appendix: No evidence of appendicitis. Intraperitoneal space: Unremarkable. No free air. No significant fluid collection. Vasculature: Unremarkable. No abdominal aortic aneurysm. Lymph nodes: Unremarkable. No enlarged lymph nodes. Urinary bladder: Unremarkable as visualized. Reproductive: The patient appears to be status post hysterectomy. Bones/joints: The patient is now status post ORIF of the left hip and there is asymmetric edema of the left thigh musculature and subcutaneous edema. The patient is status post posterior lumbar spine fusion. Soft tissues: See Bones/joints finding. IMPRESSION: 1. No evidence of urinary tract stone or obstructive uropathy. 2. Status post ORIF of the left hip with asymmetric edema of the left thigh musculature which could be postsurgical in nature however clinical correlation is recommended. 3. Small left lower lobe consolidation.
--- NOTE | 2024-12-29 06:01 | ECG_ITS ---
APPROVED REPORT Exam: Resting ECG HR:76 bpm ECG Measurements Heart Rate 76 AXES ME 137 P 25 QRSd 102 QRS 55 QT 408 T 61 QTc 439 Conclusion SINUS RHYTHM POSSIBLE RIGHT VENTRICULAR CONDUCTION DELAY [RSR (QR) IN V1/V2] POSSIBLE LATERAL MYOCARDIAL INFARCTION , PROBABLY OLD [30 ms Q WAVE IN I/aVL/V5/V6] No STEMI Electronically signed by : YAAKOV STEPHENS, 12/29/2024 23:57:54
--- NOTE | 2024-12-29 06:04 | [facility].EDGENADL ---
Discharge Plan Disposition Patient Disposition: Admitted Condition: Fair Prescriptions Prescriptions: No Action calcium polycarbophil [FiberCon] 625 mg tablet 1,250 mg PO DAILY Rx Instructions: Take 2 tablets by mouth once a day quetiapine [Seroquel] 100 mg tablet 100 mg PO HS venlafaxine [Effexor XR] 150 mg capsule,extended release 24hr 150 mg PO DAILY lamotrigine 100 mg tablet 100 mg PO BID solifenacin [Vesicare] 10 mg tablet 10 mg PO DAILY Ingrezza 40 mg capsule 80 mg PO DAILY oxycodone 5 mg tablet 5 mg PO QID PRN (Reason: Pain (Scale Score 7-10)) enoxaparin 40 mg/0.4 mL syringe 40 mg SQ DAILY calcium citrate [Citracal] 200 mg (950 mg) Tablet 400 mg PO DAILY Creon 36,000-114,000- 180,000 unit capsule,delayed release(DR/EC) 2 cap PO AC Rx Instructions: Please take 2 capsules with your meals and 1 with snacks Referrals Follow up/Referrals: Shayla Mitchell PA [Primary Care Provider, Medical] - See instructions Clinical Impressions Clinical Impression: Acute UTI, Pneumonia Print Language Print Language: Polish Discharge ED Provider: Whitney Martinez General Adult HPI <Whitney Martinez MD - Last Filed: 12/29/24 07:03> General Chief complaint: Dizziness Stated complaint: Vertigo Time Seen by Provider: 12/29/24 06:00 Mode of Arrival: EMS Source of Information: Patient and EMS Description of Symptoms (Recalled from ER Triage Doc. by RN): Left femure fracture surgery a week ago today. Tonight dizziness when getting up. Reports bladder fullness and difficulty draining bladder. Taking tylenol for pain, last at 2200. Denies fever and s/s of wound infection. History of Present Illness HPI narrative: 74-year-old female with history of recent left femur ORIF after fall presents to the ER for lightheadedness and generalized weakness causing difficulty getting up to use the restroom. 8 days ago patient had a fall and fractured her left femur, she was transferred to [place] where she had ORIF. Patient reports she has been only taking Tylenol for pain and last took it around 10 PM. She states around midnight she tried to get up to use the restroom but felt very lightheaded when she sat up on the side of the bed and was too weak to get up so she did not. She states she tried to go back to bed and attempted a few more times to get up but felt so profoundly weak she was not able to do so. She states she feels fullness in the bladder and is concerned she may have a urinary infection because she was having difficulty urinating before she started having her generalized weakness. Patient denies known fevers or chills. She states she is not currently on any antibiotics. She states she is on a once daily blood thinner injection since her hospitalization. She states she has not missed any doses of this. Patient arrived via EMS transportation and they report her blood glucose and route was 174, she was somewhat hypotensive with blood pressures in the 90s, not tachycardic, but they initially found her with oxygen saturation in the mid 80s so they placed her on nasal cannula. She does not have a baseline oxygen requirement. Patient reports she has been eating and drinking normally. She states she just feels generally weak and ill and is concerned about bladder infection. She denies headache or dizziness, no chest pain or difficulty breathing, no abdominal pain other than bladder discomfort at this time, no nausea, vomiting, or diarrhea. No numbness, tingling, or focal weakness. Related Data Home Medications ?Medication ?Instructions ?Recorded ?Confirmed quetiapine 100 mg tablet (Seroquel) 100 mg PO HS 12/07/21 12/29/24 lamotrigine 100 mg tablet 100 mg PO BID 01/24/24 12/29/24 solifenacin 10 mg tablet (Vesicare) 10 mg PO DAILY 01/24/24 12/29/24 valbenazine 40 mg capsule 80 mg PO DAILY 01/24/24 12/29/24 (Ingrezza) venlafaxine 150 mg 150 mg PO DAILY 01/24/24 12/29/24 capsule,extended release 24 hr (Effexor XR) calcium polycarbophil 625 mg 1,250 mg PO DAILY 03/20/24 12/29/24 tablet (FiberCon) calcium citrate 400 mg PO DAILY 12/29/24 12/29/24 enoxaparin 40 mg/0.4 mL 40 mg SQ DAILY 12/29/24 12/29/24 subcutaneous syringe [id number] 2 cap PO AC 12/29/24 12/29/24 36,000-114,000-180,000 unit capsule,delay rel (Creon) oxycodone 5 mg tablet 5 mg PO QID PRN Pain (Scale Score 12/29/24 12/29/24 7-10) Allergies Allergy/AdvReac Type Severity Reaction Status Date / Time No Known Allergies Allergy Verified 09/20/24 13:34 PFSH <Whitney Martinez MD - Last Filed: 12/29/24 07:03> [facility] Disclaimer: The information contained in this section may have been updated after the patient was seen, as this information can be updated by other users. Medical History Prolapsed bladder Fusion of lumbar spine L4-L5-S1 Edema LEFT FOOT Mood disorder Elbow fracture, right Tremor Hypertension Keratosis Callus of foot Onychomycosis Surgical History H/O bilateral oophorectomy History of tonsillectomy H/O total hysterectomy Status post right knee replacement Family History Mother Cancer Other Coronary artery disease Diabetes Hypertension Social History Smoking Status: Never smoker alcohol intake: never substance use type: denies use current occupational status: retired Travel in the last 8 weeks?: None household members: spouse housing: house caffeine: Yes Have you lived/traveled outside US in past 30 days?: No Contact w/someone who lives/traveled outside US past 30 days?: No Exposure to someone with infectious disease in past 14 days?: No Do you have a fever (greater than 100.4 F or 38 C)?: No Have you tested positive for COVID-19?: No Exposed to someone with COVID-19 in past 14 days?: No Do you have a sore throat?: No Do you have a cough?: No Do you have any weakness?: No Do you have any diarrhea?: No Are you experiencing any unusual bleeding?: No Do you have any muscle aches/pain?: No Do you have any abdominal pain?: No Are you experiencing loss of taste or smell?: No Other Medical History Have you received the Pneumonia Vaccine: Yes <Whitney Martinez MD - Last Filed: 12/29/24 07:03> ROS Obtained: Yes Systems reviewed as appropriate & no additional complaints except as documented Per HPI Physical Exam <Whitney Martinez MD - Last Filed: 12/29/24 07:03> General General appearance: alert Comment: Appearing, pale Head Head exam: atraumatic and normocephalic Eye Eye exam: Present PERRL and EOMI ENT ENT exam: Present mucous membranes moist Neck Neck exam: Present normal inspection and full ROM Chest Chest inspection: Present symmetric chest wall rise Respiratory Respiratory exam: Present normal lung sounds bilaterally and other (Saturating in the low 90s on room air); Absent respiratory distress, wheezes or stridor Cardiovascular Cardiovascular exam: Present regular rate and normal rhythm Abdominal Exam Abdominal exam: Present soft and tenderness (Mild suprapubic); Absent distention, guarding, rebound or rigidity Extremities Exam Extremities exam: Present full ROM, normal capillary refill, edema (Left lower extremity greater than right) and other (2 surgical incisions along the lateral aspect of the left femur, 1 proximal, 1 distal. Both are well-approximated, clean, dry, no erythema, fluctuance, or induration.); Absent calf tenderness Back Exam Back exam: Absent CVA tenderness (R) or CVA tenderness (L) Neurological Exam Neurological exam: Present alert and oriented X3; Absent motor sensory deficit Psychiatric Psychiatric exam: Present normal affect and normal mood Skin Skin exam: Present warm and dry Medical Decision Making <Whitney Martinez MD - Last Filed: 12/29/24 07:03> Medical Records Medical records reviewed: Yes I reviewed the patient's medical records. Screening: Per USPSTF and CDC recommendations, given the prevalence of disease in our region, it is our hospital?s policy to screen for HIV and viral Hepatitis for all patients aged 18 and over and those with ongoing risk factors. [place] Inquiry Pt receiving controlled substance: No Vital Signs: 12/29/24 05:56 12/29/24 06:38 12/29/24 06:56 Temperature 99 F 99.7 F H Temperature Source Oral Rectal Pulse Rate 85 Pulse Rate [Orthostatic Lying] Pulse Rate [Orthostatic Sitting] Pulse Rate [Orthostatic Standing] Pulse Rate [Radial] 93 H Respiratory Rate 16 16 Blood Pressure 120/51 L Blood Pressure [Orthostatic Lying] Blood Pressure [Orthostatic Sitting] Blood Pressure [Orthostatic Standing] Blood Pressure [Right Arm] 108/53 L Blood Pressure Mean 70 Blood Pressure Mean [Right Arm] 71 02 Sat by Pulse Oximetry 94 L 97 Oxygen Delivery Method Room Air Oxygen Flow Rate (LPM) 12/29/24 07:00 12/29/24 07:30 12/29/24 07:48 Temperature Temperature Source Pulse Rate 78 76 80 Pulse Rate [Orthostatic Lying] Pulse Rate [Orthostatic Sitting] Pulse Rate [Orthostatic Standing] Pulse Rate [Radial] Respiratory Rate 18 20 17 Blood Pressure 103/45 L 98/38 L 103/47 L Blood Pressure [Orthostatic Lying] Blood Pressure [Orthostatic Sitting] Blood Pressure [Orthostatic Standing] Blood Pressure [Right Arm] Blood Pressure Mean Blood Pressure Mean [Right Arm] 02 Sat by Pulse Oximetry 94 L 95 95 Oxygen Delivery Method Nasal Cannula Nasal Cannula Oxygen Flow Rate (LPM) 2 2 12/29/24 08:00 12/29/24 08:29 12/29/24 08:52 Temperature Temperature Source Pulse Rate 71 79 Pulse Rate [Orthostatic Lying] 81 Pulse Rate [Orthostatic Sitting] 86 Pulse Rate [Orthostatic Standing] 84 Pulse Rate [Radial] Respiratory Rate 20 20 Blood Pressure 100/45 L 117/93 H Blood Pressure [Orthostatic Lying] 110/49 L Blood Pressure [Orthostatic Sitting] 104/39 L Blood Pressure [Orthostatic Standing] 96/44 L Blood Pressure [Right Arm] Blood Pressure Mean Blood Pressure Mean [Right Arm] 02 Sat by Pulse Oximetry 95 97 Oxygen Delivery Method Nasal Cannula Nasal Cannula Oxygen Flow Rate (LPM) 2 2 Lab Data Lab Results 12/29/24 05:22: NT-Pro-B Natriuret Pep 758 H 12/29/24 06:02: WBC 10.0, RBC 2.77 L, Hgb 7.9 L, Hct 23.5 L, MCV 84.8, MCH 28.5, MCHC 33.6, RDW 13.9, Plt Count 238, MPV 8.1, Neut % (Auto) 88.4 H, Lymph % (Auto) 5.0 L, Owen % (Auto) 6.0, Eos % (Auto) 0.0 L, Baso % (Auto) 0.1, Neut # (Auto) 8.8 H, Lymph # (Auto) 0.5 L, Owen # (Auto) 0.6, Eos # (Auto) 0.0, Baso # (Auto) 0.0, Total Counted 100, Neutrophils % (Manual) 84 H, Lymphocytes % (Manual) 6 L, Monocytes % (Manual) 10 H, Platelet Estimate Normal, RBC Morphology Normal, PT 10.6, INR 0.95, APTT 28.2, Sodium 130 L, Potassium 3.1 L, Chloride 98, Carbon Dioxide 25, Anion Gap 10.1, BUN 15, Creatinine 0.70, Estimated Creat Clear 51, Estimated GFR 82, Est GFR ( Amer) 99, Glucose 134 H, Lactate 1.1, Calcium 7.9 L, Total Bilirubin 0.9, AST 87 H, ALT 79 H, Alkaline Phosphatase 99, Troponin I < 0.01, Total Protein 4.8 L, Albumin 2.9 L, Globulin 1.9, Albumin/Globulin Ratio 1.5, Plasma/Serum Alcohol < 10 12/29/24 06:05: VBG pH 7.50 H, VBG pCO2 34.8 L, VBG pO2 114.7 H, VBG HCO3 26.2, VBG Total CO2 27.3 H, VBG O2 Saturation 98.3 H, VBG Base Excess 3.0 H, VBG Lactic Acid 1.4 12/29/24 06:55: Urine Color [place], Urine Appearance Cloudy, Urine pH 6.0, Ur Specific Alpha 1.010, Urine Protein 1+ A, Urine Glucose (UA) Trace, Urine Ketones Negative, Urine Blood Trace-i, Urine Nitrate Positive A, Urine Bilirubin 1+ A, Urine Urobilinogen 2.0, Ur Leukocyte Esterase 3+ A, Urine RBC Occasional, Urine WBC 50-100, Ur Squamous Epith Cells Occasional, Urine Bacteria 4+, Urine Opiates Screen Negative, Urine Methadone Screen Negative, Ur Barbituates Screen Negative, Ur Phencyclidine Scrn Negative, Ur Amphetamines Screen Negative, U Benzodiazepines Scrn Negative, Urine Cocaine Screen Negative, U Marijuana (THC) Screen Negative 12/29/24 06:02 12/29/24 06:02 Orders (Tests/Meds): ED MEDICATIONS Discontinued Medications Generic Name Dose Route Start Last Admin Trade Name Freq PRN Reason Stop Dose Admin Lactated Ringer's 1,000 mls @ 999 mls/hr 12/29/24 06:01 12/29/24 07:33 Lactated Ringer's 1000 Ml Bag IV 12/29/24 07:01 Infused .Q1H1M ONE Infusion Cefepime HCl 2 gm/ Sodium 100 mls @ 200 mls/hr 12/29/24 07:30 12/29/24 08:17 Chloride IV 12/29/24 07:59 Infused ONCE ONE Infusion Lactated Ringer's 500 mls @ 999 mls/hr 12/29/24 07:49 12/29/24 08:55 Lactated Ringer's 1000 Ml Bag IV 12/29/24 08:19 Infused .Q31M ONE Infusion Iopamidol 80 ml 12/29/24 06:27 12/29/24 06:29 Iopamidol-370 (76%);100ml Bottle IV 12/29/24 06:28 80 ml ONCE ONE Administration Sodium Chloride 50 ml 12/29/24 06:27 12/29/24 06:28 0.9 % Sodium Chloride 50 Ml Vial IV 12/29/24 06:28 50 ml ONCE ONE Administration Sodium Chloride 10 ml 12/29/24 06:27 12/29/24 06:29 Sodium Chloride 0.9% 10ml Syr (Rad Only) IV 12/29/24 06:28 10 ml ONCE ONE Administration ORDERS Category Date Time Status CT abdomen pelvis w con Stat Cat Scan 12/29/24 06:[address] angio chest PE protocol Stat Cat Scan 12/29/24 06:01 Completed POCUS Point of Care (ER Only) Stat Exams 12/29/24 06:16 Completed BNP [NT Pro Brain Natriuretic Pep.] Stat Lab 12/29/24 05:22 Completed CBC w/Auto Diff [Complete Blood Count Auto Diff] Stat Lab 12/29/24 06:02 Completed CMP [Comprehensive Metabolic Panel] Stat Lab 12/29/24 06:02 Completed Ethanol [Ethyl Alcohol] Stat Lab 12/29/24 06:02 Completed Lactic Acid Stat Lab 12/29/24 06:02 Completed PT INR [Prothrombin Time INR] Stat Lab 12/29/24 06:02 Completed PTT [Activated Partial Thrombo Time] Stat Lab 12/29/24 06:02 Completed Troponin I Q3H Lab 12/29/24 09:15 Ordered Troponin I Q3H Lab 12/29/24 12:15 Ordered Troponin I Stat Lab 12/29/24 06:02 Completed UDS [Drug Screen,Urine] Stat Lab 12/29/24 06:55 Completed Urinalysis and Microscopic Stat Lab 12/29/24 06:55 Completed Blood Culture Stat Micro 12/29/24 06:21 Ordered Urine Culture Stat Micro 12/29/24 06:55 Received VBG [Venous Blood Gas] Stat RT 12/29/24 06:05 Completed Medical Decision Narrative: In summary, this 74-year-old female with comorbidities described in the HPI including recent surgery, hypertension, history of elevated liver enzymes presents to the emergency department today with generalized weakness, lightheadedness, difficulty urinating. On initial evaluation patient is hemodynamically stable, afebrile though temperature is elevated at 99, rectal temp is elevated at 99.7. Bladder scan on arrival over 500 mL, patient would prefer to be cathed at this time because she does not feel good enough to get up to the restroom. Patient has been taking Tylenol consistently so she may be having some antipyretic effect from this. This increases my suspicion for fever though she is not actively febrile. Surgical incisions on the lateral aspect of the left femur do not appear infected. Patient is pale and ill-appearing but GCS 15, no neurologic deficits, NIH 0, cardiopulmonary exam benign, she is slightly increased left lower extremity edema compared to the right, abdominal exam only notable for mild suprapubic tenderness with no rebound or guarding. Patient is on 1 L nasal cannula for comfort and saturating 97%. Differential diagnosis includes but is not limited to ACS, PE, sepsis, urinary tract infection, bacteremia, anemia, pneumonia, urinary retention, pyelonephritis, among others. Based on these concerns, I ordered hematologic and serum labs, blood cultures, urinalysis, UDS, ethanol level, CTA PE, CT abdomen pelvis, VBG, coags, cardiac workup. ECG personally interpreted demonstrates sinus rhythm, rate 76, normal axis, normal NC and QTc, no STEMI. Patient received IV fluids for treatment. She states she is not having any pain at this time. Labs personally reviewed demonstrate no leukocytosis, patient's anemia is significantly worsened compared to 1 week ago when she was here with her fall and broken femur. Hemoglobin now 7.9 but she is not tachycardic or hypotensive, will not transfuse at this time. She does have neutrophil predominance though she does not have leukocytosis, this does increase my suspicion that she may be starting to develop a bacterial infection, normal platelets, coags normal, VBG with pH 7.5, lactic on VBG normal, patient does have hyponatremia slightly worse than prior as well as hypokalemia. She will receive IV repletion. Mild transaminitis but no hyperbilirubinemia. Serum alcohol undetectable. Additional labs and imaging pending at the time of physician handoff. Patient handed off to Dr. Huggins in stable condition. <Jen Huggins, DO - Last Filed: 12/29/24 09:09> Vital Signs: 12/29/24 05:56 12/29/24 06:38 12/29/24 06:56 Temperature 99 F 99.7 F H Temperature Source Oral Rectal Pulse Rate 85 Pulse Rate [Orthostatic Lying] Pulse Rate [Orthostatic Sitting] Pulse Rate [Orthostatic Standing] Pulse Rate [Radial] 93 H Respiratory Rate 16 16 Blood Pressure 120/51 L Blood Pressure [Orthostatic Lying] Blood Pressure [Orthostatic Sitting] Blood Pressure [Orthostatic Standing] Blood Pressure [Right Arm] 108/53 L Blood Pressure Mean 70 Blood Pressure Mean [Right Arm] 71 02 Sat by Pulse Oximetry 94 L 97 Oxygen Delivery Method Room Air Oxygen Flow Rate (LPM) 12/29/24 07:00 12/29/24 07:30 12/29/24 07:48 Temperature Temperature Source Pulse Rate 78 76 80 Pulse Rate [Orthostatic Lying] Pulse Rate [Orthostatic Sitting] Pulse Rate [Orthostatic Standing] Pulse Rate [Radial] Respiratory Rate 18 20 17 Blood Pressure 103/45 L 98/38 L 103/47 L Blood Pressure [Orthostatic Lying] Blood Pressure [Orthostatic Sitting] Blood Pressure [Orthostatic Standing] Blood Pressure [Right Arm] Blood Pressure Mean Blood Pressure Mean [Right Arm] 02 Sat by Pulse Oximetry 94 L 95 95 Oxygen Delivery Method Nasal Cannula Nasal Cannula Oxygen Flow Rate (LPM) 2 2 12/29/24 08:00 12/29/24 08:29 12/29/24 08:52 Temperature Temperature Source Pulse Rate 71 79 Pulse Rate [Orthostatic Lying] 81 Pulse Rate [Orthostatic Sitting] 86 Pulse Rate [Orthostatic Standing] 84 Pulse Rate [Radial] Respiratory Rate 20 20 Blood Pressure 100/45 L 117/93 H Blood Pressure [Orthostatic Lying] 110/49 L Blood Pressure [Orthostatic Sitting] 104/39 L Blood Pressure [Orthostatic Standing] 96/44 L Blood Pressure [Right Arm] Blood Pressure Mean Blood Pressure Mean [Right Arm] 02 Sat by Pulse Oximetry 95 97 Oxygen Delivery Method Nasal Cannula Nasal Cannula Oxygen Flow Rate (LPM) 2 2 Lab Data Lab Results 12/29/24 05:22: NT-Pro-B Natriuret Pep 758 H 12/29/24 06:02: WBC 10.0, RBC 2.77 L, Hgb 7.9 L, Hct 23.5 L, MCV 84.8, MCH 28.5, MCHC 33.6, RDW 13.9, Plt Count 238, MPV 8.1, Neut % (Auto) 88.4 H, Lymph % (Auto) 5.0 L, Owen % (Auto) 6.0, Eos % (Auto) 0.0 L, Baso % (Auto) 0.1, Neut # (Auto) 8.8 H, Lymph # (Auto) 0.5 L, Owen # (Auto) 0.6, Eos # (Auto) 0.0, Baso # (Auto) 0.0, Total Counted 100, Neutrophils % (Manual) 84 H, Lymphocytes % (Manual) 6 L, Monocytes % (Manual) 10 H, Platelet Estimate Normal, RBC Morphology Normal, PT 10.6, INR 0.95, APTT 28.2, Sodium 130 L, Potassium 3.1 L, Chloride 98, Carbon Dioxide 25, Anion Gap 10.1, BUN 15, Creatinine 0.70, Estimated Creat Clear 51, Estimated GFR 82, Est GFR ( Amer) 99, Glucose 134 H, Lactate 1.1, Calcium 7.9 L, Total Bilirubin 0.9, AST 87 H, ALT 79 H, Alkaline Phosphatase 99, Troponin I < 0.01, Total Protein 4.8 L, Albumin 2.9 L, Globulin 1.9, Albumin/Globulin Ratio 1.5, Plasma/Serum Alcohol < 10 12/29/24 06:05: VBG pH 7.50 H, VBG pCO2 34.8 L, VBG pO2 114.7 H, VBG HCO3 26.2, VBG Total CO2 27.3 H, VBG O2 Saturation 98.3 H, VBG Base Excess 3.0 H, VBG Lactic Acid 1.4 12/29/24 06:55: Urine Color [place], Urine Appearance Cloudy, Urine pH 6.0, Ur Specific Alpha 1.010, Urine Protein 1+ A, Urine Glucose (UA) Trace, Urine Ketones Negative, Urine Blood Trace-i, Urine Nitrate Positive A, Urine Bilirubin 1+ A, Urine Urobilinogen 2.0, Ur Leukocyte Esterase 3+ A, Urine RBC Occasional, Urine WBC 50-100, Ur Squamous Epith Cells Occasional, Urine Bacteria 4+, Urine Opiates Screen Negative, Urine Methadone Screen Negative, Ur Barbituates Screen Negative, Ur Phencyclidine Scrn Negative, Ur Amphetamines Screen Negative, U Benzodiazepines Scrn Negative, Urine Cocaine Screen Negative, U Marijuana (THC) Screen Negative Orders (Tests/Meds): ED MEDICATIONS Discontinued Medications Generic Name Dose Route Start Last Admin Trade Name Freq PRN Reason Stop Dose Admin Lactated Ringer's 1,000 mls @ 999 mls/hr 12/29/24 06:01 12/29/24 07:33 Lactated Ringer's 1000 Ml Bag IV 12/29/24 07:01 Infused .Q1H1M ONE Infusion Cefepime HCl 2 gm/ Sodium 100 mls @ 200 mls/hr 12/29/24 07:30 12/29/24 08:17 Chloride IV 12/29/24 07:59 Infused ONCE ONE Infusion Lactated Ringer's 500 mls @ 999 mls/hr 12/29/24 07:49 12/29/24 08:55 Lactated Ringer's 1000 Ml Bag IV 12/29/24 08:19 Infused .Q31M ONE Infusion Iopamidol 80 ml 12/29/24 06:27 12/29/24 06:29 Iopamidol-370 (76%);100ml Bottle IV 12/29/24 06:28 80 ml ONCE ONE Administration Sodium Chloride 50 ml 12/29/24 06:27 12/29/24 06:28 0.9 % Sodium Chloride 50 Ml Vial IV 12/29/24 06:28 50 ml ONCE ONE Administration Sodium Chloride 10 ml 12/29/24 06:27 12/29/24 06:29 Sodium Chloride 0.9% 10ml Syr (Rad Only) IV 12/29/24 06:28 10 ml ONCE ONE Administration ORDERS Category Date Time Status CT abdomen pelvis w con Stat Cat Scan 12/29/24 06:[address] angio chest PE protocol Stat Cat Scan 12/29/24 06:01 Completed POCUS Point of Care (ER Only) Stat Exams 12/29/24 06:16 Completed BNP [NT Pro Brain Natriuretic Pep.] Stat Lab 12/29/24 05:22 Completed CBC w/Auto Diff [Complete Blood Count Auto Diff] Stat Lab 12/29/24 06:02 Completed CMP [Comprehensive Metabolic Panel] Stat Lab 12/29/24 06:02 Completed Ethanol [Ethyl Alcohol] Stat Lab 12/29/24 06:02 Completed Lactic Acid Stat Lab 12/29/24 06:02 Completed PT INR [Prothrombin Time INR] Stat Lab 12/29/24 06:02 Completed PTT [Activated Partial Thrombo Time] Stat Lab 12/29/24 06:02 Completed Troponin I Q3H Lab 12/29/24 09:15 Ordered Troponin I Q3H Lab 12/29/24 12:15 Ordered Troponin I Stat Lab 12/29/24 06:02 Completed UDS [Drug Screen,Urine] Stat Lab 12/29/24 06:55 Completed Urinalysis and Microscopic Stat Lab 12/29/24 06:55 Completed Blood Culture Stat Micro 12/29/24 06:21 Ordered Urine Culture Stat Micro 12/29/24 06:55 Received VBG [Venous Blood Gas] Stat RT 12/29/24 06:05 Completed Medical Decision Narrative: In summary, this 74-year-old female with comorbidities described in the HPI including recent surgery, hypertension, history of elevated liver enzymes presents to the emergency department today with generalized weakness, lightheadedness, difficulty urinating. On initial evaluation patient is hemodynamically stable, afebrile though temperature is elevated at 99, rectal temp is elevated at 99.7. Bladder scan on arrival over 500 mL, patient would prefer to be cathed at this time because she does not feel good enough to get up to the restroom. Patient has been taking Tylenol consistently so she may be having some antipyretic effect from this. This increases my suspicion for fever though she is not actively febrile. Surgical incisions on the lateral aspect of the left femur do not appear infected. Patient is pale and ill-appearing but GCS 15, no neurologic deficits, NIH 0, cardiopulmonary exam benign, she is slightly increased left lower extremity edema compared to the right, abdominal exam only notable for mild suprapubic tenderness with no rebound or guarding. Patient is on 1 L nasal cannula for comfort and saturating 97%. Differential diagnosis includes but is not limited to ACS, PE, sepsis, urinary tract infection, bacteremia, anemia, pneumonia, urinary retention, pyelonephritis, among others. Based on these concerns, I ordered hematologic and serum labs, blood cultures, urinalysis, UDS, ethanol level, CTA PE, CT abdomen pelvis, VBG, coags, cardiac workup. ECG personally interpreted demonstrates sinus rhythm, rate 76, normal axis, normal NC and QTc, no STEMI. Patient received IV fluids for treatment. She states she is not having any pain at this time. Labs personally reviewed demonstrate no leukocytosis, patient's anemia is significantly worsened compared to 1 week ago when she was here with her fall and broken femur. Hemoglobin now 7.9 but she is not tachycardic or hypotensive, will not transfuse at this time. She does have neutrophil predominance though she does not have leukocytosis, this does increase my suspicion that she may be starting to develop a bacterial infection, normal platelets, coags normal, VBG with pH 7.5, lactic on VBG normal, patient does have hyponatremia slightly worse than prior as well as hypokalemia. She will receive IV repletion. Mild transaminitis but no hyperbilirubinemia. Serum alcohol undetectable. Additional labs and imaging pending at the time of physician handoff. Patient handed off to Dr. Huggins in stable condition. Jen Huggins, I assumed care of the patient at 0700. Patient's UA returned and was nitrite positive, had leukocytes, 4+ bacteria, 50-[address] Patient [address] abdomen/pelvis showed no acute pathology. CT of the chest showed concern for left lower lobe pneumonia. Patient's blood pressure continued to downtrend and patient was given a second liter of IV fluids. BNP was send, mildly elevated at 700 but no evidence of volume overload. Patient's left hip had no active signs of bruising or bleeding. Patient was ordered cefepime given recent hospitalization for Pseudomonas coverage. This time, patient was requiring 2 L nasal cannula, became hypoxic to 86% on room air. Hospital medicine was consulted and patient was ultimately admitted to their service for further evaluation workup. Procedures <Whitney Martinez MD - Last Filed: 12/29/24 07:03> Miscellaneous Procedure Procedure Performed: Ultrasound-guided IV Performed by: Whitney Martinez MD Indication: Need for peripheral IV access, multiple failed nursing attempts Consent: Verbal provided by patient after discussion of risks and benefits Procedure details: Area cleaned with chlorhexidine which was allowed to dry prior to procedure. Sterile jelly used and appropriate vessel identified under real-time ultrasound. 20-gauge catheter was placed in the vessel in the proximal left upper extremity under real-time ultrasound guidance and I directly visualized it entering the vessel. IV draws and flushes. Secured with Tegaderm. Post procedure details: Neurovascularly intact, tolerated procedure well, no complications Images were saved in the permanent archive. Critical Care <Whitney Martinez MD - Last Filed: 12/29/24 07:03> Critical Care Time Critical Care Time: No
--- OUTSIDE RECORDS SUMMARY | 2024-12-29 06:07 | XMS_ITS | Clinical Summary ---
Author Organization [facility] Address [address] [place] [address] Care Team Providers Care Marketing Representative Name Role Phone Ramon Mckeon Primary Care Provider [phone] Source Comments This information has been disclosed [...] therelease of HIV test results or diagnoses. [id number] Allergies No known active allergies Medications [...] Plan of Treatment Not on file Insurance [employer] [place] [employer] PPO MEDICARE Care Teams Marketing Representative Relationship Specialty Start Date End Date Ramon Mckeon [address] [place] [address] PCP - General 08/12/15
--- OUTSIDE RECORDS SUMMARY | 2024-12-29 06:08 | XMS_ITS | Encounter Summary ---
Author Organization [facility] Address [address] 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 [id number] [place] [id number] documented as of this encounter Procedures Procedure Name Priority Date/Time Associated Diagnosis Comments LAB SCAN Routine 11/24/2010 documented in this encounter Results * LAB SCAN (11/24/2010) [facility] LABORATORY Final Result documented in this encounter Visit Diagnoses Not on filedocumented in this encounter Care Teams Cloth Weaver Relationship Specialty Start Date End Date Bonifacio Quinn MD [address] [place] [address] PCP - General 08/13/10 01/08/21 Bonifacio Quinn MD [address] [place] [address] PCP - Naomi REECE Attributed Physician 08/20/19 08/18/21 Pcp, MD Arabella [address] [place] [address] PCP - General Internal Medicine 01/09/21 documented as of this encounter
--- OUTSIDE RECORDS SUMMARY | 2024-12-29 06:08 | XMS_ITS | Encounter Summary ---
Author Organization [facility] Address [address] 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 Not on file Not on file Not on file Not on file Not on file Not on file documented as of this encounter Plan of Treatment Upcoming Encounters Date Type Department Care Team (Late st Contact Info) Description 01/21/2025 1:40 PM EST Appointment [facility] [id number] [place] [phone] documented as of this encounter Procedures Procedure Name Priority Date/Time Associated Diagnosis Comments URINE CULTURE Routine 11/25/2010 documented in this encounter Results * URINE CULTURE (11/25/2010) Urine specimen (specimen) [facility] LABORATORY Final Result [facility] [address] [place] [address] documented in this encounter Visit Diagnoses Not on filedocumented in this encounter Care Teams Transmission Technician Relationship Specialty Start Date End Date Bonifacio Quinn MD [address] [place] [address] PCP - General 08/13/10 01/08/21 Bonifacio Quinn MD [address] [place] [address] PCP - Naomi REECE Attributed Physician 08/20/19 08/18/21 Pcp, MD Arabella [address] [place] [address] PCP - General Internal Medicine 01/09/21 documented as of this encounter
--- OUTSIDE RECORDS SUMMARY | 2024-12-29 06:08 | XMS_ITS | Patient Health Record ---
Author Organization [facility] Address [address] [facility] [address] [facility] [address] [place] [id number] Care Team Providers Care Superintendent Name Role Phone LarsJames Unavailable [phone] AnaEzequielKathryn Unavailable [phone] TjShayla tellez Unavailable [phone] Allergies No Known Allergies Results Component Value [...] Interpretation: Performing Lab: Notes/Report: Test performed by [facility] [address] [place] [address] , [address], [place] [address] uGstavo Flores MD, Osd Clerk CLIA: [id number] Sodium 145 135-145 mmol/L Potassium 3.4 3.5-5.3 [...] Interpretation: Performing Lab: Notes/Report: Test performed by [facility], [address] , [address] , [place] [address] Gustavo Flores MD, Osd Clerk CLIA: [id number] Cholesterol 104 <200 mg/dL Triglycerides 79 <150 [...] Interpretation: Performing Lab: Notes/Report: Test performed by [facility] [address] [place], [place] [address] [place] [address] Gustavo Folres MD, Osd Clerk CLIA: [id number] TSH reflex to FT4 3.56 0.43-5.25 mU/L [facility] Natriuretic Peptide Reviewed date:05/09/2024 12:02:39 PM Interpretation: Performing Lab: Notes/Report: Test performed by [facility] [address] [place], [place] [address] [place] [id number] Gustavo Flores MD, Osd Clerk CLIA: [id number] [facility] Natriuretic Peptide 169 <300 pg/mL Please note the updated reference range values which are stratified by age. Positive >900 pg/mL Indeterminate 300-900 pg/mL Negative <300 pg/mL P-Comprehensive Metabolic Pa radha (CMP) Reviewed date:05/14/2024 11:04:18 PM Interpretation:gluc 62, alk phos 173, alt 100, ast 59, a/g 2.5 Performing Lab: Notes/Report: Test performed by [facility] [address] [place] [address] , [place] [address] Gustavo Flores MD, Osd Clerk CLIA: [id number] Sodium 143 135-145 mmol/L Potassium 4.4 3.5-5.3 [...] Interpretation:Normal Performing Lab: Notes/Report: Test performed by [facility] [address] [place] [address] , [address], [place] [address] Gustavo Flores MD, Osd Clerk CLIA: [id number] Hepatitis A Antibody, IgM Nonreactive Nonreactive Hepatitis [...] 3.2 Performing Lab: Notes/Report: Test performed by [facility] [address] [place] [address] , [address], [place] [address] Gustavo Flores MD, Osd Clerk CLIA: [id number] Sodium 141 135-145 mmol/L Potassium 4.7 3.5-5.3 [...] Interpretation:Normal Performing Lab: Notes/Report: Test performed by [facility] [address] [place] [address] , [address], [place] [address] Gustavo Flores MD, Osd Clerk CLIA: [id number] Cholesterol 186 <200 mg/dL Triglycerides 68 <150 [...] Interpretation:Normal Performing Lab: Notes/Report: Test performed by [facility] [address] [place] [address] Gustavo Flores MD, Osd Clerk CLIA: [id number] TSH reflex to FT4 2.98 0.43-5.25 mU/L Cologuard Reviewed date:12/13/2024 02:02:58 PM Interpretation:colonoscopy 03/01/2024 Performing Lab: Notes/Report: colonoscopy 03/01/2024 DEXA Hip and Spine (Not yet reviewed by provider) Interpretation:Osteoporosis, Osteopenia Performing Lab: Notes/Report: Osteoporosis, Osteopenia colonoscopy Reviewed date:04/25/2024 12:21:25 PM Interpretation:unremarkable Performing Lab: Notes/Report: unremarkable result: unremarkable Urinalysis - Inhouse Reviewed date:02/07/2024 03:39:09 PM Interpretation: Performing Lab: Notes/Report: Color/Clarity yellow/cloudy Leuk 3+ Nitrite neg Urobili 3.2 Protein 1+ pH 6.0 Blood 2+ Sp. Gr. 1.010 Ketone neg Bili neg Gluc neg P-Culture, Urine Reviewed date:02/09/2024 10:07:22 AM Interpretation:No growth Performing Lab: Notes/Report: Test performed by [facility] [address] [place] [address] , [place] [address] Gustavo Flores MD, Osd Clerk CLIA: [id number] Specimen Source Urine - Void Culture, Urine See Below Final Report : No growth Urinalysis - Inhouse Reviewed date:02/17/2024 01:48:42 PM Interpretation: Performing Lab: Notes/Report: Color/Clarity yellow cloudy Leuk 3+ Nitrite neg Urobili 3.2 Protein 3+ pH 6.0 Blood 2+ Sp. Gr. 1.020 Ketone neg Bili neg Gluc neg P-Culture, Urine Reviewed date:02/22/2024 03:01:10 PM Interpretation:intermediate Performing Lab: Notes/Report: CLIA: [id number] Gustavo Flores MD, Osd Clerk [address] [place] [address] , [place] [address] Test performed by [facility] Specimen Source Urine - Void Culture, Urine [...] Tobramycin S Trimeth/Sulfa S S=SUSCEPTIBLE I=INTERMEDIATE R=RESISTANT Reason For Referral Diagnosis 1 Chronic diarrhea (K5 2.9) Referral Organization [facility] Referring Provider First Name James Navarrete Referring Provider Last Name [facility] Referring Provider [facility] Referred Provider Specialty Gastroentero logy General Notes Melissa Duenas 024 9:32:04 AM > faxed referral with office notes to Dr. Aragon Referral Priority Routine Reason patient needs in-denise e PT Diagnosis 1 Left displaced femor al neck fracture (S72.002A) [facility] Referring Provider First Name James Navarrete Referring Provider Last Name Lars Referring Provider [facility] Referred Provider Specialty Occupational Therapy General Notes Melissa Duenas 2024 09:00:04 AM > faxed to [facility] Referral Priority Routine Reason patient needs in-denise e PT Diagnosis 1 Left displaced femor al neck fracture (S72.002A) [facility] Referring Provider First Name James Navarrete Referring Provider Last Name Lars Referring Provider Speciality Family Mary glass Referred Provider Specialty Physical The rapist General Notes Melissa Duenas 2024 08:59:50 AM > faxed to [facility] Referral Priority Routine Medications Medication SIG (Take, Route, Frequency, Duration) Notes Start Date End Date Status Creon [id number] UNIT as directed Orally Active Solifenacin Succinate [...] a nd pick correct strength-formulati on from [employer] options. If intended option is not shown, [...] Notes Problem Arthropathy of lumbar facet joint (967838059) Lumbar facet arthropathy (M47.816) Active confirmed Problem Mixed anxiety and depressive disorder (900622648) Depression with anxiety (F41.8) Active confirmed Problem Overflow incontinence of urine (695267992) Overflow incontinence (N39.490) Active confirmed Problem Dyslipidemia (526080271) Dyslipidemia (E78.5) Active confirmed Problem Midline cystocele (324395477) Female bladder prolapse (N81.10) Active confirmed Problem Exocrine pancreatic insufficiency (68205740) Exocrine pancreatic insufficiency (K86.81) Active confirmed Problem Primary hypertension (25291639) Primary hypertension (I10) Active confirmed Problem Essential tremor (891401454) 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) Active confirmed Vital Signs Heart Rate 72 /min 11/08/2024 Blood pressure diastolic 70 mm Hg 11/08/2024 Height 69.5 in 11/08/2024 Blood pressure systolic 122 mm Hg 11/08/2024 Weight 156 lbs 11/08/2024 BMI 22.7 kg/m2 11/08/2024 Encounters Encounter Location Date Provider Diagnosis [facility] [address] [facility] [address] [place] [id number] 01/27/2024 Shayla Mitchell Edema of left lower extremity R60.0 [facility] [address] [place] [facility] [address] [place] [id number] 02/07/2024 Kathryn Perez UTI (lower urinary tract infection) N39.0 [facility] [address] [place] [facility] [address] [place] [id number] 02/17/2024 Shayla Mitchell Dysuria R30.0 [facility] [address] [place] [id number] 03/20/2024 James Sousa Acute bronchitis J20 .9 [facility] [place] [facility] [address] [place] [id number] 04/26/2024 Shayla Mitchell Adult general medica l examination Z00.00 ; Dyslipidemia E78.5 ; Primary hypertension I10 ; Depression with anxiety F41.8 ; Benign familial tremor G25.0 ; Overflow incontinence N39.490 ; Uncomplicated varicose veins I83.90 ; Lower extremity edema R60.0 ; Exocrine pancreatic insufficiency K86.81 ; Screening mammogram, encounter for Z12.31 ; Osteoporosis screening Z13.820 and BMI 22.0-22.9, adult Z68.22 [facility] [address] [place] [facility] [address] [place] [id number] 05/10/2024 Shayla Mitchell Elevated liver enzym es R74.8 [facility] [address] [place] [address] [place], [place] [id number] 11/08/2024 Shayla Mitchell Dyslipidemia E78.5 ; Primary hypertension I10 ; Depression with anxiety F41.8 ; Benign familial tremor G25.0 ; Overflow incontinence N39.490 ; Uncomplicated varicose veins I83.90 ; Lower extremity edema R60.0 ; Exocrine pancreatic insufficiency K86.81 ; Screening for osteoporosis Z13.820 and BMI 22.0-22.9, adult Z68.22 [facility] [address] [place], [place] [id number] 01/09/2024 R Landon Lars Chronic diarrhea K52 .9 and Bloating R14.0 [facility] [address] [place], [place] [id number] 01/27/2024 Shayla Crowdy [facility] [address] [place], [place] [id number] 02/20/2024 Shayla Stephen UTI (lower urinary tract infection) N39.0 [facility] [address] [place], [place] [id number] 02/22/2024 Shayla Crowdy [facility] [address] [place], [place] [id number] 05/09/2024 Shayla Crowdy [facility] [address] [place], [place] [id number] 05/23/2024 Shayla Crowdy [facility] [address] [place], [place] [id number] 11/12/2024 R Landon Lars Colon cancer screeni ng Z12.11 [facility] [address] [place], [place] [id number] 11/22/2024 Shayla Crowdy [facility] [address] [place], [place] [id number] 12/24/2024 R Landon Lars [facility] [address] [place], [place] [id number] 12/27/2024 Shayla Crowdy [facility] [address] [place], [place] [id number] 05/09/2024 R Landon Lars [facility] [address] [place], [place] [id number] 05/14/2024 Shaylaadan Mitchell Elevated liver funct ion tests R79.89 Assessments Encounter Date Diagnosis (ICD Code) Assessment Notes Treatment Notes Treatment Clinical Notes Section Notes 11/12/2024 Colon cancer screening (ICD-10 - Z12.11) 11/08/2024 Dyslipidemia (ICD-10 - E78.5) 01/27/2024 Edema of left lower extremity (ICD-10 - R60.0) Will get a doppler to r/o a clot. If normal, can try compression stockings and elevation. 01/09/2024 Bloating (ICD-10 - R14.0) 01/09/2024 Chronic diarrhea (ICD-10 - K52.9) 02/17/2024 Dysuria (ICD-10 - R30.0) 02/07/2024 UTI (lower urinary tract infection) (ICD-10 - N39.0) good water intake 05/14/2024 Elevated liver function tests (ICD-10 - R79.89) 05/10/2024 Elevated liver enzymes (ICD-10 - R74.8) 11/08/2024 Primary hypertension (ICD-10 - I10) Okay to remain off of the lisinopril. 04/26/2024 Dyslipidemia (ICD-10 - E78.5) 04/26/2024 Adult general medical examination (ICD-10 - Z00.00) Patient instructed to return to office Annually for Annual Wellness Visits to include annual screenings of Pain assessment, Functional Ability assessment, Cognitive Ability assessment, Fall Risk assessment, Depression screening and Bladder control screening. 03/20/2024 Acute bronchitis (ICD-10 - J20.9) 02/20/2024 UTI (lower urinary tract infection) (ICD-10 - N39.0) 04/26/2024 Primary hypertension (ICD-10 - I10) 11/08/2024 Depression with anxiety (ICD-10 - F41.8) 04/26/2024 Depression with anxiety (ICD-10 - F41.8) 11/08/2024 Benign familial tremor (ICD-10 - G25.0) 04/26/2024 Benign familial tremor (ICD-10 - G25.0) 11/08/2024 Overflow incontinence (ICD-10 - N39.490) 04/26/2024 Overflow incontinence (ICD-10 - N39.490) 11/08/2024 Uncomplicated varicose veins (ICD-10 - I83.90) 04/26/2024 Uncomplicated varicose veins (ICD-10 - I83.90) 11/08/2024 Lower extremity edema (ICD-10 - R60.0) Resolved 11/08/2024 Exocrine pancreatic insufficiency (ICD-10 - K86.81) 04/26/2024 Lower extremity edema (ICD-10 - R60.0) 04/26/2024 Exocrine pancreatic insufficiency (ICD-10 - K86.81) 11/08/2024 Screening for osteoporosis (ICD-10 - Z13.820) 11/08/2024 BMI 22.0-22.9, adult (ICD-10 - Z68.22) 04/26/2024 Screening mammogram, encounter for (ICD-10 - Z12.31) Patient schedules in [place] 04/26/2024 Osteoporosis screening (ICD-10 - Z13.820) Patient schedules in [place] 04/26/2024 BMI 22.0-22.9, adult (ICD-10 - Z68.22) Plan Of Treatment Pending Test Test Name Order Date Bone density 04/26/2024 DEXA Hip and Spine 11/12/2024 venous doppler ultrasound leg, lower lef t 01/27/2024 Mammogram 04/26/2024 Next Appt Details Provider Name:Shayla Steph Jenn leone, 01/02/2025 11:30:00 AM, [address], [place], [place], [id number], Insurance Providers Payer Name Payer Address Payer Phone Subscriber Number Group Number Insured Name Patient Relationship to Insured Coverage Start Date Coverage End Date [employer] (MEDICAR E) [address] [address] [place] [address] [id number] SLOANE DAVID Self - patient is the insured Medical (General) History Medical History History ICD Code Hypertension Hyperlipidemia Depression Heart Murmur Benign Familial Tremor Anxiety Exocrine pancreatic insufficiency Surgical History Surgery Date(Month/Year) hysterectomy for uterine fibroids 1980s Bilateral oophorectomy for cystic diseas e Right TKA 09/2021 Fusion L4/L5 05/18/23 Tonsillectomy Hospitalization History Reason Date(Month/Year)
--- OUTSIDE RECORDS SUMMARY | 2024-12-29 06:08 | XMS_ITS | Encounter Summary ---
Author Organization [employer] ([place], [place], [place], [place]) Address [address] [place] [address] Care Team Providers Care Adobe Ball Mixer Name Role Phone Shayla Mitchell Primary Care Provider [phone] Encounter Details Date Type Department Care Team (Latest Contact Info) Description 12/21/2024 Travel Social History Tobacco Use Types Packs/Day Years Used Date Smoking Tobacco: Never Assessed Utilities Answer Date Recorded In the past [...] your living situation today? [facility] 12/21/2024 Think [...] Do you speak a language other than Martiniquais at [facility]? No 12/21/2024 Do you want help with [...] on filedocumented in this encounter Care Teams Adobe Ball Mixer Relationship Specialty Start Date End Date Shayla Mitchell PA [address] [place] [address] PCP - General Physician Ornamental Rail Installer 12/21/24 documented as of this encounter
--- OUTSIDE RECORDS SUMMARY | 2024-12-29 06:08 | XMS_ITS | Clinical Summary ---
Author Organization [facility] ([place], [place], [place], [place]) Address [address] [place] [address] Care Team Providers Care Scooter Mechanic Name Role Phone Shayla Mitchell Primary Care Provider [phone] Allergies No known active allergies Medications lamoTRIgine (LaMICtal) 100 MG tablet Take 1 tablet (100 mg total) by mouth 2 (two) times daily. 4 Active QUEtiapine (SEROquel) 100 MG tablet Take 1 tablet (100 mg total) by mouth nightly. 5 Active pancrelipase, Lipase-Protease -Amylase, (Creon) 6,000-19,000 -30,000 unit capsule Take 2 capsules by mouth 3 (three) times daily with meals. Active venlafaxine XR (EFFEXOR-XR) 150 MG 24 hr capsule Take 1 capsule (150 mg total) by mouth nightly. 4 Active polycarbophiL (FIBERCON) 625 mg tablet Take 1 tablet (625 mg total) by mouth daily as needed. 4 Active valbenazine 60 mg cap Take 60 mg by mouth daily. Active sennosides-docu sate sodium (SENOKOT S) 8.6-50 mg per tablet Take 1 tablet by mouth 2 (two) times daily for 7 days. 14 tablet 5 01/01/20 25 Active enoxaparin (LOVENOX) 40 mg/0.4 mL syrg Inject 0.4 mLs (40 mg total) under the skin daily for 20 days. 8 mL 5 01/15/20 25 Active aspirin 81 MG EC tablet Take 1 tablet (81 mg total) by mouth 2 (two) times daily for 90 days. 180 tablet 5 04/12/19 26 Active oxyCODONE (ROXICODONE) 5 MG immediate release tablet Take 1 tablet (5 mg total) by mouth every 6 (six) hours as needed for up to 3 days Look-alike/ Sound-alike medication. Max Daily Amount: 20 mg 12 tablet 5 12/28/19 25 Active Problems Problem Noted Date Diagnosed Date Closed left hip fracture, initial encounter 05/2024 Encounters Date Type Department Care Team Description 12/22/2024 11:00 AM EDT - 12/22/2024 12:43 PM EDT Surgery [facility] Surgery Department [address] [place] [address] Sea Contreras MD INSERTION, INTRAMEDULLARY ROBERT, FEMUR 12/22/2024 9:21 AM EDT Anesthesia Event [facility] Surgery Department [address] [place] [address] Randall Mejia, BOILER HOUSE INSPECTOR 12/21/2024 8:07 PM EDT - 12/24/2024 2:35 PM EDT Hospital Encounter [facility] Telemetry Unit [address] [place] [address] Jeffry Price MD Brodkin, Christopher, MD Closed left hip fracture, initial encounter ([facility]) (Primary Dx) Discharge Dis[place]: [place] [facility] [place] Travel from Last 3 Months Social History Tobacco Use Types Packs/Day Years [...] Do you speak a language other than [place] at [facility]? No 12/21/2024 Do you want help [...] Mass Index 28.71 12/22/2024 4:20 AM EDT Plan of Treatment Health Maintenance Due Date Last Done Comments CT Colonography 1950 Colonoscopy 1950 Colorectal Cancer Screening 1950 DXA SCAN 1950 FOBT/FIT 1950 Fit-DNA (Cologuard) 1950 Sigmoidoscopy 1950 Depression Screening (12+) 1962 Hepatitis C Screening 1968 Shingles Vaccine (Zoster) (2 of 2) 05/25/20112011 Falls Risk Screening 03/21/2024 Medicare IPPE (Welcome to Medicare) G0402 03/21/2024 COVID-19 VACCINE (2 - 2024-2 6 season) 2024 06/25/2020 Influenza Vaccine (#1) 2024 0, 04/07/2018, 04/06/2017, Additional history exists Breast Cancer Screening 03/24/2025 03/24/2023, 03/24 Respiratory Syncytial Virus (RSV) Adult or (1 - 1-dose 75+ series) 2025 Tobacco Cessation Counseling and Screening (12+) 12/22/2025 12/22/2024 DTAP/TDAP/TD VACCINES (3 - T d or Tdap) 04/07/2028 04/07/2018, 07/17/2008 Pneumococcal 50+ years Completed 4, 04/06/2017, 02/20/2016 Medical Devices Implanted Type Area Drapery Cutter Machine Device Identifier Shelf Expiration Date Model / Serial / Lot Nail Tfna [id number] 130d Strl 04.037.063s - [id number] Implanted:Qty: 1 on 12/22/2024 by Sea Contreras MD at [facility] IMPLANTS Left: Hip SYNTHES TRAUMA 10/19/2027 04.037.063 S / / [id number] Scr Tfna 95mm 04.038.195s - [id number] Implanted:Qty: 1 on 12/22/2024 by Sea Contreras MD at [facility] IMPLANTS Left: Hip SYNTHES:SYNTHES [place] 07/18/2034 04.038.195 S / / [id number] Scr Lckng 5x60 04.045.060ts - [id number] Implanted:Qty: 1 on 12/22/2024 by Sea Contreras MD at [facility] IMPLANTS Left: Hip SYNTHES:SYNTHES [place] 05/18/2029 04.045.060 TS / / [id number] Scr Luna 5.0x50mm Strl 04.045.050s - [id number] Implanted:Qty: 1 on 12/22/2024 by Sea Contreras MD at [facility] IMPLANTS Left: Hip SYNTHES:SYNTHES [place] 02/17/2029 04.045.050 S / / [id number] Procedures Procedure Name Priority Date/Time Associated Diagnosis Comments FL < 1 HOUR Routine 12/22/2024 11:02 AM EDT ANESTHESIA INTUBATION Routine 12/22/2024 9:32 AM EDT INSERTION, INTRAMEDULLARY ROBERT, FEMUR 12/22/2024 9:21 AM EDT Hip fracture (HCC) MAGNESIUM Routine 12/22/2024 4:56 AM EDT COMPREHENSIVE METABOLIC PANEL Routine 12/22/2024 4:56 AM EDT CBC W/ AUTO DIFF Routine 12/22/2024 4:56 AM EDT FS_MODEL_IP_ECG 12-LEAD Routine 12/23/19 4:47 AM EDT ABO/RH CONFIRMATION/RETYPE ([place] BKR) STAT 12/21/2024 9:55 PM EDT TYPE AND SCREEN ([place] BKR) RUSSEL 12/21/2024 9:55 PM EDT PT/INR, PTT Routine 12/21/2024 9:55 PM EDT XR PELVIS PORTABLE STAT 12/21/2024 9: 20 PM EDT EKG-SCANNED 12/21/2024 from Last 3 Months Results * Fluoroscopy less than 1 hour [...] by Nila Eugene PA-C. Sea Contreras MD IM FLUOROSCOPY ORDERABLES Final Result * AN SINGLE LUMEN INTUBATION (12/22/2024 9:32 [...] of other approaches attempted: 0 Randall Mejia CRNA ANESTHESIA ORDERABLES Final Result * (ABNORMAL) CBC with automated diff (12/22/2024 4:56 AM EDT) WBC 4.9 3.9 - 10.0 K/ L 12/22/2024 5:03 AM EDT [facility] RBC 3.76(L) 3.93 - 5.22 M/ L 12/22/2024 5:03 AM EDT [facility] Hemoglobin 10.5(L) 11.2 - 15.7 GM/DL 12/22/2024 5:03 AM EDT [facility] Hematocrit 33.3(L) 34.1 - 44.9 % 12/22/2024 5:03 AM EDT [facility] MCV 89 79 - 95 fL 12/22/2024 5:03 AM EDT [facility] MCH 27.9 25.6 - 32.2 pg 12/22/2024 5:03 AM EDT [facility] MCHC 31.5(L) 32.2 - 36.5 GM/DL 12/22/2024 5:03 AM EDT [facility] RDW 14.0 11.6 - 14.4 % 12/22/2024 5:03 AM EDT [facility] Platelets 122(L) 163 - 369 K/CU MM 12/22/2024 5:03 AM EDT [facility] MPV 9.4 9.4 - 12.4 fL 12/22/2024 5:03 AM EDT [facility] % Neutros 75(H) 34 - 71 % 12/22/2024 5:03 AM EDT [facility] % Lymphs 14(L) 19 - 53 % 12/22/2024 5:03 AM EDT [facility] % Monos 10 4 - 13 % 12/22/2024 5:03 AM EDT [facility] % Eos 0(L) 1 - 7 % 12/22/2024 5:03 AM EDT [facility] % Baso 0 0 - 1 % 12/22/2024 5:03 AM EDT [facility] # Neutros 3.67 1.56 - 6.13 K/ L 12/22/2024 5:03 AM EDT [facility] # Lymphs 0.69(L) 1.18 - 3.74 K/ L 12/22/2024 5:03 AM EDT [facility] # Monos 0.50 0.24 - 0.82 K/ L 12/22/2024 5:03 AM EDT [facility] # Eos 0.02(L) 0.04 - 0.54 K/ L 12/22/2024 5:03 AM EDT [facility] # Baso 0.01 0.01 - 0.08 K/ L 12/22/2024 5:03 AM EDT [facility] Immature Granulocytes-Re lative 0.40 0.00 - 0.60 % 12/22/2024 5:03 AM EDT [facility] # IG 0.02 0.00 - 0.05 K/uL 12/22/2024 5:03 AM EDT [facility] Blood Venipuncture / Unknown 12/22/2024 4:56 AM EDT 12/22/2024 4:56 AM EDT Narrative [facility] - 12/22/2024 5:03 AM EDT [...] ORDERABLES Final Resul t Performing Organization Address [facility] Co de Phone Number [facility] [address] [phone] * Magnesium (12/22/2024 4:56 AM EDT) Magnesium 2.1 1.5 - 2.4 mg/dL 12/22/2024 5:18 AM EDT [facility] Blood Venipuncture / Unknown 12/22/2024 4:56 AM EDT 12/22/2024 4:56 AM EDT us Alberto Gallego MD LAB BLOOD ORDERABLES Final Resul t Performing Organization Address [facility] Co de Phone Number [facility] [address] [phone] * (ABNORMAL) Comprehensive metabolic panel (12/22/2024 4:56 AM EDT) Sodium 139 136 - 146 meq/L 12/22/2024 5:18 AM T [facility] Potassium 3.9 3.5 - 5.1 meq/L 12/22/2024 5:18 AM T [facility] Chloride 105 102 - 112 meq/L 12/22/2024 5:18 AM T [facility] CO2 28 21 - 32 meq/L 12/22/2024 5:18 AM EDT [facility] Calcium 8.5 8.5 - 10.1 mg/dL 12/22/2024 5:18 AM [facility] Glucose 95 74 - 100 mg/dL 12/22/2024 5:18 AM [facility] BUN 17 7 - 22 mg/dL 12/22/2024 5:18 AM [facility] Creatinine 0.86 0.55 - 1.02 mg/dL 12/22/2024 5:18 AM [facility] BUN/Creatinine 20 8 - 20 12/22/2024 5:18 AM [facility] Albumin 3.0(L) 3.4 - 5.0 g/dL 12/22/2024 5:18 AM [facility] Alkaline Phosphatase 96 27 - 136 U/L 12/22/2024 5:18 AM [facility] ALT 19 12 - 78 U/L 12/22/2024 5:18 AM T [facility] AST 27 5 - 37 U/L 12/22/2024 5:18 AM T [facility] Total Bilirubin 0.4 0.2 - 1.3 mg/dL 12/22/2024 5:18 AM [facility] Protein, Total 5.4(L) 6.4 - 8.2 gm/dL 12/22/2024 5:18 AM [facility] Anion Gap 10 9 - 20 12/22/2024 5:18 AM [facility] A/G Ratio 1.3 1.1 - 2.5 12/22/2024 5:18 AM [facility] Globulin 2.4 1.5 - 4.5 g/dL 12/22/2024 5:18 AM EDT [facility] Osmolality Calc 278.9 mOsm/kg 5:18 AM EDT [facility] eGFR (mL/min/1.73m2) >60 >=60 mL/min/1.7 3m2 12/22/2024 5:18 AM EDT [facility] Comment:ESTIMATED GFR IS NOT ACCURATE CREATININE CLEARANCE IN PREDICTING GLOMERULAR FILTRATION RATE. ESTIMATED GFR IS NOT APPLICABLE FOR DIALYSIS PATIENTS. Blood Venipuncture / Unknown 12/22/2024 4:56 AM EDT 12/22/2024 4:56 AM EDT Alberto Gallego MD LAB BLOOD ORDERABLES Final Resul t Performing Organization Address [facility] Co de Phone Number [facility] [address] [phone] * Electrocardiogram, 12 Lead (12/22/2024 4:47 AM EDT) VENTRICULAR RATE EKG/MIN 68 BPM GE MUSE ATRIAL RATE (MCT) 68 BPM GE MUSE DC Interval 156 ms GE MUSE QRS-INTERVAL (MSEC) 94 ms GE MUSE QT Interval 412 ms GE MUSE QTC Interval 438 ms GE MUSE P [place] 67 degrees GE MUSE R AXIS (MCT) 58 degrees GE MUSE T Wave [place] 63 degrees GE MUSE [place] Diagnosis Normal sinus rhythm Septal infarct , age undetermined Abnormal ECG No previous ECGs available Confirmed by Henri THOMSON SUZANNE ([id number]) on 12/26/2024 12:04:22 PM GE MUSE 12/22/2024 4:47 AM EDT 12/26/2024 12:04 PM EDT Alberto Gallego MD ECG ORDERABLES Final Result Performing Organization Address City/[facility] Co de Phone Number GE MUSE * ABO/RH CONFIRMATION/RETYPE (12/21/2024 9:55 PM EDT) RETYPE O NEGATIVE 12/21/2024 10:23 PM EDT [facility] ([place]) Blood Venipuncture / Unknown 12/21/2024 9:55 PM EDT 12/21/2024 10:23 PM EDT us Jeffry Price MD [facility] TEST ORDERABLE S Final Result Performing Organization Address [facility] Co de Phone Number [facility] ([place]) [address] [place] [address], [facility] [phone] * PT/INR, PTT (12/21/2024 9:55 PM EDT) aPTT 25.1 22.0 - 32.0 seconds 12/21/2024 10:44 PM EDT [facility] Protime 10.1 9.0 - 12.0 seconds 12/21/2024 10:44 PM EDT [facility] INR 0.92 0.80 - 1.10 12/21/2024 10:44 PM EDT [facility] Blood Venipuncture / Unknown 12/21/2024 9:55 PM EDT 12/21/2024 10:23 PM EDT us Sea Contreras MD LAB BLOOD ORDERABLES Final Resul t Performing Organization Address [facility] Co de Phone Number [facility] [address] [phone] * Type and Screen (12/21/2024 9:55 PM EDT) ABO/Rh O NEGATIVE 12/21/2024 10:51 PM EDT [facility] [place] Antibody Screen Negative 12/21/2024 10:51 PM EDT [facility] [place] HISTCHK HIST CHECK PERFORMED 12/21/2024 10:[address] [facility] [place] Blood Venipuncture / Unknown 12/21/2024 9:55 PM EDT 12/21/2024 10:51 PM EDT us Sea Contreras MD [facility] TEST ORDERABLES F inal Result [facility] ([place]) [address] [place] [address], [facility] [phone] * X-ray pelvis portable (12/21/2024 9:20 PM [...] Default Scanning Provider SCAN ORDERS Final Result from Last 3 Months Insurance [facility] MEDICARE PPO Advance Directives For more information, please contact: [phone] * Full Code (Latest Code Status on File) Date Activated Date Inactivated Comments 12/21/2024 8:50 PM 12/24/2024 3:50 PM Care Teams Scooter Mechanic Relationship Specialty Start Date End Date Shayla Mitchell, MONIQUE [address] [facility] [address] [place] [address] PCP - General Physician Historic Preservationist 12/21/24
--- OUTSIDE RECORDS SUMMARY | 2024-12-29 06:08 | XMS_ITS | Clinical Summary ---
Author Organization [facility] Address [address] [place] [address] Phone Care Team Providers Care Special Effects Makeup Artist Name Role Phone Lars James Navarrete Primary Care Provider [phone] Allergies No known active allergies Medications * This document contains information received from the source organization and may not represent a complete record from that organization. lisinopriL (PRINIVIL;ZESTR IL) 10 mg Oral Tablet Take 10 mg by mouth daily. 7 Active lovastatin (MEVACOR) 20 mg Oral Tablet Take 20 mg by mouth With evening meal. 6 Active QUEtiapine (SEROQUEL) 100 mg Oral TabletIndicatio ns:Moderate recurrent major depression (HCC) Take 1 Tablet by mouth nightly. 90 Tablet 1 5 Active venlafaxine (EFFEXOR-XR) 150 mg Oral Capsule, Sust. Release 24 hrIndications:M oderate recurrent major depression (HCC) Take 1 Capsule by mouth nightly. 90 Capsule 1 5 Active lamoTRIgine (LAMICTAL) 100 mg Oral TabletIndicatio ns:Moderate recurrent major depression (HCC) Take 1 Tablet by mouth 2 times daily. 180 Tablet 1 5 Active valbenazine (INGREZZA) 60 mg Oral Capsule Take 60 mg by mouth daily. 30 Capsule 1 5 Active INGREZZA 40 mg Oral CapsuleIndicati ons:Dyskinesia, tardive TAKE 1 CAPSULE BY MOUTH DAILY 30 Capsule 12/22/19 25 Discontinu ed(Dose adjustment ) Active Problems Problem Noted Date Diagnosed Date [...] 05/01/2018 Colon Cancer Screening 07/05/2024 COVID-19 Vaccine ( season) 2024 Influenza Vaccine (#1) 2024 0, [...] skills Care Plan Depression No Mamutse, Sithandiwe, [employer] SALES REPRESENTATIVE Note: Coping skills used: Patient has access to crisis phone number Care Plan Depression No Mamutse, Sithandiwe, [employer] SALES REPRESENTATIVE Note: Crisis Number: Sign Release of Information for behavioral health provider and medical providers to communicate Care Plan Depression No Mamutse, Sithandiwe, [employer] SALES REPRESENTATIVE Note: Provider Name: Provider Number: Provider Location: Patient will understand depressive feelings Care Plan Depression No Mamutse, Sithandiwe, [employer] SALES REPRESENTATIVE Identify and practice activities to improve coping skills and decrease anxiety/stress. Care Plan Depression No Mamutse, Sithandiwe, [employer] SALES REPRESENTATIVE Additional Health Concerns Active Problems Noted Date Diagnosed Date Depression 08/02/2023 Insurance [employer] MEDICARE PPO MR [facility] MEDICARE PPO MR Care Teams Special Effects Makeup Artist Relationship Specialty Start Date End Date James Sousa [address] [place] [address] [address] [place] [address] PCP - General Family Medicine 05/24/22
--- OUTSIDE RECORDS SUMMARY | 2024-12-29 06:08 | XMS_ITS | Clinical Summary ---
Author Organization [facility] Address [address] 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 RISK ASSESSMENT: A preliminary breast cancer risk assessment was conducted as part of the patient?s screening mammogram. Patients with a preliminarily elevated screening score who are interested in further information are encouraged to contact our High Risk Navigator at [phone], or provider can place a referral to the high risk breast program, [id number]. Patient's lifetime Yazmin model risk: 4% (20% and greater considered high risk) [facility] Family History Risk Score: 0 [...] the content of this report, please contact [facility] radiology by calling [phone] DXA machine: [employer] C, Umair S/[id number]). LSC in g/cm2 at 95% confidence: Lumbar spine 0.050, Total hip 0.040. FRAX software version: 3.05 COMPARISON machine: [employer] ([id number]) TECHNICAL LIMITATIONS/EXCLUSIONS: None SKELETAL SITES (REGIONS OF [...] fracture risk by FRAX Bonifacio Quinn MD [facility] al Result * Hepatitis C Antibody (05/07/2019 8:34 AM EST) HEPATITIS C AB NONREACTIVE NONREACTIVE UMAIR DIAGNOSITC RECEIVING Comment:Tested at: [facility] [place] [address] Whole blood specimen (specimen) 05/07/2019 8:34 AM EST 05/07/2019 8:51 AM EST Bonifacio Quinn MD LAB BLOOD ORDERABLE S Final Result [facility] [address] [place] [address] [facility] [address] [place] [address] [address] [place] [address] from Last 3 Months or Most Recently Relevant to Health Maintenance Insurance [facility] MEDICARE ALL OTHER Advance Directives * Full Code (Latest Code Status on File) Date Activated Date Inactivated Comments 03/22/2012 5:47 PM 03/28/2012 7:18 PM Care Teams Pole Peeling Machine Operator Relationship Specialty Start Date End Date PcpArabella MD PCP - General Internal Medicine 01/09/21
--- OUTSIDE RECORDS SUMMARY | 2024-12-29 06:08 | XMS_ITS | Referral Summary ---
Author Organization [employer] ([place], [place], [place], [place]) Address [address] [place] [address] Care Team Providers Care Corporate Communications Intern Name Role Phone Shayla Mitchell Primary Care Provider [phone] Encounters Date Type Department Care Team Description 12/21/2024 8:07 PM EDT - 12/24/2024 2:35 PM EDT Hospital Encounter [facility] Telemetry Unit [address] [place] [address] Jeffry Price MD Brodkin, Christopher, MD Closed left hip fracture, initial encounter (HCC) (Primary Dx) Discharge Disposition: Home-Health Care Svc 12/22/2024 11:00 AM EDT - 12/22/2024 12:43 PM EDT Surgery [facility] Surgery Department [address] [place] [address] Sea Contreras MD INSERTION, INTRAMEDULLARY ROBERT, FEMUR 12/22/2024 9:21 AM EDT Anesthesia Event [facility] Surgery Department [address] [place] [address] Randall Mejia CRNA 12/21/2024 Travel from Last 3 Months Allergies No known active allergies Medications lamoTRIgine [...] Closed left hip fracture, initial encounter 05/2024 Social History Tobacco Use Types Packs/Day Years Used Date Smoking Tobacco: Never Smokeless Tobacco: Never Tobacco Cessation:Counseling Given: Not Answered Utilities Answer Date Recorded In the past 12 months, has t he MSI, gas, oil, or water company threatened to [...] Do you speak a language other than [place] at [facility]? No 12/21/2024 Do you want help with [...] 12/22/2024 4:20 AM EDT Plan of Treatment Not on file Medical Devices Implanted Type Area Computer Trainer Device Identifier Shelf Expiration Date Model / Serial / Lot Nail Tfna [id number] 130d Strl 04.037.063s - [id number] Implanted:Qty: 1 on 12/22/2024 by Sea Contreras MD at [facility] IMPLANTS Left: Hip SYNTHES TRAUMA 10/19/2027 04.037.063 S / / [id number] Scr Tfna 95mm 04.038.195s - [id number] Implanted:Qty: 1 on 12/22/2024 by Sea Contreras MD at [facility] IMPLANTS Left: Hip SYNTHES:SYNTHES [place] 07/18/2034 04.038.195 S / / [id number] Scr Lckng 5x60 04.045.060ts - [id number] Implanted:Qty: 1 on 12/22/2024 by Sea Contreras MD at [facility] IMPLANTS Left: Hip SYNTHES:SYNTHES [place] 05/18/2029 04.045.060 TS / / [id number] Scr Luna 5.0x50mm Strl 04.045.050s - [id number] Implanted:Qty: 1 on 12/22/2024 by Sea Contreras MD at [facility] IMPLANTS Left: Hip SYNTHES:SYNTHES [place] 02/17/2029 04.045.050 S / / [id number] Procedures Procedure Name Priority Date/Time Associated Diagnosis [...] MD IMG FLUOROSCOPY ORDERABLES Final Result * AN SINGLE [...] of other approaches attempted: [address] [facility] ANESTHESIA ORDERABLES Final Result * (ABNORMAL) CBC with automated diff (12/22/2024 4:56 AM EDT) Pathologist [facility] WBC 4.9 3.9 - 10.0 K/ L 12/22/2024 5:03 AM EDT [facility] RBC 3.76(L) 3.93 - 5.22 M/ L 12/22/2024 5:03 AM EDT [facility] Hemoglobin 10.5(L) 11.2 - 15.7 GM/DL 12/22/2024 5:03 AM EDT [facility] Hematocrit 33.3(L) 34.1 - 44.9 % 12/22/2024 5:03 AM EDT [facility] MCV 89 79 - 95 fL 12/22/2024 5:03 AM EDT [facility] MCH 27.9 25.6 - 32.2 pg 12/22/2024 5:03 AM EDT [facility] MCHC 31.5(L) 32.2 - 36.5 GM/DL 12/22/2024 5:03 AM EDT [facility] RDW 14.0 11.6 - 14.4 % 12/22/2024 5:03 AM EDT [facility] Platelets 122(L) 163 - 369 K/CU MM 12/22/2024 5:03 AM EDT [facility] MPV 9.4 9.4 - 12.4 fL 12/22/2024 5:03 AM EDT [facility] % Neutros 75(H) 34 - 71 % 12/22/2024 5:03 AM EDT [facility] % Lymphs 14(L) 19 - 53 % 12/22/2024 5:03 AM EDT [facility] % Monos 10 4 - 13 % 12/22/2024 5:03 AM EDT [facility] % Eos 0(L) 1 - 7 % 12/22/2024 5:03 AM EDT [facility] % Baso 0 0 - 1 % 12/22/2024 5:03 AM EDT [facility] # Neutros 3.67 1.56 - 6.13 K/ L 12/22/2024 5:03 AM EDT [facility] # Lymphs 0.69(L) 1.18 - 3.74 K/ L 12/22/2024 5:03 AM EDT [facility] # Monos 0.50 0.24 - 0.82 K/ L 12/22/2024 5:03 AM EDT [facility] # Eos 0.02(L) 0.04 - 0.54 K/ L 12/22/2024 5:03 AM EDT [facility] # Baso 0.01 0.01 - 0.08 K/ L 12/22/2024 5:03 AM EDT [facility] Immature Granulocytes-Re lative 0.40 0.00 - 0.60 % 12/22/2024 5:03 AM EDT [facility] # IG 0.02 0.00 - 0.05 K/uL 12/22/2024 5:03 AM EDT [facility] Blood Venipuncture / Unknown 12/22/2024 4:56 AM EDT 12/22/2024 4:56 AM EDT Narrative [facility] - 12/22/2024 5:03 AM EDT [...] MD LAB BLOOD ORDERABLES Final Resul t [facility] [address] [phone] * Magnesium (12/22/2024 4:56 AM EDT) Magnesium 2.1 1.5 - 2.4 mg/dL 12/22/2024 5:18 AM EDT [facility] Blood Venipuncture / Unknown 12/22/2024 4:56 AM EDT 12/22/2024 4:56 AM EDT Alberto Gallego MD LAB BLOOD ORDERABLES Final Resul t [facility] [address] [phone] * (ABNORMAL) Comprehensive metabolic panel (12/22/2024 4:56 AM EDT) Sodium 139 136 - 146 meq/L 12/22/2024 5:18 AM EDT [facility] Potassium 3.9 3.5 - 5.1 meq/L 12/22/2024 5:18 AM EDT [facility] Chloride 105 102 - 112 meq/L 12/22/2024 5:18 AM EDT [facility] CO2 28 21 - 32 meq/L 12/22/2024 5:18 AM EDT [facility] Calcium 8.5 8.5 - 10.1 mg/dL 12/22/2024 5:18 AM EDT [facility] Glucose 95 74 - 100 mg/dL 12/22/2024 5:18 AM EDT [facility] BUN 17 7 - 22 mg/dL 12/22/2024 5:18 AM EDT [facility] Creatinine 0.86 0.55 - 1.02 mg/dL 12/22/2024 5:18 AM EDT [facility] BUN/Creatinine 20 8 - 20 12/22/2024 5:18 AM EDT [facility] Albumin 3.0(L) 3.4 - 5.0 g/dL 12/22/2024 5:18 AM EDT [facility] Alkaline Phosphatase 96 27 - 136 U/L 12/22/2024 5:18 AM EDT [facility] ALT 19 12 - 78 U/L 12/22/2024 5:18 AM EDT [facility] AST 27 5 - 37 U/L 12/22/2024 5:18 AM EDT [facility] Total Bilirubin 0.4 0.2 - 1.3 mg/dL 12/22/2024 5:18 AM EDT [facility] Protein, Total 5.4(L) 6.4 - 8.2 gm/dL 12/22/2024 5:18 AM EDT [facility] Anion Gap 10 9 - 20 12/22/2024 5:18 AM EDT [facility] A/G Ratio 1.3 1.1 - 2.5 12/22/2024 5:18 AM EDT [facility] Globulin 2.4 1.5 - 4.5 g/dL 12/22/2024 5:18 AM EDT [facility] Osmolality Calc 278.9 mOsm/kg 5:18 AM T [facility] eGFR (mL/min/1.73m2) >60 >=60 mL/min/1.7 3m2 12/22/2024 5:18 AM T [facility] Comment:ESTIMATED GFR IS NOT ACCURATE CREATININE CLEARANCE IN PREDICTING GLOMERULAR FILTRATION RATE. ESTIMATED GFR IS NOT APPLICABLE FOR DIALYSIS PATIENTS. Blood Venipuncture / Unknown 12/22/2024 4:56 AM EDT 12/22/2024 4:56 AM EDT Alberto Gallego MD LAB BLOOD ORDERABLES Final Resul t [facility] [address] [phone] * Electrocardiogram, 12 Lead (12/22/2024 4:47 AM EDT) VENTRICULAR RATE EKG/MIN 68 BPM GE MUSE ATRIAL RATE (MCT) 68 BPM GE MUSE CO Interval 156 ms GE MUSE QRS-INTERVAL (MSEC) 94 ms GE MUSE QT Interval 412 ms GE MUSE QTC Interval 438 ms GE MUSE P [place] 67 degrees GE MUSE R AXIS (MCT) 58 degrees GE MUSE T Wave [place] 63 degrees GE MUSE [place] Diagnosis Normal sinus rhythm Septal infarct , age undetermined Abnormal ECG No previous ECGs available Confirmed by Henri THOMSON SUZANNE ([id number]) on 12/26/2024 12:04:22 PM GE MUSE 12/22/2024 4:47 AM EDT 12/26/2024 12:04 PM EDT us Alberto Gallego MD ECG ORDERABLES Final Result GE MUSE * ABO/RH CONFIRMATION/RETYPE (12/21/2024 9:55 PM EDT) RETYPE O NEGATIVE 12/21/2024 10:23 PM EDT [facility] ([place]) Blood Venipuncture / Unknown 12/21/2024 9:55 PM EDT 12/21/2024 10:23 PM EDT us Jeffry Price MD [facility] TEST ORDERABLE S Final Result Performing Organization Address [facility] Co de Phone Number [facility] ([place]) [address] [phone] * PT/INR, PTT (12/21/2024 9:55 PM EDT) aPTT 25.1 22.0 - 32.0 seconds 12/21/2024 10:44 PM EDT [facility] Protime 10.1 9.0 - 12.0 seconds 12/21/2024 10:44 PM EDT [facility] INR 0.92 0.80 - 1.10 12/21/2024 10:44 PM EDT [facility] Blood Venipuncture / Unknown 12/21/2024 9:55 PM EDT 12/21/2024 10:23 PM EDT us Sea Contreras MD LAB BLOOD ORDERABLES Final Resul t [facility] [address] [place] [id number], [place] [phone] * Type and Screen (12/21/2024 9:55 PM EDT) ABO/Rh O NEGATIVE 12/21/2024 10:51 PM EDT [facility]OD [facility] [place]) Antibody Screen Negative 12/21/2024 10:51 PM EDT [facility] [place]) HISTCHK HIST CHECK PERFORMED 12/21/2024 10:51 PM EDT [facility] BLOOD [facility] [place] Blood Venipuncture / Unknown 12/21/2024 9:55 PM EDT 12/21/2024 10:51 PM EDT us Sea Contreras MD [facility] TEST ORDERABLES F inal Result [facility] ([place]) [address] [phone] * X-ray pelvis portable (12/21/2024 9:20 PM [...] Final Result from Last 3 Months Insurance [employer] MEDICARE PPO Advance Directives For more information, please contact: [phone] * Full Code (Latest Code Status on File) Date Activated Date Inactivated Comments 12/21/2024 8:50 PM 12/24/2024 3:50 PM Care Teams Corporate Communications Intern Relationship Specialty Start Date End Date Shayla Mitchell PA [address] [place] [address] PCP - General Physician Accessioner 12/21/24
--- OUTSIDE RECORDS SUMMARY | 2024-12-29 06:08 | XMS_ITS | Encounter Summary ---
Author Organization [facility] Address [facility] [address] [address] [place] [address] Phone Care Team Providers Care Solderer Barrel Ribs Name Role Phone Bonifacio Quinn MD Primary Care Provi rajani Bonifacio Quinn MD Unavailable [phone] Pcp, None Primary Care Provider [phone] Reason for Referral * Other (Routine) - Closed Specialty Diagnoses / Procedures Referred By Contac t Referred To Contact Procedures EXTERNAL LAB COLOGUARD FIT DNA HISTORICAL MED Referral ID Status Reason Start Date Expiration Date V isits Requested Visits Authorized [id number] Closed Specialty Services Required 05/09/2018 05/09/2019 1 1 Encounter Details Date Type Department Care Team (Late st Contact Info) Description 05/09/2018 [place] [address] [place] [id number] Social History Tobacco Use Types Packs/Day Years [...] 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 Lindsay Kymberly [facility] [address] [place] [address] documented as of this encounter Procedures Procedure [...] on filedocumented in this encounter Care Teams Solderer Barrel Ribs Relationship Specialty Start Date End Date Bonifacio Quinn MD [address] [place] [address] PCP - General 08/13/10 01/08/21 Bonifacio Quinn MD [address] [place] [address] PCP - Naomi REECE Attributed Physician 08/20/19 08/18/21 PcpArabella MD [address] [place] [address] PCP - General Internal Medicine 01/09/21 documented as of this encounter
--- OUTSIDE RECORDS SUMMARY | 2024-12-29 06:10 | XMS_ITS | Data Portability ---
Author Organization [facility] ORIN Guzman [place] CLOSED Address [address] [facility] [address] [place] [address] Assessment No assessment recorded. Plan of Treatment Reminders Order Date Submit Date Provider Last Modified By Organization Details Last Modified Time Details Appointments None recorded. Lab None recorded. Referral None recorded. Procedures None recorded. Surgeries anterior repair, cystocele colporrhaph y (SURG) 2023 024 [facility] Professional [facility], [address] [facility], [place], [address], 4 17:13:03 Imaging None recorded. Medication Orders ondansetron HCl 4 mg tablet 2023 024 [id number], [address], [id number], 4 09:56:29 oxycodone 5 mg tablet 2023 024 [facility] #[id number], [address], [id number], 4 09:56:28 estradiol 0.01% (0.1 mg/gram) vaginal cream 2023 024 [facility], [address] [facility], [place], [address], 4 10:26:20 Patient TargetsNo targets recorded. Patient Instructions Encounter Date Encounter Id Patient Instructions Last Modified By Organization Details Last Modified Time 11/14/2023 [id number] The option for vaginal approach for prolaspe were discussed. We discussed that I would not recommend vaginal mesh inplantation for PROLAPSE repair augmentation. Repair of vaginal wall prolapse including anterior or posterior repair and or vaginal vault suspensions with enterocele repair was discussed. The patient is agreeable to fix any site specific prolapse defect that is encountered in the repair. Risk of recurrences of any specific site of repair was discussed including development of other sites of prolapse not addressed during surgery. Risk of injury to the surrounding organs , bowel , bladder, vascular or ureters. Risk of ureteral obstruction requiring further surgery was discussed as well. [email or web address] Not available 11/14/2023 10:29:43 03/08/2024 [id number] pelvic prolapse: what to expect at home [email or web address] Not available 03/08/2024 09:56:21 Preop Dx: Cystoc rosetta Postop DX: same plus significant posterior rectocele and wide genital hiatus requiring repair. Procedure: Anterior and Posterior Colporrhaphy with perineorrhaphy and cystoscopy Surgeon: Dr Berenice Luna Indications for procedure: Patient with significant symptoms of vaginal bulging pressure due to presence of vaginal prolapse and desiring surgical repair.Respect alternatives to do surgical management for prolapse were all discussed. Risk including bleeding infection other surgical complications also of vaginal stenosis pain and dyspareunia or recurrent prolapse in the future. Findings:Patient has large third-degree midline cystocele. The apical support was slightly distended as well but still was elevated about 4 cm superior to the hymenal. The rectocele was third-degree as well which was not noted as large on her previous note but did require request repair. Patient did also have very wide genital hiatus with lack of perineal support. The bladder was normal by cystoscopy. ABX:levaquin EBL: 50 mL Pathology: none Anesthesia: General , local vaginal Procedure: Informed consent was obtained for the procedure. The patient was then taken to the operating room and a timeout was performed. She was then placed under general anesthesia and positioned in the dorsolithotomy position using the Carson stirrups. Knees and hips flex only at 90 degrees. She was then prepped and draped in normal sterile fashion. The Thompson catheter was placed into the bladder. The degree of prolapse was assessed. The anterior vaginal wall was then grasped with Allis clamps injected with a local solution along the midline the vaginal mucosa. Then a #15 blade scalpel was then used to incise in the midline along the cystocele and this further was dissected out using the Metzenbaum scissors. The pubocervical fascia was then dissected off each of the vaginal wall flaps until the whole cystocele was reduced. This pubocervical fascia was then reapproximated first with a pursestring 0 Vicryl suture to lift the majority of the bulge anteriorly. Then a second layer of imbricating 0 Vicryl suture was used to have maximum support of the pubocervical fascia. Once the full length of the cystocele was reduced the excess vaginal mucosa was trimmed copious irrigation was then performed. No excessive bleeding was noted. Then the vaginal mucosa was closed with a running 3 0 locking Vicryl suture. Again irrigation was performed and hemostasis confirmed. At this point the Thompson catheter was removed and the bladder was filled with approximately 300 cc sterile saline through the cystoscope. The findings were normal with no defects or sutures noted with no bleeding. . Attention to the posterior vaginal Wall. Grasped the introitus area with marychuy clamps and a roly shaped wedge excision of the vaginal perineum was excised. This after injection of local . The the underlying midline vaginal mucosa was dissected free from the rectovaginal fascia that had been . A finger was used in the rectum to facilate this dissection and avoid injury. Once the entire length of the rectocele was dissected free then the 0 - vicryl suture was used to reduce the rectocele by plicating together the rectovaginal facia. Then the vaginal mucosa was trimmed and closed with running locking 3-0 vicryl suture. The perineum was then reconstructed with reapproximation of the perineal body with 0-vicry suture to lengthen and strenghten the perineal body. Then the subcuticular skin closure was done with the 3-0 vicryl suture. Final rectal exam showed no defects. No suture. Hemastatis was confirmed. Final copious irriation. Cleansed. Then the procedure was completed a final count was correct as all the instruments were removed. Hemostasis has been confirmed she was cleansed from all prep. She was then taken out of lithotomy position awoken from general anesthesia and taken to recovery room in stable condition. [email or web address] Not available 03/08/2024 11:08:03 Reason for Referral None Reported. Procedures Surgical History Date Name Laterality Status Provider Name and Address Organization Details Recorded Time 03/08/20 combined anteroposterior colporrhaphy completed BERENICE LUNA MD [address] [place], [address], [facility] 03/08/2024 11:08:16 Hysterectomy completed Bisi Clifford [facility] 11/14/2023 10:00:24 Imaging Results None recorded. Procedure Notes None recorded. Medical Equipment None Reported. Allergies No known drug allergies Medications Name Sig Start Date Stop Date Status Note LastModified by Organization Details LastModified Time methocarbam ol 500 mg tablet TAKE 1 TABLET BY MOUTH THREE TIMES DAILY NEEDED active Not Available Not Available No t Available lamotrigine 150 mg tablet 11/13 completed Not Available Not Available Not Available promethazin e-DM 6.25 mg-15 mg/5 mL oral syrup TAKE 5 TO 10 ML BY MOUTH EVERY 6 HOURS NEEDED FOR COUGH active Not Available Not Available No t Available venlafaxine ER 37.5 mg capsule,ext ended release 24 hr TAKE 1 CAPSULE BY MOUTH EVERY NIGHT 11/13 completed Not Available Not Available Not Available doxycycline hyclate 100 mg capsule TAKE 1 CAPSULE BY MOUTH TWICE DAILY FOR 10 DAYS active Not Available Not Available No t Available azithromyci n 250 mg tablet active Not Available Not Available Not Available ondansetron HCl 4 mg tablet use one tablet every 4 to 6 hours prn nausea active Not Available Not Available No t Available venlafaxine ER 150 mg capsule,ext ended release 24 hr active Not Available Not Available Not Available ciprofloxac in 250 mg tablet TAKE 1 TABLET BY MOUTH TWICE DAILY 11/13 completed Not Available Not Available Not Available ciprofloxac in 500 mg tablet TAKE 1 TABLET BY MOUTH TWICE DAILY 11/13 completed Not Available Not Available Not Available sulfamethox azole 800 mg-trimetho prim 160 mg tablet active Not Available Not Available Not Available quetiapine 100 mg tablet active Not Available Not Available Not Available lamotrigine 25 mg tablet TAKE 2 TABLETS BY MOUTH TWICE DAILY 11/13 completed Not Available Not Available Not Available oxycodone-a cetaminophe n 5 mg-325 mg tablet TAKE ONE TABLET BY MOUTH EVERY 4 HOURS NEEDED FOR PAIN active Not Available Not Available No t Available benzonatate 100 mg capsule TAKE 1 CAPSULE BY MOUTH TWICE DAILY NEEDED FOR COUGH active Not Available Not Available No t Available lisinopril 10 mg tablet active Not Available Not Available Not Available estradiol 0.01% (0.1 mg/gram) vaginal cream use one gram in vagina 3 x weekly active Not Available Not Available No t Available levofloxaci n 750 mg tablet TAKE 1 TABLET BY MOUTH ONCE DAILY FOR 7 DAYS 11/13 completed Not Available Not Available Not Available methylpredn isolone 4 mg tablets in a dose pack FOLLOW PACKAGE DIRECTION S 11/13 completed Not Available Not Available Not Available lamotrigine 100 mg tablet active Not Available Not Available Not Available oxycodone 5 mg tablet Take 1 tablet every 6-8 hours by oral route. active Not Available Not Available No t Available rosuvastati n 20 mg tablet active Not Available Not Available Not Available nitrofurant oin monohydrate /macrocryst als 100 mg capsule active Not Available Not Available Not Available solifenacin 10 mg tablet active Not Available Not Available Not Available quetiapine 50 mg tablet TAKE 1 TABLET BY MOUTH EVERY NIGHT IN ADDITION TO 100 MG EVERY NIGHT active Not Available Not Available No t Available sodium,pota ssium,mag sulfates 17.5 gram-3.13 gram-1.6 gram oral soln active Not Available Not Available Not Available Creon 36,000 unit-114,00 0 unit-180,00 0 unit capsule,del ayed release TAKE TWO CAPSULES WITH meals, AND TAKE ONE CAPSULE with snacks active Not Available Not Available No t Available Ingrezza 40 mg capsule active Not Available Not Available N ot Available Austedo XR 12 mg tablet,exte nded release 11/13 completed Not Available Not Available Not Available Austedo XR 6 mg tablet,exte nded release 11/13 completed Not Available Not Available Not Available Vitals Date Recorded Body height Provider Name an d Address Organization Details Last Updated DateTime 04/17/2024 175.26 cm Aure Roque Jeremy [facility] 04/17/2024 09:31:24 Date Recorded Body height Provider Name an d Address Organization Details Last Updated DateTime 11/14/2023 175.26 cm Homa Licea [facility] 15:50:25 Date Recorded Body weight Provider Name an d Address Organization Details Last Updated DateTime 11/14/2023 02630.76 g Bisi Clifford [facility] 11/14/2023 09:56:33 Social History Question Answer Notes LastModified by Organizat ion Details LastModified Time Tobacco Smoking Status Never Smoker Bisi Clifford [facility] 11/14/2023 10:01:02 What Was The Date Of Your Most Recent Tobacco Screening? 11/14/2023 [email or web address] Information not available 11/14/2023 Sex: Unknown Functional Status Question Answer Note LastModified by Organization D etails LastModified Time What is your level of alcohol consumption? None [email or web address] Information not available 11/14/2023 Mental Status None recorded. Family History Nothing Reported. Medical History No medical history recorded. Gynecological History Statement/Question Response Menses Monthly N Abnormal Pap N Current Control Method Hysterectom y Sexually Active? Y Post Menopausal Bleeding N Obstetrics History GPAL:G 2 P 2 0 0 0 Type Value Full Term 2 Total 2 Past Encounters Encounter ID Performer Location Encounter Start Date Encounter Closed Date Diagnosis/Indication Diagnosis SNOMED-CT Code Diagnosis ICD10 Code Diagnosis IMO Codes Diagnosis Note [id number] MD [address] [place] [address] 11/14/2023 09:48:38 11/14/2023 10:42:40 Midline cystocele 293943914 N81.11 pt would like to do surgical repair. pt has already done pelvic floor therapy. has not really stopped the prolpase. pt is sexually active still. pre treat wth some vaginal estrogen cream. discussed RBA to the procedure. pt agrees and cosent. No medical problems. [id number] BERENICE LUNA MD SURGERY SCHEDULE [address] [place] [address] 03/08/2024 07:43:05 03/08/2024 07:43:51 Postoperative care [id number] Z48.89 [id number] MD [address] [place] [address] 04/17/2024 09:28:46 04/17/2024 10:08:23 Postoperative care [id number] Z48.89 may resume normal activity. good results. Health Concerns Section Related Observation LastModified by Organization Detai ls LastModified Time None Recorded Concern Status LastModified by Organization Details LastModified Time None Recorded Advance Directives Directive None Recorded Payers Insurance Date Sequence Insurance Name Policy Number Policy Oliveira Covered Member ID Oliveira Member ID Guarantor Name 04/14/2024 1 [employer] (MEDICARE REPLACEMENT/ ADVANTAGE - PPO) Chary Chandra [id number] Chary Chandra Notes Date Note Type Note Provider Name and Address Organization Details Recorded Time 11/14/2023 text/html 73 y/o new patient referral from Shayla Mitchell for bladder prolapse. known prolapse for about 7 years. has tried kegels and helped delay the severity. denies pain, or issues voiding. prolapse started about 6 years ago. Prior hysterectomy. Did pelvic floor therapy back then with urology. Hy[facility]rectomy done by [facility], Ovaries removed at a later time.hx of x 2.no medical problem. No urinary leakage or voiding issues. Occasionally when sneezes real hard may have to leak a little.Does have to get up at 3 am every night to void. BERENICE LUNA MD [facility] [place], [address], [facility] 11/14/2023 10:30:40 04/17/2024 text/html 73 yo female presents for post opdate: 4procedure: Anterior and Posterior Colporrhaphy with perineorrhaphy and cystoscopyFindings:P marion has large third-degree midline cystocele. The apical support was slightly distended as well but still was elevated about 4 cm superior to the hymenal. The rectocele was third-degree as well which was not noted as large on her previous note but did require request repair. Patient did also have very wide genital hiatus with lack of perineal support. The bladder was normal by cystoscopy. patient states she is recovering well, denies any concerns today BERENICE LUNA MD [facility] [place], [address], [facility] 04/17/2024 10:01:26 OBGyn Episode No OBEpisode recorded.
[2024-12-29] MEDS: LACTATED RINGERS 1000ML 1,000 ML 999 ML IV (06:15)
[2024-12-29 06:17] LABS: Hematocrit 23.5 % (37.0-47.0); Hemoglobin 7.9 g/dL (12.2-16.2); Immature Granulocytes % 0.5 %; Mean Corpuscular HGB Conc 33.6 g/dL (31.8-35.4); Mean Corpuscular Hemoglobin 28.5 pg (27.0-31.2); Mean Corpuscular Volume 84.8 fl (81-99); Nucleated Red Blood Cells % 0 %; Platelet Count 238 K/mm3 (142-424); Red Blood Count 2.77 M/mm3 (4.20-5.40); Red Cell Distribution Width-SD 43.3 fL; White Blood Count 10.0 K/mm3 (4.8-10.8)
[2024-12-29 06:19] LABS: Lactate Venous 1.4 mmol/L (0.4-2.0); VBG HCO3 26.2 mmol/L (23-30); VBG PCO2 34.8 mmol/L (35-51); VBG PH 7.50 mmol/L (7.31-7.41); VBG PO2 114.7 mmol/L (28-40)
[2024-12-29 06:23] LABS: Alanine Aminotransferase 79 U/L (12-78); Albumin Level 2.9 g/dl (3.5-5.0); Albumin/Globulin Ratio 1.5 (1.1-1.8); Alkaline Phosphatase 99 U/L (38-126); Anion Gap 10.1 mEq/L (5-15); Aspartate Amino Transferase 87 U/L (14-36); Bilirubin,Total 0.9 mg/dl (0.2-1.3); Blood Urea Nitrogen 15 mg/dl (7-17); Calcium 7.9 mg/dl (8.4-10.2); Carbon Dioxide 25 mmol/L (22.0-30.0); Chloride 98 mmol/L (98-107); Creatinine Clearance Estimated 51 mL/min (50-200); Creatinine,Serum 0.70 mg/dl (0.52-1.04); Estimated Glomerular Filt Rate 82 ml/min (>60); GFR (African American) 99 ML/MIN (>60); Globulin 1.9 g/dL (1.3-3.2); Glucose 134 mg/dl (74-100); Potassium 3.1 mmoL/L (3.5-5.1); Sodium 130 mmol/L (136-145); Total Protein,Serum 4.8 g/dl (6.3-8.2)
[2024-12-29 06:24] LABS: Activated Partial Thrombo Time 28.2 seconds (22.8-30.6); INR 0.95 (0.9-1.1); Prothrombin Time 10.6 seconds (10.1-12.5)
[2024-12-29] MEDS: 0.9 % SODIUM CHLORIDE 50 ML VIAL IV (06:28)
[2024-12-29] MEDS: SODIUM CHLORIDE 0.9% 10ML SYR (RAD ONLY) 10 ML IV (06:29)
[2024-12-29] MEDS: IOPAMIDOL-370 (76%);100ML BOTTLE 80 ML IV (06:29)
[2024-12-29 06:59] LABS: Microscopic, Urine URINE MICROSCOPIC (MICROSCOPIC)
[2024-12-29 07:00] LABS: Troponin I < 0.01 ng/ml (0.00-0.034)
[2024-12-29 07:04] LABS: Glucose,Urine (UA) TRACE (Negative); Ketones,Urine Negative (Negative); Leukocyte Esterase,Urine 3+ (Negative); PH,Urine 6.0 (5.0-8.5); Protein,Urine 1+ (Negative); Specific Gravity, Urine 1.010 (1.005-1.030); Urobilinogen,Urine 2.0 EU/dl (0.2)
[2024-12-29 07:10] LABS: Bilirubin,Urine 1+ (Negative); Color,Urine Orange (Yellow)
[2024-12-29 07:14] LABS: Bacteria,Urine 4+ /lpf; RBC,Urine Occasional #/hpf (0-3); Squamous Epithelial Cell,Urine Occasional #/hpf (0-5); WBC,Urine 50-100 #/hpf (0-3)
[2024-12-29 07:32] LABS: Amphetamine/Metha Screen,Urine Negative ng/ml (<1000); Barbiturates Screen,Urine Negative ng/ml (<200)
[2024-12-29 07:33] LABS: Benzodiazepines Screen,Urine Negative ng/ml (<200)
[2024-12-29 07:35] LABS: Methadone Screen,Urine Negative ng/ml (<300)
[2024-12-29 07:36] LABS: Opiate Screen,Urine Negative ng/ml (<300); Phencyclidine Screen,Urine Negative ng/ml (<25)
[2024-12-29 07:40] LABS: RBC Morphology Normal; Total Cells Counted 100
[2024-12-29] MEDS: CEFEPIME HCL 2 GM in 0.9 % SODIUM CHLORIDE 100 ML IV (07:45)
[2024-12-29] MEDS: LACTATED RINGERS 1000ML 500 ML 999 ML IV (07:59)
[2024-12-29 08:30] LABS: NT Pro Brain Natriuretic Pep. 758 pg/mL (0-125)
--- NOTE | 2024-12-29 09:04 | PC.NURSE ---
house notified for bed
--- NOTE | 2024-12-29 09:16 | PC.NURSE ---
I updated the family on the plan of care. no needs voiced. no new complaints. call stewart in reach.
--- NOTE | 2024-12-29 09:22 | PC.NURSE ---
I spoke with Antoine MENDEZ, he is going to bring down the pts ditropan as we do not have it in the omni.
--- NOTE | 2024-12-29 09:51 | PC.NURSE ---
report given [id number] tyshawn ruffin
--- NOTE | 2024-12-29 10:03 | PC.NURSE ---
arrived by stretcher from ED
[2024-12-29 10:06] LABS: Troponin I < 0.01 ng/ml (0.00-0.034)
--- NOTE | 2024-12-29 11:02 | HMH.PHAINT1 ---
Pharmacy Intervention Comments: MEDICATION RECONCILIATION COMPLETE USING EXTERNAL PHARMACY FILL HISTORY, RECENT GASTROENTEROLOGY VISIT NOTE.
--- NOTE | 2024-12-29 11:44 | EXP.HP ---
History of Present Illness *Admission Date: 12/29/24 *Reason for visit:: Urinary retention *History of present illness: Chary Chandra is a 74-year-old female with a medical history significant for recent left femoral fracture s/p ORIF at [facility] (discharged to home on 12/24/2024), pancreatic insufficiency, mood disorder, tardive dyskinesia presents with persistent urinary retention. Patient states after her discharge on 12/24/2024, she was doing well at home until last night when she started experiencing urinary retention which progressively became worse. She then presented to the ED. Denies fever/chills, constipation/diarrhea. Workup in the ED significant for hemoglobin 7.9, MCV 84, AST/ALT 87/79, UA grossly abnormal. Bladder scan showed > 500 cc. Thompson catheter was placed with appropriate urinary output. Additionally, patient was found to be hypoxic requiring 2 L during which CTA chest noted left lower lobe pneumonia. Given these findings, ED provider discussed case with me and decided to admit patient for acute hypoxic respiratory failure secondary to community-acquired pneumonia, urinary retention secondary to UTI. [facility] Disclaimer: The information contained in this section may have been updated after the patient was seen, as this information can be updated by other users. Medical History Prolapsed bladder Fusion of lumbar spine L4-L5-S1 Edema LEFT FOOT Mood disorder Elbow fracture, right Tremor Hypertension Keratosis Callus of foot Onychomycosis Surgical History H/O bilateral oophorectomy History of tonsillectomy H/O total hysterectomy Status post right knee replacement Family History Mother Cancer Other Coronary artery disease Diabetes Hypertension Social History Smoking Status: Never smoker alcohol intake: never substance use type: denies use current occupational status: retired Travel in the last 8 weeks?: None household members: spouse housing: house caffeine: Yes Have you lived/traveled outside [place] in past 30 days?: No Contact w/someone who lives/traveled outside US past 30 days?: No Exposure to someone with infectious disease in past 14 days?: No Do you have a fever (greater than 100.4 F or 38 C)?: No Have you tested positive for COVID-19?: No Exposed to someone with COVID-19 in past 14 days?: No Do you have a sore throat?: No Do you have a cough?: No Do you have any weakness?: No Do you have any diarrhea?: No Are you experiencing any unusual bleeding?: No Do you have any muscle aches/pain?: No Do you have any abdominal pain?: No Are you experiencing loss of taste or smell?: No Other Medical History Have you received the Pneumonia Vaccine: Yes Meds Home Medications and Allergies Home Medications ?Medication ?Instructions ?Recorded ?Confirmed ?Type quetiapine 100 mg tablet (Seroquel) 100 mg PO HS 12/07/21 12/29/24 History lamotrigine 100 mg tablet 100 mg PO BID 01/24/24 12/29/24 History solifenacin 10 mg tablet (Vesicare) 10 mg PO DAILY 01/24/24 12/29/24 History calcium polycarbophil 625 mg 1,250 mg PO DAILY 03/20/24 12/29/24 History tablet (FiberCon) acetaminophen 500 mg tablet 1,000 mg PO Q6H PRN Pain (Scale 12/29/24 12/29/24 History Score 1-3) calcium citrate 400 mg PO DAILY 12/29/24 12/29/24 History enoxaparin 40 mg/0.4 mL 40 mg SQ DAILY 12/29/24 12/29/24 History subcutaneous syringe [id number]-[id number]-[id number] 2 cap PO AC 12/29/24 12/29/24 History 36,000-114,000-180,000 unit capsule,delay rel (Creon) oxycodone 5 mg tablet 5 mg PO Q6H PRN Pain (Scale Score 12/29/24 12/29/24 History 4-6) senna-docusate sodium tablet 1 tab PO DAILY PRN Constipation 12/29/24 12/29/24 History valbenazine 60 mg capsule 60 mg PO DAILY 12/29/24 12/29/24 History (Ingrezza) New Prescriptions to Start Prescriptions: Allergies Allergy/AdvReac Type Severity Reaction Status Date / Time No Known Allergies Allergy Verified 09/20/24 13:34 Exam Data for Last 24 hours Vital signs and Labs for Last 24 Hours: Temp Pulse Resp BP Pulse Ox O2 Del Method O2 Flow Rate 98.9 F 77 15 100/50 L 95 Room Air 2 12/29/24 10:15 12/29/24 10:15 12/29/24 10:15 12/29/24 10:15 12/29/24 09:30 12/29/24 10:40 12/29/24 10:15 Laboratory Results - last 24 hr 12/29/24 05:22: NT-Pro-B Natriuret Pep 758 H 12/29/24 06:02: WBC 10.0, RBC 2.77 L, Hgb 7.9 L, Hct 23.5 L, MCV 84.8, MCH 28.5, MCHC 33.6, RDW 13.9, Plt Count 238, MPV 8.1, Neut % (Auto) 88.4 H, Lymph % (Auto) 5.0 L, [place] % (Auto) 6.0, Eos % (Auto) 0.0 L, Baso % (Auto) 0.1, Neut # (Auto) 8.8 H, Lymph # (Auto) 0.5 L, [place] # (Auto) 0.6, Eos # (Auto) 0.0, Baso # (Auto) 0.0, Total Counted 100, Neutrophils % (Manual) 84 H, Lymphocytes % (Manual) 6 L, Monocytes % (Manual) 10 H, Platelet Estimate Normal, RBC Morphology Normal, PT 10.6, INR 0.95, APTT 28.2, Sodium 130 L, Potassium 3.1 L, Chloride 98, Carbon Dioxide 25, Anion Gap 10.1, BUN 15, Creatinine 0.70, Estimated Creat Clear 51, Estimated GFR 82, Est GFR ( Amer) 99, Glucose 134 H, Lactate 1.1, Calcium 7.9 L, Total Bilirubin 0.9, AST 87 H, ALT 79 H, Alkaline Phosphatase 99, Troponin I < 0.01, Total Protein 4.8 L, Albumin 2.9 L, Globulin 1.9, Albumin/Globulin Ratio 1.5, Plasma/Serum Alcohol < 10 12/29/24 06:05: VBG pH 7.50 H, VBG pCO2 34.8 L, VBG pO2 114.7 H, VBG HCO3 26.2, VBG Total CO2 27.3 H, VBG O2 Saturation 98.3 H, VBG Base Excess 3.0 H, VBG Lactic Acid 1.4 12/29/24 06:55: Urine Color [place], Urine Appearance Cloudy, Urine pH 6.0, Ur Specific [place] 1.010, Urine Protein 1+ A, Urine Glucose (UA) Trace, Urine Ketones Negative, Urine Blood Trace-i, Urine Nitrate Positive A, Urine Bilirubin 1+ A, Urine Urobilinogen 2.0, Ur Leukocyte Esterase 3+ A, Urine RBC Occasional, Urine WBC 50-100, Ur Squamous Epith Cells Occasional, Urine Bacteria 4+, Urine Opiates Screen Negative, Urine Methadone Screen Negative, Ur Barbituates Screen Negative, Ur Phencyclidine Scrn Negative, Ur Amphetamines Screen Negative, U Benzodiazepines Scrn Negative, Urine Cocaine Screen Negative, U Marijuana (THC) Screen Negative 12/29/24 09:36: Troponin I < 0.01 I & O for Last 24 hours: Intake & Output 12/26/24 12/27/24 12/28/24 12/29/24 23:59 23:59 23:59 23:59 Intake Total 1600 / 1600 Output Total 1300 / 1300 Balance 300 / 300 Weight 65.771 kg Constitutional Constitutional: no acute distress *Routine HEENT Exam Head: Present normocephalic Eye: Present EOMI and PERRL ENT: Present mucous membranes moist *Routine Neck Exam Neck: Present supple; Absent lymphadenopathy *Routine Respiratory Exam Respiratory: Present CTA bilaterally *Routine Cardiovascular Exam Cardiovascular: Present RRR *Routine Abdominal Exam Abdominal: Present soft and normoactive bowel sounds; Absent tenderness *Routine Rectal Exam Rectal:: deferred *Routine Genitalia Exam Genitalia:: deferred *Routine Extremities Exam Extremities: Present edema; Absent cyanosis or clubbing Comments: Left lower extremity 2+ pitting edema, same side as arrived. *Routine Skin Exam Skin: Present warm; Absent rash *Routine Neurological Exam Neurological: Present alert and oriented X3 Assessment and Plan *Assessment and plan (1) Pneumonia: Status: Acute Category: Medical Code(s): J18.9 - Pneumonia, unspecified organism (2) Acute UTI: Status: Acute Category: Medical Code(s): N39.0 - Urinary tract infection, site not specified (3) Fracture of left hip: Status: Acute Category: Medical Code(s): S72.002A - Fracture of unspecified part of neck of left femur, initial encounter for closed fracture Plan Chary Chandra is a 74-year-old female with a medical history significant for recent left femoral fracture s/p ORIF at [facility] (discharged to home on 12/24/2024), pancreatic insufficiency, mood disorder, tardive dyskinesia presents with persistent urinary retention. Patient states after her discharge on 12/24/2024, she was doing well at home until last night when she started experiencing urinary retention which progressively became worse. She then presented to the ED. Denies fever/chills, constipation/diarrhea. Workup in the ED significant for hemoglobin 7.9, MCV 84, AST/ALT 87/79, UA grossly abnormal. Bladder scan showed > 500 cc. Thompson catheter was placed with appropriate urinary output. Additionally, patient was found to be hypoxic requiring 2 L during which CTA chest noted left lower lobe pneumonia. Given these findings, ED provider discussed case with me and decided to admit patient for acute hypoxic respiratory failure secondary to community-acquired pneumonia, urinary retention secondary to UTI. #Acute hypoxic respiratory failure #Community-acquired pneumonia ? Found to be hypoxic in the ED, requiring 2 L. CTA chest revealing left lower lobe mucoid impaction with consolidation. ? WBC normal, no signs of sepsis. ? Continue ceftriaxone, azithromycin day 1/5. ? Follow-up sputum, blood cultures. ? Weaned oxygen as tolerated. Baseline room air. #UTI #Urinary retention ? Presented with significant urinary retention, improved with appropriate urine output with Thompson catheter. ? UA grossly abnormal, urine culture pending. ? Continue ceftriaxone day 1/5. ? Follow-up urine culture. #Mood disorder #Suspected tardive dyskinesia ? Continue home Seroquel, lamotrigine. ? Continue home valbenazine for suspected TD. #Left femoral fracture s/p ORIF ? Underwent ORIF at [facility] in the past week, discharged on 12/24/2024. ? Toradol, Tylenol, [place] as needed for pain control. Full code DVT prophylaxis: Lovenox 40 mg
[2024-12-29] MEDS: SODIUM CHLORIDE 3% 15ML NEB 3 ML IH (11:57)
[2024-12-29] MEDS: AZITHROMYCIN 250MG TABLET 500 MG PO (12:18)
[2024-12-29 12:35] LABS: Adenovirus,PCR Not Detected (NotDetected); Chlamydophila Pneumoniae, PCR Not Detected (NotDetected); Coronavirus 19, PCR Not Detected (NotDetected); Coronovirus HKU1,PCR Not Detected (NotDetected); Influenza A, PCR Not Detected (NotDetected); Influenza AH1, 2009 Not Detected (NotDetected); Influenza AH1, PCR Not Detected (NotDetected); Influenza AH3,PCR Not Detected (NotDetected); Influenza B, PCR Not Detected (NotDetected); Mycoplasma Pneumoniae, PCR Not Detected (NotDetected); Parainfluenza 1, PCR Not Detected (NotDetected); Parainfluenza 3, PCR Not Detected (NotDetected); Parainfluenza 4, PCR Not Detected (NotDetected)
[2024-12-29] MEDS: POTASSIUM CHLORIDE 20MEQ TAB 40 MEQ PO ×3 (13:45→20:42)
[2024-12-29 15:53] LABS: Parainfluenza 2, PCR Detected (NotDetected)
--- NOTE | 2024-12-29 18:25 | PC.NURSE ---
PT IS RESTING IN BED. ALERT AND ORIENTED X4. EATING AND DRINKING FAIR. PT AMBULATED TO THE BATHROOM WITH WALKER THIS SHIFT. SURGICAL INCISIONS WITH FAYE NOTED TO LLE. DRESSING CHANGED THIS SHIFT. SWELLING NOTED TO LLE. LUNG SOUNDS DIMINISHED WITH CRACKLES (BASES). ABDOMEN SOFT/NON TENDER WITH ACTIVE BOWEL SOUNDS. LAST BOWEL MOVEMENT THIS MORNING. O2 SATURATION HAS MAINTAINED 93-96% ON 2 L NC. WILL CONTINUE TO MONITOR.
[2024-12-29] MEDS: TOLTERODINE LA 2MG CAP.ER.24H 4 MG PO (20:42)
[2024-12-29] MEDS: QUETIAPINE 100MG TABLET 100 MG PO (20:43)
[2024-12-30] VITALS: BP 110/47; PULSE 84; RESP 17; TEMP 36.9
[2024-12-30 04:00] VITALS: BP 111/49; PULSE 88; RESP 16; TEMP 36.7; O2SAT 95; BMI 22.7
--- NOTE | 2024-12-30 04:23 | PC.NURSE ---
pt hs done well this shift. ra sat at rest and ambulating stays 91-94%. currently on 1l nc while sleeping for comfort. she has been doing well walking to the br with a walker and sb assist. rested well this shift. sb wihtin reach no needs at this time
[2024-12-30 07:13] LABS: Hematocrit 22.8 % (37.0-47.0); Hemoglobin 7.3 g/dL (12.2-16.2); Immature Granulocytes % 0.7 %; Mean Corpuscular HGB Conc 32.0 g/dL (31.8-35.4); Mean Corpuscular Hemoglobin 27.8 pg (27.0-31.2); Mean Corpuscular Volume 86.7 fl (81-99); Nucleated Red Blood Cells % 0 %; Platelet Count 236 K/mm3 (142-424); Red Blood Count 2.63 M/mm3 (4.20-5.40); Red Cell Distribution Width-SD 45.9 fL; White Blood Count 8.1 K/mm3 (4.8-10.8)
[2024-12-30 07:25] LABS: Chloride 105 mmol/L (98-107)
[2024-12-30 07:26] LABS: Albumin Level 2.6 g/dl (3.5-5.0); Potassium 4.6 mmoL/L (3.5-5.1); Sodium 135 mmol/L (136-145)
[2024-12-30 07:28] LABS: Blood Urea Nitrogen 8 mg/dl (7-17); Creatinine Clearance Estimated 54 mL/min (50-200); Creatinine,Serum 0.60 mg/dl (0.52-1.04); Estimated Glomerular Filt Rate 98 ml/min (>60); GFR (African American) 118 ML/MIN (>60)
[2024-12-30 07:29] LABS: Alanine Aminotransferase 60 U/L (12-78); Albumin/Globulin Ratio 1.2 (1.1-1.8); Alkaline Phosphatase 93 U/L (38-126); Anion Gap 8.6 mEq/L (5-15); Aspartate Amino Transferase 59 U/L (14-36); Bilirubin,Total 0.6 mg/dl (0.2-1.3); Calcium 8.4 mg/dl (8.4-10.2); Carbon Dioxide 26 mmol/L (22.0-30.0); Globulin 2.1 g/dL (1.3-3.2); Glucose 93 mg/dl (74-100); Total Protein,Serum 4.7 g/dl (6.3-8.2)
[2024-12-30 08:00] VITALS: BP 96/56; PULSE 91; RESP 18; TEMP 37.2; O2SAT 93
[2024-12-30] MEDS: AZITHROMYCIN 250MG TABLET 250 MG PO (08:50)
[2024-12-30] MEDS: LIPASE/PROTEASE/AMYLASE 1 EACH CAPSULE.DR 2 EACH PO ×2 (08:52→11:41)
[2024-12-30 12:00] VITALS: BP 116/48; PULSE 88; RESP 16; TEMP 36.8; O2SAT 94
[2024-12-30] MEDS: IPRATROPIUM/ALBUTEROL 3 ML NEB IH (12:43)
[2024-12-30 12:44] VITALS: PULSE 89; O2SAT 94
--- NOTE | 2024-12-30 14:59 | EXP.DC.SUM ---
General Admission date:: 12/29/24 HPI HPI HPI: Chary Chandra is a 74-year-old female with a medical history significant for recent left femoral fracture s/p ORIF at [facility] (discharged to home on 12/24/2024), pancreatic insufficiency, mood disorder, tardive dyskinesia presents with persistent urinary retention. Patient states after her discharge on 12/24/2024, she was doing well at home until last night when she started experiencing urinary retention which progressively became worse. She then presented to the ED. Denies fever/chills, constipation/diarrhea. Workup in the ED significant for hemoglobin 7.9, MCV 84, AST/ALT 87/79, UA grossly abnormal. Bladder scan showed > 500 cc. Thompson catheter was placed with appropriate urinary output. Additionally, patient was found to be hypoxic requiring 2 L during which CTA chest noted left lower lobe pneumonia. Given these findings, ED provider discussed case with me and decided to admit patient for acute hypoxic respiratory failure secondary to community-acquired pneumonia, urinary retention secondary to UTI. Hospital Course Hospital Course Hospital Course: Chary Chandra is a 74-year-old female with a medical history significant for recent left femoral fracture s/p ORIF at [facility] (discharged to home on 12/24/2024), pancreatic insufficiency, mood disorder, tardive dyskinesia presents with persistent urinary retention. Patient states after her discharge on 12/24/2024, she was doing well at home until last night when she started experiencing urinary retention which progressively became worse. She then presented to the ED. Denies fever/chills, constipation/diarrhea. Workup in the ED significant for hemoglobin 7.9, MCV 84, AST/ALT 87/79, UA grossly abnormal. Bladder scan showed > 500 cc. Thompson catheter was placed with appropriate urinary output. Additionally, patient was found to be hypoxic requiring 2 L during which CTA chest noted left lower lobe pneumonia. Given these findings, ED provider discussed case with me and decided to admit patient for acute hypoxic respiratory failure secondary to community-acquired pneumonia, urinary retention secondary to UTI. #Acute hypoxic respiratory failure, resolved #Community-acquired pneumonia #Parainfluenza 2 bronchitis ? Found to be hypoxic in the ED, requiring 2 L. CTA chest revealing left lower lobe mucoid impaction with consolidation. Respiratory panel positive for parainfluenza 2. ? Clinically improved with IV ceftriaxone, azithromycin. Transitioned to levofloxacin. ? Initially had diffuse wheezing, improved with DuoNebs. Respiratory panel did not show growth. ? WBC normal, no signs of sepsis. Patient feels better, weaned to room air. ? Discharged with levofloxacin 750 mg daily for 5 more days, and albuterol inhaler. No history of COPD, smoking. Will follow-up with PCP within 2 weeks. #UTI #Urinary retention resolved ? Presented with significant urinary retention, improved with appropriate urine output with Thompson catheter. Removed before discharge, patient having appropriate urine output. ? Discharged with levofloxacin 70 mg for 5 more days. Will follow-up and urine culture. #Mood disorder #Suspected tardive dyskinesia ? Continue home Seroquel, lamotrigine. ? Continue home valbenazine for suspected TD. #Left femoral fracture s/p ORIF ? Underwent ORIF at [facility] in the past week, discharged on 12/24/2024. ? Continue home oxycodone as needed for pain control. ? Follow-up with [facility] orthopedic surgery as scheduled. Exam Data for Last 24 hours Vital signs and Labs for Last 24 Hours: Temp Pulse Resp BP Pulse Ox O2 Del Method O2 Flow Rate 98.2 F 89 16 116/48 L 94 L Room Air 1 12/30/24 12:00 12/30/24 12:44 12/30/24 12:00 12/30/24 12:00 12/30/24 12:44 12/30/24 14:27 12/30/24 06:31 Laboratory Results - last 24 hr 12/29/24 10:11: Chlamy pneumoniae PCR Not detected, Adenovirus (PCR) Not detected, B. pertussis DNA (PCR) Not detected, Coronavirus OC43 (PCR) Not detected, Coronavirus HKU1 (PCR) Not detected, Coronavirus 229E (PCR) Not detected, SARS-CoV-2 (PCR) Not detected, Coronavirus NL63 (PCR) Not detected, Human Metapneumovir PCR Not detected, Influenza A (H1) PCR Not detected, Influ A (H1N1/09) PCR Not detected, Influenza A (H3) PCR Not detected, Influenza Type A (PCR) Not detected, Influenza Type B (PCR) Not detected, M. pneumoniae (PCR) Not detected, Parainfluenza 1 (PCR) Not detected, Parainfluenza 2 (PCR) Detected A, Parainfluenza 3 (PCR) Not detected, Parainfluenza 4 (PCR) Not detected, RSV (PCR) Not detected, Entero/Rhino (PCR) Not detected 12/30/24 06:50: WBC 8.1, RBC 2.63 L, Hgb 7.3 L, Hct 22.8 L, MCV 86.7, MCH 27.8, MCHC 32.0, RDW 14.6, Plt Count 236, MPV 8.0, Neut % (Auto) 83.1 H, Lymph % (Auto) 9.2 L, [place] % (Auto) 6.9, Eos % (Auto) 0.0 L, Baso % (Auto) 0.1, Neut # (Auto) 6.7, Lymph # (Auto) 0.7, [place] # (Auto) 0.6, Eos # (Auto) 0.0, Baso # (Auto) 0.0, Sodium 135 L, Potassium 4.6 D, Chloride 105, Carbon Dioxide 26, Anion Gap 8.6, BUN 8 D, Creatinine 0.60, Estimated Creat Clear 54, Estimated GFR 98, Est GFR ( Amer) 118, Glucose 93, Calcium 8.4, Total Bilirubin 0.6, AST 59 H D, ALT 60, Alkaline Phosphatase 93, Total Protein 4.7 L, Albumin 2.6 L D, Globulin 2.1, Albumin/Globulin Ratio 1.2 I & O for Last 24 hours: Intake & Output 12/27/24 12/28/24 12/29/24 12/30/24 23:59 23:59 23:59 23:59 Intake Total 2039 / 2039 720 / 720 Output Total 3450 / 3450 700 / 700 Balance -1410 / -1410 Weight 71.299 kg 69.626 kg Microbiology Reports for the Last 24 Hours: Microbiology 12/29/24 06:55 Urine,Clean Catch Urine Culture - Preliminary 12/29/24 06:02 Blood Blood Culture - Preliminary NO GROWTH AFTER 24 HOURS 12/29/24 14:24 Sputum - Expectorated Sputum Gram Stain - Final Constitutional Constitutional: no acute distress *Routine HEENT Exam Head: Present normocephalic Eye: Present EOMI and PERRL ENT: Present mucous membranes moist *Routine Neck Exam Neck: Present supple; Absent lymphadenopathy *Routine Respiratory Exam Respiratory: Present wheezes; Absent CTA bilaterally *Routine Cardiovascular Exam Cardiovascular: Present RRR *Routine Abdominal Exam Abdominal: Present soft and normoactive bowel sounds; Absent tenderness *Routine Extremities Exam Extremities: Absent cyanosis, clubbing or edema *Routine Skin Exam Skin: Present warm; Absent rash *Routine Neurological Exam Neurological: Present alert and oriented X3 Results Data Completed and Pending Labs on day of discharge: Labs from last 24 hours 12/30/24 12/29/24 06:50 10:11 WBC 8.1 RBC 2.63 L Hgb 7.3 L Hct 22.8 L MCV 86.7 MCH 27.8 MCHC 32.0 RDW 14.6 Plt Count 236 MPV 8.0 Neut % (Auto) 83.1 H Lymph % (Auto) 9.2 L [place] % (Auto) 6.9 Eos % (Auto) 0.0 L Baso % (Auto) 0.1 Neut # (Auto) 6.7 Lymph # (Auto) 0.7 [place] # (Auto) 0.6 Eos # (Auto) 0.0 Baso # (Auto) 0.0 Sodium 135 L Potassium 4.6 D Chloride 105 Carbon Dioxide 26 Anion Gap 8.6 BUN 8 D Creatinine 0.60 Estimated Creat Clear 54 Estimated GFR 98 Est GFR ( Amer) 118 Glucose 93 Calcium 8.4 Total Bilirubin 0.6 AST 59 H D ALT 60 Alkaline Phosphatase 93 Total Protein 4.7 L Albumin 2.6 L D Globulin 2.1 Albumin/Globulin Ratio 1.2 Chlamy pneumoniae PCR Not detected Adenovirus (PCR) Not detected B. pertussis DNA (PCR) Not detected Coronavirus OC43 (PCR) Not detected Coronavirus HKU1 (PCR) Not detected Coronavirus 229E (PCR) Not detected SARS-CoV-2 (PCR) Not detected Coronavirus NL63 (PCR) Not detected Human Metapneumovir PCR Not detected Influenza A (H1) PCR Not detected Influ A (H1N1/09) PCR Not detected Influenza A (H3) PCR Not detected Influenza Type A (PCR) Not detected Influenza Type B (PCR) Not detected M. pneumoniae (PCR) Not detected Parainfluenza 1 (PCR) Not detected Parainfluenza 2 (PCR) Detected A Parainfluenza 3 (PCR) Not detected Parainfluenza 4 (PCR) Not detected RSV (PCR) Not detected Entero/Rhino (PCR) Not detected Preliminary micro results at discharge 12/29/24 06:55 Urine Culture - Preliminary Urine,Clean Catch 12/29/24 06:02 Blood Culture - Preliminary Blood NO GROWTH AFTER 24 HOURS DS: Diagnosis Discharge Diagnosis (1) Pneumonia: Status: Acute Code(s): J18.9 - Pneumonia, unspecified organism (2) Acute UTI: Status: Acute Code(s): N39.0 - Urinary tract infection, site not specified (3) Fracture of left hip: Status: Acute Code(s): S72.002A - Fracture of unspecified part of neck of left femur, initial encounter for closed fracture Meds Home Medications and Allergies Home Medications ?Medication ?Instructions ?Recorded ?Confirmed ?Type quetiapine 100 mg tablet (Seroquel) 100 mg PO HS 12/07/21 12/29/24 History lamotrigine 100 mg tablet 100 mg PO BID 01/24/24 12/29/24 History solifenacin 10 mg tablet (Vesicare) 10 mg PO DAILY 01/24/24 12/29/24 History calcium polycarbophil 625 mg 1,250 mg PO DAILY 03/20/24 12/29/24 History tablet (FiberCon) acetaminophen 500 mg tablet 1,000 mg PO Q6H PRN Pain (Scale 12/29/24 12/29/24 History Score 1-3) calcium citrate 400 mg PO DAILY 12/29/24 12/29/24 History enoxaparin 40 mg/0.4 mL 40 mg SQ DAILY 12/29/24 12/29/24 History subcutaneous syringe tterbu-vczyxokd-[id number] 2 cap PO AC 12/29/24 12/29/24 History (pork)36,000-114,000-180k unit capsule,del rel (Creon) oxycodone 5 mg tablet 5 mg PO Q6H PRN Pain (Scale Score 12/29/24 12/29/24 History 4-6) senna-docusate sodium tablet 1 tab PO DAILY PRN Constipation 12/29/24 12/29/24 History albuterol sulfate 90 mcg/actuation 2 inh inhalation QID PRN shortness 12/30/24 Rx aerosol inhaler (Ventolin HFA) of breath or wheezing #8.5 grams levofloxacin 750 mg tablet 750 mg PO DAILY 5 days #5 tabs 12/30/24 Rx valbenazine 40 mg capsule 40 mg PO DAILY 12/30/24 12/30/24 History (Ingrezza) New Prescriptions to Start Prescriptions: albuterol sulfate [Ventolin HFA] Pravin Loera levofloxacin Pravin Loera Allergies Allergy/AdvReac Type Severity Reaction Status Date / Time No Known Allergies Allergy Verified 09/20/24 13:34 Discharge Plan Disposition Patient Disposition: Home, Self-Care Condition: Fair Follow up Plan Follow up with: Shayla Mitchell PA [Primary Care Provider, Medical] - 1 week Referral Note: please call for appointment Prescriptions/Medication Reconciliation: New levofloxacin 750 mg tablet 750 mg PO DAILY 5 Days Qty: 5 0RF albuterol sulfate [Ventolin HFA] 90 mcg/actuation HFA aerosol inhaler 2 inh inhalation QID PRN (Reason: shortness of breath or wheezing) Qty: 8.5 0RF Continued calcium polycarbophil [FiberCon] 625 mg tablet 1,250 mg PO DAILY quetiapine [Seroquel] 100 mg tablet 100 mg PO HS lamotrigine 100 mg tablet 100 mg PO BID solifenacin [Vesicare] 10 mg tablet 10 mg PO DAILY enoxaparin 40 mg/0.4 mL syringe 40 mg SQ DAILY Rx Instructions: 20 DAY SUPPLY FILLED 12/24/24. calcium citrate 200 mg (950 mg) Tablet 400 mg PO DAILY Creon 36,000-114,000- 180,000 unit capsule,delayed release(DR/EC) 2 cap PO AC Rx Instructions: Please take 2 capsules with your meals and 1 with snacks acetaminophen 500 mg Tablet 1,000 mg PO Q6H PRN (Reason: Pain (Scale Score 1-3)) oxycodone 5 mg tablet 5 mg PO Q6H PRN (Reason: Pain (Scale Score 4-6)) senna-docusate sodium Tablet 1 tab PO DAILY PRN (Reason: Constipation) Ingrezza 40 mg capsule 40 mg PO DAILY Problem Reconciliation Problems Reviewed?: Yes Patient Discharge Instructions Patient Instructions: DI for Pneumonia in Adults, DI for Urinary Tract Infection (UTI), DI for Hypoxia, Stop Light Pneumonia, Stop Light Infection Print Language: Slovak Providers Primary Care Provider: Shayla Mitchell Admit Provider: Pravin Loera Attending Provider: Pravin Loera
--- NOTE | 2024-12-30 15:48 | PC.NURSE ---
PT HAS VOIDED SINCE CATHETER WAS DC'D. O2 SATURATION HAS MAINTAINED 90-94% ON RA T/O THE SHIFT.
[2024-12-30 22:16] LABS: MRSA DNA PCR Negative (Negative)
--- NOTE | 2024-12-31 10:03 | PC.NURSE ---
prelim urine culture forwarded to the hospitalist as she was admitted.
--- NOTE | 2025-01-01 10:02 | SW/DCPLANNER ---
Phoned patient x2. Was unable to leave a message. Patient's phone just kept ringing. Esa Miller
--- NOTE | 2025-01-03 06:35 | PC.NURSE ---
Treated w Levofloxacin for UTI. Selina per Dr. Martinez
== END 2024-12-30 15:51 | disposition home or self-care (01) ==
LOC: ER 09:04 → 2ND 09:31
PROVIDERS: Student in an Organized Health Care Education/Training Program; Admitting Provider Student in an Organized Health Care Education/Training Program; Emergency Provider Emergency Medicine; PCP Physician Assistant; Visit Provider Student in an Organized Health Care Education/Training Program
DX: J12.2 Parainfluenza virus pneumonia (principal); N39.0 Urinary tract infection, site not specified; S72.002A Fracture of unspecified part of neck of left femur, initial encounter for closed fracture; F39 Unspecified mood [affective] disorder; Z98.1 Arthrodesis status; Z98.890 Other specified postprocedural states; Z79.899 Other long term (current) drug therapy; J18.9 Pneumonia, unspecified organism; I10 Essential (primary) hypertension; Z90.710 Acquired absence of both cervix and uterus; Z90.722 Acquired absence of ovaries, bilateral; Z96.651 Presence of right artificial knee joint; Z82.49 Family history of ischemic heart disease and other diseases of the circulatory system; R94.31 Abnormal electrocardiogram [ECG] [EKG]; I25.10 Atherosclerotic heart disease of native coronary artery without angina pectoris
CPT/HCPCS: 0223U; 51702; 71275; 74177; 80053; 80307; 80320; 81001; 82803; 83605; 83880; 84484; 85007; 85025; 85027; 85610; 85730; 87040; 87070; 87086; 87088; 87186; 87205; 87641; 89220; 93005; 94640; 96361; 96365; 96372; 97162; 99285; G0378; J0692; J1650; J7120; Q9967

== ENCOUNTER 2025-01-07 10:16 | Outpatient (CLI) | payer MEDICARE, SELFPAY ==
--- NOTE | 2025-01-07 10:23 | XR_ITS ---
FINAL REPORT CLINICAL HISTORY: PARAINFLUENZAL PNEUMONIA COMPARISON: 12/21/2024 FINDINGS: 2 views of the chest were obtained . The heart is normal in size. The mediastinum is within normal limits. The lungs are clear. There is no pneumothorax. Osseous structures are unremarkable. IMPRESSION: No acute cardiopulmonary process. Reviewed, Interpreted and Dictated by Camryn He MD Transcribed by Marianna Randle Authenticated and . [facility]
== END 2025-01-07 23:59 | disposition home or self-care (01) ==
LOC: RAD 10:17
PROVIDERS: PCP Physician Assistant; Visit Provider Physician Assistant
DX: J12.2 Parainfluenza virus pneumonia (principal)
CPT/HCPCS: 71046

== ENCOUNTER 2025-03-02 09:29 | Outpatient (CLI) | payer MEDICARE, SELFPAY | END 2025-03-02 23:59 | disposition home or self-care (01) | LOC: LAB.DROPOF 03-04 09:32 | PROVIDERS: PCP Physician Assistant; Visit Provider Nurse Practitioner Family | DX: N39.0 Urinary tract infection, site not specified (principal) | CPT/HCPCS: 87086 ==